=== PATIENT | female | born 1950 | race Caucasian/White ===

== ENCOUNTER 2019-11-22 22:33 | Inpatient (IN) | payer MEDICARE, OTHER, SELFPAY ==
[2019-11-22 22:34] VITALS: BP 131/108; PULSE 119; RESP 18; TEMP 36.6; O2SAT 97; BMI 26.4
--- NOTE | 2019-11-22 22:38 | ED.RN ---
CALLED FOR EKG PER RN REQUEST, PULLED OLD EKGS FOR
[2019-11-22 22:40] VITALS: PULSE 125; RESP 16; O2SAT 96
--- NOTE | 2019-11-22 22:47 | EKG12_ITS ---
Test Reason : DYSRHYTHMIA Blood Pressure : / mmHG Vent. Rate : 134 BPM Atrial Rate : 153 BPM P-R Int : 000 ms QRS Dur : 092 ms QT Int : 292 ms P-R-T Axes : 000 006 026 degrees QTc Int : 436 ms Atrial fibrillation with rapid ventricular response with premature ventricular or aberrantly conducte d complexes Nonspecific ST abnormality Abnormal ECG Confirmed by OMID LAM ([id number]), editor & co founder PHILIP MOURA ([id number]) on 11/24/2019 3:08:35 PM Referred By: RANJITH Confirmed By:OMID LAM
--- NOTE | 2019-11-22 22:48 | RAD_ITS ---
STUDY: X-RAY CHEST REASON FOR EXAM: Female, 68 years old. Palpitations TECHNIQUE: Portable chest. COMPARISON: 07/01/2015. FINDINGS: The lungs are clear and expanded. There is no demonstrated pleural abnormality. Normal size heart. Normal mediastinum and joann. Normal visualized pulmonary arteries. Normal visualized aortic arch and descending thoracic aorta. Mild thoracic spondylosis. Soft tissues are unremarkable. RAD/Chest 1 View (Portable) IMPRESSION: No acute findings. Electronically Signed: Julianne Monroe MD at 23:00 EST Tel , Service support ,
--- NOTE | 2019-11-22 22:48 | ED.DCSUM_ITS ---
History of Present Illness Chief Complaint: Palpitations Informant: Patient Onset: Today Narrative: Resents with palpitations for the last 8 hours. She felt fine prior to this. She feels her heart beating fast and erratically. No history of atrial fibrillation. History of premature atrial contractions but nothing sustained in the past. Does have a history of coronary artery disease status post 1 stent in the LAD remotely. She stated when it came on she had chest discomfort for 30 minutes substernal chest aching that went away after 1 nitroglycerin at that time. She has not had discomfort since then. She denies any other symptoms including shortness of breath nausea or diaphoresis. She came in because of the palpitations currently. Patient does take a daily aspirin. Current severity is moderate. Worsened by nothing. Relieved by nothing. It is been sustained. - Past Medical History (1) Chest pain at rest Status: Acute (2) Coronary artery disease Status: Acute (3) Heart palpitations Status: Acute (4) COPD (chronic obstructive pulmonary disease) Status: Chronic (5) Tobacco abuse Status: Chronic Past Medical History - Allergies and Home Meds Allergies/Adverse Reactions: Allergies No Known Allergies Allergy (Verified 11/22/19 22:38) Primary Care Physician: Khadijah Green MD [Primary Care Provider] - Prior records reviewed: Yes Past Medical History: - - See problem list Surgical History: - - Pilonidal cyst removal, ORIF of left elbow, cardiac stent Lives: With Family Smoking Status: Current every day smoker Alcohol: None Drugs: None - Family History Paternal Family History: Reports: No pertinent history Maternal Family History: Reports: No pertinent history Review of Systems General: Denies: Chills, Fever, Sweats Eyes: Denies: Visual changes - bilaterally, Diplopia ENT: Denies: Rhinorrhea, Sore throat Cardiovascular: Reports: Chest pain, Palpitations, Heart racing Respiratory: Denies: Dyspnea, Cough, Dyspnea on exertion Gastrointestinal: Denies: Abdominal pain, Nausea, Vomiting, Diarrhea, Melena, Hematochezia Genitourinary: Denies: Dysuria, Hematuria, Frequency Musculoskeletal: Denies: Back pain, Extremity Pain Skin: Denies: Rash, Wounds Neurological: Denies: Headache, Weakness, Numbness Physical Exam Vital Signs/Narrative: Vital Signs Temp Pulse Resp BP Pulse Ox 11/22/19 22:40 125 H 16 96 11/22/19 22:34 97.8 F 119 H 18 131/108 H 97 General: Well nourished, Well developed, No Acute Distress Head: Normocephalic, Atraumatic Eyes: Perrl, EOMI ENT: Moist mucous membranes, No rhinorrhea Neck: Supple, Nontender Cardiovascular: No murmurs, Irregular, Tachycardia. Negative for: Regular rate, Regular rhythm Respiratory: No distress, CTA bilaterally, Chest nontender Abdomen: Soft, Nontender, Nondistended, Normal bowel sounds Back: Nontender, Normal Inspection Extremities: Nontender, No edema Skin: Normal color, No rash Neurological: Alert, Oriented x3, Cranial nerves II-XII grossly intact, Normal Strength, Normal Sensation Psychological: Normal affect, Normal Mood Diagnostic/Tx/Re-eval - Medical Decision Making EKG obtained shows atrial fibrillation with rapid ventricular response at a rate of 134. No STEMI noted. Positive PVC x2. Patient given IV Cardizem to slow her rate. Lab work and chest x-ray obtained. Chest x-ray negative. Lab work shows normal CBC. Troponin negative. No acute electrolyte abnormalities. TSH normal. Patient felt better after treatment. Heart rate came down in the 60s to 80s. She remains in A. fib. Discussed with the hospitalist. She will be admitted for further evaluation and treatment - Critical Care Time Critical care time (excluding procedures): 30-74 minutes ED Disposition - Plan for ED Patient: Disposition: Acute Care Hospital [facility] Diagnosis: Atrial fibrillation with rapid ventricular response
[2019-11-22] MEDS: dilTIAZem 25 MG/5 ML Vial 20 MG IV BOLUS (22:57)
[2019-11-22 22:59] LABS: Absolute Lymphocyte Count 2.69 X10^3/uL (0.83-4.51); Absolute Neutrophil Count 4.3 X10^3/uL (2.0-7.7); Basophil# 0.03 X10^3/uL; Basophil% 0.4 % (0-1); Eosinophil# 0.06 X10^3/uL; Eosinophils% 0.8 % (0-5); Hematocrit 43.2 % (37-47); Hemoglobin 14.7 g/dL (12.0-15.0); Lymphocyte # 2.69 X10^3/ul (4.0); Lymphocyte % 35.5 % (19-41); Mean Corpuscular Hgb 35.5 pg (27.0-32.0); Mean Corpuscular Volume 104.3 fL (81-99); Mean Platelet Vol. 9.5 fl (6.2-12.0); Monocyte% 6.6 % (0-10); NRBC Flagged by Analyzer 0 % (0-5); Neutrophil # 4.28 X10^3/uL (2.7-7.7); Neutrophil % 56.4 % (47-70); Platelet Count 187 K/mm3 (150-450); RBC Distribution Width CV 12.8 % (11.6-14.6); RBC Distribution Width SD 48.7 fl (35.1-43.9); Red Blood Count 4.14 M/mm3 (4.2-5.4); White Blood Count 7.6 K/mm3 (4.4-11.0)
[2019-11-22 23:00] VITALS: BP 127/76; PULSE 91; RESP 16; O2SAT 94
[2019-11-22 23:04] LABS: Prothrombin Time (Protime)PT. 13.2 SECONDS (11.7-14.9)
[2019-11-22 23:05] LABS: Partial Thromboplast Time 28.7 Seconds (24.1-36.2)
[2019-11-22 23:23] LABS: Anion Gap 8 (5-15); BUN 16 mg/dL (7-18); BUN/Creat Ratio 17.1 RATIO (10-20); Calcium,Total 9.5 mg/dL (8.5-10.1); Chloride 103 mmol/L (98-107); Creatinine, Serum 0.93 mg/dL (0.55-1.02); EST Glomerular Filtration Rate 64 mL/min (>60); Est Glom Filt Rate - Afr Amer 77 mL/min (>60); Estimated Creatinine Clearance 60.03 ml/min; Glucose 162 mg/dL (74-106); Potassium 3.6 mmol/L (3.5-5.1); Sodium Level 140 mmol/L (136-145); Thyroid Stim Hormone (TSH) 2.18 uIU/mL (0.358-3.74)
[2019-11-22 23:41] VITALS: BP 95/63; PULSE 83; RESP 16; O2SAT 94
--- NOTE | 2019-11-22 23:42 | HP.PCM_ITS ---
Problem List (1) Atrial fibrillation with rapid ventricular response Status: Acute (2) Chest pain at rest Status: Acute (3) Hyperglycemia Status: Acute (4) HTN (hypertension) Status: Chronic Qualifiers: Hypertension type: essential hypertension Qualified Code(s): I10 - Essential (primary) hypertension (5) HLD (hyperlipidemia) Status: Chronic Qualifiers: Hyperlipidemia type: unspecified Qualified Code(s): E78.5 - Hyperlipidemia, unspecified (6) Coronary artery disease Status: Chronic Qualifiers: Coronary Disease-Associated Artery/Lesion type: unspecified vessel or lesion type [place] vs. transplanted heart: unspecified whether false pass or transplanted heart Associated angina: angina presence unspecified Qualified Code(s): I25.10 - Atherosclerotic heart disease of false pass coronary artery without angina pectoris (7) COPD (chronic obstructive pulmonary disease) Status: Chronic Qualifiers: COPD type: unspecified COPD Qualified Code(s): J44.9 - Chronic obstructive pulmonary disease, unspecified (8) Tobacco abuse Status: Chronic History of Present Illness Date of Admission: 11/22/19 Chief Complaint: Palpitations, chest pressure The patient is a 68 y/o F w/ PMHx: CAD s/p PCI LAD, HTN, HLD, Chronic COPD, Tobacco use who presents to the [facility] ED on 11/22/19 with history of onset at ~ 3 pm, ongoing racing heart sensation, palpitations with initial chest pressure, diffuse sensation with self administration NG with resolution completely following but ongoing sensation prompting ED presentation. Noted the chest pressure was midsternal with no specific radiation with dyspnea sensation with no nausea, emesis associated, rated 4-5 out of 10 in severity with onset and patient currently notes 0 out of 10 work-up in the ED included T 97.8, heart rate varying from 90-1 25, BP 131/108 initially with improvement to 127/76, respiratory rate 18, 97% on room air, CBC with WC 7.6, hemoglobin 14.7, platelet 187 without shift, unremarkable coags, unremarkable BMP aside glucose 162, troponin less than 0.015, TSH 2.18, EKG with atrial fibrillation with RVR. In the ED patient ministered Cardizem 20 mg IV bolus x1 with improvement of rate but ongoing atrial fibrillation. Past Medical History Past Medical History (Chronic Problems): Chronic Problems HTN (hypertension) (Chronic) HLD (hyperlipidemia) (Chronic) COPD (chronic obstructive pulmonary disease) (Chronic) Tobacco abuse (Chronic) Coronary artery disease (Chronic) Allergies No Known Allergies Allergy (Verified 11/22/19 22:38) Home Medications: Ambulatory Orders Medication Instructions Recorded Albuterol IH (ProAir) [Proair Hfa] 2 puff INHALATION Q4H PRN PRN 07/01/15 Aspirin E.C. [Ecotrin] 81 mg DAILY 07/01/15 Atorvastatin Calcium [Lipitor] 40 mg PO QHS 07/01/15 Guaifenesin/Codeine [Robitussin AC] 5 - 10 ml PO Q6H PRN PRN 07/01/15 Hydrocodone Bitart/Apap 5-325 1 - 2 tablet PO TID PRN PRN 07/01/15 [[place] 5/325] Nitroglycerin (INPATIENT USE) 0.4 mg SUBLINGUAL Q5M PRN 07/01/15 [Nitrostat] Metoprolol Tartrate [Lopressor 37.5 mg PO BID #45 tablet 07/02/15 (beta jasen)] Lisinopril [Zestril] 1 tab PO DAILY 11/22/19 Surgical History: - - Pilonidal cyst removal, ORIF of left elbow with hardware, PCI LAD x1, left ankle surgery with hardware. 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 Tobacco Use: Cigarettes Alcohol: None, Occasional Drugs: None - Previously listed as using marijuana, notes she has not been for several months. - *Family History Paternal History Items: Unknown - Patient states she does not know her paternal family history. Maternal History Items: - - Patient notes that her mother was relatively healthy and declined following falls with fractures but denies any heart disease, diabetes or cancer history. Review of Systems Constitutional: Reports: Malaise, Weakness, Fatigue. Denies: Chills, Fever, Weight Change HEENT: Denies: Head Aches, Sinus Congestion, Sinus Drainage Cardiovascular: Reports: Chest Pain, Chest Pressure, Palpitations. Denies: Light Headedness, Orthopnea, Paroxysmal Noc. Dyspnea, Syncope Respiratory: Reports: Shortness of Breath. Denies: Cough, Shortness of breath at rest, Shortness of breath upon exertion, Sputum production Gastrointestinal: Denies: Abdominal Pain, Nausea, Vomiting Genitourinary: Denies: Dysuria Musculoskeletal: Reports: Joint Pain. Denies: Joint Tenderness Skin: Denies: Rash, Wounds Neurological: Denies: Numbness, Tingling, Focal weakness Psychiatric: Denies: Anxiety, Depression, Homicidal Ideations, Suicidal Ideations Hematologic/ Lymphatic: Denies: Easy Bruising, Easy Bleeding VTE Information - Inpt Only VTE Present on Admission: No VTE Mechan Device Prophylaxis: SCD's VTE Pharm Prophylaxis ordered?: Yes Subjective: Seated upright in the ED bed, fatigued appearance, no acute distress, denies any current chest pressure. Objective: Physical Examination: General: awake, alert, oriented x 3 and cooperative, seated upright in the ED bed in no apparent distress, denies any current chest pressure. Skin: normal color, turgor, no icterus, cyanosis. HEENT: AT/NC, EOMI, PERRLA, MMM, no carotid bruits or JVD noted. Lungs: Diminished breath sounds, greater bilateral bases, moderate effort, no rales, ronchi or wheezing. Heart: Irregular irregular; no gallop, rub audible. Abdomen: soft, NTTP, ND, normal BS, no HSM. Extremities: no cyanosis, clubbing, or edema. Neurological: patient awake, alert, oriented x 3; cognitive function intact; pupils equally reactive to light and accomodation; cranial nerves II-XII grossly normal, moving all 4 extremities, no focal deficits, strength moderately global decrease secondary to acute presentation. Psychiatric: affect appears fatigued otherwise normal, no acute evidence of depressive or anxiety feelings. - Physical Exam Vitals/I&O's: Vital Signs Temp Pulse Resp BP Pulse Ox 97.8 F 83 16 95/63 94 11/22/19 22:34 11/22/19 23:41 11/22/19 23:41 11/22/19 23:41 11/22/19 23:41 Oxygen Delivery Method Room Air Weight: 173 lb 8.061 oz Body Mass Index (BMI) 26.4 Laboratory Results 11/22/19 22:42: WBC 7.6, RBC 4.14 L, Hgb 14.7, Hct 43.2, MCV 104.3 H, MCH 35.5 H , MCHC 34.0, RDW Std Deviation 48.7 H, RDW Coeff of Jose L 12.8, Plt Count 187, MPV 9.5, Immature Gran % (Auto) 0.300, Neut % (Auto) 56.4, Lymph % (Auto) 35.5, [place] % (Auto) 6.6, Eos % (Auto) 0.8, Baso % (Auto) 0.4, Absolute Neuts (auto) 4.3, Absolute Lymphs (auto) 2.69, Nucleated RBC % 0 11/22/19 22:42: PT 13.2, INR 1.0, APTT 28.7 11/22/19 22:42: Sodium 140, Potassium 3.6, Chloride 103, Carbon Dioxide 29.0, Anion Gap 8, BUN 16, Creatinine 0.93, Estim Creat Clear Calc 60.03, Est GFR (MDRD) Af Amer 77, Est GFR (MDRD) Non-Af 64, BUN/Creatinine Ratio 17.1, Glucose 162 H, Calcium 9.5, Troponin I < 0.015, TSH 2.18 Assessment/Plan All Active Problems Atrial fibrillation with rapid ventricular response (Acute) Hyperglycemia (Acute) Chest pain at rest (Acute) Heart palpitations (Acute) The patient is a 68 y/o F w/ PMHx: CAD s/p PCI LAD, HTN, HLD, Chronic COPD, Tobacco use who presents to the [facility] ED on 11/22/19 with history of onset at ~ 3 pm, ongoing racing heart sensation, palpitations with initial chest pressure, diffuse sensation with self administration NG with resolution completely following. 1. New onset, Paroxsymal atrial fibrillation with chest pressure: EKG in ED w/ atrial fibrillation w/ RVR. Patient administered Cardizem bolus 20 mg IV x1 in ED. Will admit to PCU, maintain on telemetry, obtain cardiac enzyme serial set, obtain magnesium level, obtain ECHO, ED already noted normal TSH level. CHADs scoring appropriate for anticoagulation start at this time w/ lovenox pending evaluation for oral options as well as cardiology evaluation. Will continue patient's home metoprolol regimen with dose now but if ongoing increased rate may need to consider transition to Cardizem drip. 2. Hyperglycemia, admission glucose 162, will obtain hemoglobin A1c with transition to ADA diet with Accu-Cheks with sliding scale with nutrition education if clinically appropriate. 3. CAD: s/p PCI LAD, continue home aspirin, statin, metoprolol with increase as noted, lisinopril regimen. 4. Hypertension: Continue home regimen including metoprolol however increased from home regimen, lisinopril, PRN hydralazine. 5. Hyperlipidemia: Continue home statin regimen. AM FLP. 6. Chronic COPD: Not on scheduled inhalers, given acute presentation as noted in #1 we will maintain on as needed albuterol only, encourage head of bed, I-S, tobacco cessation. 7. Tobacco Abuse: Encouraged cessation, inpatient consultation per RT, NR if desired. 8. DVT prophylaxis: SCDs, therapeutic Lovenox pending evaluation of oral regim ens for cost. Code Visit Inpatient E&M: [id number] Init Hosp L3
[2019-11-22 23:56] VITALS: BP 111/66; PULSE 75; RESP 18; O2SAT 94
[2019-11-23] VITALS (15 sets, daily range): BP systolic 120–139; BP diastolic 60–82; PULSE 72–96; RESP 16–26; TEMP 36.9–37.1; O2SAT 91–97; BMI 25.7
--- NOTE | 2019-11-23 00:15 | ECHOD_ITS ---
Reason For Study: NEW ONSET ATRIAL FIB-FLUTTER Procedure This was a 2D Doppler, Color Flow transthoracic echocardiogram. Exam performed portable in patient room. Left Ventricle Normal size and thickness. The estimated ejection fraction is 65 %. Stage 1 diastolic dysfunction. No regional wall motion abnormalities noted. Right Ventricle Normal size and thickness. Normal systolic function. Atria Normal left atrium. Normal right atrium. Normal atrial septum. Mitral Valve The mitral valve is structurally normal. No prolapse or stenosis seen. Tricuspid Valve Normal tricuspid valve. Unable to estimate RV systolic pressure due to insufficient tricuspid regurgitant envelope. Aortic Valve Normal aortic valve. Trisinus/trileaflet aortic valve. Pulmonic Valve Normal pulmonic valve. Trivial pulmonic valve insufficiency. Great Vessels Normal aortic root. Mild atherosclerosis of the aortic arch. Normal inferior vena cava. Inferior vena cava collapse with sniff. Pericardium/Pleural No pericardial effusion. MMode/2D Measurements & Calculations LVIDd: 4.6 cm IVSd: 0.82 cm Ao root diam: 3.1 cm LVIDs: 3.1 cm LVPWd: 0.95 cm RVDd: 2.9 cm FS: 31.8 % LAV(MOD-bp): 45.6 ml LVAd ap4: 28.0 cm2 SV(MOD-sp4): 58.7 ml LAV(MOD-bp) Indexed: 24.0 ml/m2 EDV(MOD-sp4): 89.7 ml LAV(MOD-sp2): 59.5 ml EDV(sp4-el): 93.6 ml LAV(MOD-sp4): 34.2 ml LVAs ap4: 14.7 cm2 ESV(MOD-sp4): 30.9 ml ESV(sp4-el): 31.3 ml EF(MOD-sp4): 65.5 % EF(sp4-el): 66.6 % SV(sp4-el): 62.3 ml LA A4 area: 14.1 cm2 LA dimension(2D): 3.5 cm RA A4 area: 13.9 cm2 Time Measurements MV dec time: 0.25 sec Doppler Measurements & Calculations MV E max len: 72.9 cm/sec Lat Peak E' Len: 9.1 cm/sec Med Peak E' Len: 8.2 cm/sec MV A max len: 92.3 cm/sec E/E' lat: 8.1 E/E' med: 8.9 MV E/A: 0.79 Ao V2 max: 124.3 cm/sec LV V1 max: 113.9 cm/sec PA V2 max: 92.2 cm/sec Ao max P.2 mmHg LV V1 max P.2 mmHg Interpretation Summary The estimated ejection fraction is 65 %. Stage 1 diastolic dysfunction. Unable to estimate RV systolic pressure due to insufficient tricuspid regurgitant envelope. Pt appears to be in NSR. Ordering Physician: Luzma Brothers Referring Physician: STEVIE DUMAS Performed By: Gail Garibay RDCS
[2019-11-23] MEDS: Enoxaparin 80 MG/0.8 ML Syringe SC ×2 (00:38→08:31)
[2019-11-23 00:43] LABS: Magnesium 1.4 mg/dL (1.6-2.6)
[2019-11-23 00:58] LABS: Hemoglobin A1c 5.5 % (4.2-6.3)
[2019-11-23 05:08] LABS: Absolute Lymphocyte Count 2.08 X10^3/uL (0.83-4.51); Absolute Neutrophil Count 2.6 X10^3/uL (2.0-7.7); Basophil# 0.02 X10^3/uL; Basophil% 0.4 % (0-1); Eosinophil# 0.09 X10^3/uL; Eosinophils% 1.7 % (0-5); Hematocrit 36.5 % (37-47); Hemoglobin 12.2 g/dL (12.0-15.0); Lymphocyte # 2.08 X10^3/ul (4.0); Lymphocyte % 39.3 % (19-41); Mean Corp Hgb Conc 33.4 g/dL (32-36); Mean Corpuscular Hgb 34.6 pg (27.0-32.0); Mean Corpuscular Volume 103.4 fL (81-99); Mean Platelet Vol. 9.4 fl (6.2-12.0); Monocyte# 0.51 X10^3/uL; Monocyte% 9.6 % (0-10); NRBC Flagged by Analyzer 0 % (0-5); Neutrophil # 2.59 X10^3/uL (2.7-7.7); Platelet Count 139 K/mm3 (150-450); RBC Distribution Width SD 49.3 fl (35.1-43.9); Red Blood Count 3.53 M/mm3 (4.2-5.4); White Blood Count 5.3 K/mm3 (4.4-11.0)
[2019-11-23 05:37] LABS: Anion Gap 6 (5-15); BUN 13 mg/dL (7-18); BUN/Creat Ratio 22.5 RATIO (10-20); Calcium,Total 8.7 mg/dL (8.5-10.1); Chloride 104 mmol/L (98-107); Cholesterol 153 mg/dL (200); Creatinine, Serum 0.58 mg/dL (0.55-1.02); EST Glomerular Filtration Rate 111 mL/min (>60); Est Glom Filt Rate - Afr Amer 134 mL/min (>60); Estimated Creatinine Clearance 55.82 ml/min; Glucose 100 mg/dL (74-106); High Density Lipoprotein 52 mg/dL; Potassium 3.2 mmol/L (3.5-5.1); Sodium Level 138 mmol/L (136-145); Triglycerides 226 mg/dL; Very Low Density Lipoprotein 45 mg/dL (5-40)
--- NOTE | 2019-11-23 05:55 | EKG12_ITS ---
Test Reason : AM Blood Pressure : / mmHG Vent. Rate : 079 BPM Atrial Rate : 079 BPM P-R Int : 160 ms QRS Dur : 090 ms QT Int : 410 ms P-R-T Axes : 020 -06 006 degrees QTc Int : 470 ms Normal sinus rhythm Normal ECG When compared with ECG of 02-JUL-2015 16:11, No significant change was found Confirmed by OMID LAM ([id number]), editor index EVANGELINA ENRIQUE ([id number]) on 11/25/2019 1:31:59 PM Referred By: SUNSHINE Confirmed By:OMID LAM
[2019-11-23] MEDS: Lisinopril 2.5 MG Tablet PO (08:30)
[2019-11-23] MEDS: Aspirin E.C. 81 MG Tablet PO (08:30)
[2019-11-23] MEDS: Famotidine 20 MG Tablet PO (08:30)
[2019-11-23] MEDS: Metoprolol Tartrate 100 MG Tablet PO (08:30)
[2019-11-23 10:34] LABS: Phosphorus 2.6 mg/dL (2.5-4.9)
--- NOTE | 2019-11-23 10:35 | CASEMGMT ---
RN ZANDRA ADVISOR TO COMMAND IN COMBAT CM to room to meet with patient for initial transition planning/care coordination assessment. JODI DE PAZ introduced self and role at [facility]. Pt voices understanding and consents to assessment at this time. Pt resting in bed in no distress at this time. Pt is A/O at this time and answers all questions appropriately. Care providers, pharmacy, and demographics verified/updated at this time. PCP: Dr Green Specialists: None Preferred Pharmacy: [facility] Insurance: MCR A & B, Other Commercial Prescription Benefit: [facility] has prescription benefit but changed it in 2020 and does not remember who she changed it to and has not received a new RX card yet Living Will/HPOA: [facility] does not have LW or HCPOA . Interested in more information but states does not want to talk with SW at this time to complete paperwork. Provided information on advanced directives and given Social Service rac card with number to call if chooses in the future to utilize [facility] social work for advanced directive completion. LNOK: , 4 adult children Living Arrangements: Lives with her . Independent Transportation: Pt states drives self and states no transportation concerns at this time. will take her home @ discharge DME: Denies using any DME and denies needs. HHC/SNF: No history of either Pt wishes to return home and states has no concerns with going home at time of discharge. CM to follow for any discharge planning/needs. Pt voices no further concerns/needs at this time. Advised pt to ask for CM if any further questions/concerns/needs arise. Voices understanding. PLAN: Home Javi GALO RN, CM
[2019-11-23] MEDS: Magnesium Sulfate 4gm/100mL 4 GM/100 ML IV.SOLN. IV (12:08)
--- NOTE | 2019-11-23 14:34 | DCINST_ITS ---
- Discharge Diagnoses Current Active Problems: Current Active and Chronic Problems Atrial fibrillation with rapid ventricular response (Acute) You will use the following diet at home:: Cardiac Your food should be the consistency of: Regular Your liquids should be the consistency of: Regular/Thin Discharge Activity: Return to Normal Activity Call your doctor if you observe: Fever of 101 or Higher, Shortness of breath, Dizziness, Fainting spells, Swelling in the ankles, Chest pain, Increased palpitations (irregular heartbeat) Allergies/Adverse Reactions: Allergies No Known Allergies Allergy (Verified 11/22/19 22:38) Medications to take at Discharge Albuterol IH (ProAir) [Proair Hfa] 2 puff INHALATION Q4H PRN PRN 07/01/15 Aspirin E.C. [Ecotrin] 81 mg DAILY 07/01/15 Atorvastatin Calcium [Lipitor] 40 mg PO QHS 07/01/15 Guaifenesin/Codeine [Robitussin AC] 5 - 10 ml PO Q6H PRN PRN 07/01/15 Hydrocodone Bitart/Apap 5-325 [[place] 5/325] 1 - 2 tablet PO TID PRN PRN 07/01/15 Nitroglycerin (INPATIENT USE) [Nitrostat] 0.4 mg SUBLINGUAL Q5M PRN 07/01/15 Metoprolol Tartrate [Lopressor (beta jasen)] 37.5 mg PO BID #45 tablet 07/02/15 Lisinopril [Zestril] 1 tab PO DAILY 11/22/19 Apixaban [Eliquis] 5 mg PO BID #60 tab 11/23/19 Metoprolol Tartrate [Lopressor (beta jasen)] 100 mg PO BID #60 tab 11/23/19 The following prescriptions were given: Apixaban [Eliquis] 5 mg PO BID #60 tab Transmission Status: Pending to [facility] Metoprolol Tartrate [Lopressor (beta jasen)] 100 mg PO BID #60 tab Transmission Status: Pending to [facility] Primary Care Physician: Khadijah Green MD [Primary Care Provider] - Please follow up with your Primary Care Physician in: 3-5 days Test Results: Test results from this visit will be discussed in further detail at your follow- up appointment, if applicable. Please Follow Up With: Vidal Montemayor MD When: 2-4 weeks
--- NOTE | 2019-11-23 14:35 | PCM.DC.SUM ---
Discharge Date and Diagnosis - Problem List Patient Problems: Active and Suspected Problems Atrial fibrillation with rapid ventricular response (Acute) Date of Admission: 11/22/19 Date of Discharge: 11/23/19 - Primary Discharge Diagnosis Active and Suspected Problems Atrial fibrillation with rapid ventricular response (Acute) - Secondary Discharge Diagnosis Chronic Problems HTN (hypertension) (Chronic) HLD (hyperlipidemia) (Chronic) COPD (chronic obstructive pulmonary disease) (Chronic) Tobacco abuse (Chronic) Coronary artery disease (Chronic) Hospital Course and Treatment Imaging Results: Echo: Interpretation Summary The estimated ejection fraction is 65 %. Stage 1 diastolic dysfunction. Unable to estimate RV systolic pressure due to insufficient tricuspid regurgitant envelope. Pt appears to be in NSR. CXR: IMPRESSION: No acute findings. Consults: None Operations: None Procedures: 2-D Echocardiogram Summary of Care Provided: Per HPI: The patient is a 68 y/o F w/ PMHx: CAD s/p PCI LAD, HTN, HLD, Chronic COPD, Tobacco use who presents to the [facility] ED on 11/22/19 with history of onset at ~ 3 pm, ongoing racing heart sensation, palpitations with initial chest pressure, diffuse sensation with self administration NG with resolution completely following but ongoing sensation prompting ED presentation. Noted the chest pressure was midsternal with no specific radiation with dyspnea sensation with no nausea, emesis associated, rated 4-5 out of 10 in severity with onset and patient currently notes 0 out of 10 work-up in the ED included T 97.8, heart rate varying from 90-1 25, BP 131/108 initially with improvement to 127/76, respiratory rate 18, 97% on room air, CBC with WC 7.6, hemoglobin 14.7, platelet 187 without shift, unremarkable coags, unremarkable BMP aside glucose 162, troponin less than 0.015, TSH 2.18, EKG with atrial fibrillation with RVR. In the ED patient ministered Cardizem 20 mg IV bolus x1 with improvement of rate but ongoing atrial fibrillation. Hospital Course: 1. New onset A. fib with RVR/CAD status post stent/HTN/[id number]fe-old female who presented to the hospital with initial chest pressure secondary to palpitations. She did have resolution of her chest pressure initially with nitroglycerin administration. She was given a dose of Cardizem in the ER and her metoprolol was increased from 75 twice daily to 100 twice daily. She did convert to normal normal sinus rhythm in the morning and had complete resolution of her symptoms and the sensation of her palpitations. Her EKG was borderline to my review, she does have a history of COPD, though she is not on any inhalers, and there is a possibility that this is multifocal atrial tachycardia. However given the risk with her age and gender and her history of hypertension, that she she has a chads score consistent with the need for anticoagulation. I will proceed with Eliquis 5 mg p.o. twice daily and have her follow-up with cardiology in 2 to 4 weeks. She did have a normal TSH and an echo which was unremarkable. Since she is also converted to normal sinus she is okay for discharge. I did discuss the plan for discharge with her and she expressed understanding of the risks and benefits of going home. She will continue with all of her home medications including her aspirin, will when she follows up with cardiology did have a discussion on whether or not she needs to discontinue the aspirin. 2. Other medical diagnoses were evaluated and her home medications were continued where appropriate Patient Problems: Active and Suspected Problems Atrial fibrillation with rapid ventricular response (Acute) - Physical Exam Vitals/I&O's: Vital Signs Temp Pulse Resp BP Pulse Ox 98.8 F 79 16 125/70 H 93 11/23/19 14:29 11/23/19 14:29 11/23/19 14:29 11/23/19 14:29 11/23/19 14:29 Oxygen Flow Rate (L/min) 2 Oxygen Delivery Method Room Air Weight: 169 lb 1.513 oz Body Mass Index (BMI) 25.7 Intake and Output for Last 24 Hours 11/21/19 11/22/19 11/23/19 23:59 23:59 23:59 Intake Total 510 / 510 Balance 510 / 510 General: Alert, Oriented x3, Cooperative, No apparent distress HEENT: Atraumatic, PERRLA, EOMI, Normocephalic Oral: Moist Mucosa Neck: Supple, No JVD Lungs: Clear to auscultation, Normal air movement, No rhonchi, No wheeze, No rales Cardiovascular: Regular rate, Regular Rhythm, Normal S1, Normal S2, No murmurs Abdomen: Soft, Non Tender, Non-Distended, No Hepato-splenomegaly Extremities: No edema, Capillary Refill Less than 3 Seconds Skin: No rashes, No breakdown Neurological: Neuro grossly intact, Sensory exam intact to light touch and pain Psych/Mental Status: Normal Affect, Appropriate Laboratory Results 11/22/19 22:42: WBC 7.6, RBC 4.14 L, Hgb 14.7, Hct 43.2, MCV 104.3 H, MCH 35.5 H, MCHC 34.0, RDW Std Deviation 48.7 H, RDW Coeff of Jos El 12.8, Plt Count 187, MPV 9.5, Immature Gran % (Auto) 0.300, Neut % (Auto) 56.4, Lymph % (Auto) 35.5, [place] % (Auto) 6.6, Eos % (Auto) 0.8, Baso % (Auto) 0.4, Absolute Neuts (auto) 4.3, Absolute Lymphs (auto) 2.69, Nucleated RBC % 0 11/22/19 22:42: PT 13.2, INR 1.0, APTT 28.7 11/22/19 22:42: Sodium 140, Potassium 3.6, Chloride 103, Carbon Dioxide 29.0, Anion Gap 8, BUN 16, Creatinine 0.93, Estim Creat Clear Calc 60.03, Est GFR (MDRD) Af Amer 77, Est GFR (MDRD) Non-Af 64, BUN/Creatinine Ratio 17.1, Glucose 162 H, Calcium 9.5, Troponin I < 0.015, TSH 2.18 11/22/19 23:02: Magnesium 1.4 L 11/22/19 23:02: Hemoglobin A1c 5.5 11/23/19 02:09: Troponin I < 0.015 11/23/19 05:00: WBC 5.3, RBC 3.53 L, Hgb 12.2, Hct 36.5 L, MCV 103.4 H, MCH 34.6 H, MCHC 33.4, RDW Std Deviation 49.3 H, RDW Coeff of Jose L 13.0, Plt Count 139 L, MPV 9.4, Immature Gran % (Auto) 0.000, Neut % (Auto) 49.0, Lymph % (Auto) 39.3, [place] % (Auto) 9.6, Eos % (Auto) 1.7, Baso % (Auto) 0.4, Absolute Neuts (auto) 2.6, Absolute Lymphs (auto) 2.08, Nucleated RBC % 0 11/23/19 05:00: Sodium 138, Potassium 3.2 L, Chloride 104, Carbon Dioxide 28.0, Anion Gap 6, BUN 13, Creatinine 0.58, Estim Creat Clear Calc 55.82, Est GFR (MDRD) Af Amer 134, Est GFR (MDRD) Non-Af 111, BUN/Creatinine Ratio 22.5 H, Glucose 100, Calcium 8.7, Troponin I < 0.015, Triglycerides 226 H, Cholesterol 153, LDL Cholesterol 56, VLDL Cholesterol 45 H, HDL Cholesterol 52 11/23/19 05:00: Phosphorus 2.6 Current Medications Acetaminophen (Tylenol) 650 mg PO Q6H PRN PRN PRN Reason: Pain Score 1-10/Temp > 100.7 F Al Hydroxide/Mg Hydroxide (Mylanta Ii) 30 ml PO Q6H PRN PRN PRN Reason: Gastric Burning Albuterol Sulfate (Ventolin Aerosols) 2.5 mg INHALATION Q2H PRN PRN PRN Reason: SOB/Wheezing Aspirin (Ecotrin) 81 mg PO DAILYCM [facility] Last Admin: 11/23/19 08:30 Dose: 81 mg Documented by: Atorvastatin Calcium (Lipitor) 40 mg PO QHS [facility] Enoxaparin Sodium (Lovenox) 80 mg SC Q12 [facility] Last Admin: 11/23/19 08:31 Dose: 80 mg Documented by: Famotidine (Pepcid) 20 mg PO BID [facility] Last Admin: 11/23/19 08:30 Dose: 20 mg Documented by: Glucagon () 1 mg IM .X1 PRN PRN Reason: Hypoglycemia Guaifenesin (Robitussin) 20 ml PO Q4H PRN PRN PRN Reason: COUGH Hydralazine HCl (Apresoline Iv) 10 mg IV Q4H PRN PRN PRN Reason: SBP > 160 Dextrose (Dextrose 10%-Water) 250 mls @ 999 mls/hr IV .Q16M PRN; Protocol PRN Reason: HYPOGLYCEMIA Magnesium Sulfate () 4 gm in 100 mls @ 25 mls/hr IV X1 ONE Stop: 11/23/19 15:00 Last Admin: 11/23/19 12:08 Dose: 25 mls/hr Documented by: Lisinopril (Zestril) 2.5 mg PO DAILY [facility] Last Admin: 11/23/19 08:30 Dose: 2.5 mg Documented by: Magnesium Hydroxide (Milk Of Magnesia) 30 ml PO DAILY PRN PRN PRN Reason: Constipation Melatonin (Melatonin) 3 mg PO QHS PRN PRN PRN Reason: INSOMNIA Metoprolol Tartrate (Lopressor (Beta Jono)) 100 mg PO BID [facility] Last Admin: 11/23/19 08:30 Dose: 100 mg Documented by: Morphine Sulfate () 2 mg IV Q3H PRN PRN PRN Reason: Pain Score 6-10/10 Nitroglycerin (Nitrostat) 0.4 mg SUBLINGUAL Q5M PRN PRN Reason: CARDIAC/CHEST PAIN Ondansetron HCl (Zofran) 4 mg IV Q8H PRN PRN PRN Reason: NAUSEA/VOMITING Oxycodone HCl (Oxyir) 5 mg PO Q4H PRN PRN PRN Reason: Pain Score 4-5/10 Prochlorperazine Edisylate (Compazine Iv) 5 mg IV Q4H PRN PRN PRN Reason: Breakthrough Nausea/Vomiting Psyllium Hydrophilic Mucilloid (Metamucil) 1 packet PO DAILY PRN PRN PRN Reason: Constipation Senna/Docusate Sodium (Senokot-S, [place]-Colace) 2 tablet PO BID PRN PRN PRN Reason: Constipation Sodium Chloride () 10 - 40 ml IV UD PRN PRN Reason: SALINE FLUSH Throat Lozenges (Cepacol Sore Throat Lozenge) 1 lozenge MUCOUS MEM Q2H PRN PRN PRN Reason: SORE THROAT Discharge Activity: Return to Normal Activity Call your doctor if you observe: Fever of 101 or Higher, Shortness of breath, Dizziness, Fainting spells, Swelling in the ankles, Chest pain, Increased palpitations (irregular heartbeat) Home Medications: Medications to take at Discharge Albuterol IH (ProAir) [Proair Hfa] 2 puff INHALATION Q4H PRN PRN 07/01/15 Aspirin E.C. [Ecotrin] 81 mg DAILY 07/01/15 Atorvastatin Calcium [Lipitor] 40 mg PO QHS 07/01/15 Guaifenesin/Codeine [Robitussin AC] 5 - 10 ml PO Q6H PRN PRN 07/01/15 Hydrocodone Bitart/Apap 5-325 [[place] 5/325] 1 - 2 tablet PO TID PRN PRN 07/01/15 Nitroglycerin (INPATIENT USE) [Nitrostat] 0.4 mg SUBLINGUAL Q5M PRN 07/01/15 Metoprolol Tartrate [Lopressor (beta jono)] 37.5 mg PO BID #45 tablet 07/02/15 Lisinopril [Zestril] 1 tab PO DAILY 11/22/19 Apixaban [Eliquis] 5 mg PO BID #60 tab 11/23/19 Metoprolol Tartrate [Lopressor (beta jono)] 100 mg PO BID #60 tab 11/23/19 Following Prescrptions Were Given to Patient: Apixaban [Eliquis] 5 mg PO BID #60 tab Transmission Status: Received by [facility] Metoprolol Tartrate [Lopressor (beta jono)] 100 mg PO BID #60 tab Transmission Status: Received by [facility] Primary Care Physician: Khadijah Green MD [Primary Care Provider] - Please follow up with your Primary Care Physician in: 3-5 days Please Follow Up With: Vidal Montemayor MD When: 2-4 weeks Disposition: Home Minutes spent on discharge:: 35 Patient Condition:: Stable Medical Necessity - Tobacco Use Smoking Status: Current every day smoker Tobacco Use: Cigarettes Meaningful Use Info Meaningful Use Diagnoses (Choose all that apply): None applicable Code Visit Inpatient E&M: 73503 Disch Hosp
--- NOTE | 2019-11-23 14:58 | CASEMGMT ---
Pt to be sent home on Eliquis and med was e-scribed to [facility] pharmacy previously. Per Josee in the pharmacy, pt's co-pay at this time is $460.28 at this time but Eliquis 30 day free trial card was applied already. Pt updated on all at this time. Pt states that [facility] is her preferred pharmacy but that she is fine with [facility] delivering meds to her prior to discharge. Pt advised to discuss cost of Eliquis with Dr. Montemayor at f/u appt, voices understanding. Pt voices no further questions/concerns/needs at this time. Wanda ZAPATA CM
--- NOTE | 2019-11-23 15:12 | PHA.DC.MC ---
Pharmacy Service has performed discharge medication reconciliation and counseling for this patient. 1. APIXABAN 5MG PO BID 2. METOPROLOL TARTRATE 100MG PO BID The patient's discharge medication list was reviewed for discrepancies and discrepancies were resolved. Home Medications Albuterol IH (ProAir) [Proair Hfa] 2 puff INHALATION Q4H PRN PRN 07/01/15 Aspirin E.C. [Ecotrin] 81 mg DAILY 07/01/15 Atorvastatin Calcium [Lipitor] 40 mg PO QHS 07/01/15 Guaifenesin/Codeine [Robitussin AC] 5 - 10 ml PO Q6H PRN PRN 07/01/15 Hydrocodone Bitart/Apap 5-325 [[place] 5/325] 1 - 2 tablet PO TID PRN PRN 07/01/15 Nitroglycerin (INPATIENT USE) [Nitrostat] 0.4 mg SUBLINGUAL Q5M PRN 07/01/15 Metoprolol Tartrate [Lopressor (beta jasen)] 37.5 mg PO BID #45 tablet 07/02/15 Lisinopril [Zestril] 1 tab PO DAILY 11/22/19 Apixaban [Eliquis] 5 mg PO BID #60 tab 11/23/19 Metoprolol Tartrate [Lopressor (beta jasen)] 100 mg PO BID #60 tab 11/23/19 The patient was counseled on the following discharge medications and changes in medications for homegoing were reviewed. The Reason for Use, instructions for use, and potential side effects were reviewed for all new medications. The patient's questions regarding all of their medications were answered. The patient was able to verbally demonstrate an understanding of their discharge medications.
== END 2019-11-23 16:13 | disposition home or self-care (01) | DRG 310 ==
LOC: ED 23:46 → PCU 11-23
PROVIDERS: Admitting Provider Family Medicine; Emergency Provider Emergency Medicine; PCP Internal Medicine; Visit Provider Family Medicine
DX: I48.0 Paroxysmal atrial fibrillation (principal); I25.10 Atherosclerotic heart disease of native coronary artery without angina pectoris; J44.9 Chronic obstructive pulmonary disease, unspecified; I10 Essential (primary) hypertension; E78.5 Hyperlipidemia, unspecified; R73.9 Hyperglycemia, unspecified; F17.210 Nicotine dependence, cigarettes, uncomplicated; Z79.01 Long term (current) use of anticoagulants; Z79.82 Long term (current) use of aspirin; Z79.899 Other long term (current) drug therapy; Z95.5 Presence of coronary angioplasty implant and graft
CPT/HCPCS: 36415; 71045; 80048; 80061; 83036; 83735; 84100; 84443; 84484; 85025; 85610; 85730; 93005; 93306; 99251; 99285; 99406; A4216; G0463

== ENCOUNTER → 2021-09-30 07:06 | Outpatient (CLI) | payer MEDICARE, OTHER, SELFPAY ==
--- NOTE | 2021-09-30 13:54 | STRESSREP ---
Stress Test Report Pharmacologic myocardial perfusion stress test. 70-year-old lady with a history of chest pain. Stress protocol: Resting EKG demonstrates normal sinus rhythm with a rate of 70 bpm normal intervals are noted resting blood pressure is 118/72 mmHg. 0.4 mg of regadenoson was infused per usual protocol followed by rapid intravenous saline flush injection continuous EKG monitoring was performed. The maximum heart rate attained was 101 bpm which was 66% of max impact at heart rate the maximum workload was 1 metabolic equivalent. At rest there were no ST or T wave changes noted to suggest abnormal flow reserve and at peak infusion nonspecific ST changes were noted with did not meet the criteria for abnormal flow reserve. The final blood pressure was 120/74 mmHg. Myocardial perfusion protocol. 12.0 mCi of technetium 99m sestamibi was injected stress. 0.4 mg of regadenoson was infused per usual protocol. At peak infusion 34.3 mCi of technetium 99m sestamibi was injected stress images were obtained stress and rest images were reconstructed and compared in the short axis vertical long and horizontal long axis. Perfusion SPECT analysis: Review of the stress images demonstrate normal uptake of tracer noted in all areas of the myocardium. The resting images similarly demonstrate normal uptake of tracer noted in all areas of the myocardium. No areas of reversibility are noted to suggest ischemia and no previous infarct is noted. Conclusion: Normal pharmacologic myocardial perfusion stress test.
== END ==
PROVIDERS: PCP Internal Medicine; Referring Provider Physician Assistant Medical; Visit Provider Physician Assistant Medical
DX: R07.9 Chest pain, unspecified (principal); I25.10 Atherosclerotic heart disease of native coronary artery without angina pectoris
CPT/HCPCS: 78452; 93017; A9500; A4216; J2785

== ENCOUNTER → 2022-08-26 | Outpatient (CLI) | payer MEDICARE, OTHER, SELFPAY ==
--- NOTE | 2022-08-26 12:32 | CT_ITS ---
STUDY: LOW DOSE CT LUNG CANCER SCREENING REASON FOR EXAM: Female, 71 years old. Lung cancer screening -- and gt; 20 pk yr hx; current smoker; asymptomatic RADIATION DOSAGE (If Supplied By Facility): CTDIvol = ( 2.01 ) mGy, DLP = ( 76.00 ) mGycm TECHNIQUE: No contrast was administered. Low dose technique was utilized (average mAS-38 and kVp 120). 1.25 mm axial source images with a slice interval of 1.25-mm were reconstructed in lung windows. 2.5 mm axial source images with a slice interval of 2.5-mm were reconstructed in lung windows. 5.0 mm axial source images with a slice interval of 5.0-mm were reconstructed in soft tissue windows. COMPARISON: Comparison is made with prior CT scan of the chest dated 07/01/2015. NODULES: No suspicious nodules are seen. Emphysema: Emphysematous changes slightly more prominent at the lung apices. Mild scarring along the posterior medial segment of the right lower lobe. Endobronchial lesion: None Aorta: Atherosclerotic plaque formation of the ascending and thoracic aorta. CORONARY ARTERIES: Coronary artery calcification Heart: Unremarkable Pulmonary artery: Unremarkable Mediastinal nodes: Small benign-appearing mediastinal lymph nodes. Other chest and abdominal findings: Degenerative changes of the dorsal spine. CT/Low Dose CT Lung Screening IMPRESSION: Lung-RADS category 2 - Continue annual screening with LDCT in 12 months. IMPORTANT NOTES FOR USE: ACR Lung-RADS Version 1.1 Assessment Categories Release Date: 2018 Category: Coded 0-4 bases on nodule(s) with highest degree of suspicion. Negative screen is defined as categories 1 and 2; a positive screen is defined as categories 3 and 4. Category 3 and 4A nodules that are unchanged on interval CT should be coded as category 2, and individuals returned to screening in 12 months. Category 4X: Category 3 or 4 nodules with additional imaging findings that increase the suspicion of lung cancer, such as spiculation, GGN that doubles in size in 1 year, enlarged lymph notes, etc. Category Modifiers: S (significant finding unrelated to lung cancer) Electronically Signed: Main López MD at 13:44 EST ,
== END | disposition home or self-care (01) ==
LOC: CT 12:21
PROVIDERS: PCP Internal Medicine; Referring Provider Nurse Practitioner Family; Visit Provider Nurse Practitioner Family
DX: Z12.2 Encounter for screening for malignant neoplasm of respiratory organs (principal); Z87.891 Personal history of nicotine dependence
CPT/HCPCS: 71271

== ENCOUNTER 2023-06-15 07:49 | Emergency (ER) | payer MEDICARE, OTHER, SELFPAY ==
[2023-06-15 07:50] VITALS: BP 159/105; PULSE 90; RESP 14; TEMP 36.2; O2SAT 99; BMI 23.5
--- NOTE | 2023-06-15 08:16 | ED.VIS.LOWEX ---
HPI History of Present Illness Chief Complaint: Lower Extremity Injury Detail of Chief Complaint: Redness, swelling pain left foot Informant: patient Occured/Mechanism Mechanism/Context: Yes blunt trauma Comment: Patient believes she had blunt trauma. She is on anticoagulant, Eliquis, for atrial fibrillation Onset/Context/Timing Onset: Days (7 to 10 days ago) Context: Sudden Onset Timing: Continuous Quality of Pain: Dull Location: Left foot Current Severity: Mild Maximum Severity: Moderate Worsened by: Attempting to wear shoe and weightbearing Relieved by: None thing Associated Symptoms Associated Symptoms: Negative for Parasthesia, Weakness or Loss of Funtion Narrative Narrative: Patient was seen by midlevel at [facility]. X-rays were obtained. Patient was informed x-rays were negative. Patient was placed on prednisone because of swelling. Patient showed picture of what her foot look like. It was predominantly ecchymotic with greenish discoloration and blackish purple discoloration. She denies fever, chills night sweats. She does not have history of diabetes. She is on no immunosuppressive meds. Prior similar symptoms: Yes Recent Illness/Hospitalization: Yes [facility] Medical History Anxiety and depression Atherosclerosis of coronary artery of [place] heart without angina pectoris Atrial fibrillation with rapid ventricular response (11/22/19) COPD (chronic obstructive pulmonary disease) Dysphagia Encounter for screening for malignant neoplasm of lung Essential hypertension HLD (hyperlipidemia) Hyperglycemia IBS (irritable bowel syndrome) PAF (paroxysmal atrial fibrillation) Tobacco abuse Home Medications aspirin 81 mg tablet,delayed release 81 mg DAILY heart health 07/01/15 [History Last Taken Unknown] atorvastatin 40 mg tablet 40 mg PO QHS cholesterol 07/01/15 [History Last Taken Unknown] nitroglycerin 0.4 mg sublingual tablet 0.4 mg sublingual Q5M PRN Chest Pain 07/01/15 [History Last Taken Unknown] apixaban 5 mg tablet 5 mg PO BID #60 tabs 12/16/19 [Rx Last Taken Unknown] metoprolol tartrate 100 mg tablet 100 mg PO BID #60 tabs 12/16/19 [Rx Last Taken Unknown] lisinopril 5 mg tablet 5 mg PO DAILY #30 tabs 06/06/20 [Rx Last Taken Unknown] hydrocodone-acetaminophen 5-325mg 5mg-325mg 1 - 2 tab PO .qid PRN Pain 09/24/21 [History Last Taken Unknown] cholecalciferol (vitamin D3) 25 mcg (1,000 unit) capsule 25 mcg PO DAILY 07/01/22 [History Last Taken Unknown] cyanocobalamin (vitamin B-12) 1,000 mcg capsule 1,000 mcg PO DAILY 07/01/22 [History Last Taken Unknown] doxycycline monohydrate 100 mg capsule 100 mg PO BID #14 CAPSULES 06/15/23 [Rx Last Taken Unknown] Allergy/AdvReac Type Severity Reaction Status Date / Time No Known Allergies Allergy Verified 06/15/23 07:52 Family History Mother CVA (cerebral vascular accident) Surgical History H/O elbow surgery History of ankle surgery History of coronary artery stent placement (11/17/14) History of left heart catheterization (07/02/15) History of open reduction and internal fixation (ORIF) procedure History of surgical removal of pilonidal cyst Social History Smoking Status: Current every day smoker tobacco type: cigarettes alcohol intake: current alcohol intake frequency: 0-2 drinks per day substance use type: does not use caffeine: Yes Type: coffee Number of servings: 2 ROS ROS ED Constitutional Constitutional ED: Denies chills, fever(s), subjective or sweats Musculoskeletal Musculoskeletal: Reports other Details: Left foot pain due to presumed blunt trauma ; Denies arthralgias or myalgias Integumentary Reports other Details: See HPI narrative ; Denies abscess, Abrasions or rash Neurologic Neurologic: Denies paresthesias or weakness Hematologic/Lymphatic Hematologic/Lymphatic: Reports easy bleeding and easy bruising EXAM Physical Exam Const Vital Signs: 06/15/23 07:50 Temperature 97.1 F L Temperature Source Temporal Pulse Rate 90 Respiratory Rate 14 Blood Pressure 159/105 H Blood Pressure Mean 123 Pulse Ox 99 Oxygen Delivery Method Room Air Positive well nourished and well developed General Appearance ED: well developed and NAD HEENT Reports moist mucous membranes normocephalic and atraumatic Eyes PERRL Eyes Narrative: Extract muscles intact. Sclera is anicteric. Neck full ROM Resp normal respiratory effort Cardio regular rate and regular rhythm Extremity Negative for normal to inspection Extremity Narrative: PT pulses palpable. DP pulses not due to swelling. The left foot is erythematous, warm and indurated on the dorsal surface. There is fluctuance there is discoloration of multiple toes. There is no lymphangitis. There is no popliteal lymphadenopathy. Neuro oriented x3, CN's II-XII intact bilaterally, moves all extremities and no sensory deficits noted Sensorium / Orientation: alert Motor Exam: strength 5/5 throughout Psych mental status grossly normal Skin Skin Narrative: Redness and warmth to dorsum left foot with fluctuance. There is also bruising as previously described MDM MDM MDM Narrative Medical decision making narrative: Presumed patient has a hematoma that is infected since she has evidence of cellulitis. Needle aspirate was undertaken. Minimal fluid was obtained. Fluid is dark brown-red in color. Fluid was sent for Gram stain culture. There was insufficient amount of fluid for cell count. Because patient is on prednisone which suppresses her immune system blood work was obtained and specifically CBC and BMP. If there is bacteria noted in the fluid will perform formal incision and drainage otherwise we will treat with antibiotics and have patient hold Eliquis for 48 to 72 hours. We will also have patient discontinue the prednisone. Lab Data Attestation: I reviewed the patient's lab results. Lab results narrative: CBC reveals elevated MCV otherwise unremarkable. Basic metabolic panel reveals slight elevation of glucose and normal CO2 anion gap. Since patient's white count is normal we will treat with doxycycline. Culture is pending. Labs: Laboratory Results - last 24 hr 06/15/23 08:29 WBC 7.0 RBC 3.72 L Hgb 13.5 Hct 39.5 MCV 106.2 H MCH 36.3 H MCHC 34.2 RDW Std Deviation 55.2 H RDW Coeff of Jose L 14.1 Plt Count 163 MPV 9.0 Immature Gran % (Auto) 0.400 Neut % (Auto) 61.1 Lymph % (Auto) 27.5 [place] % (Auto) 10.0 Eos % (Auto) 0.9 Baso % (Auto) 0.1 Absolute Neuts (auto) 4.3 Absolute Lymphs (auto) 1.92 Nucleated RBC % 0 Sodium 137 Potassium 4.0 Chloride 102 Carbon Dioxide 29.0 Anion Gap 6 BUN 16 Creatinine 0.83 Estim Creat Clear Calc 61.33 Est GFR (MDRD) Af Amer 88 Est GFR (MDRD) Non-Af 72 BUN/Creatinine Ratio 19.3 Glucose 109 H Calcium 9.3 Procedures Other Procedures Procedure(s): Needle aspirate. Fluid was sent for Gram stain and culture. Discharge Plan Triage Chief Complaint: Lower Extremity Injury ED Provider: Guillaume Alcantara Dx/Rx/DC Orders Clinical Impression: Cellulitis of foot, left, History of coronary artery stent placement, Essential hypertension, PAF (paroxysmal atrial fibrillation), Hematoma of left foot, Anticoagulant long-term use Instructions: ED Cellulitis Prescriptions: New doxycycline monohydrate 100 mg capsule 100 mg PO BID Qty: 14 0RF No Action lisinopril 5 mg tablet 5 mg PO DAILY Qty: 30 11RF cyanocobalamin (vitamin B-12) 1,000 mcg capsule 1,000 mcg PO DAILY cholecalciferol (vitamin D3) 25 mcg (1,000 unit) capsule 25 mcg PO DAILY aspirin 81 MG tablet 81 mg DAILY Patient Comments: blood thinner/heart health atorvastatin 40 MG tablet 40 mg PO QHS Patient Comments: Cholesterol nitroglycerin 0.4 MG tablet 0.4 mg sublingual Q5M PRN (Reason: Chest Pain) Patient Comments: Chest pain hydrocodone-acetaminophen 5-325 mg tablet 1 - 2 tab PO .qid PRN (Reason: Pain) Patient Comments: Pain apixaban 5 mg tablet 5 mg PO BID Qty: 60 11RF metoprolol tartrate 100 mg tablet 100 mg PO BID Qty: 60 11RF Primary Care Provider: Khadijah Green Referrals: Khadijah Green MD [Primary Care Provider] - Activity Restrictions/Additional Instructions: 1. Discontinue taking prednisone 2. Do not take your next 6 doses of Apixaban 3. Take antibiotics until gone 4. If you have a temperature greater than 100, red streak that is going up your leg return to the emergency department. Otherwise, follow-up with Dr. Green in 3 to 5 days if not better. Disposition Disposition: Home, Self Care
[2023-06-15] MEDS: Doxycycline 100 MG CAPSULE PO (08:19)
[2023-06-15 08:40] LABS: Absolute Lymphocyte Count 1.92 X10^3/uL (0.83-4.51); Absolute Neutrophil Count 4.3 X10^3/uL (2.0-7.7); Basophil# 0.01 X10^3/uL; Basophil% 0.1 % (0-1); Eosinophil# 0.06 X10^3/uL; Eosinophils% 0.9 % (0-5); Hematocrit 39.5 % (37-47); Hemoglobin 13.5 g/dL (12.0-15.0); Lymphocyte # 1.92 X10^3/ul (0.83-4.51); Lymphocyte % 27.5 % (19-41); Mean Corp Hgb Conc 34.2 g/dL (32-36); Mean Corpuscular Hgb 36.3 pg (27.0-32.0); Mean Corpuscular Volume 106.2 fL (81-99); NRBC Flagged by Analyzer 0 % (0-5); Neutrophil # 4.26 X10^3/uL (2.7-7.7); Neutrophil % 61.1 % (47-70); Platelet Count 163 K/mm3 (150-450); RBC Distribution Width CV 14.1 % (11.6-14.6); RBC Distribution Width SD 55.2 fl (35.1-43.9); Red Blood Count 3.72 M/mm3 (4.2-5.4)
[2023-06-15 08:51] LABS: Anion Gap 6 (5-15); BUN 16 mg/dL (7-18); BUN/Creat Ratio 19.3 RATIO (10-20); Calcium,Total 9.3 mg/dL (8.5-10.1); Chloride 102 mmol/L (98-107); Creatinine, Serum 0.83 mg/dL (0.55-1.02); EST Glomerular Filtration Rate 72 mL/min (>60); Est Glom Filt Rate - Afr Amer 88 mL/min (>60); Estimated Creatinine Clearance 61.33 ml/min; Glucose 109 mg/dL (74-106); Sodium Level 137 mmol/L (136-145)
== END 2023-06-15 10:07 | disposition home or self-care (01) ==
PROVIDERS: Emergency Provider Emergency Medicine; PCP Internal Medicine; Visit Provider Emergency Medicine
DX: L03.116 Cellulitis of left lower limb (principal); J44.9 Chronic obstructive pulmonary disease, unspecified; I48.91 Unspecified atrial fibrillation; F17.210 Nicotine dependence, cigarettes, uncomplicated; Z95.5 Presence of coronary angioplasty implant and graft; I25.10 Atherosclerotic heart disease of native coronary artery without angina pectoris; E78.5 Hyperlipidemia, unspecified; I10 Essential (primary) hypertension; Z79.01 Long term (current) use of anticoagulants; S90.32XA Contusion of left foot, initial encounter; X58.XXXA Exposure to other specified factors, initial encounter
CPT/HCPCS: 80048; 85025; 87070; 87075; 87205; 99282

== ENCOUNTER 2023-06-22 16:20 | Inpatient (IN) | payer MEDICARE, OTHER, SELFPAY ==
[2023-06-22 16:21] VITALS: BP 122/86; PULSE 105; RESP 15; TEMP 36.2; O2SAT 96; BMI 24.5
--- NOTE | 2023-06-22 18:40 | RAD_ITS ---
EXAM: XR LEFT FOOT COMPLETE, 3 OR MORE VIEWS CLINICAL INDICATION: infection TECHNIQUE: Frontal, lateral and oblique views of the left foot. COMPARISON: No relevant prior studies available. FINDINGS: BONES/JOINTS: There are degenerative changes with narrowing of the first metatarsophalangeal joint. There are orthopedic plates and screws across an old bimalleolar fracture. No sclerotic or destructive changes observed. SOFT TISSUES: Unremarkable. No soft tissue swelling or gas. No radiopaque foreign body. RAD/Foot min 3 Views IMPRESSION: Mild degenerative changes of the first metatarsophalangeal joint. There are no acute osseous abnormalities. Electronically Signed: Earnest Mckinnon MD at 19:04 EDT ,
[2023-06-22 18:42] LABS: Absolute Lymphocyte Count 1.86 X10^3/uL (0.83-4.51); Absolute Neutrophil Count 4.4 X10^3/uL (2.0-7.7); Basophil# 0.05 X10^3/uL; Basophil% 0.7 % (0-1); Eosinophils% 1.4 % (0-5); Hematocrit 41.5 % (37-47); Hemoglobin 13.7 g/dL (12.0-15.0); Lymphocyte # 1.86 X10^3/ul (0.83-4.51); Lymphocyte % 25.7 % (19-41); Mean Corpuscular Hgb 35.3 pg (27.0-32.0); Mean Platelet Vol. 9.6 fl (6.2-12.0); Monocyte# 0.77 X10^3/uL; Monocyte% 10.6 % (0-10); NRBC Flagged by Analyzer 0 % (0-5); Neutrophil # 4.43 X10^3/uL (2.7-7.7); Platelet Count 191 K/mm3 (150-450); RBC Distribution Width CV 13.5 % (11.6-14.6); RBC Distribution Width SD 53.5 fl (35.1-43.9); Red Blood Count 3.88 M/mm3 (4.2-5.4); White Blood Count 7.3 K/mm3 (4.4-11.0)
--- NOTE | 2023-06-22 18:42 | EX.ED.DYSGE1 ---
HPI History of Present Illness Chief Complaint: Lower Extremity Injury Informant: patient Onset/Context/Timing Onset: Weeks Narrative Narrative: Patient presents secondary to left foot cellulitis. She was seen here in the emergency room on June 15. She states she remembers walking across the grass to one of her grandchildren sporting events. About 15 minutes later she noted a raised white area on her foot in the area has been red since that time. She was seen by podiatry, Dr. Castillo today. He would like to take her for an I&D, but given her comorbidities and the fact that she is on a blood thinner did not want to do it in the office. He has the patient have blood work obtained and given IV doxycycline. He will plan to take her to the operating room tomorrow. He asked that medicine admit the patient. [facility] Medical History Anxiety and depression Atherosclerosis of coronary artery of [place] heart without angina pectoris Atrial fibrillation with rapid ventricular response (11/22/19) COPD (chronic obstructive pulmonary disease) Dysphagia Encounter for screening for malignant neoplasm of lung Essential hypertension HLD (hyperlipidemia) Hyperglycemia IBS (irritable bowel syndrome) PAF (paroxysmal atrial fibrillation) Tobacco abuse Home Medications aspirin 81 mg tablet,delayed release 81 mg PO DAILY heart health 07/01/15 [History Last Taken Unknown] atorvastatin 40 mg tablet 40 mg PO QHS cholesterol 07/01/15 [History Last Taken Unknown] nitroglycerin 0.4 mg sublingual tablet 0.4 mg sublingual Q5M PRN Chest Pain 07/01/15 [History Last Taken Unknown] apixaban 5 mg tablet 5 mg PO BID #60 tabs 12/16/19 [Rx Last Taken Unknown] metoprolol tartrate 100 mg tablet 100 mg PO BID #60 tabs 12/16/19 [Rx Last Taken Unknown] lisinopril 5 mg tablet 5 mg PO DAILY #30 tabs 06/06/20 [Rx Last Taken Unknown] hydrocodone-acetaminophen 5-325mg 5mg-325mg 1 - 2 tab PO .qid PRN Pain 09/24/21 [History Last Taken Unknown] cholecalciferol (vitamin D3) 25 mcg (1,000 unit) capsule 25 mcg PO DAILY 07/01/22 [History Last Taken Unknown] cyanocobalamin (vitamin B-12) 1,000 mcg capsule 1,000 mcg PO DAILY 07/01/22 [History Last Taken Unknown] doxycycline monohydrate 100 mg capsule 100 mg PO BID #14 CAPSULES 06/15/23 [Rx Last Taken Unknown] Allergy/AdvReac Type Severity Reaction Status Date / Time No Known Allergies Allergy Verified 06/22/23 16:23 Family History Mother CVA (cerebral vascular accident) Surgical History H/O elbow surgery History of ankle surgery History of coronary artery stent placement (11/17/14) History of left heart catheterization (07/02/15) History of open reduction and internal fixation (ORIF) procedure History of surgical removal of pilonidal cyst Social History Smoking Status: Current every day smoker tobacco type: cigarettes alcohol intake: current alcohol intake frequency: 0-2 drinks per day substance use type: does not use caffeine: Yes Type: coffee Number of servings: 2 ROS ROS ED Constitutional Constitutional ED: Denies chills or fever(s) Eyes Eyes: Denies change in vision or discharge from eye(s) ENT ENT ED: Denies discharge from eye(s), rhinorrhea or sore throat Cardiovascular Cardiovascular: Denies chest pain or palpitations Respiratory/Chest Respiratory/Chest: Denies cough or dyspnea Gastrointestinal Gastrointestinal: Denies abdominal pain, nausea or vomiting Genitourinary Genitourinary ED: Denies dysuria Musculoskeletal Musculoskeletal: Reports extremity pain; Denies back pain Integumentary Reports rash; Denies Abrasions Neurologic Neurologic: Denies headache(s) or weakness Allergic/Immunologic Allergic/Immunologic ED: Denies lip swelling or urticaria EXAM Physical Exam Const Vital Signs: 06/22/23 16:21 Temperature 97.2 F L Temperature Source Temporal Pulse Rate 105 H Respiratory Rate 15 Blood Pressure 122/86 H Blood Pressure Mean 98 Pulse Ox 96 Oxygen Delivery Method Room Air Positive well nourished and well developed General Appearance ED: well developed HEENT Reports moist mucous membranes Eyes EOMs intact bilaterally Chest Wall inspection of chest normal and palpation of chest normal Resp normal respiratory effort and clear to auscultation bilaterally Cardio regular rate and regular rhythm GI normal to inspection, nondistended, normoactive bowel sounds Extremity Extremity Narrative: Mild edema to the left foot. Erythema over the third, fourth, and fifth metatarsals. 4 scabbed lesions noted in this area. She also has significant ecchymosis on the medial side of her foot. No crepitus. Strong distal pulses. Neuro oriented x3 Psych mental status grossly normal MDM MDM MDM Narrative Medical decision making narrative: IV line established. Labwork obtained to evaluate for leukocytosis, anemia, and electrolyte derangement. X-ray of the left foot obtained to evaluate for any subcutaneous air. IV doxycycline ordered. History & Record Review Discussion w/independent historian: Patient and Other Additional record(s) reviewed:: Prior outpatient record and Prior ED visit Lab Data Attestation: I reviewed the patient's lab results. Labs: Laboratory Results - last 24 hr 06/22/23 18:30 WBC 7.3 RBC 3.88 L Hgb 13.7 Hct 41.5 MCV 107.0 H MCH 35.3 H MCHC 33.0 RDW Std Deviation 53.5 H RDW Coeff of Jose L 13.5 Plt Count 191 MPV 9.6 Immature Gran % (Auto) 0.600 Neut % (Auto) 61.0 Lymph % (Auto) 25.7 [place] % (Auto) 10.6 H Eos % (Auto) 1.4 Baso % (Auto) 0.7 Absolute Neuts (auto) 4.4 Absolute Lymphs (auto) 1.86 Nucleated RBC % 0 PT 14.1 INR 1.1 APTT 31.9 Sodium 135 L Potassium 4.3 Chloride 102 Carbon Dioxide 24.0 Anion Gap 9 BUN 24 H Creatinine 1.02 Estim Creat Clear Calc 49.91 Est GFR (MDRD) Af Amer 69 Est GFR (MDRD) Non-Af 57 L BUN/Creatinine Ratio 23.5 H Glucose 105 Calcium 10.7 H Radiography Diagnostic Testing: Clinical Impression(s) from Imaging Studies Foot X-Ray 06/22/23 18:40 IMPRESSION: Mild degenerative changes of the first metatarsophalangeal joint. There are no acute osseous abnormalities. Electronically Signed: Earnest Mckinnon MD at 19:04 EDT , Treatment and Re-Evaluation :: CBC was normal white count at 7.3 with normal differential. Hemoglobin is 13.7. Coags unremarkable. Chemistry studies reveal a sodium of 135. Glucose is 105. Left foot x-rays per my interpretation reveal no acute findings and no evidence of subcutaneous air. Radiology interpretation is reviewed. Patient has been given a dose of IV doxycycline per discussion with Dr. Spivey. I will speak with hospitalist regarding admission. Patient will be n.p.o. after midnight for anticipated surgery tomorrow. Discharge Plan Triage Chief Complaint: Lower Extremity Injury ED Provider: Marisa Draper Dx/Rx/DC Orders Clinical Impression: Hematoma of left foot, Cellulitis of left foot Prescriptions: No Action lisinopril 5 mg tablet 5 mg PO DAILY Qty: 30 11RF cyanocobalamin (vitamin B-12) 1,000 mcg capsule 1,000 mcg PO DAILY cholecalciferol (vitamin D3) 25 mcg (1,000 unit) capsule 25 mcg PO DAILY aspirin 81 MG tablet 81 mg PO DAILY Patient Comments: blood thinner/heart health atorvastatin 40 MG tablet 40 mg PO QHS Patient Comments: Cholesterol nitroglycerin 0.4 MG tablet 0.4 mg sublingual Q5M PRN (Reason: Chest Pain) Patient Comments: Chest pain hydrocodone-acetaminophen 5-325 mg tablet 1 - 2 tab PO .qid PRN (Reason: Pain) Patient Comments: Pain doxycycline monohydrate 100 mg capsule 100 mg PO BID Qty: 14 0RF apixaban 5 mg tablet 5 mg PO BID Qty: 60 11RF metoprolol tartrate 100 mg tablet 100 mg PO BID Qty: 60 11RF Primary Care Provider: Khadijah Green Referrals: Khadijah Green MD [Primary Care Provider] - Disposition Disposition: Acute Care Hospital [facility]
[2023-06-22 18:49] LABS: International Normalized Ratio 1.1; Prothrombin Time (Protime)PT. 14.1 SECONDS (11.7-14.9)
[2023-06-22 18:50] LABS: Partial Thromboplast Time 31.9 Seconds (24.1-36.2)
[2023-06-22 18:56] LABS: Anion Gap 9 (5-15); BUN 24 mg/dL (7-18); BUN/Creat Ratio 23.5 RATIO (10-20); Calcium,Total 10.7 mg/dL (8.5-10.1); Chloride 102 mmol/L (98-107); Creatinine, Serum 1.02 mg/dL (0.55-1.02); EST Glomerular Filtration Rate 57 mL/min (>60); Est Glom Filt Rate - Afr Amer 69 mL/min (>60); Estimated Creatinine Clearance 49.91 ml/min; Glucose 105 mg/dL (74-106); Potassium 4.3 mmol/L (3.5-5.1); Sodium Level 135 mmol/L (136-145)
[2023-06-22] MEDS: Doxycycline 100 MG in Dextrose 5%-Water (250mL Bag) 250 ML 250 MG IV (19:23)
[2023-06-22 19:44] VITALS: BP 119/73; PULSE 98; RESP 18; TEMP 36.3; O2SAT 99
--- NOTE | 2023-06-22 19:50 | PCM.HP.STD ---
HPI - General General Date of Admission: 06/22/23 Date of Service: 06/22/23 Chief Complaint: Right foot swelling HPI Narrative MIRIAM JIMÉNEZ, is a 72 F with a significant history of A-fib on Eliquis; and diabetes mellitus who presents to the emergency department with 18-day history of left foot swelling. Patient's symptom has been going on for 18-days. She went to her granddaughter's volleyball game. She entered the gymnasium for the game after walking a little bit. Upon the gymnasium she noticed pain and later what appeared to be swelling of the vein or nerve in her left foot. She reports that at baseline she had some neuropathic pain from her left foot but her current pain was and is above her baseline. Her symptoms progressed with erythema. Patient went to see orthopedic doctor. She was put on conservative therapy of ice and elevation as well as wrapping of her left foot. X-ray was unremarkable. On 2022 patient came to the emergency department. She was started on antibiotics. Orthopedic surgeon later referred patient to [facility]. The ankle and foot doctor, Dr. Spivey referred patient to emergency department for possible admission and draining of her left foot. Patient denies chills or fever [facility] Medical History Anxiety and depression Atherosclerosis of coronary artery of [place] heart without angina pectoris Atrial fibrillation with rapid ventricular response (11/22/19) COPD (chronic obstructive pulmonary disease) Dysphagia Encounter for screening for malignant neoplasm of lung Essential hypertension HLD (hyperlipidemia) Hyperglycemia IBS (irritable bowel syndrome) PAF (paroxysmal atrial fibrillation) Tobacco abuse Home Medications aspirin 81 mg tablet,delayed release 81 mg PO DAILY heart health 07/01/15 [History Last Taken 06/22/23 07:30 81 mg] atorvastatin 40 mg tablet 40 mg PO QHS cholesterol 07/01/15 [History Last Taken 06/21/23 19:30 40 mg] nitroglycerin 0.4 mg sublingual tablet 0.4 mg sublingual Q5M PRN Chest Pain 07/01/15 [History Last Taken Unknown] apixaban 5 mg tablet 5 mg PO BID #60 tabs 12/16/19 [Rx Last Taken 06/22/23 07:30 5 mg] metoprolol tartrate 100 mg tablet 100 mg PO BID #60 tabs 12/16/19 [Rx Last Taken 06/22/23 07:30 100 mg] lisinopril 5 mg tablet 5 mg PO DAILY #30 tabs 06/06/20 [Rx Last Taken 06/22/23 07:30] hydrocodone-acetaminophen 5-325mg 5mg-325mg 1 - 2 tab PO .qid PRN Pain 09/24/21 [History Last Taken 06/22/23 16:30 1 TAB] cholecalciferol (vitamin D3) 25 mcg (1,000 unit) capsule 25 mcg PO DAILY 07/01/22 [History Last Taken 06/21/23 19:30 25 mcg] cyanocobalamin (vitamin B-12) 1,000 mcg capsule 1,000 mcg PO DAILY 07/01/22 [History Last Taken 06/21/23 19:30 1,000 mcg] doxycycline monohydrate 100 mg capsule 100 mg PO BID #14 CAPSULES 06/15/23 [Rx Last Taken 06/22/23 07:30 100 mg] Allergy/AdvReac Type Severity Reaction Status Date / Time No Known Allergies Allergy Verified 06/22/23 16:23 Family History Mother CVA (cerebral vascular accident) Surgical History H/O elbow surgery History of ankle surgery History of coronary artery stent placement (11/17/14) History of left heart catheterization (07/02/15) History of open reduction and internal fixation (ORIF) procedure History of surgical removal of pilonidal cyst Social History Smoking Status: Current every day smoker tobacco type: cigarettes alcohol intake: current alcohol intake frequency: 0-2 drinks per day substance use type: does not use caffeine: Yes Type: coffee Number of servings: 2 ROS ROS Narrative Pertinent positives and pertinent negatives as noted in HPI. All other systems were reviewed and are negative Vital Signs Vital Signs Vital Signs: 06/22/23 16:21 06/22/23 19:44 Temperature 97.2 F L 97.4 F L Temperature Source Temporal Temporal Pulse Rate 105 H 98 Respiratory Rate 15 18 Blood Pressure 122/86 H 119/73 Blood Pressure Mean 98 88 Pulse Ox 96 99 Oxygen Delivery Method Room Air Weight Weight: 71 kg Body Mass Index (BMI) 24.5 Physical Exam Narrative Physical exam: General: Well-nourished, well-developed. Head: Normocephalic, atraumatic, no tenderness Eyes: Vision is grossly intact. EOMI ENT, no trauma, moist mucous membranes, no rhinorrhea Neck: Nontender, No thyromegaly. CVS: Regular rate and rhythm. S1-S2 present. No murmur, gallop or rub. Respiratory : clear to auscultation bilaterally, chest wall nontender Abdomen: Soft, nontender, nondistended, normal bowel sounds, no masses : Deferred Back: Nontender, no CVA tenderness. Extremities: Dorsum of left foot with erythema. Swelling of left foot. Tenderness of left foot. Right foot with no swelling, no erythema. Skin: Normal color, no trauma, abrasions Neuro: Alert, oriented, cranial nerves II through XII grossly intact. Psychiatry: Normal mood. Normal affect. Not depressed. Not anxious. Results Lab / Micro Data 06/22/23 18:30 06/22/23 18:30 Labs: Laboratory Results - last 24 hr 06/22/23 18:30: WBC 7.3, RBC 3.88 L, Hgb 13.7, Hct 41.5, MCV 107.0 H, MCH 35.3 H, MCHC 33.0, RDW Std Deviation 53.5 H, RDW Coeff of Jose L 13.5, Plt Count 191, MPV 9.6, Immature Gran % (Auto) 0.600, Neut % (Auto) 61.0, Lymph % (Auto) 25.7, [place] % (Auto) 10.6 H, Eos % (Auto) 1.4, Baso % (Auto) 0.7, Absolute Neuts (auto) 4.4, Absolute Lymphs (auto) 1.86, Nucleated RBC % 0, PT 14.1, INR 1.1, APTT 31.9, Sodium 135 L, Potassium 4.3, Chloride 102, Carbon Dioxide 24.0, Anion Gap 9, BUN 24 H, Creatinine 1.02, Estim Creat Clear Calc 49.91, Est GFR (MDRD) Af Amer 69, Est GFR (MDRD) Non-Af 57 L, BUN/Creatinine Ratio 23.5 H, Glucose 105, Calcium 10.7 H Radiology Impression Foot X-Ray 06/22/23 18:40 IMPRESSION: Mild degenerative changes of the first metatarsophalangeal joint. There are no acute osseous abnormalities. Electronically Signed: Earnest Mckinnon MD at 19:04 EDT , Assessment & Plan Assessment/Plan (1) Cellulitis of left foot: (2) Hematoma of left foot: (3) Infected hematoma: PLAN: Plan Infected hematoma of left foot/cellulitis of left foot CBC reviewed showed normal white counts. Trend. Impression of foot x-ray by radiology: Mild degenerative changes of the first metatarsophalangeal joint. There are no acute osseous abnormalities. Foot x-ray was independently interpreted and I agree with radiology interpretation. Per podiatry recommendation will continue on Doxycycline which patient was taking p.o. and received IV at the ED. Right second IV ordered. White counts is unremarkable. Trend CBC. We will keep n.p.o. for midnight. Hold home Eliquis and aspirin. History of proximal A-fib Stable Hold Eliquis. Metoprolol continued. History of hypertension Blood pressure is stable with metoprolol and lisinopril. Trend. Metoprolol lisinopril continued Time spent in the patient's overall evaluation,decision-making process, review of diagnostic data, adjustment of management, discussion with other providers, nursing nursing and ancillary staff involved in patient's care documentation, 65 minutes. Charges/Coding Visit Charges Inpatient E&M: 05470 Init Hosp L3
[2023-06-22 21:26] VITALS: BP 115/77; PULSE 90; RESP 18; TEMP 36.6; O2SAT 98
[2023-06-22 21:30] VITALS: BP 115/77; PULSE 90; RESP 16; TEMP 36.6; O2SAT 98
[2023-06-22 21:31] VITALS: BMI 24.3
[2023-06-22] MEDS: 0.9% Normal Saline (1000mL) 1,000 ML 75 ML IV (22:03)
[2023-06-22 22:27] VITALS: PULSE 90
[2023-06-22] MEDS: MELATONIN 3 MG TABLET PO (22:27)
[2023-06-22] MEDS: Metoprolol Tartrate 100 MG Tablet PO (22:27)
[2023-06-22] MEDS: Atorvastatin Calcium 40 MG Tablet PO (22:27)
[2023-06-23] VITALS (14 sets, daily range): BP systolic 92–141; BP diastolic 56–79; PULSE 66–79; RESP 14–18; TEMP 36.6–37.2; O2SAT 92–100; BMI 24.3
[2023-06-23 06:49] LABS: Absolute Neutrophil Count 2.6 X10^3/uL (2.0-7.7); Basophil# 0.04 X10^3/uL; Basophil% 0.9 % (0-1); Eosinophils% 2.3 % (0-5); Hematocrit 34.5 % (37-47); Hemoglobin 11.4 g/dL (12.0-15.0); Lymphocyte % 24.8 % (19-41); Mean Corpuscular Hgb 35.5 pg (27.0-32.0); Mean Corpuscular Volume 107.5 fL (81-99); Mean Platelet Vol. 9.2 fl (6.2-12.0); Monocyte# 0.59 X10^3/uL; Monocyte% 13.3 % (0-10); NRBC Flagged by Analyzer 0 % (0-5); Neutrophil % 58.5 % (47-70); Platelet Count 141 K/mm3 (150-450); RBC Distribution Width CV 13.4 % (11.6-14.6); RBC Distribution Width SD 53.5 fl (35.1-43.9); Red Blood Count 3.21 M/mm3 (4.2-5.4); White Blood Count 4.4 K/mm3 (4.4-11.0)
--- NOTE | 2023-06-23 07:02 | CON.PCM_ITS ---
Assessment & Plan Assessment/Plan (1) Abscess of left foot: PLAN: Patient was examined evaluated. All findings were discussed with the p atient. All questions were answered to the patient satisfaction. Initial consult today by Dr. Spivey. Plan to take the patient to the operating room for complex incision and drainage of the left foot. The wound will be left open and packed after surgery. Patient will be need taken back after surgery today for delayed primary closure either on or Thursday. Patient has been n.p.o. since midnight this morning 06/23/2023. We are still waiting on time from the operating room for when we can take the patient down for her case. All risk and benefits were discussed with the patient in great detail. Patient is understanding of why she will need surgery at this time and then also an addit ional surgery to close the wound. Patient stopped Eliquis last night. That would be fine for surgery today as the wound/incision will be left open and packed. Left foot radiographs: Show no evidence of soft tissue emphysema or soft tissue air. WBC: 7.3 -> 4.4 HbA1c: Pending Please reach out to Dr. Donaldo Spivey for any questions or concerns. Thank you for the consult! (2) Cellulitis of left foot: HPI Consult Data Date of Consult: 06/23/23 HPI Narrative Reason for Consultation: Cellulitis and abscess left foot HPI Narrative: MIRIAM JIMÉNEZ, is a 72 F who presented [facility] emergency department for admission secondary to worsening infection to left foot. Patient was seen in our office at the [facility] [place] where she showed evidence of progressing cellulitis at the left foot. Patient states that on June 15 she was seen at the emergency department at [place] with stable labs and vital signs stable was discharged on oral doxycycline. Patient's reason for coming to the emergency room on was walking in flip-flops and grass where she believes she was either bitten by an insect or scraped her foot, she is unsure, and then the redness began at that time. Patient denies any constitutional symptoms. She is unsure of any trauma. No other pedal complaints. [facility] Medical History Anxiety and depression Atherosclerosis of coronary artery of [place] heart without angina pectoris Atrial fibrillation with rapid ventricular response (11/22/19) COPD (chronic obstructive pulmonary disease) Dysphagia Encounter for screening for malignant neoplasm of lung Essential hypertension HLD (hyperlipidemia) Hyperglycemia IBS (irritable bowel syndrome) PAF (paroxysmal atrial fibrillation) Tobacco abuse Home Medications aspirin 81 mg tablet,delayed release 81 mg PO DAILY heart health 07/01/15 [History Last Taken 06/22/23 07:30 81 mg] atorvastatin 40 mg tablet 40 mg PO QHS cholesterol 07/01/15 [History Last Taken 06/21/23 19:30 40 mg] nitroglycerin 0.4 mg sublingual tablet 0.4 mg sublingual Q5M PRN Chest Pain 07/01/15 [History Last Taken Unknown] apixaban 5 mg tablet 5 mg PO BID #60 tabs 12/16/19 [Rx Last Taken 06/22/23 07:30 5 mg] metoprolol tartrate 100 mg tablet 100 mg PO BID #60 tabs 12/16/19 [Rx Last Taken 06/22/23 07:30 100 mg] lisinopril 5 mg tablet 5 mg PO DAILY #30 tabs 06/06/20 [Rx Last Taken 06/22/23 07:30] hydrocodone-acetaminophen 5-325mg 5mg-325mg 1 - 2 tab PO .qid PRN Pain 09/24/21 [History Last Taken 06/22/23 16:30 1 TAB] cholecalciferol (vitamin D3) 25 mcg (1,000 unit) capsule 25 mcg PO DAILY 07/01/22 [History Last Taken 06/21/23 19:30 25 mcg] cyanocobalamin (vitamin B-12) 1,000 mcg capsule 1,000 mcg PO DAILY 07/01/22 [History Last Taken 06/21/23 19:30 1,000 mcg] doxycycline monohydrate 100 mg capsule 100 mg PO BID #14 CAPSULES 06/15/23 [Rx Last Taken 06/22/23 07:30 100 mg] Allergy/AdvReac Type Severity Reaction Status Date / Time No Known Allergies Allergy Verified 06/22/23 16:23 Family History Mother CVA (cerebral vascular accident) Surgical History H/O elbow surgery History of ankle surgery History of coronary artery stent placement (11/17/14) History of left heart catheterization (07/02/15) History of open reduction and internal fixation (ORIF) procedure History of surgical removal of pilonidal cyst Social History Smoking Status: Current every day smoker tobacco type: cigarettes alcohol intake: current alcohol intake frequency: 0-2 drinks per day substance use type: does not use caffeine: Yes Type: coffee Number of servings: 2 Physical Exam Narrative Vascular: DP and PT pulses are palpable in the left lower extremity. CFT is brisk. Skin temperature gradient is warm to warm from proximal ankle to distal digit. Focal decrease noted to the dorsal aspect of the left foot. Nonpitting edema is appreciated. Neurological: Light touch and epicritic station is intact. Patient is not responding to painful stimuli. Dermatological: Multiple sanguinous crusts for attempts at I&D's in the past with evidence of blanchable bogginess and flocculence appreciated to the dorsum of the left foot. Nonblanchable erythema with proximal streaking to the left foot. No active drainage. Evidence of ecchymosis appreciated to the hallux, s econd and third digit left foot. Musculoskeletal: Muscle strength intact. Active and passive range of motion the digits is pain-free. No pain to palpation to the flocculent/bogginess area to the left foot. No pain throughout the left foot with palpation. No pain with calf pressure. Const alert, oriented x3 and no apparent distress Lab / Micro Data 06/23/23 06:35 06/22/23 18:30 Labs: Laboratory Results - last 24 hr 06/22/23 18:30: WBC 7.3, RBC 3.88 L, Hgb 13.7, Hct 41.5, MCV 107.0 H, MCH 35.3 H , MCHC 33.0, RDW Std Deviation 53.5 H, RDW Coeff of Jose L 13.5, Plt Count 191, MPV 9.6, Immature Gran % (Auto) 0.600, Neut % (Auto) 61.0, Lymph % (Auto) 25.7, [place] % (Auto) 10.6 H, Eos % (Auto) 1.4, Baso % (Auto) 0.7, Absolute Neuts (auto) 4.4, Absolute Lymphs (auto) 1.86, Nucleated RBC % 0, PT 14.1, INR 1.1, APTT 31.9, Sodium 135 L, Potassium 4.3, Chloride 102, Carbon Dioxide 24.0, Anion Gap 9, BUN 24 H, Creatinine 1.02, Estim Creat Clear Calc 49.91, Est GFR (MDRD) Af Amer 69, Est GFR (MDRD) Non-Af 57 L, BUN/Creatinine Ratio 23.5 H, Glucose 105, Calcium 10.7 H 06/23/23 06:35: WBC 4.4, RBC 3.21 L, Hgb 11.4 L, Hct 34.5 L, MCV 107.5 H, MCH 35.5 H, MCHC 33.0, RDW Std Deviation 53.5 H, RDW Coeff of Jose L 13.4, Plt Count 141 L, MPV 9.2, Immature Gran % (Auto) 0.200, Neut % (Auto) 58.5, Lymph % (Auto) 24.8, [place] % (Auto) 13.3 H, Eos % (Auto) 2.3, Baso % (Auto) 0.9, Absolute Neuts (auto) 2.6, Absolute Lymphs (auto) 1.10, Nucleated RBC % 0 Radiology Impression Foot X-Ray 06/22/23 18:40 IMPRESSION: Mild degenerative changes of the first metatarsophalangeal joint. There are no acute osseous abnormalities. Electronically Signed: Earnest Mckinnon MD at 19:04 EDT ,
[2023-06-23 07:22] LABS: Anion Gap 6 (5-15); BUN 18 mg/dL (7-18); BUN/Creat Ratio 24.3 RATIO (10-20); Chloride 107 mmol/L (98-107); Creatinine, Serum 0.74 mg/dL (0.55-1.02); EST Glomerular Filtration Rate 82 mL/min (>60); Est Glom Filt Rate - Afr Amer 100 mL/min (>60); Glucose 115 mg/dL (74-106); Potassium 3.9 mmol/L (3.5-5.1); Sodium Level 138 mmol/L (136-145)
--- NOTE | 2023-06-23 07:39 | PN.HOSP_ITS ---
Reason for Visit Reason for Visit: Diagnoses Cutaneous abscess of left foot (06/22/23) Cellulitis of left lower limb (06/22/23) Local infection of the skin and subcutaneous tissue, unspecified (06/22/23) Contusion of left foot, initial encounter (06/22/23) Other injury of unspecified body region, initial encounter (06/22/23) Subjective Subjective Feels well. Seen post-op. Objective Data Objective Data Vital Signs: Vital Signs Temp Pulse Resp BP Pulse Ox O2 Del Method 36.6 C 90 16 115/77 98 Room Air 06/22/23 21:30 06/22/23 22:27 06/22/23 21:30 06/22/23 21:30 06/22/23 21:30 06/22/23 21:30 Oxygen Delivery Method Room Air Weight: 70.3 kg Body Mass Index (BMI) 24.3 Intake & Output: Intake and Output for Last 24 Hours 06/21/23 06/22/23 06/23/23 23:59 23:59 23:59 Intake Total 260 / 260 Balance 260 / 260 Lab / Micro Data 06/23/23 06:35 06/23/23 06:35 Labs: Laboratory Results - last 24 hr 06/22/23 18:30: WBC 7.3, RBC 3.88 L, Hgb 13.7, Hct 41.5, MCV 107.0 H, MCH 35.3 H , MCHC 33.0, RDW Std Deviation 53.5 H, RDW Coeff of Jose L 13.5, Plt Count 191, MPV 9.6, Immature Gran % (Auto) 0.600, Neut % (Auto) 61.0, Lymph % (Auto) 25.7, [place] % (Auto) 10.6 H, Eos % (Auto) 1.4, Baso % (Auto) 0.7, Absolute Neuts (auto) 4.4, Absolute Lymphs (auto) 1.86, Nucleated RBC % 0, PT 14.1, INR 1.1, APTT 31.9, Sodium 135 L, Potassium 4.3, Chloride 102, Carbon Dioxide 24.0, Anion Gap 9, BUN 24 H, Creatinine 1.02, Estim Creat Clear Calc 49.91, Est GFR (MDRD) Af Amer 69, Est GFR (MDRD) Non-Af 57 L, BUN/Creatinine Ratio 23.5 H, Glucose 105, Calcium 10.7 H 06/23/23 06:35: WBC 4.4, RBC 3.21 L, Hgb 11.4 L, Hct 34.5 L, MCV 107.5 H, MCH 35.5 H, MCHC 33.0, RDW Std Deviation 53.5 H, RDW Coeff of Jose L 13.4, Plt Count 141 L, MPV 9.2, Immature Gran % (Auto) 0.200, Neut % (Auto) 58.5, Lymph % (Auto) 24.8, [place] % (Auto) 13.3 H, Eos % (Auto) 2.3, Baso % (Auto) 0.9, Absolute Neuts (auto) 2.6, Absolute Lymphs (auto) 1.10, Nucleated RBC % 0, Sodium 138, Potassium 3.9, Chloride 107, Carbon Dioxide 25.0, Anion Gap 6, BUN 18, Creatinine 0.74, Estim Creat Clear Calc 49.00, Est GFR (MDRD) Af Amer 100, Est GFR (MDRD) Non-Af 82, BUN/Creatinine Ratio 24.3 H, Glucose 115 H, Calcium 9.0 Radiography Diagnostic Testing: Radiology Impression Foot X-Ray 06/22/23 18:40 IMPRESSION: Mild degenerative changes of the first metatarsophalangeal joint. There are no acute osseous abnormalities. Electronically Signed: Earnest Mckinnon MD at 19:04 EDT , Physical Exam Const alert and no apparent distress HEENT head/scalp atraumatic and moist oral mucous membranes Resp normal respiratory effort, no retractions, no use of accessory muscles and clear to auscultation bilaterally Cardio regular rate, regular rhythm, S1 normal heart sound and S2 normal heart sound GI normal to inspection, nondistended, normoactive bowel sounds, soft to palpation, non-tender and non-distended Extremity normal to inspection Assessment & Plan Assessment/Plan (1) Cellulitis of left foot: PLAN: Seen by podiatry taken to OR for I+D, then potentially for delayed primary closure later in the week. On surgery, patient was noted to have hematoma without any evidence of an abscess. Cultures were sent. On IV doxycycline Check MRSA, if positive, then would dc doxycycline and start vancomycin Follow-up cultures PLAN: Plan Chronic conditions: * proximal A-fib: Stable. Hold apixaban for OR. Metoprolol continued. * hypertension: Blood pressure is stable with metoprolol and lisinopril. * HLD: continue statin VTE prophylaxis: SCDs Charges/Coding Visit Charges Inpatient E&M: 46171 Subs Hosp L2
[2023-06-23 08:23] LABS: CRP 2.98 mg/L (0.0-3.0)
[2023-06-23] MEDS: Metoprolol Tartrate 100 MG Tablet PO ×2 (08:29→20:43)
[2023-06-23] MEDS: Lisinopril 5 MG Tablet PO (08:30)
[2023-06-23 08:51] LABS: Erythrocyte Sedimentation Rate 14 mm/hr (0-30)
[2023-06-23] MEDS: Doxycycline 100 MG in Dextrose 5%-Water (250mL Bag) 250 ML 250 MG IV ×2 (09:51→22:11)
[2023-06-23] MEDS: Bupivacaine Mpf 0.5% 30 ML VIAL (12:42)
--- NOTE | 2023-06-23 12:55 | PCM.OPRPT ---
Problems Associated Problem List Diagnoses (1) Abscess of left foot: (2) Hematoma of left foot: (3) Cellulitis of left foot: Report of Operation Date of Procedure: 06/23/23 Pre-Operative Diagnosis: 1. Abscess, Left Foot 2. Cellulitis, Left Foot Post-Operative Diagnosis: 1. Hematoma, Left Foot 2. Cellulitis, Left Foot Surgery/Procedure Performed:: 1. Complex Incision and Drainage, Left Foot Description of Surgical Findings:: 1. Evacuation of 10-15 cc of hematoma 2. Deep fascia intact Surgeon: Donaldo Spivey employee benefits coordinator: None Type of Anesthesia: Block,Regional and General/Supplemental Anesthesiologist: Teddy Menjivar Special Medications: None Specimen's removed: Pre and post lavage cultures Drains: None Estimated Blood Loss (mL): 20 cc Fluids Replaced: per anesthesia Description of Procedure: Indications For Operation: This is a72 year-old female who was admitted to [facility] for worsening cellulitis and abscess to the left foot. Patient was seen int he ED at [facility] and few weeks prior to this admission, seen with a soft tissue injury, cellulitis and discharged on oral antibiotics. The patient states she had improvement on oral antibiotics however increased redness and swelling to her left foot continued. She was seen in the office of Dr. Spivey at [facility] where she was diagnosed with a abscess and ascending cellulitis and eventually told to go to the emergency department for admission for incision and drainage. Due to the nature of the patient's worsening condition, is deemed necessary at this time to take the patient to the operating room to perform complex incision and drainage to drain either an abscess and/or hematoma to the left foot. The nature of the problem, anticipated procedures, postop recovery/convalences and risk/complications include but not limited to infection, wound healing complications, hypertrophic scarring, numbness, tingling, chronic pain, CRPS, over and under correction, recurrence of deformity, DVT and or PE and the need for further surgery have been discussed in great detail with the patient. All questions have been answered to the patient's satisfaction. There are no guarantees given as to the outcome of the procedure. Description of Procedure: Under mild sedation, the patient was brought into the operating room and placed on the operating table in supine position. Once the patient was under general anesthesia with Laryngeal Mask Airway, the left lower extremity was blocked using approximately 20 mL 0.5% Marcaine plain. Next, a timeout was then undertaken verifying the correct patient, extremity, visibility of preoperative markings, availability of the equipment. No tourniquet was used. Next, attention was directed to the left dorsal foot. Using a sterile skin marker, the incision placement was marked out of the area of abscess. Using a #15 blade a 4 cm full-thickness incision down to subcutaneous tissue was performed. There was evidence of 10 - 15 mL of solid hematoma without purulent drainage after the incision. Continued blunt dissection was carried into the dorsal foot to the level of muscle and fascia using Metzenbaum scissors. Next, pre lavage culture was taken and passed to the back table to be sent off for microbiology culture and sensitivity. Next, 3000 mL of warm normal saline via pulse lavage were used to clean out the dorsal incision of the left foot to remove any remaining hematoma. Following the pulse lavage, post lavage cultures were taken and passed to the back table to be sent off for microbiology culture and sensitivity. The left foot was wiped clean and patted dry, the incision was packed with 0.25 inch iodoform packing, dry sterile dressing and 4 inch juan bandage for compression. The patient tolerated the procedure and anesthesia well in apparent satisfactory condition and was transported to the PACU for further monitoring prior to discharge back to the floor. Vital signs stable and vascular status intact to all digits bilateral. Post Operative Plan: Weightbearing: Nonweightbearing operative extremity Antibiotics: IV Antibiotics on the floor DVT Prophylaxis: per medicine Murray: None Dressing: Iodoform packing, dry sterile dressing, cast padding and swelling to Juan bandage Pain Medication: Percocet 5/325 mg PRN, Dilaudid4 mg IV Q4H PRN Follow-up: Plan for delayed primary closure either versus Thursday after cultures return. Grafts/Implants Used: None Complications none Admit VTE Documentation VTE Present on Admission: Yes VTE Mechan Device Prophylaxis: SCD's VTE Pharm Prophylaxis ordered?: Yes
[2023-06-23] MEDS: 0.9% Normal Saline (1000mL) 1,000 ML 75 ML IV (14:22)
--- NOTE | 2023-06-23 14:30 | CASEMGMT ---
RN ZANDRA Assessment: Face to Face with pt for initial transition planning/care coordination assessment. RN ZANDRA introduced self and role at [facility], pt voices understanding and consents to assessment. Pt is A/O x4 and answers all questions appropriately at this time. Pt sitting up in bed in no distress with her dtr Yocasta, who is DPOA, and grandchildren at bedside. Pt nurses in room as well. Care providers, pharmacy, and demographics verified/updated. Admitting Dx: infection of right foot hematoma and cellulitis PCP:Peter Specialists:mitchell Cervantes Preferred Pharmacy: [facility] Insurance: [employer], Comm other Prescription Benefit: yes LNOK: Yocasta Newton, dtr; Minda Morejon dtr Living Arrangements: Pt lives alone in a two story home with two steps to enter without rail. Pt reports she doesn't use the upstairs very often. Pt reports being I in ADL's and denies concerns at home. Transportation: Pt drives self and denies concerns with transportation. DME/HHC/SNF: Pt has a cane, 2 walkers, shower seat, w/c, toilet riser and grab bar at the tub. Pt currently is using cane. Pt denies hx of HHC or SNF stays. Pt states no concerns with going home at time of dc. She states she lost her 2 mos ago and is handling this grief well. She denies need to speak with SW. Pt aware that RN ZANDRA will check back in after surgeries for any homegoing needs. Pt states no further concerns/needs. CM to follow. Advised pt to ask CM if any further question/concerns/needs arise, voices understanding. Pt Goal: Home Plan: Home, follow for any wound care, SN needs at home post surgeries
[2023-06-23] MEDS: HYDROcodone Bitartrate/Apap 5/325 Tablet PO ×2 (16:35→22:36)
[2023-06-23] MEDS: Atorvastatin Calcium 40 MG Tablet PO (20:43)
[2023-06-23] MEDS: MELATONIN 3 MG TABLET PO (20:43)
[2023-06-23] MEDS: Morphine 2 MG/ML Syringe IV (20:43)
[2023-06-23] MEDS: 0.9% Saline Lock 10 ML Syringe IV (20:44)
[2023-06-24] VITALS (8 sets, daily range): BP systolic 106–135; BP diastolic 64–85; PULSE 70–87; RESP 16; TEMP 36.5–37; O2SAT 92–96
[2023-06-24] MEDS: 0.9% Normal Saline (1000mL) 1,000 ML 75 ML IV ×2 (02:21→16:00)
[2023-06-24] MEDS: 0.9% Saline Lock 10 ML Syringe IV ×4 (02:22→22:44)
[2023-06-24] MEDS: Morphine 2 MG/ML Syringe IV ×5 (02:22→22:41)
[2023-06-24] MEDS: HYDROcodone Bitartrate/Apap 5/325 Tablet PO ×3 (06:11→20:30)
--- NOTE | 2023-06-24 07:59 | PN.HOSP_ITS ---
Reason for Visit Reason for Visit: Diagnoses Cutaneous abscess of left foot (06/23/23) Cellulitis of left lower limb (06/23/23) Local infection of the skin and subcutaneous tissue, unspecified (06/23/23) Contusion of left foot, initial encounter (06/23/23) Other injury of unspecified body region, initial encounter (06/23/23) Subjective Subjective No new complaints. Objective Data Objective Data Vital Signs: Vital Signs Temp Pulse Resp BP Pulse Ox O2 Del Method 36.8 C 71 16 106/64 92 Room Air 06/24/23 05:39 06/24/23 05:39 06/24/23 05:39 06/24/23 05:39 06/24/23 05:39 06/24/23 05:39 Oxygen Delivery Method Room Air Weight: 70.3 kg Body Mass Index (BMI) 24.3 Intake & Output: Intake and Output for Last 24 Hours 06/22/23 06/23/23 06/24/23 23:59 23:59 23:59 Intake Total 260 / 260 2250.00 / 2250.00 633.75 / 633.75 Output Total 900 / 900 Balance 260 / 260 2250.00 / 1750.00 -266.25 / -266.25 Lab / Micro Data 06/23/23 06:35 06/23/23 06:35 Labs: Laboratory Results - last 24 hr 06/23/23 06:35: ESR 14, Hemoglobin A1c 5.0, C-React Prot Ext Range 2.98 Physical Exam Const alert and no apparent distress HEENT head/scalp atraumatic Resp normal respiratory effort, no retractions, no use of accessory muscles and clear to auscultation bilaterally Cardio regular rate, regular rhythm, S1 normal heart sound and S2 normal heart sound GI normal to inspection, nondistended, normoactive bowel sounds, soft to palpation, non-tender and non-distended Extremity normal to inspection Assessment & Plan Assessment/Plan (1) Cellulitis of left foot: PLAN: Seen by podiatry taken to OR for I+D, then potentially for delayed primary closure later in the week. On surgery, patient was noted to have hematoma without any evidence of an abscess. Cultures were sent. On IV doxycycline Check MRSA, if positive, then would dc doxycycline and start vancomycin Culture showing staph species. PLAN: Plan Chronic conditions: * proximal A-fib: Stable. Hold apixaban for OR. Metoprolol continued. * hypertension: Blood pressure is stable with metoprolol and lisinopril. * HLD: continue statin VTE prophylaxis: SCDs Charges/Coding Visit Charges Inpatient E&M: 54667 Subs Hosp L2
[2023-06-24] MEDS: Cyanocobalamin 500 MCG Tablet 1000 MCG PO (09:14)
[2023-06-24] MEDS: Lisinopril 5 MG Tablet PO (09:14)
[2023-06-24] MEDS: Doxycycline 100 MG in Dextrose 5%-Water (250mL Bag) 250 ML 250 MG IV ×2 (09:14→22:40)
[2023-06-24] MEDS: Cholecalciferol (VIT D3) 25 MCG TABLET (1,000 UNITS) PO (09:14)
[2023-06-24] MEDS: Metoprolol Tartrate 100 MG Tablet PO ×2 (09:14→22:39)
--- NOTE | 2023-06-24 10:25 | CASEMGMT ---
Social Work SW met with pt to discuss advance directives. Pt confirms she has completed a living will and health care POA naming her daughter Eli Newton. Pt notified that documents are not on file at [facility] and SW requested they be brought in for scanning into the EMR. SYLVIE Hooper
--- NOTE | 2023-06-24 11:49 | PCM.PN.SRG ---
Subjective Subjective Mrs. Nunez is a 72-year-old female seen at bedside today for dressing change of left lower extremity. Patient is status post incision and drainage with evacuation of hematoma to the left foot. Patient is met to some pain but is controlled with pain medication. There is plan to take the patient to the back to the operating room either or Thursday for delayed primary closure. After the procedure patient can discharge. Objective Data Objective Data Vital Signs: Vital Signs Temp Pulse Resp BP Pulse Ox O2 Del Method 98.6 F 74 16 109/69 94 Room Air 06/24/23 09:52 06/24/23 09:52 06/24/23 09:52 06/24/23 09:52 06/24/23 09:52 06/24/23 09:54 Oxygen Delivery Method Room Air Weight: 70.3 kg Body Mass Index (BMI) 24.3 Intake & Output: Intake and Output for Last 24 Hours 06/22/23 06/23/23 06/24/23 23:59 23:59 23:59 Intake Total 260 / 260 2250.00 / 2250.00 893.75 / 893.75 Output Total 900 / 900 Balance 260 / 260 2250.00 / 1750.00 -6.25 / -6.25 Lab / Micro Data Attestation: I reviewed the patient's lab results. 06/23/23 06:35 06/23/23 06:35 Micro: Microbiology 06/23/23 13:11 Tissue - Left Foot Gram Stain - Final 06/23/23 13:11 Tissue - Left Foot Gram Stain - Final Physical Exam Narrative Vascular: DP and PT pulses are palpable 2 out of 4 to the left lower extremity. CFT is brisk. Evidence of nonpitting edema appreciated to the left foot. Neurological: Light touch and epicritic station is intact. Patient response to painful stimuli. Dermatological: Full-thickness incision to the dorsal aspect of the left foot. Wound base is fibrogranular in nature. No sign of infection malodor or probe to bone. No evidence of remaining hematoma is appreciated. Muscle skeletal: Muscle strength deferred secondary to postop recovery. Moderate palpatory tenderness appreciated to the incision on the dorsal aspect of the left foot. No pain with calf pression. Const oriented x3 and no apparent distress Assessment & Plan Assessment/Plan (1) Hematoma of left foot: PLAN: Patient was examined evaluated. All findings were discussed with the patient. All questions were answered to the patient satisfaction. Left lower extremity dressing was changed today at bedside. Packing pulled and application of Steri-Strips to reeducate the skin lines were applied today. The left lower extremity was dressed with Betadine paint dry sterile dressing and 4 inch Juan wrap for compression. We will plan for delayed primary closure tomorrow, 06/25/23 at 12 PM. Patient to be n.p.o. at midnight tonight for scheduled case tomorrow. I will continue to follow while patient is in house. Please reach out to Dr. Donaldo Spivey, D.P.M. with any questions or concerns. Thank you for letting me be part of this patient's care. (2) Cellulitis of left foot: (3) Pain in left foot:
[2023-06-24] MEDS: Atorvastatin Calcium 40 MG Tablet PO (22:39)
[2023-06-25] VITALS (11 sets, daily range): BP systolic 119–138; BP diastolic 50–79; PULSE 61–83; RESP 16–18; TEMP 36.4–37.2; O2SAT 94–99; BMI 24.3
[2023-06-25] MEDS: 0.9% Normal Saline (1000mL) 1,000 ML 75 ML IV (06:07)
[2023-06-25 06:27] LABS: Absolute Lymphocyte Count 1.19 X10^3/uL (0.83-4.51); Absolute Neutrophil Count 2.5 X10^3/uL (2.0-7.7); Basophil# 0.03 X10^3/uL; Basophil% 0.7 % (0-1); Eosinophil# 0.11 X10^3/uL; Eosinophils% 2.5 % (0-5); Hematocrit 34.8 % (37-47); Hemoglobin 11.4 g/dL (12.0-15.0); Lymphocyte # 1.19 X10^3/ul (0.83-4.51); Lymphocyte % 26.9 % (19-41); Mean Corp Hgb Conc 32.8 g/dL (32-36); Mean Corpuscular Hgb 35.3 pg (27.0-32.0); Mean Corpuscular Volume 107.7 fL (81-99); Mean Platelet Vol. 9.6 fl (6.2-12.0); Monocyte# 0.63 X10^3/uL; Monocyte% 14.2 % (0-10); NRBC Flagged by Analyzer 0 % (0-5); Neutrophil # 2.45 X10^3/uL (2.7-7.7); Neutrophil % 55.2 % (47-70); Platelet Count 143 K/mm3 (150-450); RBC Distribution Width CV 13.3 % (11.6-14.6); RBC Distribution Width SD 53.7 fl (35.1-43.9); Red Blood Count 3.23 M/mm3 (4.2-5.4); White Blood Count 4.4 K/mm3 (4.4-11.0)
[2023-06-25 06:56] LABS: Anion Gap 6 (5-15); BUN 22 mg/dL (7-18); BUN/Creat Ratio 34.2 RATIO (10-20); Calcium,Total 9.1 mg/dL (8.5-10.1); Chloride 109 mmol/L (98-107); Creatinine, Serum 0.64 mg/dL (0.55-1.02); EST Glomerular Filtration Rate 97 mL/min (>60); Est Glom Filt Rate - Afr Amer 117 mL/min (>60); Estimated Creatinine Clearance 50.91 ml/min; Glucose 107 mg/dL (74-106); Potassium 3.7 mmol/L (3.5-5.1); Sodium Level 140 mmol/L (136-145)
--- NOTE | 2023-06-25 07:41 | PN.HOSP_ITS ---
Reason for Visit Reason for Visit: Diagnoses Cutaneous abscess of left foot (06/23/23) Cellulitis of left lower limb (06/23/23) Local infection of the skin and subcutaneous tissue, unspecified (06/23/23) Pain in left foot (06/23/23) Contusion of left foot, initial encounter (06/23/23) Other injury of unspecified body region, initial encounter (06/23/23) Subjective Subjective Some pain in left foot. Objective Data Objective Data Vital Signs: Vital Signs Temp Pulse Resp BP Pulse Ox O2 Del Method 36.4 C L 69 17 119/74 94 Room Air 06/25/23 03:00 06/25/23 03:00 06/25/23 03:00 06/25/23 03:00 06/25/23 03:00 06/25/23 06:00 Oxygen Delivery Method Room Air Weight: 70.3 kg Body Mass Index (BMI) 24.3 Intake & Output: Intake and Output for Last 24 Hours 06/23/23 06/24/23 06/25/23 23:59 23:59 23:59 Intake Total 2250.00 / 2250.00 3253.75 / 3553.75 780 / 780 Output Total 900 / 1600 950 / 950 Balance 2250.00 / 1750.00 2353.75 / 1953.75 -170 / -170 Lab / Micro Data 06/25/23 05:50 06/25/23 05:50 Labs: Laboratory Results - last 24 hr 06/25/23 05:50: WBC 4.4, RBC 3.23 L, Hgb 11.4 L, Hct 34.8 L, MCV 107.7 H, MCH 35.3 H, MCHC 32.8, RDW Std Deviation 53.7 H, RDW Coeff of Jose L 13.3, Plt Count 143 L, MPV 9.6, Immature Gran % (Auto) 0.500, Neut % (Auto) 55.2, Lymph % (Auto) 26.9, [place] % (Auto) 14.2 H, Eos % (Auto) 2.5, Baso % (Auto) 0.7, Absolute Neuts (auto) 2.5, Absolute Lymphs (auto) 1.19, Nucleated RBC % 0, Sodium 140, Potassium 3.7, Chloride 109 H, Carbon Dioxide 25.0, Anion Gap 6, BUN 22 H, Creatinine 0.64, Estim Creat Clear Calc 50.91, Est GFR (MDRD) Af Amer 117, Est GFR (MDRD) Non-Af 97, BUN/Creatinine Ratio 34.2 H, Glucose 107 H, Calcium 9.1 Micro: Microbiology 06/23/23 13:11 Tissue - Left Foot Gram Stain - Final 06/23/23 13:11 Tissue - Left Foot Wound Culture - Preliminary Staphylococcus species 06/23/23 13:11 Tissue - Left Foot Gram Stain - Final Physical Exam Const alert and no apparent distress HEENT head/scalp atraumatic Extremity Extremity Narrative: left foot wrapped. ecchymosis noted on toes. Neuro oriented x3 Assessment & Plan Assessment/Plan (1) Cellulitis of left foot: PLAN: Seen by podiatry taken to OR for I+D, and then potentially for delayed primary closure today.. On surgery, patient was noted to have hematoma without any evidence of an abscess. Cultures were sent. On IV doxycycline, will change to linezolid. Check MRSA, if positive, then would dc doxycycline and start vancomycin Culture showing staph epidermidis sensitive to cefoxitin, linezolid and vancomycin Podiatry recommending partial weight bearing LLE. Follow up with podiatry in 1 week. PLAN: Plan Chronic conditions: * proximal A-fib: Stable. Hold apixaban for OR. Metoprolol continued. * hypertension: Blood pressure is stable with metoprolol and lisinopril. * HLD: continue statin VTE prophylaxis: SCDs
[2023-06-25] MEDS: Morphine 2 MG/ML Syringe IV (09:08)
[2023-06-25] MEDS: 0.9% Saline Lock 10 ML Syringe IV (09:09)
[2023-06-25] MEDS: Doxycycline 100 MG in Dextrose 5%-Water (250mL Bag) 250 ML 250 MG IV (10:47)
[2023-06-25] MEDS: Metoprolol Tartrate 100 MG Tablet PO (10:47)
--- NOTE | 2023-06-25 11:25 | OP.PCM_ITS ---
Problems Associated Problem List Diagnoses (1) Hematoma of left foot: (2) Cellulitis of left foot: (3) Abscess of left foot: (4) Pain in left foot: Report of Operation Date of Procedure: 06/25/23 Pre-Operative Diagnosis: 1. Open surgical incision, left foot 2. Hematoma, left foot 3. Pain, left foot Post-Operative Diagnosis: 1. Open surgical incision, left foot 2. Hematoma, left foot 3. Pain, left foot Surgery/Procedure Performed:: 1. Delayed primary closure, left foot Description of Surgical Findings:: 1. No evidence of purulence or any sign of deep tissue infection. 2. Complete closure of previous incision through delayed primary closure 3. Evidence of deep tissue injury secondary to hematoma status post evacuation from previous surgery Surgeon: Donaldo Spivey spooling machine operator: None Type of Anesthesia: Block,Regional and General/Supplemental Anesthesiologist: Haider Cortes Special Medications: None Specimen's removed: None Drains: None Estimated Blood Loss (mL): 5 cc Fluids Replaced: Per anesthesia Description of Procedure: Indications For Operation: This is a 72-year-old female who was admitted to [facility] for cellulitis, abscess and hematoma to the left foot. Patient was taken back for incision and drainage due to worsening cellulitis that was streaking up the left foot. Pre and post lavage cultures were taken which have now grown Staph epidermidis. During the procedure the third showed no evidence of violation of the deep fascia of the dorsum foot, left foot. Due to the open incision from the previous surgery had the necessary at this time to take the patient to the operating room to close her incision via delayed primary closure. The nature of the problem, anticipated procedures, postop recovery/convalences and risk/complications include but not limited to infection, wound healing complications, hypertrophic scarring, numbness, tingling, chronic pain, CRPS, over and under correction, recurrence of deformity, DVT and or PE and the need for further surgery have been discussed in great detail with the patient. All questions have been answered to the patient's satisfaction. There are no guarantees given as to the outcome of the procedure. Description of Procedure: Under mild sedation, the patient was brought into the operating room and placed on the operating table in supine position. Once the patient was under general anesthesia endotracheal tube, the left lower extremity was blocked using approximately 10 cc 0.5% Marcaine plain. Next, a timeout was then undertaken verifying the correct patient, extremity, visibility of preoperative markings, availability of the equipment. No tourniquet was used.. Next, attention was directed to the full-thickness incision on the left lower extremity. The wound base was 100% granular nature with no evidence of remaining purulence, hematoma, fibrotic tissue, exposed bone or sign of infection. There is evidence of deep tissue injury secondary to progression of the hematoma that was previously evacuated. The deep layer was reapproximated using 4-0 Vicryl and buried suture technique. The skin was then reapproximated and closed using 3-0 nylon simple interrupted suture technique. No drain was placed. The left lower extremity was wiped clean and patted dry. The closed incision was covered with Betadine soaked Adaptic, 4 x 4's, Kerlix wrap, and a single layer Lockwood compression bandage was donned. The patient tolerated the procedure and anesthesia well in apparent satisfactory condition and was transported to the PACU for further monitoring prior to discharge back to the floor. Vital signs stable and vascular status intact to all digits bilateral. Post Operative Plan: Weightbearing: Partial weightbearing to left heel only. Antibiotics: Doxycycline IV antibiotics, scheduled on the floor DVT Prophylaxis: SCDs Murray: None Dressing: Betadine soaked Adaptic, 4 x 4's, Kerlix and a single layer Lockwood compression bandage Pain Medication: [place] 5/325 mg p.o. every 6 hours as needed, morphine sulfate 2 mg IV every 3 hours as needed Follow-up: Patient is cleared for discharge from a podiatry perspective and follow-up 1 week postdischarge in office. Recommend the patient to be discharged on p.o. antibiotics per culture and sensitivity. Grafts/Implants Used: None Complications None Admit VTE Documentation VTE Present on Admission: Yes VTE Mechan Device Prophylaxis: SCD's VTE Pharm Prophylaxis ordered?: Yes
[2023-06-25] MEDS: Bupivacaine Mpf 0.5% 30 ML VIAL (11:52)
--- NOTE | 2023-06-25 14:17 | DS.PCM_ITS ---
Providers Date of Admission: 06/23/23 Primary Care Physician: Dr. Khadijah Green MD Consultations 06/22/23 20:26 Consult: Podiatry Routine Consulting Provider: Donaldo Spivey Reason for Consult: Right foot infected hematoma; cellulitis EMERGENT Consult: No MD Notified: Yes Date Notified: 06/22/23 Time Notified: 19:49 Method of Notification: ED Physician Initiated Reason For Visit: INFECTION OF RIGHT FOOT HEMATOMA AND CELLULITIS Diagnosis Discharge Diagnosis (1) Cellulitis of left foot: Status: Acute Code(s): L03.116 - Cellulitis of left lower limb Plan: Seen by podiatry taken to OR for I+D, and then potentially for delayed primary closure today.. On surgery, patient was noted to have hematoma without any evidence of an abscess. Cultures were sent. On IV doxycycline, will change to linezolid. Check MRSA, if positive, then would dc doxycycline and start vancomycin Culture showing staph epidermidis sensitive to cefoxitin, linezolid and vancomycin Podiatry recommending partial weight bearing LLE. Follow up with podiatry in 1 week. Plan Chronic conditions: * proximal A-fib: Stable. Hold apixaban for OR. Metoprolol continued. * hypertension: Blood pressure is stable with metoprolol and lisinopril. * HLD: continue statin VTE prophylaxis: SCDs Medications at Discharge Home Medications aspirin 81 mg tablet,delayed release 81 mg PO DAILY heart health 07/01/15 atorvastatin 40 mg tablet 40 mg PO QHS cholesterol 07/01/15 nitroglycerin 0.4 mg sublingual tablet 0.4 mg sublingual Q5M PRN Chest Pain 07/01/15 apixaban 5 mg tablet 5 mg PO BID #60 tabs 12/16/19 metoprolol tartrate 100 mg tablet 100 mg PO BID #60 tabs 12/16/19 lisinopril 5 mg tablet 5 mg PO DAILY #30 tabs 06/06/20 hydrocodone-acetaminophen 5-325mg 5mg-325mg 1 - 2 tab PO .qid PRN Pain 09/24/21 cholecalciferol (vitamin D3) 25 mcg (1,000 unit) capsule 25 mcg PO DAILY 07/01/22 cyanocobalamin (vitamin B-12) 1,000 mcg capsule 1,000 mcg PO DAILY 07/01/22 linezolid 600 mg tablet 600 mg PO BID #14 tabs 06/25/23 Hospital Course Operations - (I+D left foot with delayed closure. ) Summary of Care Provided Minutes Spent on Discharge: 32 Weight / BMI Weight Weight: 70.3 kg Body Mass Index (BMI) 24.3 ABG / Lab / Microbiology Data 06/25/23 05:50 06/25/23 05:50 Laboratory: Laboratory Results - last 24 hr 06/25/23 05:50: WBC 4.4, RBC 3.23 L, Hgb 11.4 L, Hct 34.8 L, MCV 107.7 H, MCH 35.3 H, MCHC 32.8, RDW Std Deviation 53.7 H, RDW Coeff of Jose L 13.3, Plt Count 143 L, MPV 9.6, Immature Gran % (Auto) 0.500, Neut % (Auto) 55.2, Lymph % (Auto) 26.9, [place] % (Auto) 14.2 H, Eos % (Auto) 2.5, Baso % (Auto) 0.7, Absolute Neuts (auto) 2.5, Absolute Lymphs (auto) 1.19, Nucleated RBC % 0, Sodium 140, Potassium 3.7, Chloride 109 H, Carbon Dioxide 25.0, Anion Gap 6, BUN 22 H, Creatinine 0.64, Estim Creat Clear Calc 50.91, Est GFR (MDRD) Af Amer 117, Est GFR (MDRD) Non-Af 97, BUN/Creatinine Ratio 34.2 H, Glucose 107 H, Calcium 9.1 Microbiology: Microbiology 06/23/23 13:11 Tissue - Left Foot Gram Stain - Final 06/23/23 13:11 Tissue - Left Foot Wound Culture - Final Staphylococcus epidermidis 06/23/23 13:11 Tissue - Left Foot Anaerobic Culture - Preliminary 06/23/23 13:11 Tissue - Left Foot Gram Stain - Final 06/23/23 13:11 Tissue - Left Foot Wound Culture - Preliminary Coag Negative Staph 06/23/23 13:11 Tissue - Left Foot Anaerobic Culture - Preliminary D/C Instructions Discharge Diet: No restrictions Weight Bearing Status: Partial weight bearing (left foot. ) Call your doctor if your incision/area has: Continuous Slow Oozing, Sudden Increased Bleeding, Increased Pain/ Swelling, Increased Redness, Foul Smelling Discharge and Swelling at the incision site Meaningful Use Info Meaningful Use Diagnoses (Choose all that apply): None applicable Discharge Plan Admission Admit Date/Time: 06/23/23 12:35 Primary Reason for Your Visit: left foot infected hematoma. Attending Provider: Haider Amezcua Primary Care Provider: Khadijah Green Consulting Providers: Kit Oro; Donaldo Spivey Discharge Orders/Prescriptions Prescriptions: New linezolid 600 mg Tablet 600 mg PO BID Qty: 14 0RF Continued lisinopril 5 mg tablet 5 mg PO DAILY Qty: 30 11RF cyanocobalamin (vitamin B-12) 1,000 mcg capsule 1,000 mcg PO DAILY cholecalciferol (vitamin D3) 25 mcg (1,000 unit) capsule 25 mcg PO DAILY aspirin 81 MG tablet 81 mg PO DAILY Patient Comments: blood thinner/heart health atorvastatin 40 MG tablet 40 mg PO QHS Patient Comments: Cholesterol nitroglycerin 0.4 MG tablet 0.4 mg sublingual Q5M PRN (Reason: Chest Pain) Patient Comments: Chest pain hydrocodone-acetaminophen 5-325 mg tablet 1 - 2 tab PO .qid PRN (Reason: Pain) Patient Comments: Pain apixaban 5 mg tablet 5 mg PO BID Qty: 60 11RF metoprolol tartrate 100 mg tablet 100 mg PO BID Qty: 60 11RF Discontinued doxycycline monohydrate 100 mg capsule 100 mg PO BID Qty: 14 0RF Referrals / Follow Up: Donaldo Spivey DPM [Med Staff - Active Staff] - Within 1 Week Khadijah Green MD [Primary Care Provider] - Within 2 Weeks Disposition Disposition (needs filled in before D/C Order can be placed): Home, Self Care Charges/Coding Visit Charges Inpatient E&M: 15343 Disch Hosp >30min
--- NOTE | 2023-06-25 15:12 | CASEMGMT ---
Addendum entered by Alessio Rizo 06/26/23 11:30: Call received from Steffen @ [facility] stating further information is required before determination can be made. She states there is a questionnaire that needs completed and faxed to them. Questionnaire received, completed by this JODI DE PAZ and faxed back to [facility]. JODI DE PAZ then spoke w/Cris@ [facility] @ who states the determination for coverage will be faxed back to [facility] once decision has been made. Javi ZAPATA CM Addendum entered by Alessio Rizo 06/25/23 18:17: Linezolid has been e-scribed to [facility] and it requires prior auth. Dr Spivey made aware and states pt should be okay as long as pt gets it tomorrow. Call placed to [place] customer service for [employer] @ [phone] and initiated for prior auth. JODI DE PAZ informed it can take up to 72 hrs to obtain. JODI DE PAZ requested it to be expedited and was informed decision would be made w/in 24 hrs and there are no further options to have it done sooner. Dr Spivey made aware. Pt also made aware. Per YESENIA dep't there is no Req # and JODI DE PAZ to call back to [phone] re: decision. JODI DE PAZ to f/u on prior auth tomorrow. Addendum entered by Alessio Rizo 06/25/23 16:19: Per Dr Spivey, pt is to keep dressing on, don't get it wet, and don't change it until she sees him in his office. Pt made aware. Dr Spivey also states pt to be given walker, surgery shoe, and crutches and states he will give the patient a boot @ his appt. JODI DE PAZ to room. Pt states she already has 2 walkers at home and does not want crutches, stating she has used them in the past and has fallen twice with them. Suzie, weigh and charge worker, looked at the BREG shoe pt has in her room and states this looks like a surgery shoe. Pt made aware Dr Spivey states will give her a boot at the office appt. Addendum entered by Alessio Rizo 06/25/23 15:48: Dr Spivey states okay for pt to discharge home today from his perspective and pt to call his office tomorrow morning to schedule an appt either tomorrow or Thursday. Pt made aware. Pt states Dr Spivey told her to wear a boot. She states she has a ALEXIS shoe and inquiring if this is okay to wear or if she is to wear something different. JODI DE PAZ sent message to Dr Spivey for clarification on above and also on any wound care/dressing change instructions. Original Note: JODI DE PAZ NOTE: D/C order is in. RN CM to room and pt made aware. Pt states Dr Spivey told her he would be in to assess her wound tomorrow. JODI DE PAZ informed her Dr Spivey's PN today states she is discharged from podiatry's perspective and pt to f/u in his office in a week post-discharge. Pt adamant that Dr Spivey told her he would see her tomorrow and that she was not to be discharged until tomorrow. Message sent to Dr Spivey via backline to clarify. No response. Call placed to Dr Spivey's office. Message left for him to return call to this JODI DE PAZ. Javi GALO RN, CM
--- NOTE | 2023-06-26 12:27 | CASEMGMT ---
JODI DE PAZ NOTE: Fax received from [facility] and Prior Auth was received for Linezolid. JODI DE PAZ spoke w/Martin @ [facility] and he was made aware. He ran the medication again and it did go through. Pt's [id number] cost is $145. Call to pt and she was made aware. She states she can afford this and she will pick it up from the pharmacy today and start taking it today. She voices appreciation. Pt states she was in to see Dr Spivey this AM, he removed the dressing, re-dressed it, and provided a surgical boot to wear. She has another appt w/him in a week. She voices no other concerns or needs. Message sent to Dr Spivey via backline to inform him insurance approval received for the Linezolid. Javi GALO RN, CM
== END 2023-06-25 18:51 | disposition home or self-care (01) | DRG 580 ==
LOC: ED 19:35 → MS3 19:56
PROVIDERS: Anesthesiology; Podiatrist Foot & Ankle Surgery; Admitting Provider Hospitalist; Emergency Provider Emergency Medicine; PCP Internal Medicine
PROC: 0KDW0ZZ Extraction of Left Foot Muscle, Open Approach (ICD-10-PCS; principal; 2023-06-23 11:50)
PROC: 0HQNXZZ Repair Left Foot Skin, External Approach (ICD-10-PCS; principal; 2023-06-25 12:00)
DX: S90.32XA Contusion of left foot, initial encounter (principal); L03.116 Cellulitis of left lower limb; E11.9 Type 2 diabetes mellitus without complications; J44.9 Chronic obstructive pulmonary disease, unspecified; I48.0 Paroxysmal atrial fibrillation; I10 Essential (primary) hypertension; E78.5 Hyperlipidemia, unspecified; F17.210 Nicotine dependence, cigarettes, uncomplicated; I25.10 Atherosclerotic heart disease of native coronary artery without angina pectoris; Z79.01 Long term (current) use of anticoagulants; Z79.82 Long term (current) use of aspirin; Z79.899 Other long term (current) drug therapy; Z95.5 Presence of coronary angioplasty implant and graft
CPT/HCPCS: 36415; 73630; 80048; 83036; 85025; 85610; 85652; 85730; 86140; 87070; 87075; 87077; 87102; 87186; 87205; 87206; 97162; 97530; 99284; 99406; J7030; J7050; A4216; J2405

== ENCOUNTER → 2023-11-03 | Outpatient (CLI) | payer MEDICARE, OTHER, SELFPAY ==
--- NOTE | 2023-11-03 14:23 | CT_ITS ---
STUDY: LOW DOSE CT LUNG CANCER SCREENING REASON FOR EXAM: Female, 72 years old. Lung cancer screening -- and gt; 20 pk yr hx;current smoker;asymptomatic RADIATION DOSAGE (If Supplied By Facility): CTDIvol = ( 2.39 ) mGy, DLP = ( 81.31 ) mGycm TECHNIQUE: No contrast was administered. Low dose technique was utilized (average mAS-38 and kVp 120). 1.25 mm axial source images with a slice interval of 1.25-mm were reconstructed in lung windows. 2.5 mm axial source images with a slice interval of 2.5-mm were reconstructed in lung windows. 5.0 mm axial source images with a slice interval of 5.0-mm were reconstructed in soft tissue windows. COMPARISON: Comparison is made with prior study dated August 26, 2022. NODULES: No suspicious nodules are seen in the lungs. Emphysema: Hyperinflation. Emphysematous changes more prominent in the upper lobes. Stable minimal linear scarring in the posterior medial segment of the right lower lateral. Endobronchial lesion: None Aorta: Endovascular stent is seen in the descending thoracic aorta. CORONARY ARTERIES: Coronary artery calcification is seen. Heart: Unremarkable Pulmonary artery: Unremarkable Mediastinal nodes: Small benign-appearing mediastinal lymph nodes. Other chest and abdominal findings: CT/Low Dose CT Lung Screening IMPRESSION: Lung-RADS category 2 - Continue annual screening with LDCT in 12 months. IMPORTANT NOTES FOR USE: ACR Lung-RADS Version 1.1 Assessment Categories Release Date: 2018 Category: Coded 0-4 bases on nodule(s) with highest degree of suspicion. Negative screen is defined as categories 1 and 2; a positive screen is defined as categories 3 and 4. Category 3 and 4A nodules that are unchanged on interval CT should be coded as category 2, and individuals returned to screening in 12 months. Category 4X: Category 3 or 4 nodules with additional imaging findings that increase the suspicion of lung cancer, such as spiculation, GGN that doubles in size in 1 year, enlarged lymph notes, etc. Category Modifiers: S (significant finding unrelated to lung cancer) Electronically Signed: Main López MD at 14:53 EST ,
== END | disposition home or self-care (01) ==
LOC: CT 14:22
PROVIDERS: PCP Internal Medicine; Referring Provider Nurse Practitioner Family; Visit Provider Nurse Practitioner Family
DX: Z87.891 Personal history of nicotine dependence (principal)
CPT/HCPCS: 71271

== ENCOUNTER → 2024-02-01 | Outpatient (CLI) | payer MEDICARE, OTHER, SELFPAY ==
--- NOTE | 2024-02-01 08:59 | VDLE_ITS ---
Reason For Study: BLE Pain RIGHT LEFT CFV is compressible, spontaneous, phasic, CFV is compressible, spontaneous, phasic, competent and demonstrates normal competent, and demonstrates normal augmentation. augmentation. FV is compressible, spontaneous, phasic, FV is compressible, spontaneous, phasic, competent and demonstrates normal competent and demonstrates normal augmentation. augmentation. POP V is compressible, spontaneous, phasic, POP V is compressible, spontaneous, phasic, competent and demonstrates normal competent and demonstrates normal augmentation. augmentation. T/P Trunk is compressible. T/P Trunk is compressible. PTV is compressible. PTV is compressible. RT PerV is compressible. LT PerV is compressible. SFJ is INCOMPETENT and measures 0.52 cm. SFJ is INCOMPETENT and measures 0.73 cm. GSV proximal thigh measures 0.37 x 0.35 cm. GSV proximal thigh measures 0.52 x 0.57 cm. GSV at knee measures 0.35 x 0.33 cm. GSV at knee measures 0.48 x 0.49 cm. GSV INCOMPETENT throughout for greater than GSV INCOMPETENT throughout for greater than 0.5 seconds. 0.5 seconds. ASV proximal calf is INCOMPETENT for greater Perforating Vein distal calf approximately than 0.5 seconds and measures 0.37 x 0.43 cm. 5cm above MM is INCOMPETENT for greater than SSV proximal calf is competent and measures 0.5 seconds and measures 0.30 cm. 0.19 x 0.18 cm. Lt SSV not visualized. Procedure Exam performed in department. This is a venous duplex using B-mode, color flow and spectral Doppler. The exam was diagnostic. VL/Venous Duplex US - Manjeet Extrem Interpretation Summary Deep veins of the bilateral lower extremities are patent and compressible segme ntally. There is no evidence of bilateral lower extremity deep vein thrombosis. The bilateral great saphenous veins appear patent and compressible segmentally. Positive for reflux in the right saphenofemoral junction, great saphenous vein throughout, accessory saphenous vein in calf. Positive for reflux in left saphenofemoral junction, great saphenous vein throu ghout, medial calf bag bleacher. Ordering Physician: Donaldo Spivey Referring Physician: Khadijah Green Performed By: Greg Watts RVT
--- NOTE | 2024-02-01 09:00 | ART_ITS ---
Reason For Study: PVD Procedure A bilateral lower extremity continuous wave Doppler with analog waveform analysis,segmental pressures,and ankle brachial indexes without exercise. Left Segmental Pressures Left brachial= 149mmHg. Left posterior tibial artery = 165mmHg. Left dorsalis pedis artery = 162mmHg. Left digit = 125 mmHg. The left posterior tibial artery waveforms are triphasic. The left dorsalis pedis waveforms are triphasic. Right Segmental Pressures Right brachial= 148mmHg. Right posterior tibial artery = 162mmHg. Right dorsalis pedis artery = 160mmHg. Right digit = 127 mmHg. The right posterior tibial artery waveforms are triphasic. The right dorsalis pedis waveforms are triphasic. Indices The right ankle brachial index by the posterior tibial artery is 1.09. The right ankle brachial index by the dorsalis pedis is 1.07. The right digital-brachial index is 0.85. The left ankle brachial index by the posterior tibial artery is 1.11. The left ankle brachial index by the dorsalis pedis is 1.09. The left digital-brachial index is 0.84. VL/Lower Ext Art Exam w/o Exercis Interpretation Summary Right ALEXUS 1.09, normal. TBI and Doppler/PVR waveforms of the right leg normal a t rest. Left ALEXUS 1.11, normal. TBI and Doppler/PVR waveforms of the left leg normal at rest. Ordering Physician: Donaldo Spivey Referring Physician: Khadijah Green Performed By: Greg Watts RVT
== END | disposition home or self-care (01) ==
LOC: CVS 08:56
PROVIDERS: PCP Internal Medicine; Referring Provider Podiatrist Foot & Ankle Surgery; Visit Provider Podiatrist Foot & Ankle Surgery
DX: I73.89 Other specified peripheral vascular diseases (principal); M79.661 Pain in right lower leg; M79.662 Pain in left lower leg
CPT/HCPCS: 93923; 93970

== ENCOUNTER → 2024-09-19 | Outpatient (CLI) | payer MEDICARE, OTHER, SELFPAY | END | disposition home or self-care (01) | PROVIDERS: PCP Internal Medicine; Referring Provider Podiatrist Foot & Ankle Surgery; Visit Provider Podiatrist Foot & Ankle Surgery | DX: S99.912A Unspecified injury of left ankle, initial encounter (principal); X58.XXXA Exposure to other specified factors, initial encounter | CPT/HCPCS: 87070; 87075; 87077; 87101; 87186; 87205 ==

== ENCOUNTER → 2024-11-15 | Outpatient (CLI) | payer MEDICARE, OTHER, SELFPAY ==
--- NOTE | 2024-11-15 13:36 | CT_ITS ---
PROCEDURE: LOW DOSE CT LUNG SCREENING REASON FOR EXAM: Former smoker. Patient has smoked 1 pack per day for 20 years. TECHNIQUE: Low Dose CT Lung Screening without contrast COMPARISON: None. FINDINGS: PULMONARY NODULES: (Only nodules >6mm are reported) Nodules described below are on series unless otherwise specified. Pulmonary Nodules: No concerning pulmonary nodules. Hardware:None Lymph Nodes:No mediastinal hilar or axillary lymphadenopathy. Heart and Vasculature:Normal heart size. No pericardial effusion.Thoracic aorta and pulmonary arteries have normal contours; noncontrast technique limits evaluation. Atherosclerotic plaque formation of the aortic arch and descending thoracic aorta. Coronary Artery Calcifications: Present Lungs and Airways: Hyperinflation. Mild emphysematous changes. Linear scarring in the posterior medial segment of the right lower lobe. Pleura:No pleural effusion. No pneumothorax. Upper Abdomen:Small hiatal hernia. Bones:Degenerative changes of the thoracic spine. Increased kyphosis. CT/Low Dose CT Lung Screening IMPRESSION: 1. BASED ON THE ACR LUNG RADS FOR THE MOST SUSPICIOUS NODULE (IF ANY) DESCRIBE D IN THIS REPORT, THE OVERALL LUNG RADS SCORE IS 1. 1 - NEGATIVE. RECOMMEND 12-MONTH SCREENING LDCT.. 2. SMOKING CESSATION COUNSELING IS RECOMMENDED IF THE PATIENT IS STILL SMOKING . 3. OTHER SIGNIFICANT FINDINGSNone. One or more dose reduction techniques were used (e.g., Automated exposure contr ol, adjustment of the mA and/or kV according to patient size, use of iterative reconstruction technique). The following information is provided for reference:Lung-RADS 2021 Assessment C ategories. Additional information involving Lung-RADS is available at www.acr.org. 0-INCOMPLETE 1-NEGATIVE:No nodules or definitely benign nodules. Complete, central, popcorn , or centric ring calcifications OR fat containing 2-BENIGN APPEARANCE (based on imaging features or indolent behavior). Juxtaple ural nodule: < 10mm AND solid; smooth margins; oval, entiform, or triangular shape Solid nodule: <6mm at baseline or new< 4mm Part solid Nodule: < 6mm total mean diameter at baseline Nonsolid nodule:(GGN) < 30mm OR >=30mm stable or slowly growing Airway nodule, subsegmental at baseline, new, or stable Category 3 nodule stabl e or decreased in size at 6-month follow-up CT or Category 3 or 4A nodules that resolve on follow-up OR category 4B findings prov en to be benign following diagnotic work up. 3 - Probably Benign (Based on imaging features or behavior) Solid Nodule: >= 6 to <8mm at baseline OR new 4 to <6mm Part-solid nodule: >= 6mm toal mean diam. with solid component <6mm at baseline OR new < 6mm total mean diam. Non-solid nodule: GGN >= 30mm at baseline or new Atypical pulmonary cyst: Growing cystic component (mean diam.) of thick-walled cyst Category 4A nodule stable or decreased in size at 3-month follow-up CT (excl.ai rway). 4A - Suspicious Solid nodule: >=8 to < 15mm at baseline OR growing < 8mm OR new 6 to < 8mm Part solid nodule: >= 6mm total mean diam. w/ solid component >=6mm to < 8mm at baseline OR new or growing < 4mm solid component Airway nodule, segmental or more proximal at baseline or new Atypical pulmonary cyst: Thick-walled OR multilocular at baseline OR becomes mu ltilocular 4B - Very Suspicious Airway nodule, segmental or more proximal, and stable or growing Solid nodule: >= 15mm at baseline OR new or growing >= 8mm Part solid nodule: Solid component >= 8mm OR new or growing >= 4mm solid compon ent Atypical pulmonary cyst: Thick-walled with growing wall thickness/nodularity OR Growing multilocular (mean diam.) OR Multilocular with increased loculation or new/increased opacity Slow-growing solid or part solid nodule w/ growth over multiple screening exams 4X - Very Suspicious Category 3 or 4 nodules with additional features that increase the suspicion fo r lung cancer. S - Clinically Significant or potentially significant findings (non-lung cancer ) Reading Location: [place] [id number]
== END | disposition home or self-care (01) ==
PROVIDERS: PCP Internal Medicine; Referring Provider Nurse Practitioner Family; Visit Provider Nurse Practitioner Family
DX: Z12.2 Encounter for screening for malignant neoplasm of respiratory organs (principal); Z87.891 Personal history of nicotine dependence
CPT/HCPCS: 71271

== ENCOUNTER → 2024-12-28 | Outpatient (CLI) | payer MEDICARE, OTHER, SELFPAY ==
--- NOTE | 2024-12-28 12:44 | ART_ITS ---
Reason For Study Reason For Study: PVD Procedure A bilateral lower extremity continuous wave Doppler with analog waveform analysis,segmental pressures,and ankle brachial indexes without exercise. Left Segmental Pressures Left brachial= 149mmHg. Left posterior tibial artery = 162mmHg. Left dorsalis pedis artery = 163mmHg. Left digit = 112 mmHg. The left dorsalis pedis waveforms are triphasic. The left posterior tibial artery waveforms are triphasic. Right Segmental Pressures Right brachial= 141mmHg. Right posterior tibial artery = 149mmHg. Right dorsalis pedis artery = 155mmHg. Right digit = 123 mmHg. The right dorsalis pedis waveforms are triphasic. The right posterior tibial artery waveforms are triphasic. Indices The right ankle brachial index by the dorsalis pedis is 1.04. The right ankle brachial index by the posterior tibial artery is 1.00. The right digital-brachial index is 0.83. The left ankle brachial index by the dorsalis pedis is 1.09. The left ankle brachial index by the posterior tibial artery is 1.09. The left digital-brachial index is 0.75. VL/Lower Ext Art Exam w/o Exercis Interpretation Summary Triphasic Doppler waveforms are noted at ankle level bilaterally. Pulse-volume recordings appear satisfactory at all levels bilaterally. Resting ankle-brachial indices are normal bilaterally. Digi wiliam-brachial indices are normal bilaterally. There is no evidence of significant arterial occlusive disease in the lower ext remities bilaterally. Ordering Physician: Donaldo Spivey Referring Physician: Khadijah Green M.D. Performed By: ALEXANDER ELIAS [facility]
--- NOTE | 2024-12-28 12:44 | VDLE_ITS ---
Reason For Study Reason For Study: PVD RIGHT LEFT GSV is normal. GSV is normal. CFV is compressible, spontaneous, phasic, competent CFV is compressible, spontaneous, phasic, competent, and demonstrates normal augmentation. and demonstrates normal augmentation. FV is compressible, spontaneous, phasic, competent FV is compressible, spontaneous, phasic, competent and and demonstrates normal augmentation. demonstrates normal augmentation. POP V is compressible, spontaneous, phasic, competent POP V is compressible, spontaneous, phasic, competent and demonstrates normal augmentation. and demonstrates normal augmentation. T/P Trunk is compressible. T/P Trunk is compressible. PTV is compressible. PTV is compressible. RT PerV is compressible. LT PerV is compressible. Procedure Nonvascularized structure noted in the popliteal fossa This is a venous duplex using B-mode, color flow and measuring 2.86x3.19x4.51cm. spectral Doppler. Exam performed in department. VL/Venous Duplex US - Manejet Extrem Interpretation Summary Deep veins of the lower extremities are bilaterally patent and compressible seg mentally. There is no evidence of deep vein thrombosis on either side. Valvular competence appears intact within the p roximal deep venous systems bilaterally. The great saphenous veins appear bilaterally patent and compressible segmentall y. A non-vascular, hypoechoic structure is noted in the left popliteal space, measuring 2.86 cm x 3.19 cm x 4.51 cm. Th is probably represents a popliteal cyst. Clinical correlation is advised. Ordering Physician: Donaldo Spivey Referring Physician: Khadijah Green M.D. Performed By: [facility]
== END | disposition home or self-care (01) ==
LOC: CVS 12:43
PROVIDERS: PCP Internal Medicine; Referring Provider Podiatrist Foot & Ankle Surgery; Visit Provider Podiatrist Foot & Ankle Surgery
DX: I73.9 Peripheral vascular disease, unspecified (principal); M79.604 Pain in right leg; M79.605 Pain in left leg
CPT/HCPCS: 93923; 93970

== ENCOUNTER → 2025-08-30 | Outpatient (CLI) | payer MEDICARE, OTHER, SELFPAY ==
--- OUTSIDE RECORDS SUMMARY | 2025-08-30 06:59 | XMS RPT_ITS | CCD ---
Author Organization [facility] [place] [facility] Team Providers Care Ticket Manager Name Role Phone Stevie Dumas MD Primary Care Provider Dr. Stevie Dumas Primary Care Provider 1([facility] )[phone] Dr. Stevie Dumas Referring Provider 1([facility])[phone] Dr. Quan Cervantes Attending Provider 1([facility])[phone] Pamela ETHNOGRAPHIC MATERIALS CONSERVATOR, ETHNOGRAPHIC MATERIALS CONSERVATOR-Marilin Hartman Attending Provider 1([facility] )[phone] Pamela ETHNOGRAPHIC MATERIALS CONSERVATOR, ETHNOGRAPHIC MATERIALS CONSERVATOR-C Minnie Referring Provider 1([facility] )[phone] Stevie Dumas MD Primary Care Provider Dr. Stevie Dumas Primary Care Provider 1([facility] )[phone] Dr. Stevie Dumas Referring Provider 1([facility])[phone] New WOOD, ETHNOGRAPHIC MATERIALS CONSERVATOR-C Lilian Attending Provider Dr. Marisa Draper Emergency Provider 1([facility])[phone] Dr. Kit Oro Admit Provider 1([facility])[phone] Kit Oro Attending Provider 1([facility])[phone] Dr. Kit Oro Other Provider 1([facility])[phone] Nathan Spivey Other Provider 1([facility])[phone] Haider Amezcua Attending Provider 1([facility])[phone] Haider Amezcua Other Provider Dr. Stevie Dumas Primary Care Provider 1([facility] )[phone] Dr. Stevie Dumas Referring Provider 1([facility])[phone] Pamela WOOD, NINA-C Minnie Attending Provider 1([facility] )[phone] Dr. Stevie Dumas Primary Care Provider Pamela ETHNOGRAPHIC MATERIALS CONSERVATOR, ETHNOGRAPHIC MATERIALS CONSERVATOR-C Minnie Attending Provider Pamela ETHNOGRAPHIC MATERIALS CONSERVATOR, ETHNOGRAPHIC MATERIALS CONSERVATOR-C Minnie Referring Provider Dr. Haider Kimble Attending Provider Stevie Dumas MD Primary Care Provider Rios ELECTRONIC GLUER.ANODIZER, Meryl Unavailable Moises ELECTRONIC GLUER.OWNER ORAL SURGEON, Graham Unavailable Peter PALENCIA, Dr. Stevie Richard Primary Care Provider Patric DPM, Dr. Fulton Attending Provider Patric DPM, Dr. Fulton Referring Provider Peter PALENCIA, Dr. Stevie Richard Referring Provider Mayra Riggs Attending Provider Pamela ETHNOGRAPHIC MATERIALS CONSERVATOR-C, Minnie Attending Provider Pamela ETHNOGRAPHIC MATERIALS CONSERVATOR-C, Minnie Referring Provider Moises ELECTRONIC GLUER.OWNER ORAL SURGEON, Graham Unavailable Moises ELECTRONIC GLUER.OWNER ORAL SURGEON, Graham Unavailable Rios ELECTRONIC GLUER.ANODIZER, Meryl Unavailable Nathan Spivey Attending Unavailable Patric Nathan Referring Unavailable Talampas, Stevie D Primary Care Unavailable Pamela ETHNOGRAPHIC MATERIALS CONSERVATOR, Minnie Referring Unavailable Talampas, Stevie D Primary Care Unavailable Pamela ETHNOGRAPHIC MATERIALS CONSERVATOR, Minnie Attending Unavailable Nathan Spivey Attending Unavailable Patric Nathan Referring Unavailable Talampas, Stevie D Primary Care Unavailable Mayra Riggs Attending Unavail able Mayra Riggs Referring Unavail able Talampas, Stevie D Primary Care Unavailable Mayra Riggs Attending Unavail able Talampas, Stevie D Primary Care Unavailable Talampas, Stevie D Referring Unavailable Mayra Riggs Attending Unavail able Talampas, Stevie D Referring Unavailable Talampas, Stevie D Primary Care Unavailable Pamela ETHNOGRAPHIC MATERIALS CONSERVATOR, Minnie Referring Unavailable Talampas, Stevie D Primary Care Unavailable Minnie Banegas NP Attending Unavailable TALAMPAS, STEVIE D Attending Unavailable TALAMPAS, STEVIE D Primary Care Unavailable RIOS, MERYL Referring Unavailable TALAMPAS, STEVIE D Primary Care Unavailable TALAMPAS, STEVIE D Attending Unavailable TALAMPAS, STEVIE D Primary Care Unavailable TALAMPAS, STEVIE D Attending Unavailable SELF Referring Unavailable TALAMPAS, STEVIE D Primary Care Unavailable RIOS, MERYL Referring Unavailable TALAMPAS, STEVIE D Primary Care Unavailable MOISES, GRAHAM Attending Unavailable TALAMPAS, STEVIE D Primary Care Unavailable MOISES, GRAHAM Referring Unavailable TALAMPAS, STEVIE D Primary Care Unavailable TALAMPAS, STEVIE D Attending Unavailable TALAMPAS, STEVIE D Primary Care Unavailable TALAMPAS, STEVIE D Attending Unavailable TALAMPAS, STEVIE D Primary Care Unavailable RIOS, MERYL Attending Unavailable TALAMPAS, STEVIE D Primary Care Unavailable RIOS, MERYL Referring Unavailable TALAMPAS, STEVIE D Primary Care Unavailable RIOS, MERYL Attending Unavailable TALAMPAS, STEVIE D Primary Care Unavailable RIOS, MERYL Referring Unavailable TALAMPAS, STEVIE D Primary Care Unavailable TALAMPAS, STEVIE D Attending Unavailable TALAMPAS, STEVIE D Primary Care Unavailable Medications Current Medications Medication Drug Class(es) Dates Sig (Normalized) Sig (Original) acetaminophen 325 mg / HYDROcodone bitartrate 10 mg oral tablet (20 sources) Opioid Agonist Start: 10-14-2023 End: 09-05-2025 take 1 tablet by mouth four times daily as needed HYDROcodone-Acetami nophen (NORCO) 10-325 mg per tablet Indications: Left arm pain , Medial epicondylitis of right elbow Take 1 tablet by mouth four times a day as needed for up to 30 days. Patient should start on August 06, 2025. 120 tablet 08/06/2025 09/05/2025 Active Start: 09-24-2021 End: 05-06-2024 take 2 tablets by mouth four times daily as needed HYDROcodone-acetaminophen (NORCO) 5-325 mg per tablet Indications: Medial epicondylitis of right elbow , Left arm pain , Arthralgia of lower leg, unspecified laterality Take 2 tablets by mouth four times daily as needed. 110 tablet 0 11/17/2023 01/13/2024 Discontinued Start: 09-24-2021 take 1 tablet by tarik th four times daily Hydrocodone-Acetaminophen Active 1 - 2 TABLET PO .qid September 24, 2021 11:59am Start: 09-16-2021 End: 06-16-2023 HYDROcodone-Acetaminophen (N ORCO) 10-325 mg per tablet Indications: Left arm pain , Medial epicondylitis of right elbow Take 1 tablet by mouth four times daily as needed for up to 30 days. Do not start before February 16, 2023. 120 tablet 0 02/16/2023 Active Start: 07-01-2015 End: 09-24-2021 Hydrocodone-Acetaminophen 1 TABLET tablet Discontinued 1 - 2 {tbl} PO 3 TIMES DAILY NEEDED as needed for Pain July 01, 2015 12:00am September 24, 2021 12:00pm Start: 07-01-2015 End: 09-24-2021 take 1 tablet by mouth three times daily as needed Hydrocodone-Acetaminophen Discontinued 1 - 2 TABLET PO 3 TIMES DAILY NEEDED July 01, 2015 12:00am September 24, 2021 12:00pm Comment on above: Take 1 tablet by tarik th four times daily as needed for up to 30 days. Do not start before December 20, 2021. Take 1 tablet by tarik th four times daily as needed for up to 30 days. Do not start before February 18, 2022. Take 1 tablet by tarik th four times daily as needed for up to 30 days. Do not start before January 19, 2022. Take 1 tablet by tarik th four times daily as needed for up to 30 days. Do not start before September 16, 2021. Take 1 tablet by tarik th four times daily as needed for up to 30 days. Do not start before November 20, 2021. Take 1 tablet by tarik th four times daily as needed for up to 30 days. Do not start before March 21, 2022. Take 1 tablet by tarik th four times daily as needed for up to 30 days. Do not start before April 20, 2022. Take 1 tablet by tarik th four times daily as needed for up to 30 days. Do not start before June 19, 2022. Take 1 tablet by tarik th four times daily as needed for up to 30 days. Do not start before May 20, 2022. Take 1 tablet by tarik th four times daily as needed for up to 30 days. Do not start before July 19, 2022. Take 1 tablet by tarik th four times daily as needed for up to 30 days. Do not start before September 17, 2022. Take 1 tablet by tarik th four times daily as needed for up to 30 days. Do not start before August 18, 2022. Take 1 tablet by tarik th four times daily as needed for up to 30 days. Take 1 tablet by tarik th four times daily as needed for up to 30 days. Do not start before October 17, 2022. Take 1 tablet by tarik th four times daily as needed for up to 30 days. Do not start before November 16, 2022. Take 1 tablet by tarik th four times daily as needed for up to 30 days. Do not start before December 18, 2022. Take 1 tablet by tarik th four times daily as needed for up to 30 days. Do not start before January 17, 2023. Take 1 tablet by tarik th four times daily as needed for up to 30 days. Do not start before February 16, 2023. Take 1 tablet by tarik th four times daily as needed for up to 30 days. Do not start before March 18, 2023. Take 1 tablet by tarik th four times daily as needed for up to 30 days. Do not start before April 17, 2023. Take 1 tablet by tarik th four times daily as needed for up to 30 days. Do not start before May 17, 2023. Take 1 tablet by tarik th four times a day as needed for up to 30 days. Do not start before November 13, 2023. Take 1 tablet by tarik th four times a day as needed for up to 30 days. Do not start before December 13, 2023. Take 1 tablet by tarik th four times a day as needed for up to 30 days. Do not start before January 12, 2024. Take 1 tablet by tarik th four times a day as needed for up to 30 days. Do not start before October 14, 2023. Take 2 tablets by mo uth four times daily as needed. Take 1 tablet by tarik th four times a day as needed for up to 30 days. Do not start before February 12, 2024. Take 1 tablet by tarik th four times a day as needed for up to 30 days. Do not start before March 13, 2024. apixaban 5 mg oral tablet (20 sources) Factor Xa Inhibitor Start: 2019 End: 2024 take 1 tablet by mouth twice daily apixaban (ELIQUIS) 5 mg tab(s) Indications: Atrial fibrillation, transient (HCC) Take 1 tablet by mouth two times a day. 180 tablet 3 10/19/2024 Active Comment on above: Take 1 tablet by tarik th twice daily. Take 1 tablet by tarik th two times a day. aspirin 81 mg delayed release oral tablet (20 sources) Platelet Aggregation Inhibitor, Nonsteroidal Anti-inflammatory Drug Start: 2014 End: 2022 take 1 tablet by mouth once daily aspirin, enteric coated (ASPIRIN, ENTERIC COATED) 81 mg EC tablet Take 1 tablet by mouth once daily. 11/18/2022 Active Comment on above: Take 1 tablet by tarik th once daily. atorvastatin 40 mg oral tablet (20 sources) HMG-CoA Reductase Inhibitor Start: 2014 End: 2024 take 1 tablet by mouth once daily atorvastatin (LIPITOR) 40 mg tablet Indications: Hypercholesterolemia , Coronary artery disease involving [place] coronary artery 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 Take 1 tablet by mouth once daily. 90 tablet 3 10/19/2024 Active Comment on above: Take 1 tablet by tarik th once daily. cholecalciferol 0.025 mg oral capsule (20 sources) Vitamin D Start: 2021 take 1 capsule by mouth once daily Cholecalciferol (Vitamin D3) 25 mcg (1,000 unit) capsule Active 25 ug PO DAILY July 01, 2022 12:00am take 1 capsule by mouth once [place] Cholecalciferol, Vitamin D3, 25 mcg (1,000 unit) cap Take 1,000 Units by mouth once daily. Active Cholecalciferol, Vitamin D3, (VITAMIN D) 25 mcg (1,000 unit) cap Take 1,000 Units by mouth once daily. 0 Active Comment on above: Take 1,000 Units by mouth once daily. lisinopril 5 mg oral tablet (20 sources) Angiotensin Converting Enzyme Inhibitor Start: 0 End: take 1 tablet by mouth once daily lisinopril (ZESTRIL) 5 mg tablet Indications: Coronary artery disease involving [place] coronary artery 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 , Hypertension, unspecified type Take 1 tablet by mouth once daily. 90 tablet 3 10/19/2024 Active Start: 11-22-2019 End: 06-06-2020 Lisinopril 2.5 MG tablet Dis continued 1 {tbl} PO DAILY November 22, 2019 1:00am June 06, 2020 11:22am Comment on above: Take 1 tablet by tarik th once daily. Magnesium (20 sources) Start: 11-03-2023 take 1 tablet by mouth every other day Magnesium 250 mg tablet Active 250 mg PO .QOD November 03, 2023 1:00am Start: 11-03-2023 take 250 mg by mouth every other day Magnesium Active 250 MG PO .QOD November 03, 2023 1:00am Start: 11-03-2023 take 250 mg by mouth every other day Magnesium Active 250 MG PO .QOD November 03, 2023 12:00am take 1 tablet by tarik th every other day Magnesium 250 mg tab Indications: Hypomagnesemia Take 250 mg by mouth every other day. Active take 1 tablet by tarik th every other day Magnesium 250 mg tab Indications: Hypomagnesemia Take 250 mg by mouth every other day. 0 Active Comment on above: Take 250 mg by mouth every other day. metoprolol tartrate 100 mg oral tablet (20 sources) beta-Adrenergic Jono Start: 11-23-2019 End: 10-19-2024 take 1 tablet by mouth twice daily metoprolol tartrate, short acting, (LOPRESSOR) 100 mg tablet Indications: Coronary artery disease involving [place] coronary artery 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 Take 1 tablet by mouth two times a day. 180 tablet 3 10/19/2024 Active Start: 07-02-2015 End: 2019 Metoprolol Tartrate 25 MG ta blet Discontinued 37.5 mg PO TWICE A DAY July 02, 2015 6:47pm 2019 11:56am Start: 07-02-2015 End: 2019 take 37.5 mg by mouth twice daily Metoprolol Tartrate Discontinued 37.5 MG PO TWICE A DAY July 02, 2015 6:47pm 2019 11:56am Start: 07-01-2015 End: 07-02-2015 take 1 tablet by mouth twice daily Metoprolol Tartrate 25 MG tablet Discontinued 25 mg PO TWICE A DAY July 01, 2015 12:00am July 02, 2015 6:48pm Comment on above: Take 1 tablet by tarik th twice daily. Take 1 tablet by tarik th two times a day. nitroglycerin 0.4 mg sublingual tablet (20 sources) Nitrate Vasodilator Start: 07-01-2015 End: 11-07-2024 nitroglycerin sublingual (NITROQUICK) 0.4 mg SL tablet Indications: Coronary artery disease involving [place] coronary artery 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 Dissolve 1 tablet under the tongue every 5 minutes as needed for chest pain. Up to 3 times as needed as directed 1 tablet 1 11/07/2024 Active Comment on above: Dissolve 1 tablet un alexander the tongue every 5 minutes as needed for Chest Pain. Up to 3 times as needed as directed Dissolve 1 tablet un alexander the tongue every 5 minutes as needed for chest pain. Up to 3 times as needed as directed Patient should start on December 13, 2023. triamcinolone acetonide 1 mg/ml topical cream (20 sources) Corticosteroid Start: 06-07-2025 triamcinolone acetonide (KENALOG) 0.1 % cream Indications: Dermatitis of external ear , Hand dermatitis Apply 1 application to affected area two times a day. Apply sparingly to area for rash/itching. Use for up to 2 weeks 30 g 06/07/2025 Active Start: 11-08-2024 Triamcinolone Acetonide 0.1 % cream Active 1 NMA TOPICAL daily November 08, 2024 1:00am Start: 07-13-2024 End: 09-05-2024 triamcinolone acetonide (LILY ALOG) 0.1 % cream Indications: Dermatitis of external ear , Hand dermatitis Apply 1 application to affected area two times a day. Apply sparingly to area for rash/itching. Use for up to 2 weeks 30 g 09/05/2024 Active vitamin b12 1 mg oral tablet (20 sources) Vitamin B12 Start: 07-01-2022 take 1 capsule by mouth once daily Cyanocobalamin (Vitamin B-12) 1,000 mcg capsule Active 1000 ug PO DAILY July 01, 2022 12:00am Start: 05-17-2021 End: 11-18-2022 take 1 tablet by mouth once daily cyanocobalamin (VITAMIN B-12) 1,000 mcg tab Indications: B12 deficiency Take 1 tablet by mouth once daily. 11/18/2022 Active Comment on above: Take 1 tablet by [facility] once daily. Completed/Discontinued Medications Medication Drug Class(es) Dates Sig (Normalized) Sig (Original) [id number] 200 actuat albuterol 0.09 mg/actuat metered dose inhaler (7 sources) beta2-Adrenergic Agonist Start: 07-01-2015 End: 12-07-2019 Albuterol Sulfate 1 PUFF inhaler Discontinued 2 NMA INHALATION EVERY 4 HOURS NEEDED as needed for Cough/Congestion July 01, 2015 12:00am December 07, 2019 3:53pm Start: 07-01-2015 End: 12-07-2019 take 1 puff(s) by inhalation every four hours as needed Albuterol Sulfate Discontinued 2 PUFF INHALATION EVERY 4 HOURS NEEDED July 01, 2015 12:00am December 07, 2019 3:53pm codeine phosphate 2 mg/ml / guaiFENesin 20 mg/ml oral solution (7 sources) Opioid Agonist Start: 07-01-2015 End: 12-07-2019 take 1 mL by mouth every six hours as needed for cough Codeine-Guaifenesin 5 ML liquid Discontinued 5 - 10 mL PO EVERY 6 HOURS NEEDED as needed for Cough July 01, 2015 12:00am December 07, 2019 3:53pm Start: 07-01-2015 End: 12-07-2019 take 1 mL by mouth every six hours as needed Codeine-Guaifenesin Discontinued 5 - 10 ML PO EVERY 6 HOURS NEEDED July 01, 2015 12:00am December 07, 2019 3:53pm doxycycline monohydrate 100 mg oral capsule (6 sources) Tetracycline-class Drug Start: 06-15-2023 End: 06-25-2023 take 1 capsule by mouth twice daily Doxycycline Monohydrate 100 mg capsule Discontinued 100 mg PO TWICE A DAY June 15, 2023 12:00am June 25, 2023 2:19pm 3 ml sodium hyaluronate 20 mg/ml prefilled syringe (4 sources) Start: 07-25-2024 End: 07-25-2024 hyaluronate sodium, stabilized syrg 3 mL (DUROLANE) Start: 07-25-2024 End: 07-25-2024 3 mL, Injection - FOR ORTHO USE ONLY, ONCE, 1 dose, Starting on Thu07/25/24 at 1516, Until 07/25/24 at 1516 ibuprofen 600 mg oral tablet (7 sources) Nonsteroidal Anti-inflammatory Drug Start: 12-07-2019 End: 06-06-2020 take 1 tablet by mouth every six hours as needed Ibuprofen 600 mg tablet Discontinued 600 mg PO EVERY 6 HOURS as needed December 07, 2019 1:00am June 06, 2020 10:59am linezolid 600 mg oral tablet (4 sources) Oxazolidinone Antibacterial Start: 06-25-2023 End: 11-03-2023 take 1 tablet by mouth twice daily Linezolid 600 mg Tablet Discontinued 600 mg PO TWICE A DAY June 25, 2023 12:00am November 03, 2023 2:32pm loratadine 10 mg oral tablet (7 sources) Start: 2019 End: 06-06-2020 take 1 tablet by mouth once daily as needed Loratadine 10 mg tablet Discontinued 10 mg PO DAILY as needed 2019 1:00am June 06, 2020 11:00am tiZANidine 4 mg oral tablet (1 source) Central alpha-2 Adrenergic Agonist Start: 10-13-2023 End: 11-13-2023 take 1 tablet by mouth every eight hours as needed for muscle spasms tiZANidine (ZANAFLEX) 4 mg tablet Indications: Tenderness of sacroiliac joint , Low back strain, sequela Take 1 tablet by mouth every 8 hours as needed (muscle spasms). 30 tablet 0 10/13/2023 11/13/2023 Discontinued Comment on above: Take 1 tablet by mouth every 8 hours as needed (muscle spasms). Vitamin B Complex (B Complex-Vitamin B12) tablet (7 sources) Start: 09-24-2021 End: 07-01-2022 Vitamin B Complex (B Complex-Vitamin B12) tablet Discontinued 1 {tbl} PO DAILY September 24, 2021 1:00am July 01, 2022 2:32pm Start: 09-24-2021 End: 07-01-2022 take 1 tablet by mouth once daily Vitamin B Complex (B Complex-Vitamin B12) tablet Discontinued 1 TABLET PO DAILY September 24, 2021 1:00am July 01, 2022 2:32pm Start: 09-24-2021 End: 07-01-2022 take 1 tablet by mouth once daily Vitamin B Complex (B Complex-Vitamin B12) tablet Discontinued 1 TABLET PO DAILY September 24, 2021 12:00am July 01, 2022 1:32pm Problems Active Problems Problem Classification Problem Date Documented Da te Episodic/Chronic Allergic reactions (5 sources) Dermatitis of external ear; Translations: [Dermatitis, unspecified] Onset: 06-07-2025 08-22-2024 Episodic Anxiety disorders (20 sources) Mixed anxiety and depressive disorder; Translations: [Anxiety disorder, unspecified] Onset: 10-27-2005 Resolved: 05-18-2020 02-03-2016 Chronic Cardiac dysrhythmias (20 sources) Atrial fibrillation with rapid ventricular response; Translations: [Unspecified atrial fibrillation] Onset: 11-22-2019 Chronic Comment on above: RVR 11/22/2019 Cardiac dysrhythmias (7 sources) Palpitations; Translations: [Palpitations] 06-30-2022 Episodic Chronic obstructive pulmonary disease and bronchiectasis (20 sources) Chronic obstructive lung disease; Translations: [Chronic obstructive pulmonary disease, unspecified] Onset: 04-14-2023 04-14-2023 Chronic Coagulation and hemorrhagic disorders (20 sources) Platelet count below reference range; Translations: [Thrombocytopenia, unspecified] Onset: 08-13-2023 08-13-2023 Chronic Coronary atherosclerosis and other heart disease (20 sources) Coronary arteriosclerosis; Translations: [Atherosclerotic heart disease of [place] coronary artery without angina pectoris] Onset: 11-20-2014 11-20-2014 Chronic Coronary atherosclerosis and other heart disease (20 sources) Presence of coronary angioplasty implant and graft; Translations: [Percutaneous transluminal coronary angioplasty status] Onset: 11-17-2014 Episodic Deficiency and other anemia (2 sources) Anemia; Translations: [Anemia, unspecified] Episodic Diabetes mellitus without complication (6 sources) Hyperglycemia; Translations: [Impaired fasting glucose] Onset: 02-08-2025 04-12-2024 Episodic Disorders of lipid metabolism (20 sources) Hypercholesterolemia ; Translations: [Pure hypercholesterolemia , unspecified] Onset: 07-16-2015 07-16-2015 Chronic Essential hypertension (16 sources) Essential hypertension; Translations: [Essential (primary) hypertension] Chronic Immunizations and screening for infectious disease (6 sources) Needs influenza immunization; Translations: [Encounter for immunization] Onset: 04-03-2025 Episodic Nonspecific chest pain (9 sources) Chest pain at rest; Translations: [Chest pain, unspecified] Onset: 08-08-2025 06-30-2022 Episodic Nutritional deficiencies (6 sources) Vitamin D deficiency; Translations: [Vitamin D deficiency, unspecified] Onset: 02-08-2025 Chronic Nutritional deficiencies (8 sources) Cobalamin deficiency; Translations: [Deficiency of other specified B group vitamins] Onset: 02-08-2025 Episodic Osteoarthritis (1 source) Primary gonarthrosis, bilateral; Translations: [Bilateral primary osteoarthritis of knee] 07-25-2024 Chronic Other aftercare (20 sources) Patient encounter status; Translations: [Other [place] [facility] (current[facility] drug therapy] Episodic Other aftercare (7 sources) Long-term current use of anticoagulant; Translations: [rn long term care (current) use of anticoagulants] 06-15-2023 Episodic Other aftercare (1 source) 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; Translations: [Encounter for long-term current use of medication] Onset: 08-07-2025 Episodic Other connective tissue disease (4 sources) Foot pain; Translations: [Pain in left foot] 06-24-2023 Episodic Other connective tissue disease (1 source) Pain in left foot; Translations: [Pain in limb] 06-25-2023 Episodic Other gastrointestinal disorders (20 sources) Irritable bowel syndrome; Translations: [Irritable bowel syndrome without diarrhea] Onset: 09-25-2005 09-25-2005 Chronic Other gastrointestinal disorders (7 sources) Dysphagia; Translations: [Dysphagia, unspecified] 08-26-2022 Episodic Other gastrointestinal disorders (1 source) Dysphagia, unspecified; Translations: [Dysphagia, unspecified] Episodic Other hematologic conditions (1 source) Macrocytosis; Translations: [Other specified diseases of blood and blood-forming organs] 07-13-2024 Chronic Other injuries and conditions due to external causes (5 sources) Infected hematoma; Translations: [Other injury of unspecified body region, initial encounter] 06-15-2023 Episodic Other injuries and conditions due to external causes (1 source) Other injury of unspecified body region, initial encounter; Translations: [Contusion of unspecified site] 06-22-2023 Episodic Other lower respiratory disease (1 source) Respiratory disorder, unspecified; Translations: [Disorder of airway] Onset: 07-24-2025 Episodic Other nervous system disorders (1 source) Bilateral carpal tunnel syndrome; Translations: [Carpal tunnel syndrome, bilateral upper limbs] Chronic Other nervous system disorders (1 source) Polyneuropathy; Translations: [Polyneuropathy, unspecified] 04-23-2025 Chronic Other nervous system disorders (1 source) Numbness of toe; Translations: [Anesthesia of skin] Episodic Other non-traumatic joint disorders (3 sources) Pain in right knee; Translations: [Pain in joint, lower leg] 07-20-2024 Episodic Other nutritional; endocrine; and metabolic disorders (3 sources) Hypomagnesemia; Translations: [Hypomagnesemia] 04-12-2024 Chronic Other nutritional; endocrine; and metabolic disorders (1 source) Hypomagnesemia; Translations: [Hypomagnesemia] Onset: 08-07-2025 Chronic Other screening for suspected conditions (not mental disorders or infectious disease) (1 source) Abnormal findings on diagnostic imaging of other specified body structures; Translations: [Abnormal thyroid ultrasound] Onset: 07-24-2025 Chronic Other screening for suspected conditions (not mental disorders or infectious disease) (12 sources) Encounter for screening for malignant neoplasm of respiratory organs; Translations: [Special screening for malignant neoplasms of respiratory organs] Onset: 09-07-2024 Episodic Other skin disorders (1 source) Xeroderma; Translations: [Xerosis cutis] 09-05-2024 Episodic Other skin disorders (1 source) Localized swelling, mass and lump, neck; Translations: [Swollen throat] Onset: 07-17-2025 Episodic Peripheral and visceral atherosclerosis (1 source) Peripheral vascular disease, unspecified; Translations: [Peripheral vascular disease, unspecified] Onset: 01-05-2025 Chronic Residual codes; unclassified (1 source) Menopause present; Translations: [Asymptomatic menopausal state] Episodic Residual codes; unclassified (7 sources) Tobacco user; Translations: [Tobacco use] 06-30-2022 Episodic Residual codes; unclassified (3 sources) Tobacco use; Translations: [Tobacco use disorder] Episodic Residual codes; unclassified (3 sources) Bilateral lower limb edema; Translations: [Localized edema] Episodic Residual codes; unclassified (2 sources) Postmenopausal state; Translations: [Asymptomatic menopausal state] 01-22-2024 Episodic Residual codes; unclassified (1 source) Localized edema; Translations: [Bilateral lower extremity edema] Onset: 08-07-2025 Episodic Skin and subcutaneous tissue infections (15 sources) Cellulitis of foot; Translations: [Cellulitis of left lower limb] 06-15-2023 Episodic Spondylosis; intervertebral disc disorders; other back problems (1 source) Other cervical disc degeneration, unspecified cervical region; Translations: [DDD (degenerative disc disease), cervical] Onset: 08-07-2025 Chronic Spondylosis; intervertebral disc disorders; other back problems (2 sources) Spinal stenosis, cervical region; Translations: [Cervicalgia] Onset: 07-24-2025 Episodic Substance-related disorders (20 sources) Tobacco user; Translations: [Nicotine dependence, unspecified, uncomplicated] Onset: 05-19-2006 05-19-2006 Chronic Superficial injury; contusion (13 sources) Hematoma of left foot; Translations: [Contusion of left foot, initial encounter] 06-15-2023 Episodic Thyroid disorders (3 sources) Thyroid nodule; Translations: [Nontoxic single thyroid nodule] Onset: 07-17-2025 Chronic Past or Other Problems Problem Classification Problem Date Documented Date Episodic/Chronic Disorders of teeth and jaw (20 sources) Temporomandibular joint crepitus; Translations: [Other specified disorders of temporomandibular joint] Onset: 5 09-25-2005 Episodic Other aftercare (1 source) Encounter for therapeutic drug level monitoring; Translations: [Encounter for therapeutic drug monitoring] Onset: Episodic Other bone disease and musculoskeletal deformities (20 sources) Disorder of skeletal system; Translations: [Disorder of bone, unspecified] Onset: 6 10-27-2005 Episodic Other connective tissue disease (20 sources) Pain in left arm; Translations: [Pain in left arm] Onset: 4 Episodic Other connective tissue disease (20 sources) Medial epicondylitis of right humerus; Translations: [Medial epicondylitis, right elbow] Onset: 4 Episodic Other connective tissue disease (1 source) Pain in left arm; Translations: [Left arm pain] Onset: 4 Episodic Other connective tissue disease (1 source) Medial epicondylitis, right elbow; Translations: [Medial epicondylitis of right elbow] Onset: 4 Episodic Other injuries and conditions due to external causes (1 source) Unspecified injury of left ankle, initial encounter; Translations: [Unspecified injury of left ankle, initial encounter] Onset: 5 Episodic Other non-traumatic joint disorders (20 sources) Pain in lower limb; Translations: [Pain in unspecified knee] Onset: 4 10-07-2021 Episodic Screening and history of mental health and substance abuse codes (5 sources) Tobacco use and exposure - finding; Translations: [Personal history of nicotine dependence] Onset: 5 11-15-2024 Episodic Results Test Name Value Interpretation Reference Range Facility LG SCREENING W TOMOon 08-09 LG SCREENING W R[facility] * * *Final Report* * * DATE OF EXAM: Aug 09 2025 11:38AM [id number] - LG SCREENING W RICH / PROCEDURE REASON: Encounter for screening mammogram for breast cancer * * * * Physician Interpretation * * * * RESULT: [place] [address] #[id number] - LG SCREENING W RICH HISTORY: 74 year-old patient presents for screening. Patient is asymptomatic in both breasts. Patient states no personal history of breast cancer. COMPARISON STUDIES: The present examination has been compared to prior imaging studies dated 04/07/2017 (mammogram), 10/14/2018 (mammogram), 07/26/2020 (mammogram), 05/17/2024 (mammogram) and 09/07/2024 (mammogram). MAMMOGRAM TECHNIQUE: The study was acquired using full field digital technology and interpreted from soft copy. Digital Breast Tomosynthesis (DBT) images were obtained and used to assist in the interpretation of this examination. MAMMOGRAM FINDINGS: There are scattered areas of fibroglandular density. No suspicious masses, calcifications or other abnormalities are seen in either breast. There are no significant interval changes. IMPRESSION: There is no mammographic evidence of malignancy in either breast. Routine screening mammogram is recommended. Annual mammogram will be due in 1 year. BI-RADS Category 1: Negative RISK: Based on the Tyrer-Cuzick (TC) risk assessment model, this patient has a 3.9% lifetime risk of developing breast cancer, meaning they are at average risk for developing breast cancer. However, this is only an estimate based on available history provided on the patient's questionnaire. We encourage all patients to talk with their providers about these results, further recommendations for managing breast health, and appropriate supplemental screening options if the patient has dense breast tissue. Interpreting Radiologist: Magy Nichole M.D. Electronically signed on: 08/10/2025 Granite Worker: BERNA Transcribe Date/Time: Aug 09 2025 11:22A Dictated by: MAGY NICHOLE MD This examination was interpreted and the report reviewed and electronically signed by: MAGY NICHOLE MD on Aug 10 2025 10:28AM EST [id number] N Normal [facility] Cardiology Visit Reporton Cardiology Visit Report [facility] Heart [facility] [address] [place] [address] OFFICE VISIT Date of Service: 08/08/25 MR#: [id number] Acct: [id number] Name: NANCY JIMÉNEZ Rep #: [id number] : 1950 Provider: YESENIA Ferreira Age/Sex: 74/F Location: [facility] Status: Signed HPI HPI History of Present Illness Details: The patient is a 74-year-old female with CAD s/p LAD stenting in 2014, HTN, HLD, and paroxysmal atrial fibrillation, presenting with intermittent neck swelling. She reports a sensation of neck swelling that occurs daily, lasting from 1 to 15 minutes per episode, without a specific trigger or time of day. She denies pain with swallowing, palpitations, or tachycardia during these episodes. She was recently evaluated by Dr. Dumas, who identified a thyroid nodule on ultrasound and CT. She is scheduled to see a wellness consultant in September. She was also found to have a low magnesium level and has since increased her magnesium intake. She denies chest pain, heaviness, tightness, worsening dyspnea, irregular heartbeats, bleeding issues, lightheadedness, or dizziness. She recalls that prior to her LAD stenting in 2014, she experienced heartburn and arm pain for about a month, which resolved with standing. She quit smoking on 2 of this year and reports improved taste and financial savings. She is currently in the control arm of the REACT-AFib trial. Current medications include Eliquis, aspirin, atorvastatin, lisinopril, and metoprolol. Intake Vital Signs 11/08/24 13:20 02 13:05 08/08/25 08:15 Height 5 ft 4 in 5 ft 4 in 5 ft 4 in Weight: 160 lb 164 lb BMI 27.4 28.1 BP 122/78 H 117/73 Blood Pressure Location Lt brachial Lt brachial Position Sitting Sitting Respiration 18 16 Pulse 69 85 Pulse Source Monitor Monitor Temp 97.3 F L Pulse Oximetry (%) 94 Oxygen Delivery Method room air Intake Visit Reasons: 9 M Professor Sculpture Required: No Accompanied by: Self Is patient in pain?: No Allergies No Known Allergies Allergy (Verified 08/08/25 13:22) Medications ???Medication ???Instructions ???Recorded ???Confirmed ???Type aspirin 81 mg tablet,delayed 81 mg PO DAILY heart health 08/08/25 History release atorvastatin 40 mg tablet 40 mg PO QHS cholesterol 07/01/15 08/08/25 History nitroglycerin 0.4 mg sublingual 0.4 mg sublingual Q5M PRN Chest 08/08/25 History tablet Pain metoprolol tartrate 100 mg tablet 100 mg PO BID #60 tabs 12/16/19 1 Rx lisinopril 5 mg tablet 5 mg PO DAILY #30 tabs 06/06/20 Rx cholecalciferol (vitamin D3) 25 25 mcg PO DAILY 07/01/22 08/08/25 History mcg (1,000 unit) capsule cyanocobalamin (vitamin B-12) 1,000 mcg PO DAILY 07/01/22 History 1,000 mcg capsule magnesium 250 mg tablet 250 mg PO .QOD 11/03/23 08/08/25 H istory hydrocodone 10 mg-acetaminophen 1 tab PO 4X/DAY PRN 05/06/2408/08 History 325 mg tablet apixaban 5 mg tablet 5 mg PO BID #180 tabs 11/08/24 Rx triamcinolone acetonide 0.1 % 1 applic topical QDAY PRN 08/08/25 08/08/25 History topical cream Ejection fraction %: 65 Have you fallen in the past year?: No PFSH Medical History History of tobacco abuse Dysphagia Encounter for screening for malignant neoplasm of lung PAF (paroxysmal atrial fibrillation) Essential hypertension IBS (irritable bowel syndrome) Anxiety and depression Atherosclerosis of coronary artery 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 Hyperglycemia HLD (hyperlipidemia) Atrial fibrillation with rapid ventricular response (11/22/19) COPD (chronic obstructive pulmonary disease) Tobacco abuse Surgical History History of foot surgery History of ankle surgery H/O elbow surgery History of surgical removal of pilonidal cyst History of open reduction and internal fixation (ORIF) procedure History of left heart catheterization (07/02/15) History of coronary artery stent placement (11/17/14) Family History Mother CVA (cerebral vascular accident) Social History Smoking Status: Former smoker (quit 10/13/24) quit date: 10/13/24 alcohol intake: current alcohol intake frequency: 0-2 drinks per day substance use type: does not use caffeine: Yes Type: coffee Number of servings: 2 ROS Const Const: Negative for fatigue, weakness or headache(s) Eyes Eyes: Negative for change in vision ENT ENT: Negative for headache(s), dizziness, Nosebleed/epistaxis or balance problems Cardio Chest Pain: No Palpitations: No Edema: Bilateral R (more content not included)... Normal [facility] CT NECK SOFT TISSUE WO IVCON on 07-25-2025 CT NECK SOFT TISSUE WO IVCON * * *Final Report* * * DATE OF EXAM: Jul 25 2025 3:51PM [facility] 0509 - CT NECK SOFT TISSUE WO IVCON / PROCEDURE REASON: Disorder of airway * * * * Physician Interpretation * * * * CT NECK SOFT TISSUE WO IVCON CLINICAL HISTORY: sensation of airway swelling, internal neck pain TECHNIQUE: A series of contiguous helical scans were performed from the skull base to the aortic arch without intravenous contrast. CT Radiation dose: Integrated Dose-length product (DLP) for this visit = 548 mGy*cm. CT Dose Reduction Employed: Automated exposure control(AEC) and iterative recon COMPARISON: None RESULT: Localizer images: No additional findings. Postoperative/Treatme nt Change: None apparent. Aerodigestive tract: Normal. Major salivary glands: Normal. Thyroid gland: Normal. Lymph Nodes: No cervical lymphadenopathy by size criteria. Carotid/Parapharyngea l/Retropharyngeal Spaces: Vascular patency is not assessed on this non-contrast exam. Mild calcific atherosclerotic plaque at the carotid bifurcations. Orbits, Face and Skull Base: Paranasal sinuses, mastoid air cells, and middle ear cavities are clear. Bilateral pseudophakia. Imaged intracranial contents: No intracranial mass effect or hydrocephalus. Cervical spine and remaining osseous structures: No osteolytic or osteoblastic process. Advanced cervical spondylosis. Moderate to severe canal stenosis at C4-C5, C5-C6 and C6-C7 secondary disc osteophyte complexes. At these levels there is also severe bilateral foraminal stenosis secondary to facet and uncovertebral joint degenerative hypertrophic changes. Lung apices: No consolidation or mass. Other: Not applicable. IMPRESSION: No acute findings in the neck on this unenhanced examination. No structural compromise of the aerodigestive tract. Granite Worker: PSCB Transcribe Date/Time: Jul 25 2025 4:07P Dictated by : QUINN CARRILLO DO This examination was interpreted and the report reviewed and electronically signed by: QUINN CARRILLO DO on Jul 25 2025 4:25PM EST [id number] N Normal [facility] CNOVon 07-24-2025 CNOV Office Visit (INTMWS ) NANCY JIMÉNEZ ([id number]) 1950 F Date Time Provider Department 07/24/25 9:40 AM MERYL RIOS INTMWS During your visit today, we recorded the following information about you: Pulse Respiration Blood pressure Weight 74/minute 16/minute 115/74 73.5 kg Meryl Rios APRN.MARQUEZ 07/24/2025 10:00 AM Signed SUBJECTIVE: Medicare Annual Wellness Visit Never done Colorectal Cancer Screening due on 06/15/2019 Covid-19 Vaccine( season) due on 06/12/2025 Mammogram Screening due on 09/07/2025 HPI Nancy Jiménez is a 74 year old female. PMH significant for ACTIVE PROBLEM LIST Irritable Bowel Syndrome Temporomandibular Joint Sounds On Opening and/Or Closing The Jaw Anxiety and Depression Disorder of Bone and Cartilage, Unspecified Tobacco Use Disorder Medial Epicondylitis of Right Elbow Pain in Joint, Lower Leg Left Arm Pain Cad (Coronary Artery Disease) Hypercholesterolemia Presence of Drug Coated Stent in Lad Coronary Artery Atrial Fibrillation With Rvr (Hcc) Chronic Obstructive Pulmonary Disease, Unspecified Copd Type (Hcc) Platelets Decreased Nancy is a 74-year-old female presenting for follow-up on a thyroid ultrasound and evaluation of neck discomfort. Thyroid Calcification: - Recent thyroid ultrasound revealed a calcification. - No biopsy recommended at this time due to small size. Neck Swelling/ Neck Discomfort: - Persistent neck discomfort greater than 1 week, described as a swollen and uncomfortable feeling. - Sensation localized to the inside of the neck. - Denies dysphagia or choking, dyspnea, recent illness - Sensation of internal swelling and pain in the neck. - No external lumps or bumps noted. - No known trauma or injury. Chronic Cough: - Daily cough. - Denies reflux or heartburn. - Former smoker, quit in October; began smoking at age 20 with multiple cessation attempts. ROS Neck: (+) neck swelling, (+) neck discomfort Respiratory: (+) cough Gastrointestinal: (-) heartburn, (-) dysphagia Objective BP 115/74 Pulse 74 Resp 16 Wt 73.5 kg (162 lb 0.6 oz) SpO2 99% BMI 25.38 kg/m? Physical Exam Vitals and nursing note reviewed. Constitutional: Appearance: Normal appearance. HENT: Head: Normocephalic and atraumatic. Mouth/Throat: Lips: Casey. Mouth: Mucous membranes are moist. Pharynx: Oropharynx is clear. Tonsils: No tonsillar exudate. Eyes: Conjunctiva/sclera: Conjunctivae normal. Neck: Thyroid: No thyroid mass or thyromegaly. Vascular: Normal carotid pulses. No carotid bruit or JVD. Cardiovascular: Rate and Rhythm: Normal rate. Rhythm irregular. Pulmonary: Effort: Pulmonary effort is normal. Breath sounds: Normal breath sounds. Abdominal: General: Bowel sounds are normal. Palpations: Abdomen is soft. Skin: General: Skin is warm and dry. Neurological: Mental Status: She is alert and oriented to person, place, and time. Mental status is at baseline. ALLERGIES No Known Allergies MEDICATIONS omeprazole (PRILOSEC) 20 mg capsule Take 1 capsule by mouth daily before breakfast. HYDROcodone-Acetamino phen (NORCO) 10-325 mg per tablet Take 1 tablet by mouth four times a day as needed for up to 30 days. HYDROcodone-Acetamino phen (NORCO) 10-325 mg per tablet Take 1 tablet by mouth four times a day as needed for up to 30 days. Patient should start on July 07, 2025. [START ON 08/06/2025] HYDROcodone-Acetamino phen (NORCO) 10-325 mg per tablet Take 1 tablet by mouth four times a day as needed for up to 30 days. Patient should start on August 06, 2025. triamcinolone acetonide (KENALOG) 0.1 % cream Apply 1 application to affected area two times a day. Apply sparingly to area for rash/itching. Use for up to 2 weeks nitroglycerin sublingual (NITROQUICK) 0.4 mg SL tablet Dissolve 1 tablet under the tongue every 5 minutes as needed for chest pain. Up to 3 times as needed as directed apixaban (ELIQUIS) 5 mg tab(s) Take 1 tablet by mouth two times a day. atorvastatin (LIPITOR) 40 mg tablet Take 1 tablet by mouth once daily. lisinopril (ZESTRIL) 5 mg tablet Take 1 tablet by mouth once daily. metoprolol tartrate, short acting, (LOPRESSOR) 100 mg tablet Take 1 tablet by mouth two times a day. Magnesium 250 mg tab Take 250 mg by mouth every other day. aspirin, enteric coated (ASPIRIN, ENTERIC COATED) 81 mg EC tablet Take 1 tablet by mouth once daily. cyanocobalamin (VITAMIN B-12) 1,000 mcg tab Take 1 tablet by mouth once daily. Cholecalciferol, Vitamin D3, 25 mcg (1,000 unit) cap Take 1,000 Units by mouth once daily. PAST MEDICAL HISTORY Diagnosis Date ANXIETY STATE NOS 10/27/2005 BONE AND CARTILAGE DIS NOS 10/27/2005 osteopenia CAD (coronary artery disease) 11/17/14 s/p PCI to the proximal LAD with a 3.0/18 mm Resolute Integrity DONALDO DEPRESSIVE DISORDER NEC 10/27/2005 Left (more content not included)... [facility] (COUMWS) NANCY JIMÉNEZ ([id number]) 1950 F Date Time Provider Department 07/21/25 [facility] During your visit today, we recorded the following information about you: Mayra Rojas, JODI 07/21/2025 12:19 PM Signed patient is calling in requesting the results from her thyroid us that was completed on Thursday. Please review and advise Patient needs called with information. Meryl Rios APRN.ANODIZER 07/21/2025 4:01 PM Signed Please let her know to review concerning findings on her thyroid. She is requesting a call RESULT: Right Lobe: 4.1 cm x 1.3 cm x 1.5 cm; heterogeneous echogenicity, expected vascular flow. Left Lobe: 4.1 cm x 1.2 cm x 1.7 cm; heterogeneous echogenicity, expected vascular flow. Isthmus: 0.3 cm 0.4 cm coarse calcification in the mid left thyroid lobe. The most suspicious thyroid nodule(s) (up to four) as below: Nodules: None Kristine Perez MA 07/24/2025 9:02 AM Signed Patient was notified and will be in today to discuss further since she does have pain still Kristine Perez MA Allergies As of Date: 07/21/2025 (No Known Allergies) Date Reviewed: 07/17/2025 Reviewed by: Eli Mao MA - Fully Assessed Reason for Visit: Results [95] Cmt: thyroid us Prescriptions as of 07/24/2025 - HYDROcodone-Acetamino phen (NORCO) 10-325 mg per tablet Take 1 tablet by mouth four times a day as needed for up to 30 days. - HYDROcodone-Acetamino phen (NORCO) 10-325 mg per tablet Take 1 tablet by mouth four times a day as needed for up to 30 days. Patient should start on July 07, 2025. - HYDROcodone-Acetamino phen (NORCO) 10-325 mg per tablet Take 1 tablet by mouth four times a day as needed for up to 30 days. Patient should start on August 06, 2025. - triamcinolone acetonide (KENALOG) 0.1 % cream Apply 1 application to affected area two times a day. Apply sparingly to area for rash/itching. Use for up to 2 weeks - nitroglycerin sublingual (NITROQUICK) 0.4 mg SL tablet Dissolve 1 tablet under the tongue every 5 minutes as needed for chest pain. Up to 3 times as needed as directed - apixaban (ELIQUIS) 5 mg tab(s) Take 1 tablet by mouth two times a day. - atorvastatin (LIPITOR) 40 mg tablet Take 1 tablet by mouth once daily. - lisinopril (ZESTRIL) 5 mg tablet Take 1 tablet by mouth once daily. - metoprolol tartrate, short acting, (LOPRESSOR) 100 mg tablet Take 1 tablet by mouth two times a day. - Magnesium 250 mg tab Take 250 mg by mouth every other day. - aspirin, enteric coated (ASPIRIN, ENTERIC COATED) 81 mg EC tablet Take 1 tablet by mouth once daily. - cyanocobalamin (VITAMIN B-12) 1,000 mcg tab Take 1 tablet by mouth once daily. - Cholecalciferol, Vitamin D3, 25 mcg (1,000 unit) cap Take 1,000 Units by mouth once daily. Problem List As Of Date 07/21/2025 Noted Resolved IRRITABLE COLON [K58.9] 09/25/2005 TMJ SOUNDS ON OPEN/ CLOSE JAW [M26.69] 09/25/2005 Anxiety and depression [F41.9, F32.A] 10/27/2005 Anxiety state, unspecified [F41.1] 10/27/2005 05/18/2020 BONE AND CARTILAGE DIS NOS [M89.9, M94.9] 10/27/2005 TOBACCO USE DISORDER [F17.200] 05/19/2006 Medial epicondylitis of right elbow [M77.01] 03/15/2014 Pain in joint, lower leg [M25.569] 03/15/2014 Left arm pain [M79.602] 03/15/2014 CAD (coronary artery disease) [I25.10] 11/20/2014 Hypercholesterolemia [E78.00] 07/16/2015 Presence of drug coated stent in LAD coronary a*07/16/2015 Atrial fibrillation with RVR (HCC) [I48.91] 11/28/2019 Chronic obstructive pulmonary disease, unspecif*04/14/2023 Platelets decreased ([facility]) [D69.6] 08/13/2023 Encounter Status:Closed by KRISTINE PEREZ on 07/24/25 Normal [facility] US THYROID/PARATHYROIDon US THYROID/PARATHYROID * * *Final Report * * * DATE OF EXAM: Jul 18 2025 1:19PM [facility] 1048 - US THYROID/PARATHYROID / PROCEDURE REASON: multiple diagnoses * * * * Physician Interpretation * * * * EXAMINATION: THYROID ULTRASOUND CLINICAL HISTORY: Thyroid nodule Swollen throat TECHNIQUE: Sonography and Doppler imaging of the thyroid was performed. Images were obtained and stored in a permanent archive. MQ: UST_1 COMPARISON: None. RESULT: Right Lobe: 4.1 cm x 1.3 cm x 1.5 cm; heterogeneous echogenicity, expected vascular flow. Left Lobe: 4.1 cm x 1.2 cm x 1.7 cm; heterogeneous echogenicity, expected vascular flow. Isthmus: 0.3 cm 0.4 cm coarse calcification in the mid left thyroid lobe. The most suspicious thyroid nodule(s) (up to four) as below: Nodules: None IMPRESSION: No nodules requiring follow-up or biopsy by TI-RADS criteria. ACR recommendations are strictly based on the size and imaging appearance at the time of the exam and do not consider stability or previous biopsy results. Granite Worker: DENISE Transcribe Date/Time: Jul 20 2025 8:16P Dictated by : JOSÉ MIGUEL REECE MD This examination was interpreted and the report reviewed and electronically signed by: JOSÉ MIGUEL REECE MD on Jul 20 2025 8:18PM EST [id number] N Normal [facility] CNOVon 07-17-2025 CNOV Office Visit (INTMWS ) NANCY JIMÉNEZ ([id number]) 1950 F Date Time Provider Department 07/17/25 10:20 AM MERYL RIOS INTMWS During your visit today, we recorded the following information about you: Temperature Pulse Blood pressure Weight 98.6 degrees 79/minute 103/69 73.8 kg Height 1.702 m Meryl Rios APRN.ANODIZER 07/17/2025 11:19 AM Signed SUBJECTIVE: Medicare Annual Wellness Visit Never done Colorectal Cancer Screening due on 06/15/2019 Influenza Vaccine(1) due on 06/12/2025 Covid-19 Vaccine( season) due on 06/12/2025 Mammogram Screening due on 09/07/2025 JONELLE Jiménez is a 74 year old female. PMH significant for ACTIVE PROBLEM LIST Irritable Bowel Syndrome Temporomandibular Joint Sounds On Opening and/Or Closing The Jaw Anxiety and Depression Disorder of Bone and Cartilage, Unspecified Tobacco Use Disorder Medial Epicondylitis of Right Elbow Pain in Joint, Lower Leg Left Arm Pain Cad (Coronary Artery Disease) Hypercholesterolemia Presence of Drug Coated Stent in Lad Coronary Artery Atrial Fibrillation With Rvr (Hcc) Chronic Obstructive Pulmonary Disease, Unspecified Copd Type (Hcc) Platelets Decreased Nancy Jiménez is a 74-year-old female with a known thyroid nodule, presenting for evaluation of perceived internal neck swelling. Neck Swelling: - Sensation of internal swelling in the neck. - No external lumps or bumps noted. - Denies pain, dysphagia, dyspnea, or recent illness. - No known trauma or injury. - No current allergy symptoms. - Similar episode a few years ago; previous neck ultrasound reportedly showed a small thyroid nodule; last discussed during a previous visit with a recommendation for follow-up ultrasound. ROS Constitutional: (-) malaise Neck: (+) neck swelling, (-) neck pain, (-) neck mass Respiratory: (-) dyspnea Gastrointestinal: (-) dysphagia Objective BP 103/69 Pulse 79 Temp 37 ?C (98.6 ?F) Ht 170.2 cm (5' 7) Wt 73.8 kg (162 lb 11.2 oz) BMI 25.48 kg/m? Physical Exam Vitals and nursing note reviewed. Constitutional: Appearance: Normal appearance. HENT: Head: Normocephalic and atraumatic. Eyes: Conjunctiva/sclera: Conjunctivae normal. Neck: Thyroid: No thyroid mass or thyromegaly. Vascular: Normal carotid pulses. No carotid bruit or JVD. Cardiovascular: Rate and Rhythm: Normal rate. Rhythm irregular. Pulmonary: Effort: Pulmonary effort is normal. Breath sounds: Normal breath sounds. Abdominal: General: Bowel sounds are normal. Palpations: Abdomen is soft. Skin: General: Skin is warm and dry. Neurological: Mental Status: She is alert and oriented to person, place, and time. Mental status is at baseline. ALLERGIES No Known Allergies MEDICATIONS HYDROcodone-Acetamino phen (NORCO) 10-325 mg per tablet Take 1 tablet by mouth four times a day as needed for up to 30 days. HYDROcodone-Acetamino phen (NORCO) 10-325 mg per tablet Take 1 tablet by mouth four times a day as needed for up to 30 days. Patient should start on July 07, 2025. [START ON 08/06/2025] HYDROcodone-Acetamino phen (NORCO) 10-325 mg per tablet Take 1 tablet by mouth four times a day as needed for up to 30 days. Patient should start on August 06, 2025. triamcinolone acetonide (KENALOG) 0.1 % cream Apply 1 application to affected area two times a day. Apply sparingly to area for rash/itching. Use for up to 2 weeks nitroglycerin sublingual (NITROQUICK) 0.4 mg SL tablet Dissolve 1 tablet under the tongue every 5 minutes as needed for chest pain. Up to 3 times as needed as directed apixaban (ELIQUIS) 5 mg tab(s) Take 1 tablet by mouth two times a day. atorvastatin (LIPITOR) 40 mg tablet Take 1 tablet by mouth once daily. lisinopril (ZESTRIL) 5 mg tablet Take 1 tablet by mouth once daily. metoprolol tartrate, short acting, (LOPRESSOR) 100 mg tablet Take 1 tablet by mouth two times a day. Magnesium 250 mg tab Take 250 mg by mouth every other day. aspirin, enteric coated (ASPIRIN, ENTERIC COATED) 81 mg EC tablet Take 1 tablet by mouth once daily. cyanocobalamin (VITAMIN B-12) 1,000 mcg tab Take 1 tablet by mouth once daily. Cholecalciferol, Vitamin D3, 25 mcg (1,000 unit) cap Take 1,000 Units by mouth once daily. 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 Normal [facility] CNOVon 06-07-2025 CNOV Office Visit (INTMWS ) NANCY JIMÉNEZ ([id number]) 1950 F Date Time Provider Department 06/07/25 11:00 AM STEVIE DUMAS INTMWS During your visit today, we recorded the following information about you: Pulse Respiration Blood pressure Weight 84/minute 16/minute 120/77 75.1 kg Stevie Dumas MD 07/13/2025 11:48 PM Signed Subjective Nancy Jiménez is a 74 year old female. HPI SUBJECTIVE: Nancy Jiménez is a 74-year-old female presenting for a 2-month follow-up visit. Nancy reports stability in her condition, with no issues or side effects from her current medications. She mentions a recent prescription for hydrocodone was filled today at [facility], and she confirms that the pharmacy is reliable in providing her medications on time. She also reports a dermatitis issue on her foot, for which she has been using triamcinolone 0.1% cream. She notes that she has about a third of the tube left and requests a refill. The dermatitis started as a small patch and expanded to cover the entire side of her leg. She mentions a previous hematoma on the top of her left foot, which developed into an ulcer requiring surgery by Dr. Spivey [facility]. Nancy recalls the hematoma was initially dismissed by three different doctors before Dr. Spivey decided to perform surgery. She describes the hematoma as a lump that appeared after she hit her foot on the bottom of her car door while wearing sandals. Nancy was hospitalized for three days post-surgery and is currently using Shilpa on the wound, which is almost healed. She denies needing another Band-Aid and plans to apply medicine when she gets home. PAST MEDICAL HISTORY Diagnosis Date ANXIETY STATE NOS 10/27/2005 BONE AND CARTILAGE DIS NOS 10/27/2005 osteopenia CAD (coronary artery disease) 11/17/14 s/p PCI to the proximal LAD with a 3.0/18 mm Resolute Integrity DONALDO DEPRESSIVE DISORDER NEC 10/27/2005 Left arm pain 03/15/2014 Medial epicondylitis of right elbow 03/15/2014 Pain in joint, lower leg 03/15/2014 patellofemoral syndrome; also history of ankle fracture /sp surgical repair Tobacco use disorder 05/19/2006 Current Outpatient Medications Medication Sig nitroglycerin sublingual (NITROQUICK) 0.4 mg SL tablet Dissolve 1 tablet under the tongue every 5 minutes as needed for chest pain. Up to 3 times as needed as directed apixaban (ELIQUIS) 5 mg tab(s) Take 1 tablet by mouth two times a day. atorvastatin (LIPITOR) 40 mg tablet Take 1 tablet by mouth once daily. lisinopril (ZESTRIL) 5 mg tablet Take 1 tablet by mouth once daily. metoprolol tartrate, short acting, (LOPRESSOR) 100 mg tablet Take 1 tablet by mouth two times a day. Magnesium 250 mg tab Take 250 mg by mouth every other day. aspirin, enteric coated (ASPIRIN, ENTERIC COATED) 81 mg EC tablet Take 1 tablet by mouth once daily. cyanocobalamin (VITAMIN B-12) 1,000 mcg tab Take 1 tablet by mouth once daily. Cholecalciferol, Vitamin D3, 25 mcg (1,000 unit) cap Take 1,000 Units by mouth once daily. HYDROcodone-Acetamino phen (NORCO) 10-325 mg per tablet Take 1 tablet by mouth four times a day as needed for up to 30 days. HYDROcodone-Acetamino phen (NORCO) 10-325 mg per tablet Take 1 tablet by mouth four times a day as needed for up to 30 days. Patient should start on July 07, 2025. [START ON 08/06/2025] HYDROcodone-Acetamino phen (NORCO) 10-325 mg per tablet Take 1 tablet by mouth four times a day as needed for up to 30 days. Patient should start on August 06, 2025. triamcinolone acetonide (KENALOG) 0.1 % cream Apply 1 application to affected area two times a day. Apply sparingly to area for rash/itching. Use for up to 2 weeks No current facility-administered medications for this visit. Review of Systems Objective BP 120/77 Pulse 84 Resp 16 Wt 75.1 kg (165 lb 9.1 oz) SpO2 96% BMI 25.93 kg/m? Physical Exam Constitutional: Appearance: Normal appearance. HENT: Head: Normocephalic. Eyes: Conjunctiva/sclera: Conjunctivae normal. Cardiovascular: Rate and Rhythm: Normal rate and regular rhythm. Heart sounds: Normal heart sounds. Pulmonary: Effort: Pulmonary effort is normal. Breath sounds: Normal breath sounds. Feet: Comments: Healing ulcer on the left foot with a small divot and a layer of skin present. Eczema patch on the guthrie, healing. Skin: General: Skin is warm and dry. Neurological: General: No focal deficit present. Mental Status: She is alert and oriented to person, place, and time. Psychiatric: Mood and Affect: Mood normal. Behavior: Behavior normal. Thought Content: Thought content normal. Judgment: Judgment normal. # Left arm pain (M79.602) # Medial epicondylitis of right elbow (M77.01) Continues present management with refill of hydrocodone prescription given today # Dermatitis of external ear (L30.9) # (more content not included)... Normal [facility] CNOVon 04-03-2025 CNOV Office Visit (INTMWS ) NANCY JIMÉNEZ ([id number]) 1950 F Date Time Provider Department 04/03/25 9:20 AM STEVIE DUMAS INTMWS During your visit today, we recorded the following information about you: Pulse Respiration Blood pressure Weight 66/minute 16/minute 110/70 73.9 kg Stevie Dumas MD 04/23/2025 10:21 PM Signed This note was created using [employer]. Subjective Nancy Jiménez is a 74-year-old female with a history of pre-diabetes, presenting for a 2-month follow-up visit. Nancy is currently taking B12 1,000 mcg and magnesium every other day. She reports potential loose stools with daily magnesium intake. She denies taking folic acid. She is also on Lipitor and hydrocodone, with the last refill on April 08. She reports mild lower extremity edema and neuropathy. She is not currently wearing compression stockings due to the heat, despite her spanish instructor's recommendation. Recent lab results from March show stable WBC and RBC counts, with hemoglobin and hematocrit within normal ranges. Blood glucose was 120 mg/dL, and A1c was 5.2%. Kidney function was normal, with one liver enzyme slightly elevated. Electrolytes were normal, triglycerides improved to 203 mg/dL, HDL increased to 68 mg/dL, and LDL was 83 mg/dL. Vitamin B12 levels were adequate, but magnesium levels decreased to 1.7 mg/dL. PAST MEDICAL HISTORY Diagnosis Date ANXIETY STATE NOS 10/27/2005 BONE AND CARTILAGE DIS NOS 10/27/2005 osteopenia CAD (coronary artery disease) 11/17/14 s/p PCI to the proximal LAD with a 3.0/18 mm Resolute Integrity DONALDO DEPRESSIVE DISORDER NEC 10/27/2005 Left arm pain 03/15/2014 Medial epicondylitis of right elbow 03/15/2014 Pain in joint, lower leg 03/15/2014 patellofemoral syndrome; also history of ankle fracture /sp surgical repair Tobacco use disorder 05/19/2006 Current Outpatient Medications Medication Sig nitroglycerin sublingual (NITROQUICK) 0.4 mg SL tablet Dissolve 1 tablet under the tongue every 5 minutes as needed for chest pain. Up to 3 times as needed as directed apixaban (ELIQUIS) 5 mg tab(s) Take 1 tablet by mouth two times a day. atorvastatin (LIPITOR) 40 mg tablet Take 1 tablet by mouth once daily. lisinopril (ZESTRIL) 5 mg tablet Take 1 tablet by mouth once daily. metoprolol tartrate, short acting, (LOPRESSOR) 100 mg tablet Take 1 tablet by mouth two times a day. triamcinolone acetonide (KENALOG) 0.1 % cream Apply 1 application to affected area two times a day. Apply sparingly to area for rash/itching. Use for up to 2 weeks Magnesium 250 mg tab Take 250 mg by mouth every other day. aspirin, enteric coated (ASPIRIN, ENTERIC COATED) 81 mg EC tablet Take 1 tablet by mouth once daily. cyanocobalamin (VITAMIN B-12) 1,000 mcg tab Take 1 tablet by mouth once daily. Cholecalciferol, Vitamin D3, 25 mcg (1,000 unit) cap Take 1,000 Units by mouth once daily. [START ON 05/08/2025] HYDROcodone-Acetamino phen (NORCO) 10-325 mg per tablet Take 1 tablet by mouth four times a day as needed for up to 30 days. Patient should start on May 08, 2025. [START ON 06/07/2025] HYDROcodone-Acetamino phen (NORCO) 10-325 mg per tablet Take 1 tablet by mouth four times a day as needed for up to 30 days. Patient should start on June 07, 2025. HYDROcodone-Acetamino phen (NORCO) 10-325 mg per tablet Take 1 tablet by mouth four times a day as needed for up to 30 days. Patient should start on April 08, 2025. No current facility-administered medications for this visit. Review of Systems Objective BP 110/70 Pulse 66 Resp 16 Wt 73.9 kg (162 lb 14.7 oz) SpO2 99% BMI 25.52 kg/m? Physical Exam Constitutional: Appearance: Normal appearance. HENT: Head: Normocephalic. Eyes: Conjunctiva/sclera: Conjunctivae normal. Cardiovascular: Rate and Rhythm: Normal rate and regular rhythm. Heart sounds: Normal heart sounds. Pulmonary: Effort: Pulmonary effort is normal. Breath sounds: Normal breath sounds. Musculoskeletal: Right lower le+ Pitting Edema present. Left lower le+ Pitting Edema present. Skin: General: Skin is warm and dry. Neurological: General: No focal deficit present. Mental Status: She is alert and oriented to person, place, and time. Psychiatric: Mood and Affect: Mood normal. Behavior: Behavior normal. Thought Content: Thought content normal. Judgment: Judgment normal. Latest Ref Rn 07/13/2023 05/17/2024 03/24/2025 WBC 3.70 - 11.00 k/uL 5.56 3.65 (L) 3.29 (L) RBC 3.90 - 5.20 m/uL 3.37 (L) 3.66 (L) 3.42 (L) Hemoglobin 11.5 - 15.5 g/dL 12.0 13.0 12.2 Hematocrit 36.0 - 46.0 % 35.6 (L) 38.3 36.4 MCV 80.0 - 100.0 fL 105.6 (H) 104.6 (H) 106.4 (H) MCH 26.0 - 34.0 pg 35.6 (H) 35.5 (H) 35.7 (H) MCHC 30.5 - 36.0 g/dL 33.7 33.9 33.5 RDW-CV 11.5 - 15.0 % 12.4 12.6 12.7 Platelet Count 150 - 400 k/uL 83 (L) 131 (L) 146 (L) MPV 9.0 - 12.7 fL 10.7 9.3 10.5 Neut% % (more content not included)... Normal [facility] 25(OH)D3 [facility] 2024 25-hydroxyvitamin D3 [Mass/Vol] 33.8 ng/mL Normal 31.0-80.0 [facility] Comment on above: Order Comment: Speci men Type: BLOOD SPECIMENOrdering Facility: [facility] Address: [address] [place] [address] Result Comment: Clas sification of 25 OH Vitamin D status: Deficiency/Insufficiency: < or = 30 ng/ml. Sufficiency/Optimal Levels: 31-80 ng/mL Toxicity: > 100 ng/mL. Test performed by chemiluminescent immunoassay. Performed By: #### 1 989-3 ####[facility] LABIA [id number] [place] [address] [place] CBC W Auto Differential pane l (Bld)on 03-24-2025 Basophils (Bld) [#/Vol] 0.04 10*3/uL Normal <0.11 [facility] Comment on above: Order Comment: Speci men Type: BLOOD SPECIMENOrdering Facility: [facility] Address: [address] [place] [address] Performed By: #### 5 7021-8 ####[facility] LABIA [id number] [place] [address] [place] Basophils/100 WBC (Bld) 1.2 % Normal [facility] Comment on above: Order Comment: Speci men Type: BLOOD SPECIMENOrdering Facility: [facility] Address: [address] [place] [address] Performed By: #### 5 7021-8 ####[facility] LABIA [id number] [place] [address] [place] Differential cell count method Nom (Bld) Auto Normal [facility] Comment on above: Order Comment: Speci men Type: BLOOD SPECIMENOrdering Facility: [facility] Address: [address] [place] [address] Performed By: #### 5 7021-8 ####[facility] LABIA [id number] [place] [address] [place] Eosinophils (Bld) [#/Vol] 0.08 10*3/uL Normal <0.46 [facility] Comment on above: Order Comment: Speci men Type: BLOOD SPECIMENOrdering Facility: [facility] Address: [address] [place] [address] Performed By: #### 5 7021-8 ####[facility] LABCLIA [id number] [facility] [address], [place] [address] [place] Eosinophils/100 WBC (Bld) 2.4 % Normal [facility] Comment on above: Order Comment: Speci men Type: BLOOD SPECIMENOrdering Facility: [facility] Address: [address] [place] [address] Performed By: #### 5 7021-8 ####[facility] LABCLIA [id number] [facility] [address], [place] [address] [place] Erythrocyte distribution width (RBC) [Ratio] 12.7 % Normal 11.5-15.0 [facility] Comment on above: Order Comment: Speci men Type: BLOOD SPECIMENOrdering Facility: [facility] Address: [address] [place] [address] Performed By: #### 5 7021-8 ####[facility] LABCLIA [id number] [address] [place] Hematocrit (Bld) [Volume fraction] 36.4 % Normal 36.0-46.0 [facility] Comment on above: Order Comment: Speci men Type: BLOOD SPECIMENOrdering Facility: [facility] Address: [address] [place] [address] Performed By: #### 5 7021-8 ####[facility] LABCLIA [id number] [facility] [place] [id number] [place] Hemoglobin (Bld) [Mass/Vol] 12.2 g/dL Normal 11.5-15.5 [facility] Comment on above: Order Comment: Speci men Type: BLOOD SPECIMENOrdering Facility: [facility] Address: [address] [place] [address] Performed By: #### 5 7021-8 ####[facility] LABCLIA [id number] [address], [place] [address] [place] Immature granulocytes (Bld) [#/Vol] 10*3/uL Normal <0.10 [facility] Comment on above: Order Comment: Speci men Type: BLOOD SPECIMENOrdering Facility: [facility] Address: [address] [place] [address] Performed By: #### 5 7021-8 ####[facility] LABCLIA [id number] [address], [place] [address] [place] Immature granulocytes/100 WBC (Bld) 0.3 % Normal [facility] Comment on above: Order Comment: Speci men Type: BLOOD SPECIMENOrdering Facility: [facility] Address: [address] [place] [address] Performed By: #### 5 7021-8 ####[facility] LABCLIA [id number] [address], [place] [address] [place] Lymphocytes (Bld) [#/Vol] 1.08 10*3/uL Normal 1.00-4.00 [facility] Comment on above: Order Comment: Speci men Type: BLOOD SPECIMENOrdering Facility: [facility] Address: [address] [place] [address] Performed By: #### 5 7021-8 ####[facility] LABCLIA [id number] [address], [facility] [place] Lymphocytes/100 WBC (Bld) 32.8 % Normal [facility] Comment on above: Order Comment: Speci men Type: BLOOD SPECIMENOrdering Facility: [facility] Address: [address] [place] [address] Performed By: #### 5 7021-8 ####[facility] LABCLIA [id number] [address], [facility]95 [place] MCH (RBC) [Entitic mass] 35.7 pg High 26.0-34.0 [facility] Comment on above: Order Comment: Speci men Type: BLOOD SPECIMENOrdering Facility: [facility] Address: [address] [place] [address] Performed By: #### 5 7021-8 ####[facility] LABCLIA [id number] [place] [address] [place] MCHC (RBC) [Mass/Vol] 33.5 g/dL Normal 30.5-36.0 [facility] Comment on above: Order Comment: Speci men Type: BLOOD SPECIMENOrdering Facility: [facility] Address: [address] [place] [address] Performed By: #### 5 7021-8 ####[facility] LABCLIA [id number] [place] [address] [place] MCV (RBC) [Entitic vol] 106.4 fL High 80.0-100.0 [facility] Comment on above: Order Comment: Speci men Type: BLOOD SPECIMENOrdering Facility: [facility] Address: [address] [place] [address] Performed By: #### 5 7021-8 ####[facility] LABIA [id number] [place] [address] [place] Monocytes (Bld) [#/Vol] 0.41 10*3/uL Normal <0.87 [facility] Comment on above: Order Comment: Speci men Type: BLOOD SPECIMENOrdering Facility: [facility] Address: [address] [place] [address] Performed By: #### 5 7021-8 ####[facility] LABCLIA [id number] [address] [place] Monocytes/100 WBC (Bld) 12.5 % Normal [facility] Comment on above: Order Comment: Speci men Type: BLOOD SPECIMENOrdering Facility: [facility] Address: [address] [place] [address] Performed By: #### 5 7021-8 ####[facility] LABCLIA [id number] [place] [address] [place] Neutrophils (Bld) [#/Vol] 1.67 10*3/uL Normal 1.45-7.50 [facility] Comment on above: Order Comment: Speci men Type: BLOOD SPECIMENOrdering Facility: [facility] Address: [address] [place] [address] Performed By: #### 5 7021-8 ####[facility] LABCLIA [id number] [place] [address] [place] Neutrophils/100 WBC (Bld) 50.8 % Normal [facility] Comment on above: Order Comment: Speci men Type: BLOOD SPECIMENOrdering Facility: [facility] Address: [address] [place] [address] Performed By: #### 5 7021-8 ####[facility] LABCLIA [id number] [place] [address] [place] Nucleated RBC (Bld) [#/Vol] 10*3/uL Normal <0.01 [facility] Comment on above: Order Comment: Speci men Type: BLOOD SPECIMENOrdering Facility: [facility] Address: [address] [place] [address] Performed By: #### 5 7021-8 ####[facility] LABCLIA [id number] [place] [address] [place] Nucleated RBC/100 WBC (Bld) [Ratio] 0.0 /100 WBC Normal [facility] Comment on above: Order Comment: Speci men Type: BLOOD SPECIMENOrdering Facility: [facility] Address: [address] [place] [address] Performed By: #### 5 7021-8 ####[facility] LABCLIA [id number] [address] [place] [address] [place] Platelet mean volume (Bld) [Entitic vol] 10.5 fL Normal 9.0-12.7 [facility] Comment on above: Order Comment: Speci men Type: BLOOD SPECIMENOrdering Facility: [facility] Address: [address] [place] [address] Performed By: #### 5 7021-8 ####[facility] LABCLIA [id number] [address], [facility] [place] Platelets (Bld) [#/Vol] 146 10*3/uL Low 150-400 [facility] Comment on above: Order Comment: Speci men Type: BLOOD SPECIMENOrdering Facility: [facility] Address: [address] [place] [address] Performed By: #### 5 7021-8 ####[facility] LABCLIA [id number] [place] [address] [place] RBC (Bld) [#/Vol] 3.42 10*6/uL Low 3.90-5.20 [facility] Comment on above: Order Comment: Speci men Type: BLOOD SPECIMENOrdering Facility: [facility] Address: [address] [place] [address] Performed By: #### 5 7021-8 ####[facility] LABCLIA [id number] [place] [id number] [place] WBC (Bld) [#/Vol] 3.29 10*3/uL Low 3.70-11.00 [facility] Comment on above: Order Comment: Speci men Type: BLOOD SPECIMENOrdering Facility: [facility] Address: [address] [place] [address] Performed By: #### 5 7021-8 ####[facility] LABCLIA [id number] [address] [place] [address] [place] Comprehensive metabolic 2000 panelon 03-24-2025 Albumin [Mass/Vol] 4.4 g/dL Normal 3.9-4.9 [facility] Comment on above: Order Comment: Speci men Type: BLOOD SPECIMENOrdering Facility: [facility] Address: [address] [place] [address] Performed By: #### 2 4323-8, 47660-1, , 2132-06 ####[facility] LABCLIA [id number] [place] [address] [place] ALP [Catalytic activity/Vol] 93 U/L Normal 34-123 [facility] Comment on above: Order Comment: Speci men Type: BLOOD SPECIMENOrdering Facility: [facility] Address: [address] [place] [address] Performed By: #### 2 4323-8, 08718-9, , 2132-06 ####[facility] LABIA [id number] [place] [address] [place] ALT [Catalytic activity/Vol] 45 U/L High 7-38 [facility] Comment on above: Order Comment: Speci men Type: BLOOD SPECIMENOrdering Facility: [facility] Address: [address] [place] [address] Performed By: #### 2 4323-8, 37205-1, , 2132-06 ####[facility] LABIA [id number] [place] [address] [place] Anion gap [Moles/Vol] 15 mmol/L Normal 8-15 [facility] Comment on above: Order Comment: Speci men Type: BLOOD SPECIMENOrdering Facility: [facility] Address: [address] [place] [address] Performed By: #### 2 4323-8, 80211-1, , 2132-06 ####[facility] LABCLIA [id number] [place] [id number] [place] AST [Catalytic activity/Vol] 85 U/L High 13-35 [facility] Comment on above: Order Comment: Speci men Type: BLOOD SPECIMENOrdering Facility: [facility] Address: [address] [place] [address] Performed By: #### 2 4323-8, 37289-2, , 2132-06 ####[facility] LABCLIA [id number] [place] [id number] [place] Bilirubin [Mass/Vol] 0.5 mg/dL Normal 0.2-1.3 [facility] Comment on above: Order Comment: Speci men Type: BLOOD SPECIMENOrdering Facility: [facility] Address: [address] [place] [address] Performed By: #### 2 4323-8, 61101-4, , 2132-06 ####[facility] LABCLIA [id number] [place] [address] [place] Calcium [Mass/Vol] 9.6 mg/dL Normal 8.5-10.2 [facility] Comment on above: Order Comment: Speci men Type: BLOOD SPECIMENOrdering Facility: [facility] Address: [address] [place] [address] Performed By: #### 2 4323-8, 09744-5, , 2132-06 ####[facility] LABCLIA [id number] [place] [id number] [place] Chloride [Moles/Vol] 99 mmol/L Normal 98-107 [facility] Comment on above: Order Comment: Speci men Type: BLOOD SPECIMENOrdering Facility: [facility] Address: [address] [place] [address] Performed By: #### 2 4323-8, 28892-1, , 2132-06 ####[facility] LABCLIA [id number] [place] [id number] [place] CO2 [Moles/Vol] 23 mmol/L Normal 22-30 [facility] Comment on above: Order Comment: Speci men Type: BLOOD SPECIMENOrdering Facility: [facility] Address: [address] [place] [address] Performed By: #### 2 4323-8, 13205-9, , 2132-06 ####[facility] LABCLIA [id number] [place] [id number] [place] Creatinine [Mass/Vol] 0.93 mg/dL Normal 0.58-0.96 [facility] Comment on above: Order Comment: Speci men Type: BLOOD SPECIMENOrdering Facility: [facility] Address: [address] [place] [address] Performed By: #### 2 4323-8, 59116-1, , 2132-06 ####[facility] LABIA [id number] [place] [address] [place] Creatinine and Glomerular filtration rate.predicted panel (S/P/Bld) 65 mL/min/1.73m??? Normal >=60 [facility] Comment on above: Order Comment: Speci men Type: BLOOD SPECIMENOrdering Facility: [facility] Address: [address] [place] [address] Result Comment: Yasmeen mated Glomerular Filtration Rate (eGFR) is calculated using the 2020 CKD-EPI creatinine equation. This equation utilizes serum creatinine, sex, and age as parameters. The creatinine assay has traceable calibration to isotope dilution-mass spectrometry. Refer to KDIGO guidelines for clinical interpretation. In patients with unstable renal function, e.g. those with acute kidney injury, the eGFR may not accurately reflect actual GFR. Performed By: #### 2 4323-8, 02859-7, , 2132-06 ####[facility] LABCLIA [id number] [facility] [address] [address] [place] Glucose [Mass/Vol] 120 mg/dL High 74-99 [facility] Comment on above: Order Comment: Speci men Type: BLOOD SPECIMENOrdering Facility: [facility] Address: [address] [place] [address] Result Comment: The [place] Diabetes Association (ADA) provides guidance for cutoff values for fasting glucose and random glucose. The ADA defines fasting as no caloric intake for at least 8 hours. Fasting plasma glucose results between 100 to 125 mg/dL indicate increased risk for diabetes (prediabetes). Fasting plasma glucose results greater than or equal to 126 mg/dL meet the criteria for diagnosis of diabetes. In the absence of unequivocal hyperglycemia, results should be confirmed by repeat testing. In a patient with classic symptoms of hyperglycemia or hyperglycemic crisis, random plasma glucose results greater than or equal to 200 mg/dL meet the criteria for diagnosis of diabetes. Reference: Standards of Medical Care in Diabetes 2016, [place] Diabetes Association. Diabetes Care. 2016.39(Suppl 1). Performed By: #### 2 4323-8, 53314-2, , 2132-06 ####[facility] LABIA [id number] [place] [address] [place] Potassium [Moles/Vol] 4.7 mmol/L Normal 3.7-5.1 [facility] Comment on above: Order Comment: Valentina patton Type: BLOOD SPECIMENOrdering Facility: [facility] Address: [address] [place] [address] Performed By: #### 2 4323-8, 78587-9, , 2132-06 ####[facility] LABIA [id number] [place] [id number] [place] Protein [Mass/Vol] 7.3 g/dL Normal 6.3-8.0 [facility] Comment on above: Order Comment: Valentina patton Type: BLOOD SPECIMENOrdering Facility: [facility] Address: [address] [place], [place] [address] Performed By: #### 2 4323-8, 94787-7, , 2132-06 ####[facility] LABCLIA [id number] [place] [id number] [place] Sodium [Moles/Vol] 137 mmol/L Normal 136-144 [facility] Comment on above: Order Comment: Speci men Type: BLOOD SPECIMENOrdering Facility: [facility] Address: [address] [place] [address] Performed By: #### 2 4323-8, 01176-0, , 2132-06 ####[facility] LABCLIA [id number] [place] [address] [place] Urea nitrogen [Mass/Vol] 14 mg/dL Normal 7-21 [facility] Comment on above: Order Comment: Speci men Type: BLOOD SPECIMENOrdering Facility: [facility] Address: [address] [place] [address] Performed By: #### 2 4323-8, 80120-4, , 2132-06 ####[facility] LABIA [id number] [place] [address] [place] HbA1c (Bld)on 03-24-2025 Average glucose Estimated from glycated hemoglobin (Bld) [Mass/Vol] 103 mg/dL Normal [facility] Comment on above: Order Comment: Neali men Type: BLOOD SPECIMENOrdering Facility: [facility] Address: [address] [place] [address] Result Comment: eAG: (Estimated average glucose) is a calculated value from HgbA1c and is construction representative of the average blood glucose level in the last 2-3 month period. Performed By: #### 5 5454-3 ####[facility] LABCLIA [id number] [place] [id number] [place] HbA1c (Bld) [Mass fraction] 5.2 % Normal 4.3-5.6 [facility] Comment on above: Order Comment: Speci men Type: BLOOD SPECIMENOrdering Facility: [facility] Address: [address] [place] [address] Result Comment: [place] Diabetes Association guidelines indicate that patients with HgbA1c in the range 5.7-6.4% are at increased risk for development of diabetes, and intervention by lifestyle modification may be beneficial. HgbA1c greater or equal to 6.5% is considered diagnostic of diabetes. Performed By: #### 5 5454-3 ####[facility] LABCLIA [id number] [address] [address] [place] Lipid 1996 panelon 5 Cholesterol [Mass/Vol] 185 mg/dL Normal <200 [facility] Comment on above: Order Comment: Speci men Type: BLOOD SPECIMENOrdering Facility: [facility] Address: [address] [place] [address] Result Comment: <200 mg/dL, Desirable 200-239 mg/dL, Borderline high >239 mg/dL, High Performed By: #### 2 4323-8, 92793-4, , 2132-06 ####[facility] LABCLIA [id number] [address] [address] [place] Cholesterol in HDL [Mass/Vol] 68 mg/dL Normal >39 [facility] Comment on above: Order Comment: Speci men Type: BLOOD SPECIMENOrdering Facility: [facility] Address: [address] [place] [address] Result Comment: 40-5 9 mg/dL, Acceptable >59 mg/dL, High: Negative risk factor for coronary heart disease <40 mg/dL, Low: Positive risk factor for coronary heart disease Performed By: #### 2 4323-8, 07534-7, , 2132-06 ####[facility] LABCLIA [id number] [address] [place] [address] [facility] [place] Cholesterol in LDL [Mass/Vol] 83 mg/dL Normal <100 [facility] Comment on above: Order Comment: Speci men Type: BLOOD SPECIMENOrdering Facility: [facility] Address: [address] [place] [address] Result Comment: <100 mg/dL, Optimal 100-129 mg/dL, Near optimal/above optimal 130-159 mg/dL, Borderline high 160-189 mg/dL, High >189 mg/dL, Very high Secondary prevention optimal LDL Cholesterol levels are recommended to be <70 mg/dL LDL cholesterol is calculated using the Norton-NIH equation. Performed By: #### 2 4323-8, 22932-0, , 2132-06 ####[facility] LABCLIA [id number] [address] [place] [address] [place] Cholesterol in LDL/Cholesterol in HDL [Mass ratio] 1.22 {ratio} Normal <2.54 [facility] Comment on above: Order Comment: Speci men Type: BLOOD SPECIMENOrdering Facility: [facility] Address: [address] [place] [address] Result Comment: Kaden garcia: 1. National Cholesterol Education Program ATP III Guideline At-A-Glance Quick Desk Reference: National Heart, Lung, and Blood [place]. National Institutes of Health. 2001: NIH Publication No. 01-3305. 2. An International Atherosclerosis Society position paper: global recommendations for the management of dyslipidemia: executive summary, Atherosclerosis. 2014: 232(2):410-413. Performed By: #### 2 4323-8, 15684-0, , 2132-06 ####[facility] LABIA [id number] [address] [place] [address] [place] Cholesterol in VLDL [Mass/Vol] 32 mg/dL High <30 [facility] Comment on above: Order Comment: Speci men Type: BLOOD SPECIMENOrdering Facility: [facility] Address: [address] [place] [address] Performed By: #### 2 4323-8, 53292-5, , 2132-06 ####[facility] LABIA [id number] [facility] [place] [id number] [address] [place] Cholesterol non HDL [Mass/Vol] 117 mg/dL Normal <130 [facility] Comment on above: Order Comment: Speci men Type: BLOOD SPECIMENOrdering Facility: [facility] Address: [address] [place] [address] Result Comment: <130 mg/dL, Optimal 130-159 mg/dL, Near optimal/above optimal 160-189 mg/dL, Borderline high 190-219 mg/dL, High >219 mg/dL, Very high Secondary prevention optimal non HDL Cholesterol levels are recommended to be <100 mg/dL Performed By: #### 2 4323-8, 09587-1, , 2132-06 ####[facility] LABCLIA [id number] [address] [address] [place] Cholesterol.total/Ayde sterol in HDL [Mass ratio] 2.72 {ratio} Normal <5.10 [facility] Comment on above: Order Comment: Speci men Type: BLOOD SPECIMENOrdering Facility: [facility] Address: [address] [place] [address] Performed By: #### 2 4323-8, 85665-5, , 2132-06 ####[facility] LABCLIA [id number] [address], [address] [place] FASTING TIME 12 hrs Normal [facility] Comment on above: Order Comment: Speci men Type: BLOOD SPECIMENOrdering Facility: [facility] Address: [address] [place] [address] Performed By: #### 2 4323-8, 81570-3, , 2132-06 ####[facility] LABCLIA [id number] [address] [place] Triglyceride [Mass/Vol] 203 mg/dL High <150 [facility] Comment on above: Order Comment: Speci men Type: BLOOD SPECIMENOrdering Facility: [facility] Address: [address] [place] [address] Result Comment: <150 mg/dL, Normal 150-199 mg/dL, Borderline high 200-499 mg/dL, High >499 mg/dL, Very high Performed By: #### 2 4323-8, 51782-5, , 2132-06 ####[facility] LABCLIA [id number] [place] [address] [place] Magnesium SerPl-mCncon 03-24 Magnesium [Mass/Vol] 1.4 mg/dL Low 1.7-2.3 [facility] Comment on above: Order Comment: Speci men Type: BLOOD SPECIMENOrdering Facility: [facility] Address: [address] [place] [address] Performed By: #### 2 4323-8, 61119-4, 57506-9, 2132-9 ####[facility] LABCLIA [id number] [place] [address] [place] TOXICOLOGY SCREEN, ROUTINE U RINEon 03-24-2025 Amphetamines Confirm (U) [Mass/Vol] Negative Normal Negative [facility] Comment on above: Order Comment: Speci men Type: URINE SPECIMENOrdering Facility: [facility] Address: [address] [place] [address] Result Comment: Cuto ff threshold at 1000 ng/mL. Performed By: #### U TOX2 ####[facility] LABIA [id number] [place] [address] [place] BARBITURATES, URINE Negative Normal Negative [facility] Comment on above: Order Comment: Speci men Type: URINE SPECIMENOrdering Facility: [facility] Address: [address] [place] [address] Result Comment: Cuto ff threshold at 200 ng/mL. Performed By: #### U TOX2 ####[facility] LABCLIA [id number] [place] [address] [place] BENZODIAZEPINES, UR Negative Normal Negative [facility] Comment on above: Order Comment: Speci men Type: URINE SPECIMENOrdering Facility: [facility] Address: [address] [place] [address] Result Comment: Cuto ff threshold at 200 ng/mL. Performed By: #### U TOX2 ####[facility] LABCLIA [id number] [place] [address] [place] Cannabinoids Screen Ql (U) Negative Normal Negative [facility] Comment on above: Order Comment: Speci men Type: URINE SPECIMENOrdering Facility: [facility] Address: [address] [place] [address] Result Comment: Cuto ff threshold at 50 ng/mL. Performed By: #### U TOX2 ####[facility] LABCLIA [id number] [place] [address] [place] Cocaine Ql (U) Negative Normal Negative [facility] Comment on above: Order Comment: Speci men Type: URINE SPECIMENOrdering Facility: [facility] Address: [address] [place] [address] Result Comment: Cuto ff threshold at 300 ng/mL. Performed By: #### U TOX2 ####[facility] LABCLIA [id number] [place] [address] [place] Ethanol (U) [Mass/Vol] <11 Normal <11 Cl [facility] Comment on above: Order Comment: Speci men Type: URINE SPECIMENOrdering Facility: [facility] Address: [address] [place] [address] Performed By: #### U TOX2 ####[facility] LABCLIA [id number] [place] [address] [place] Opiates Screen Ql (U) Positive Abnormal Negative [facility] Comment on above: Order Comment: Speci men Type: URINE SPECIMENOrdering Facility: [facility] Address: [address] [place] [address] Result Comment: Cuto ff threshold at 300 ng/mL. Performed By: #### U TOX2 ####[facility] LABCLIA [id number] [place] [address] [place] oxyCODONE cutoff Screen (U) [Mass/Vol] Negative Normal Negative [facility] Comment on above: Order Comment: Speci men Type: URINE SPECIMENOrdering Facility: [facility] Address: [address] [place] [address] Result Comment: Cuto ff threshold at 100 ng/mL. Performed By: #### U TOX2 ####[facility] [id number] [place] [address] [place] Phencyclidine Ql (U) Negative Normal Negative [facility] Comment on above: Order Comment: Speci men Type: URINE SPECIMENOrdering Facility: [facility] Address: [address] [place] [address] Result Comment: Cuto ff threshold at 25 ng/mL. Performed By: #### U TOX2 ####[facility] LABIA [id number] [place] [address] [place] Vit B12 [facility] 06-13-2 025 Cobalamin (Vitamin B12) [Mass/Vol] 1832 pg/mL High 232-1245 [facility] Comment on above: Order Comment: Speci men Type: BLOOD SPECIMENOrdering Facility: [facility] Address: [address] [place] [address] Performed By: #### 2 4323-8, 06283-5, 96611-8, 2132-9 ####[facility] LABIA [id number] [address] [place] CNOVon 02-08-2025 CNOV Office Visit (INTMWS ) NANCY JIMÉNEZ ([id number]) 1950 F Date Time Provider Department 02/08/25 9:00 AM [facility] DE LEON INTMWS During your visit today, we recorded the following information about you: Pulse Blood pressure Weight 77/minute 104/70 74.1 kg Graham De Leon APRN.OWNER [employer]AL SURGEON 02/08/2025 9:41 AM Signed SUBJECTIVE Nancy Jiménez is a 74 year old female here today for a check up on her medical problems. Chief Complaint Patient presents with: Recheck HPI Nancy Jiménez is a 74 year old female. She is an established patient of Stevie Dumas MD. Here today for a routine 2 month follow up. She did quit smoking in October. Overall doing okay, no issues with chest pain, chest tightness or shortness of breath. Breathing doing okay. In regards to medications currently taken for pain management, the patient is tolerating these medications well. No reported side effects. She reports that the medications improve her quality of life and ability to function. She denies misuse, abuse or diversion of medications. Overall her pain is unchanged than the last visit. Her medications were reviewed today and her list is now up to date. Medications Current Outpatient Medications Medication Sig [START ON 03/08/2025] HYDROcodone-Acetamino phen (NORCO) 10-325 mg per tablet Take 1 tablet by mouth four times a day as needed for up to 30 days. Patient should start on March 08, 2025. nitroglycerin sublingual (NITROQUICK) 0.4 mg SL tablet Dissolve 1 tablet under the tongue every 5 minutes as needed for chest pain. Up to 3 times as needed as directed apixaban (ELIQUIS) 5 mg tab(s) Take 1 tablet by mouth two times a day. atorvastatin (LIPITOR) 40 mg tablet Take 1 tablet by mouth once daily. lisinopril (ZESTRIL) 5 mg tablet Take 1 tablet by mouth once daily. metoprolol tartrate, short acting, (LOPRESSOR) 100 mg tablet Take 1 tablet by mouth two times a day. triamcinolone acetonide (KENALOG) 0.1 % cream Apply 1 application to affected area two times a day. Apply sparingly to area for rash/itching. Use for up to 2 weeks Magnesium 250 mg tab Take 250 mg by mouth every other day. aspirin, enteric coated (ASPIRIN, ENTERIC COATED) 81 mg EC tablet Take 1 tablet by mouth once daily. cyanocobalamin (VITAMIN B-12) 1,000 mcg tab Take 1 tablet by mouth once daily. Cholecalciferol, Vitamin D3, 25 mcg (1,000 unit) cap Take 1,000 Units by mouth once daily. [START ON 04/08/2025] HYDROcodone-Acetamino phen (NORCO) 10-325 mg per tablet Take 1 tablet by mouth four times a day as needed for up to 30 days. Patient should start on April 08, 2025. [START ON 03/08/2025] HYDROcodone-Acetamino phen (NORCO) 10-325 mg per tablet Take 1 tablet by mouth four times a day as needed for up to 30 days. Patient should start on March 08, 2025. No current facility-administered medications for this visit. 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 Social History Tobacco Use Smoking status: Former Average packs/day: 0.5 packs/day for 31.6 years (16.2 ttl pk-yrs) Types: Cigarettes Start date: 10/04/1992 Quit date: 10/04/2022 Years since quittin.3 Smokeless tobacco: Never Tobacco comments: Patient mourning loss of . Will discuss at next appointment Vaping Use Vaping status: Never Used Substance Use Topics Alcohol use: Yes Alcohol/week: 14.0 standard drinks of alcohol Types: 14 Shots of liquor per week Drug use: No Review of Systems Constitutional: Negative. Respiratory: Negative. Cardiovascular: Negative. OBJECTIVE BP 104/70 Pulse 77 Wt 163 lb 5.8 oz (74.1kg) SpO2 96% Physical Exam Vitals and nursing note reviewed. Constitutional: General: She is awake. She is not in acute distress. Appearance: Normal appearance. She is well-developed and well-groomed. She is not ill-appearing, toxic-appearing or diaphoretic. HENT: Head: Normocephalic. Right Ear: External ear normal. Left Ear: External ear normal. Nose: Nose normal. Eyes: General: Vision grossly intact. Con (more content not included)... [facility] Arterial study reportOrdered By: Shiv Frazier on 12-28-2024 Noninvasive arteriosclerosis study report [facility] [address] [place] [address] Lower Ext Art Exam w/o Exercis 12/28/24 1304 MR#: [id number] Acct: [id number] Name: NANCY JIMÉNEZ Rep #:[id number] : 1950 74 From: Shiv Frazier MD Attending Dr: Dr. Nathan Spivey, IMELDA Status: REG CLI Ordering Dr: Nathan Spivey DPM Date: 12/28/24 Location: [facility] Sex: F C Admitted: Reason For Study Reason For Study: PVD Procedure A bilateral lower extremity continuous wave Doppler with analog waveform analysis,segmental pressures,and ankle brachial indexes without exercise. Left Segmental Pressures Left brachial= 149mmHg. Left posterior tibial artery = 162mmHg. Left dorsalis pedis artery = 163mmHg. Left digit = 112 mmHg. The left dorsalis pedis waveforms are triphasic. The left posterior tibialartery waveforms are triphasic. Right Segmental Pressures Right brachial= 141mmHg. Right posterior tibial artery = 149mmHg. Right dorsalispedis artery = 155mmHg. Right digit = 123 mmHg. The right dorsalis pedis waveforms are triphasic. The right posterior tibial artery waveforms are triphasic. Indices The right ankle brachial index by the dorsalis pedis is 1.04. The right ankle brachial index by the posterior tibial artery is 1.00. The right digital-brachial index is 0.83. The left ankle brachial index by the dorsalis pedis is 1.09. The left ankle brachial index by the posterior tibial artery is 1.09. The left digital-brachial index is 0.75. VL/Lower Ext Art Exam w/o Exercis Interpretation Summary Triphasic Doppler waveforms are noted at ankle level bilaterally. Pulse-volume recordings appear satisfactory at all levels bilaterally. Resting ankle-brachial indices are normal bilaterally. Digital-brachial indices are normal bilaterally. There is no evidence of significant arterial occlusive disease in the lower extremities bilaterally. Ordering Physician: Nathan Spivey Referring Physician: Stevie Dumas M.D. Performed By: ALEXANDER ELIAS T 12/28/24 1532 Date _ Shiv Frazier MD CC: DPM Dr. Nathan Spivey; Dr. Stevie Dumas MD ~ Date Dictated: 12/28/24 1304 Date Transcribed: 12/28/24 153 Granite Worker: Signed [facility] Other Lower Ext Art Exam w/o Exerc trey 12-28-2024 Lower Ext Art Exam w/o Exercis [facility] [address] [place] [address] Lower Ext Art Exam w/o Exercis 12/28/24 1304 MR#: [id number] Acct: [id number] Name: NANCY JIMÉNEZ Rep #: [id number] : 1950 74 From: Shiv Frazier MD Attending Dr: Dr. Nathan Spivey DPM Status: RE G CLI Ordering Dr: Nathan Spivey DPM Date: 12/28/24 Location: [facility] Sex: F C Admitted: Reason For Study Reason For Study: PVD Procedure A bilateral lower extremity continuous wave Doppler with analog waveform analysis,segmental pressures,and ankle brachial indexes without exercise. Left Segmental Pressures Left brachial= 149mmHg. Left posterior tibial artery = 162mmHg. Left dorsalis pedis artery = 163mmHg. Left digit = 112 mmHg. The left dorsalis pedis waveforms are triphasic. The left posterior tibial artery waveforms are triphasic. Right Segmental Pressures Right brachial= 141mmHg. Right posterior tibial artery = 149mmHg. Right dorsalis pedis artery = 155mmHg. Right digit = 123 mmHg. The right dorsalis pedis waveforms are triphasic. The right posterior tibial artery waveforms are triphasic. Indices The right ankle brachial index by the dorsalis pedis is 1.04. The right ankle brachial index by the posterior tibial artery is 1.00. The right digital-brachial index is 0.83. The left ankle brachial index by the dorsalis pedis is 1.09. The left ankle brachial index by the posterior tibial artery is 1.09. The left digital-brachial index is 0.75. VL/Lower Ext Art Exam w/o Exercis Interpretation Summary Triphasic Doppler waveforms are noted at ankle level bilaterally. Pulse-volume recordings appear satisfactory at all levels bilaterally. Resting ankle-brachial indices are normal bilaterally. Digital-brachial indices are normal bilaterally. There is no evidence of significant arterial occlusive disease in the lower extremities bilaterally. Ordering Physician: Nathan Spivey Referring Physician: Stevie Dumas M.D. Performed By: ALEXANDER ELIAS [facility] 12/28/24 1532 Date Shiv Frazier MD CC: DPSander Spivey; Dr. Stevie Dumas MD Date Dictated: 12/28/24 1304 Date Transcribed: 12/28/24 1532 Granite Worker: Signed Normal [facility] Venous Duplex US - Manjeet Extre [facility] 12-28-2024 Venous Duplex US - Manjeet Extrem [facility] Cardiovascular Services [address] [place] [address] Venous Duplex US - Manjeet Extrem 12/28/24 1302 MR#: [id number] Acct: [id number] Name: NANCY JIMÉNEZ Rep #: [id number] : 1950 74 From: Shiv Frazier MD Attending Dr: Dr. Nathan Spivey, DPM Status: RE G CLI Ordering Dr: Nathan Spivey DPM Date: 12/28/24 Location: [facility] Sex: F C Admitted: Reason For Study Reason For Study: PVD RIGHT LEFT GSV is normal. GSV is normal. CFV is compressible, spontaneous, phasic, competent CFV is compressible, spontaneous, phasic, competent, and demonstrates normal augmentation. and demonstrates normal augmentation. FV is compressible, spontaneous, phasic, competent FV is compressible, spontaneous, phasic, competent and and demonstrates normal augmentation. demonstrates normal augmentation. POP V is compressible, spontaneous, phasic, competent POP V is compressible, spontaneous, phasic, competent and demonstrates normal augmentation. and demonstrates normal augmentation. T/P Trunk is compressible. T/P Trunk is compressible. PTV is compressible. PTV is compressible. RT PerV is compressible. LT PerV is compressible. Procedure Nonvascularized structure noted in the popliteal fossa This is a venous duplex using B-mode, color flow and measuring 2.86x3.19x4.51cm. spectral Doppler. Exam performed in department. VL/Venous Duplex US - Manjeet Extrem Interpretation Summary Deep veins of the lower extremities are bilaterally patent and compressible segmentally. There is no evidence of deep vein thrombosis on either side. Valvular competence appears intact within the proximal deep venous systems bilaterally. The great saphenous veins appear bilaterally patent and compressible segmentally. A non-vascular, hypoechoic structure is noted in the left popliteal space, measuring 2.86 cm x 3.19 cm x 4.51 cm. This probably represents a popliteal cyst. Clinical correlation is advised. Ordering Physician: Nathan Spivey Referring Physician: Stevie Dumas M.D. Performed By: FW 12/28/24 1453 Date Shiv Frazier MD CC: DPM Dr. Nathan Spivey; Dr. Stevie Dumas MD Date Dictated: 12/28/24 1302 Date Transcribed: 12/28/24 1453 Granite Worker: Signed Normal [facility] Venous duplex ultrasound rep ortOrdered By: Shiv Frazier on 12-28-2024 US Vein [facility] Cardi[facility] Services [address] [place] [address] Venous Duplex US - Manjeet Extrem 12/28/24 1302 MR#: [id number] Acct: [id number] Name: NANCY JIMÉNEZ Rep #:[id number] : 1950 74 From: Shiv Frazier MD Attending Dr: Dr. Nathan Spivey DPM Status: REG CLI Ordering Dr: Nathan Spivey DPSander Date: 12/28/24 Location: [facility] Sex: F C Admitted: Reason For Study Reason For Study: PVD RIGHT LEFT GSV is normal. GSV is normal. CFV is compressible, spontaneous, phasic, competent CFV is compressible, spontaneous, phasic, competent, and demonstrates normal augmentation. and demonstrates normal augmentation. FV is compressible, spontaneous, phasic, competent FV is compressible, spontaneous, phasic, competent and and demonstrates normal augmentation. demonstrates normal augmentation. POP V is compressible, spontaneous, phasic, competent POP V is compressible, spontaneous, phasic, competent and demonstrates normal augmentation. and demonstrates normal augmentation. T/P Trunk is compressible. T/P Trunk is compressible. PTV is compressible. PTV is compressible. RT PerV is compressible. LT PerV is compressible. Procedure Nonvascularized structure noted in the popliteal fossa This is a venous duplex using B-mode, color flow and measuring 2.86x3.19x4.51cm. spectral Doppler. Exam performed in department. VL/Venous Duplex US - Manjeet Extrem Interpretation Summary Deep veins of the lower extremities are bilaterally patent and compressible segmentally. There is no evidence of deep vein thrombosis on either side. Valvular competence appears intact within the proximal deep venous systems bilaterally. The great saphenous veins appear bilaterally patent and compressible segmentally. A non-vascular, hypoechoic structure is noted in the left popliteal space, measuring 2.86 cm x 3.19 cm x 4.51 cm. This probably represents a popliteal cyst. Clinical correlation is advised. Ordering Physician: Nathan Spivey Referring Physician: Stevie Dumas M.D. Performed By: FW 12/28/24 1453 Date _ Shiv Frazier MD CC: DPSander Spivey; Dr. 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 Subjective Nancy Jiménez is a 74 year old female. Patient presents with: Recheck: 2 month follow up Nancy Jiménez is a 74-year-old female with a history of HTN, chronic pain, and A-fib, presenting for medication refills. Nancy requests refills for her medications, including [place] and Eliquis. She has been stable on her current medication regimen for an extended period and inquires about the possibility of extending her follow-up appointments from every 2 months to every 3 months. She reports her blood pressure is well-controlled and denies any significant issues. She experiences occasional lower extremity edema, which she manages by wearing compression stockings. She prefers Tubigrip stockings over nylon ones, as the latter tend to slip in her shoes. She denies any significant increase in swelling or discomfort. Nancy is currently participating in a clinical study to evaluate the feasibility of discontinuing Eliquis. She was randomized to continue taking Eliquis and does not need to see her manager radio for another 2 years, with a follow-up appointment with the nurse practitioner scheduled in 9 months. She recently quit smoking on October 13 and reports that she found it relatively easy to quit by simply deciding to do so. PAST MEDICAL HISTORY Diagnosis Date ANXIETY STATE NOS 10/27/2005 BONE AND CARTILAGE DIS NOS 10/27/2005 osteopenia CAD (coronary artery disease) 11/17/14 s/p PCI to the proximal LAD with a 3.0/18 mm Resolute Integrity DONALDO DEPRESSIVE DISORDER NEC 10/27/2005 Left arm pain 03/15/2014 Medial epicondylitis of right elbow 03/15/2014 Pain in joint, lower leg 03/15/2014 patellofemoral syndrome; also history of ankle fracture /sp surgical repair Tobacco use disorder 05/19/2006 Current Outpatient Medications Medication Sig nitroglycerin sublingual (NITROQUICK) 0.4 mg SL tablet Dissolve 1 tablet under the tongue every 5 minutes as needed for chest pain. Up to 3 times as needed as directed apixaban (ELIQUIS) 5 mg tab(s) Take 1 tablet by mouth two times a day. atorvastatin (LIPITOR) 40 mg tablet Take 1 tablet by mouth once daily. lisinopril (ZESTRIL) 5 mg tablet Take 1 tablet by mouth once daily. metoprolol tartrate, short acting, (LOPRESSOR) 100 mg tablet Take 1 tablet by mouth two times a day. triamcinolone acetonide (KENALOG) 0.1 % cream Apply 1 application to affected area two times a day. Apply sparingly to area for rash/itching. Use for up to 2 weeks Magnesium 250 mg tab Take 250 mg by mouth every other day. aspirin, enteric coated (ASPIRIN, ENTERIC COATED) 81 mg EC tablet Take 1 tablet by mouth once daily. cyanocobalamin (VITAMIN B-12) 1,000 mcg tab Take 1 tablet by mouth once daily. Cholecalciferol, Vitamin D3, 25 mcg (1,000 unit) cap Take 1,000 Units by mouth once daily. [START ON 03/08/2025] HYDROcodone-Acetamino phen (NORCO) 10-325 mg per tablet Take 1 tablet by mouth four times a day as needed for up to 30 days. Patient should start on March 08, 2025. [START ON 02/06/2025] HYDROcodone-Acetamino phen (NORCO) 10-325 mg per tablet Take 1 tablet by mouth four times a day as needed for up to 30 days. Patient should start on February 06, 2025. [START ON 01/07/2025] HYDROcodone-Acetamino phen (NORCO) 10-325 mg per tablet Take 1 tablet by mouth four times a day as needed for up to 30 days. Patient should start on January 07, 2025. No current facility-administered medications for this visit. Review of Systems Objective BP 120/80 Pulse 84 Wt 73 kg (160 lb 15 oz) SpO2 95% BMI 25.21 kg/m? Physical Exam Constitutional: Appearance: Normal appearance. HENT: Head: Normocephalic. Eyes: Conjunctiva/sclera: Conjunctivae normal. Cardiovascular: Rate and Rhythm: Normal rate and regular rhythm. Heart sounds: Normal heart sounds. Pulmonary: Effort: Pulmonary effort is normal. Breath sounds: Normal breath sounds. Musculoskeletal: Right lower leg: Edema present. Left lower leg: Edema present. Skin: General: Skin is warm and dry. Neurological: General: No focal deficit present. Mental Status: She is alert and oriented to person, place, and time. Psychiatric: Mood and Affect: Mood normal. Behavior: Behavior normal. Thought Content: Thought content normal. Judgment: Judgment normal. Assessment and Plan # Left arm pain (M79.602) # Medial epicondylitis of right elbow (M77.01) Stable pain control with current medication management # Bilateral lower extremity edema (R60.0) - Mild edema, no significant discomfort reported (more content not included)... Normal [facility] Low Dose CT Lung Screeningon 11-15-[address] Lung Screening [facility] Imaging Services [address] [place] [id number] Lung Screening MR#: [id number] Acct: [id number] Name: NANCY JIMÉNEZ Rep #: [id number] : 1950 F 73 From: Main robert MD PCP: Dr. Stevie Dumas MD Status: [facility] Study: Low Dose CT Lung Screening Date of Exam: 11/15 Exam# [id number] Ordering Dr: Minnie Banegas NP ETHNOGRAPHIC MATERIALS CONSERVATOR -C PROCEDURE: LOW DOSE CT LUNG SCREENING REASON FOR EXAM: Former smoker. Patient has smoked 1 pack per day for 20 years. TECHNIQUE: Low Dose CT Lung Screening without contrast COMPARISON: None. FINDINGS: PULMONARY NODULES: (Only nodules >6mm are reported) Nodules described below are on series unless otherwise specified. Pulmonary Nodules: No concerning pulmonary nodules. Hardware:None Lymph Nodes:No mediastinal hilar or axillary lymphadenopathy. Heart and Vasculature:Normal heart size. No pericardial effusion.Thoracic aorta and pulmonary arteries have normal contours; noncontrast technique limits evaluation. Atherosclerotic plaque formation of the aortic arch and descending thoracic aorta. Coronary Artery Calcifications: Present Lungs and Airways: Hyperinflation. Mild emphysematous changes. Linear scarring in the posterior medial segment of the right lower lobe. Pleura:No pleural effusion. No pneumothorax. Upper Abdomen:Small hiatal hernia. Bones:Degenerative changes of the thoracic spine. Increased kyphosis. CT/Low Dose CT Lung Screening IMPRESSION: 1. BASED ON THE ACR LUNG RADS FOR THE MOST SUSPICIOUS NODULE (IF ANY) DESCRIBED IN THIS REPORT, THE OVERALL LUNG RADS SCORE IS 1. 1 - NEGATIVE. RECOMMEND 12-MONTH SCREENING LDCT.. 2. SMOKING CESSATION COUNSELING IS RECOMMENDED IF THE PATIENT IS STILL SMOKING. 3. OTHER SIGNIFICANT FINDINGSNone. One or more dose reduction techniques were used (e.g., Automated exposure control, adjustment of the mA and/or kV according to patient size, use of iterative reconstruction technique). The following information is provided for reference:Lung-RADS 2022 Assessment Categories. Additional information involving Lung-RADS is available at www.acr.org. 0-INCOMPLETE 1-NEGATIVE:No nodules or definitely benign nodules. Complete, central, popcorn, or centric ring calcifications OR fat containing 2-BENIGN APPEARANCE (based on imaging features or indolent behavior). Juxtapleural nodule: < 10mm AND solid; smooth margins; oval, entiform, or triangular shape Solid nodule: <6mm at baseline or new< 4mm Part solid Nodule: < 6mm total mean diameter at baseline Nonsolid nodule:(GGN) < 30mm OR >=30mm stable or slowly growing Airway nodule, subsegmental at baseline, new, or stable Category 3 nodule stable or decreased in size at 6-month follow-up CT or Category 3 or 4A nodules that resolve on follow-up OR category 4B findings proven to be benign following diagnotic work up. 3 - Probably Benign (Based on imaging features or behavior) Solid Nodule: >= 6 to <8mm at baseline OR new 4 to <6mm Part-solid nodule: >= 6mm toal mean diam. with solid component <6mm at baseline OR new < 6mm total mean diam. Non-solid nodule: GGN >= 30mm at baseline or new Atypical pulmonary cyst: Growing cystic component (mean diam.) of thick-walled cyst Category 4A nodule stable or decreased in size at 3-month follow-up CT (excl.airway). 4A - Suspicious Solid nodule: >=8 to < 15mm at baseline OR growing < 8mm OR new 6 to < 8mm Part solid nodule: >= 6mm total mean diam. w/ solid component >=6mm to < 8mm at baseline OR new or growing < 4mm solid component Airway nodule, segmental or more proximal at baseline or new Atypical pulmonary cyst: Thick-walled OR multilocular at baseline OR becomes multilocular 4B - Very Suspicious Airway nodule, segmental or more proximal, and stable or growing Solid nodule: >= 15mm at baseline OR new or growing >= 8mm Part solid nodule: Solid component >= 8mm OR new or growing >= 4mm solid component Atypical pulmonary cyst: Thick-walled with growing wall thickness/nodularity OR Growing multilocular (mean diam.) OR Multilocular with increased loculation or new/increased opacity Slow-growing solid or part solid nodule w/ growth over multiple screening exams 4X - Very Suspicious Category 3 or 4 nodules with additional features that increase the suspicion for lung cancer. S - Clinically Significant or potentially significant findings (non-lung cancer) Reading Location: [place] [address] CC: NEGRITO Banegas; Dr. Stevie Dumas MD Granite Worker: Signed Normal [facility] Oncology Visit Reporton Oncology Visit Report [facility] [address] [place] [address] OFFICE VISIT Date of Service: 11/15/24 1301 MR#: [id number] Acct: [id number] Name: NANCY JIMÉNEZ Rep #: [id number] : 1950 From: Minnie Torres Age/Sex: 73/F Location: [facility] Status: Signed HPI HPI Reviewed eligibility criteria: 73 year old F with a >20 pack year smoking history (1.25 ppd x 50 years, 0.5 ppd x 2 years).??? Smoking Status: Former smoker (quit 10/13/24) Decision Making Engaged in shared decision making visit utilizing a visual aid. Discussed the risks and benefits of lung cancer screening including the total radiation exposure, false positive rate, over diagnosis and potential need for follow-up diagnostic testing all associated with low-dose chest CT. Comorbidities Afib, HTN, hyperlipidemia, CAD ROS Const Denies fatigue, Denies headache(s), Denies poor appetite and Denies weight loss ENT Reports dysphagia (New within the last 6 months has never undergone EGD or colonoscopy); Denies headache(s) Card Denies chest pain, Reports dyspnea on exertion (Exacerbated when climbing stairs) and Denies palpitations Resp Reports cough (Occasional, nonproductive), Reports dyspnea on exertion (Exacerbated when climbing stairs), Denies hemoptysis and Denies wheezing GI Reports system reviewed and no additional complaints, except as documented, Denies abdominal pain, Denies change in bowel habits, Reports dysphagia (New within the last 6 months has never undergone EGD or colonoscopy) and Denies heartburn Neuro Yes system reviewed and no additional complaints, except as documented and No headache(s) Endo Denies fatigue and Denies palpitations Aller/Immun Denies wheezing Exam Const General: not in acute distress Orientation: oriented x3 HENMT Head: normocephalic and atraumatic Neck Neck: trachea midline, supple and no lymphadenopathy noted Resp Effort Inspection: normal respiratory effort and symmetric chest movement Auscultation: Bilateral: Clear to Auscultation Cardio Rate: regular rate Rhythm: regular rhythm Heart Sounds: S1 normal and S2 normal Psych Affect: normal affect Attitude: cooperative Results Results November 15, [address] Lung Screening without contrast COMPARISON: None. FINDINGS: PULMONARY NODULES: (Only nodules >6mm are reported) Nodules described below are on series unless otherwise specified. Pulmonary Nodules: No concerning pulmonary nodules. Hardware:None Lymph Nodes:No mediastinal hilar or axillary lymphadenopathy. Heart and Vasculature:Normal heart size. No pericardial effusion.Thoracic aorta and pulmonary arteries have normal contours; noncontrast technique limits evaluation. Atherosclerotic plaque formation of the aortic arch and descending thoracic aorta. Coronary Artery Calcifications: Present Lungs and Airways: Hyperinflation. Mild emphysematous changes. Linear scarring in the posterior medial segment of the right lower lobe. Pleura:No pleural effusion. No pneumothorax. Upper Abdomen:Small hiatal hernia. Bones:Degenerative changes of the thoracic spine. Increased kyphosis. IMPRESSION: 1. BASED ON THE ACR LUNG RADS FOR THE MOST SUSPICIOUS NODULE (IF ANY) DESCRIBED IN THIS REPORT, THE OVERALL LUNG RADS SCORE IS 1. 1 - NEGATIVE. RECOMMEND 12-MONTH SCREENING LDCT.. 2. SMOKING CESSATION COUNSELING IS RECOMMENDED IF THE PATIENT IS STILL SMOKING. 3. OTHER SIGNIFICANT FINDINGSNone. Intake Vital Signs 05/06/24 13:38 11/08/24 13:20 11/15/24 13:05 Height 5 ft 4 in 5 ft 4 in 5 ft 4 in Weight: 159 lb 160 lb BMI 27.3 27.4 BP 120/79 122/78 H Blood Pressure Location Lt brachial Lt brachial Position Sitting Sitting Respiration 18 18 Pulse 81 69 Pulse Source Monitor Monitor Temp 97.3 F L Temp Source Temporal Pulse Oximetry (%) 95 94 Oxygen Delivery Method room air Intake Visit Reasons: Lung Cancer Screening Chief Complaint: LDCT Lung Screening Consult Is patient in pain?: No Allergies No Known Allergies Allergy (Verified 11/15/24 13:07) Medications ???Medication ???Instructions ???Recorded ???Confirmed ???Type aspirin 81 mg tablet,delayed 81 mg PO DAILY heart health 11/15/24 History release atorvastatin 40 mg tablet 40 mg PO QHS cholesterol 07/01/15 11/15/24 History nitroglycerin 0.4 mg sublingual 0.4 mg sublingual Q5M PRN Chest 11/15/24 History tablet Pain metoprolol tartrate 100 mg tablet 100 mg PO BID #60 tabs 12/16/19 0 11/15/24 Rx lisinopril 5 mg tablet 5 mg PO DAILY #30 tabs 06/06/20 Rx cholecalciferol (vitamin D3) 25 25 mcg PO DAILY 07/01/22 11/15/24 History mcg (1,000 unit) capsule cyanocobalamin (vitamin B-12) 1,000 mcg PO DAILY 07/01/22 H (more content not included)... Normal [facility] Cardiology Visit Reporton Cardiology Visit Report [facility] [address] [place], [place] [address] OFFICE VISIT Date of Service: 11/08/24 MR#: [id number] Acct: [id number] Name: NANCY JIMÉNEZ Rep #: [id number] : 1950 Provider: YESENIA Ferreira Age/Sex: 73/F Location: [facility] Status: Signed HPI HPI History of Present Illness Details: This is a 73 year-old female who presents here today for a cardiovascular follow-up. She has a history of coronary artery disease with stenting of the left anterior descending artery with a drug- eluting stent in 2014. She also has a history of hypertension, hyperlipidemia and paroxysmal atrial fibrillation. She is on the control arm of the ReACT AFib trial. From a cardiac standpoint, the patient is doing well. She denies any palpitations, chest pain, pressure or heaviness. She denies SOB, Orthopnea, and PND. She does not have bleeding issues; no blood in urine, stool or nosebleeds. She denies any decrease in energy level, myalgias, or claudication. She does not have edema, or sudden weight gain. She denies dizziness, lightheadedness, syncopal or near syncopal episodes, and headaches. She does have a wound on her left leg. She is following with her foot doctor. Intake Vital Signs 05/06/24 13:38 11/08/24 13:20 Height 5 ft 4 in 5 ft 4 in Weight: 159 lb BMI 27.3 BP 120/79 Blood Pressure Location Lt brachial Position Sitting Respiration 18 Pulse 81 Pulse Source Monitor Pulse Oximetry (%) 95 Intake Visit Reasons: 6 M FU Professor Sculpture Required: No Is patient in pain?: No Allergies No Known Allergies Allergy (Verified 11/15/24 13:07) Medications ???Medication ???Instructions ???Recorded ???Confirmed ???Type aspirin 81 mg tablet,delayed 81 mg PO DAILY heart health 11/15/24 History release atorvastatin 40 mg tablet 40 mg PO QHS cholesterol 07/01/15 11/15/24 History nitroglycerin 0.4 mg sublingual 0.4 mg sublingual Q5M PRN Chest 11/15/24 History tablet Pain metoprolol tartrate 100 mg tablet 100 mg PO BID #60 tabs 12/16/19 0 11/15/24 Rx lisinopril 5 mg tablet 5 mg PO DAILY #30 tabs 06/06/20 Rx cholecalciferol (vitamin D3) 25 25 mcg PO DAILY 07/01/22 11/15/24 History mcg (1,000 unit) capsule cyanocobalamin (vitamin B-12) 1,000 mcg PO DAILY 07/01/22 History 1,000 mcg capsule magnesium 250 mg tablet 250 mg PO .QOD 11/03/23 11/15/24 H istory hydrocodone 10 mg-acetaminophen 1 tab PO 4X/DAY PRN 05/06/2411/15 History 325 mg tablet apixaban 5 mg tablet 5 mg PO BID #180 tabs 11/08/2402/03 Rx triamcinolone acetonide 0.1 % 1 applic topical QDAY 11/08/2402/03 History topical cream Have you fallen in the past year?: No PFSH Medical History (Updated 11/15/24 @ 17:36 by Minnie Banegas ETHNOGRAPHIC MATERIALS CONSERVATOR, ETHNOGRAPHIC MATERIALS CONSERVATOR-C) History of tobacco abuse Dysphagia Encounter for screening for malignant neoplasm of lung PAF (paroxysmal atrial fibrillation) Essential hypertension IBS (irritable bowel syndrome) Anxiety and depression Atherosclerosis of coronary artery 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 Hyperglycemia HLD (hyperlipidemia) Atrial fibrillation with rapid ventricular response (11/22/19) COPD (chronic obstructive pulmonary disease) Tobacco abuse Surgical History History of foot surgery History of ankle surgery H/O elbow surgery History of surgical removal of pilonidal cyst History of open reduction and internal fixation (ORIF) procedure History of left heart catheterization (07/02/15) History of coronary artery stent placement (11/17/14) Family History Mother CVA (cerebral vascular accident) Social History Smoking Status: Former smoker (quit 10/13/24) quit date: 10/13/24 alcohol intake: current alcohol intake frequency: 0-2 drinks per day substance use type: does not use caffeine: Yes Type: coffee Number of servings: 2 ROS Const Const: Negative for fatigue, weakness, headache(s), daytime sleepiness or difficulty sleeping ENT ENT: Negative for headache(s), dizziness or Nosebleed/epistaxis Cardio Chest Pain: No Palpitations: No Edema: Bilateral (BLE - wears compression socks at times.) Resp Respiratory: Negative for SOB with activity, SOB at rest, SOB orthopnea SOB lying down or Cough GI GI: Negative nausea, vomiting or heartburn Neuro Neuro: Negative for dizziness, lightheadedness, near syncope, headache(s) or weakness Endo Endo: Negative for fatigue Cardiology Exam Const Appearance: cooperative, healthy appearing, comfortable, no acute distress and well developed Orientation: alert, awake and oriented x3 H (more content not included)... Normal [facility] CNOVon 11-07-2024 CNOV Office Visit (INTMWS ) NANCY JIMÉNEZ ([id number]) 1950 F Date Time Provider Department 11/07/24 9:20 AM STEVIE DUMAS INTMWS During your visit today, we recorded the following information about you: Temperature Pulse Respiration Blood pressure 96.4 degrees 65/minute 16/minute 118/70 Weight 72.2 kg Stevie Dumas MD 11/07/2024 9:53 AM Signed This note was created using Infogramriter. Subjective Nancy Jiménez is a 73 year old female. Patient presents with: F/U 2 month SUBJECTIVE: Nancy Jiménez is a 73 year old year old lady here today for 6 month follow up appointment for review of medical conditions.Nancy Jiménez is a 73-year-old female with a history of HTN, hypercholesterolemia, and chronic pain, presenting for follow-up. Nancy reports stable health status and does not have any new concerns. She is currently taking metoprolol, lisinopril, atorvastatin, and apixaban, which were refilled on the . She also uses Kenalog cream intermittently for pruritic rashes, with the last refill in August. She has a prescription for nitroglycerin, last filled in February of last year, but has not used it for years. She requests a refill to have on hand. Nancy is also taking hydrocodone for chronic pain, which is effective in managing her pain and allowing her to stay active. She denies any issues with constipation related to the medication. She recently quit smoking this month, stating that she simply decided she was done and has not smoked since finishing her last pack. PAST MEDICAL HISTORY Diagnosis Date ANXIETY STATE NOS 10/27/2005 BONE AND CARTILAGE DIS NOS 10/27/2005 osteopenia CAD (coronary artery disease) 11/17/14 s/p PCI to the proximal LAD with a 3.0/18 mm Resolute Integrity DONALDO DEPRESSIVE DISORDER NEC 10/27/2005 Left arm pain 03/15/2014 Medial epicondylitis of right elbow 03/15/2014 Pain in joint, lower leg 03/15/2014 patellofemoral syndrome; also history of ankle fracture /sp surgical repair Tobacco use disorder 05/19/2006 Current Outpatient Medications Medication Sig apixaban (ELIQUIS) 5 mg tab(s) Take 1 tablet by mouth two times a day. atorvastatin (LIPITOR) 40 mg tablet Take 1 tablet by mouth once daily. lisinopril (ZESTRIL) 5 mg tablet Take 1 tablet by mouth once daily. metoprolol tartrate, short acting, (LOPRESSOR) 100 mg tablet Take 1 tablet by mouth two times a day. HYDROcodone-Acetamino phen (NORCO) 10-325 mg per tablet Take 1 tablet by mouth four times a day as needed for up to 30 days. triamcinolone acetonide (KENALOG) 0.1 % cream Apply 1 application to affected area two times a day. Apply sparingly to area for rash/itching. Use for up to 2 weeks HYDROcodone-Acetamino phen (NORCO) 10-325 mg per tablet Take 1 tablet by mouth four times a day as needed for up to 30 days. Patient should start on October 09, 2024. [START ON 11/08/2024] HYDROcodone-Acetamino phen (NORCO) 10-325 mg per tablet Take 1 tablet by mouth four times a day as needed for up to 30 days. Patient should start on November 08, 2024. nitroglycerin sublingual (NITROQUICK) 0.4 mg SL tablet Dissolve 1 tablet under the tongue every 5 minutes as needed for chest pain. Up to 3 times as needed as directed Magnesium 250 mg tab Take 250 mg by mouth every other day. aspirin, enteric coated (ASPIRIN, ENTERIC COATED) 81 mg EC tablet Take 1 tablet by mouth once daily. cyanocobalamin (VITAMIN B-12) 1,000 mcg tab Take 1 tablet by mouth once daily. Cholecalciferol, Vitamin D3, 25 mcg (1,000 unit) cap Take 1,000 Units by mouth once daily. No current facility-administered medications for this visit. Review of Systems Objective BP 132/86 Pulse 65 Temp (!) 35.8 ?C (96.4 ?F) Resp 16 Wt 72.2 kg (159 lb 2.8 oz) SpO2 97% BMI 24.93 kg/m? Last 5 Encounter Wt Readings: Date: Wt: 11/07/2024 72.2 kg (159 lb 2.8 oz) 09/05/2024 72.8 kg (160 lb 7.9 oz) 07/13/2024 70.7 kg (155 lb 13.8 oz) 05/13/2024 72.2 kg (159 lb 2.8 oz) 03/08/2024 73 kg (161 lb) No waist measurement recorded Estimated body mass index is 24.93 kg/m? as calculated from the following: Height as of 05/13/24: 170.2 cm (5' 7). Weight as of this encounter: 72.2 kg (159 lb 2.8 oz). Last 5 Encounter BP Readings: Date: BP: 11/07/2024 132/86 09/05/2024 126/74 07/13/2024 122/76 05/13/2024 110/62 03/08/2024 128/78 Physical Exam Constitutional: Appearance: Normal appearance. HENT: Head: Normocephalic. Eyes: Conjunctiva/sclera: Conjunctivae normal. Cardiovascular: Rate and Rhythm: Normal rate and regular rhythm. Heart sounds: Normal heart sounds. Pulmonary: Effort: Pulmonary effort is normal. Breath sounds: Normal breath sounds. Musculoskeletal: Right lower leg: No edema. Left lower leg: No edema. Skin: General: Skin is warm and dry. Neurological: General: No focal deficit present. Mental Status: She is alert and oriente (more content not included)... Normal [facility] Culture, Fungus 8482on 10-25 CUF _ TESTING PERFORMED AT [facility]. ORIGINAL REPORT ON FILE IN LAB CONTAINS ADDITIONAL TEST SITE INFORMATION. CUF No yeast or mold isolated after 4 weeks. [facility] Comment on above: Performed By: #### M 100.4001, M100.2999, , #### [facility] [address] [place], [place], [address] Culture, Anaerobic Any Sourc jay 09-26-2024 CUAN LEFT ANKLE No anaerobic bacteria isolated. [facility] Comment on above: Performed By: #### M 100.4001, M100.2999, , #### [facility] [address] 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: REACTION Cefepime Islt MESFIN <=0.12 S Ciprofloxacin Islt MESFIN <=0.06 Gentamicin Islt MESFIN <=1 S levoFLOXacin Islt MESFIN <=0.12 S Meropenem Islt MESFIN <=0.25 S Pip+Tazo Islt MESFIN <=4 S TMP SMX Islt MESFIN <=20 S Staphylococcus xylosus: REACTION cefOXitin Susc Islt NEG Doxycycline Islt MESFIN <=0.5 Clindamycin Islt MESFIN 0.5 S Clindamycin.induced Susc Islt NEG Erythromycin Islt MESFIN >=8 R Gentamicin Islt MESFIN <=0.5 S Linezolid Islt MESFIN 4 S Oxacillin Susc Islt S Tetracycline Islt MESFIN <=1 S TMP SMX Islt MESFIN <=10 S Vancomycin Islt MESFIN 1 S [facility] Comment on above: Performed By: #### M 100.4001, M100.3000, , #### [facility] [address] [place], [address] Gram Stainon 09-20-2024 GS LEFT ANKLE Gram Stain 4+ Red Blood Cells 1+ Gram positive cocci No Epithelial cells Normal [facility] Comment on above: Performed By: #### M 100.4001, M100.3000, M100.2000, M600.2000 #### [facility] [address] [place], [address] Bacteria identified Anaer cx Nom (Unsp spec)Ordered By: Nathan Spivey on 09-19-2024 Anaerobic Culture No anaerobic bacteri a isolated. [facility] Fungus identified Cx Nom (Un sp spec)Ordered By: Nathan Spivey on 09-19-2024 Fungal Culture [facility] Gram stainOrdered By: Ehsan Spivey on 09-19-2024 Microscopic observation Gram stain Nom (Unsp spec) [facility] Routine wound cultureOrdered By: Nathan Spivey on 09-19-2024 Wound Culture Enterobacter cloacae complex Abnormal [facility] Wound Culture Staphylococcus xylosus Abnormal [facility] CNPNon 09-09-2024 CNPN Telephone (INTMWS) NANCY JIMÉNEZ ([id number]) 1950 F Date Time Provider Department 09/09/24 STEVIE DUMAS INTMWS During your visit today, we recorded the following information about you: Laurel Leach RN 09/09/2024 9:36 AM Signed Patient calling and states 3 prescriptions (Aug, Sep, Oct) were to be sent to [facility] pharmacy for her [place]. Reports [facility] did not receive her August script, but did receive Sep and Oct. This nurse confirmed this with [facility] pharmacist. Patient asking if Dr. Dumas would resend her August [place] script so she can pick it up today. No call back needed to patient if PCP able to complete this request. Thank you. Stevie Dumas MD 09/09/2024 10:00 AM Signed RX for 09/09 on her medlist. Sent again The following approved medication requests have been transmitted electronically. Requested Prescriptions Signed Prescriptions Disp Refills HYDROcodone-Acetamino phen (NORCO) 10-325 mg per tablet 120 tablet 0 Sig: Take 1 tablet by mouth four times a day as needed for up to 30 days. Authorizing Provider: STEVIE DUMAS MD Allergies As of Date: 09/09/2024 (No Known Allergies) Date Reviewed: 09/05/2024 Reviewed by: Suze Parks MA - Fully Assessed Reason for Visit: Medication Request [138] Visit Diagnoses:Left arm pain, chronic [M79.602] Comment:Chronic pain controlled well with current management with hydrocodone.No adverse effects. No changes Medial epicondylitis of right elbow [M77.01] Comment:Chronic pain controlled well with current management with hydrocodone.No adverse effects. No changes Order(s):HYDROcodone- Acetaminophen (NORCO) 10-325 mg per tabletTake 1 tablet by mouth four times a day as needed for up to 30 days.Disp: 120 tabletRfl: 0 Prescriptions as of 09/09/2024 - HYDROcodone-Acetamino phen (NORCO) 10-325 mg per tablet Take 1 tablet by mouth four times a day as needed for up to 30 days. - triamcinolone acetonide (KENALOG) 0.1 % cream Apply 1 application to affected area two times a day. Apply sparingly to area for rash/itching. Use for up to 2 weeks - HYDROcodone-Acetamino phen (NORCO) 10-325 mg per tablet Take 1 tablet by mouth four times a day as needed for up to 30 days. Patient should start on October 09, 2024. - HYDROcodone-Acetamino phen (NORCO) 10-325 mg per tablet Take 1 tablet by mouth four times a day as needed for up to 30 days. Patient should start on November 08, 2024. - atorvastatin (LIPITOR) 40 mg tablet Take 1 tablet by mouth once daily. - lisinopril (ZESTRIL) 5 mg tablet Take 1 tablet by mouth once daily. - metoprolol tartrate, short acting, (LOPRESSOR) 100 mg tablet Take 1 tablet by mouth two times a day. - apixaban (ELIQUIS) 5 mg tab(s) Take 1 tablet by mouth two times a day. - nitroglycerin sublingual (NITROQUICK) 0.4 mg SL tablet Dissolve 1 tablet under the tongue every 5 minutes as needed for chest pain. Up to 3 times as needed as directed - Magnesium 250 mg tab Take 250 mg by mouth every other day. - aspirin, enteric coated (ASPIRIN, ENTERIC COATED) 81 mg EC tablet Take 1 tablet by mouth once daily. - cyanocobalamin (VITAMIN B-12) 1,000 mcg tab Take 1 tablet by mouth once daily. - Cholecalciferol, Vitamin D3, 25 mcg (1,000 unit) cap Take 1,000 Units by mouth once daily. Problem List As Of Date 09/09/2024 Noted Resolved IRRITABLE COLON [K58.9] 09/25/2005 TMJ SOUNDS ON OPEN/ CLOSE JAW [M26.69] 09/25/2005 Anxiety and depression [F41.9, F32.A] 10/27/2005 Anxiety state, unspecified [F41.1] 10/27/2005 05/18/2020 BONE AND CARTILAGE DIS NOS [M89.9, M94.9] 10/27/2005 TOBACCO USE DISORDER [F17.200] 05/19/2006 Medial epicondylitis of right elbow [M77.01] 03/15/2014 Pain in joint, lower leg [M25.569] 03/15/2014 Left arm pain [M79.602] 03/15/2014 CAD (coronary artery disease) [I25.10] 11/20/2014 Hypercholesterolemia [E78.00] 07/16/2015 Presence of drug coated stent in LAD coronary a*07/16/2015 Atrial fibrillation with RVR (HCC) [I48.91] 11/28/2019 Chronic obstructive pulmonary disease, unspecif*04/14/2023 Platelets decreased ([facility]) [D69.6] 08/13/2023 Prescriptions ordered this encounter Disp Refills Start End HYDROCODONE 10 MG-ACETAMINOPHEN 325 * 120 * 0 09/09/2024 10/09/2024 Route: ORAL Sig: Take 1 tablet by mouth four times a day as needed for up to 30 days. Medications Discontinued During This Encounter Prescriptions - HYDROcodone-Acetamino phen (NORCO) 10-325 mg per tablet (Discontinued) Take 1 tablet by mouth four times a day as needed for up to 30 days. Patient should start on September 09, 2024. Encounter Status:Closed by CAYETANOLAUREL on 09/09/24 Normal [facility] DBT Breast - bilateral diagn ostic for implanton 09-07-2024 IMPRESSION: There is no mammographic evidence of malignancy. Return to annual screening mammogram is recommended. Annual mammogram will be due in 9 months. BI-RADS Category 2: Benign RISK: Based on the Tyrer-Cuzick (TC) risk assessment model, this patient has a 4.1% lifetime risk of developing breast cancer, meaning they are at average risk for developing breast cancer. However, this is only an estimate based on available history provided on the patient's questionnaire. We encourage all patients to talk with their providers about these results, further recommendations for managing breast health, and appropriate supplemental screening options if the patient has dense breast tissue. Interpreting Radiologist: Naveed Hall M.D. Electronically signed on: 09/07/2024 Granite Worker: BERNA Transcribe Date/Time: Sep 07 2024 1:47P Dictated by : NAVEED HALL MD This examination was interpreted and the report reviewed and electronically signed by: NAVEED HALL MD on Sep 07 2024 2:34PM [facility] DIVISION OF RADIOLOGY * * *Final Report* * * DATE OF EXAM: Sep 07 2024 2:04PM [facility] 0627 - LG JULISA TITUS / PROCEDURE REASON: Abnormal mammogram * * * * Physician Interpretation * * * * [place] [address] #[id number] - LG TTIUS HISTORY: Patient is 73 years old and is seen for diagnostic evaluation of is asymptomatic in both breasts. Patient states no personal history of breast cancer. Patient states no personal history of other cancers. COMPARISON STUDIES: The present examination has been compared to prior imaging studies dated 11/29/2013 (mammogram), 04/07/2017 (mammogram), 10/14/2018 (mammogram), 07/26/2020 (mammogram), 05/17/2024 (mammogram) and 09/07/2024 (ultrasound). MAMMOGRAM TECHNIQUE: The study was acquired using full field digital technology and interpreted from soft copy. Digital Breast Tomosynthesis (DBT) images were obtained and used to assist in the interpretation of this examination. Computer-aided detection was utilized by the radiologist in the interpretation of this examination. MAMMOGRAM FINDINGS: There are scattered areas of fibroglandular density. Bilateral asymmetries change configuration with additional imaging. There is 2D stability back to 11/2013. Findings are consistent with fibroglandular tissue. No suspicious masses, calcifications or other abnormalities are seen in either breast. DIVISION OF RADIOLOGY Provider, [facility] - 09/07/2024 * * *Final Report* * * DATE OF EXAM: Sep 07 2024 2:04PM [facility] 0627 - LG ANDREAG W RICH MANJEET / PROCEDURE REASON: Abnormal mammogram * * * * Physician Interpretation * * * * [place] [address] #[id number] - LG DIAG W RICH MANJEET HISTORY: Patient is 73 years old and is seen for diagnostic evaluation of is asymptomatic in both breasts. Patient states no personal history of breast cancer. Patient states no personal history of other cancers. COMPARISON STUDIES: The present examination has been compared to prior imaging studies dated 11/29/2013 (mammogram), 04/07/2017 (mammogram), 10/14/2018 (mammogram), 07/26/2020 (mammogram), 05/17/2024 (mammogram) and 09/07/2024 (ultrasound). MAMMOGRAM TECHNIQUE: The study was acquired using full field digital technology and interpreted from soft copy. Digital Breast Tomosynthesis (DBT) images were obtained and used to assist in the interpretation of this examination. Computer-aided detection was utilized by the radiologist in the interpretation of this examination. MAMMOGRAM FINDINGS: There are scattered areas of fibroglandular density. Bilateral asymmetries change configuration with additional imaging. There is 2D stability back to 11/2013. Findings are consistent with fibroglandular tissue. No suspicious masses, calcifications or other abnormalities are seen in either breast. IMPRESSION IMPRESSION: There is no mammographic evidence of malignancy. Return to annual screening mammogram is recommended. Annual mammogram will be due in 9 months. BI-RADS Category 2: Benign RISK: Based on the Tyrer-Cuzick (TC) risk assessment model, this patient has a 4.1% lifetime risk of developing breast cancer, meaning they are at average risk for developing breast cancer. However, this is only an estimate based on available history provided on the patient's questionnaire. We encourage all patients to talk with their providers about these results, further recommendations for managing breast health, and appropriate supplemental screening options if the patient has dense breast tissue. Interpreting Radiologist: Naveed Hall M.D. Electronically signed on: 09/07/2024 Granite Worker: BERNA Transcribe Date/Time: Sep 07 2024 1:47P Dictated by : NAVEED HALL MD This examination was interpreted and the report reviewed and electronically signed by: NAVEED HALL MD on Sep 07 2024 2:34PM EST [facility] Radiology Study observation (narrative) [facility] DBT Breast - bilateral diagn ostic for implantOrdered By: [facility] Provider on 09-07-2024 [facility] LG DIAG W RICH BILon 2023 LG DIAG W IRCH MANJEET * * *Final Report* * * DATE OF EXAM: Sep 07 2024 2:04PM [facility] 0627 - LG DIAG W RICH MANJEET / PROCEDURE REASON: Abnormal mammogram * * * * Physician Interpretation * * * * [place] [address] #[id number] - LG DIAG W RICH MANJEET HISTORY: Patient is 73 years old and is seen for diagnostic evaluation of is asymptomatic in both breasts. Patient states no personal history of breast cancer. Patient states no personal history of other cancers. COMPARISON STUDIES: The present examination has been compared to prior imaging studies dated 11/29/2013 (mammogram), 04/07/2017 (mammogram), 10/14/2018 (mammogram), 07/26/2020 (mammogram), 05/17/2024 (mammogram) and 09/07/2024 (ultrasound). MAMMOGRAM TECHNIQUE: The study was acquired using full field digital technology and interpreted from soft copy. Digital Breast Tomosynthesis (DBT) images were obtained and used to assist in the interpretation of this examination. Computer-aided detection was utilized by the radiologist in the interpretation of this examination. MAMMOGRAM FINDINGS: There are scattered areas of fibroglandular density. Bilateral asymmetries change configuration with additional imaging. There is 2D stability back to 11/2013. Findings are consistent with fibroglandular tissue. No suspicious masses, calcifications or other abnormalities are seen in either breast. IMPRESSION: There is no mammographic evidence of malignancy. Return to annual screening mammogram is recommended. Annual mammogram will be due in 9 months. BI-RADS Category 2: Benign RISK: Based on the Tyrer-Cuzick (TC) risk assessment model, this patient has a 4.1% lifetime risk of developing breast cancer, meaning they are at average risk for developing breast cancer. However, this is only an estimate based on available history provided on the patient's questionnaire. We encourage all patients to talk with their providers about these results, further recommendations for managing breast health, and appropriate supplemental screening options if the patient has dense breast tissue. Interpreting Radiologist: Naveed Hall M.D. Electronically signed on: 09/07/2024 Granite Worker: BERNA Transcribe Date/Time: Sep 07 2024 1:47P Dictated by : NAVEED HALL MD This examination was interpreted and the report reviewed and electronically signed by: NAVEED HALL MD on Sep 07 2024 2:34PM EST [id number] N Normal [facility] CNOVon 09-05-2024 CNOV Office Visit (INTMWS ) NANCY JIMÉNEZ ([id number]) 1950 F Date Time Provider Department 09/05/24 1:40 PM STEVIE DUMAS INTMWS During your visit today, we recorded the following information about you: Pulse Respiration Blood pressure Weight 67/minute 16/minute 126/74 72.8 kg Stevie Dumas MD 09/05/2024 3:30 PM Signed This note was created using Infogramriter. Subjective Nancy Jiménez is a 73 year old female. No chief complaint on file. SUBJECTIVE: Nancy Jiménez is a 73 year old year old lady here today for 2 month follow up appointment for review of medical conditions. Nancy Jiménez is a 73-year-old female with a history of HTN, HLD, and atrial fibrillation, presenting for a 2-month follow-up and evaluation of a rash on her hands and ankles. Nancy reports a 1-2 week history of a non-pruritic, erythematous rash on both hands, worse on the right, and on her ankles. The rash is not painful but is associated with dryness. She has been using various lotions, including Aquaphor, Aveeno, and an old cocoa butter lotion, to manage the dryness. She denies any new soaps or lotions that could have triggered the rash. She occasionally washes dishes with Edwige dish soap. She also reports swelling in her ankles, making it difficult to bend her toes. She has been advised to wear compression socks by her spanish instructor, who also recommended using Prism felt to fill in a small hole on her left ankle. She was previously using hydrocortisone for 2 weeks but has since switched to Aquaphor as per her spanish instructor's advice. She admits to picking at the skin on her left ankle, which she knows she should avoid. Additionally, she has a history of an irritated ear for which she was prescribed triamcinolone. She notes that the ear irritation has improved a touch but is not completely resolved. She has a follow-up mammogram scheduled at [place] on Thursday due to an abnormal finding in her May mammogram. She has experienced multiple cancellations and rescheduling of her mammogram appointments due to various issues, including computer problems. She is also switching insurance companies in October, which will require her to use a mail-order pharmacy for her medications, including metoprolol, lisinopril, Eliquis, and Lipitor. She is currently paying $131 a month for Eliquis and expects to pay $86 a month for the new prescription plan, with a 3-month supply of Eliquis costing $126. She anticipates that her hydrocodone will be more expensive under the new plan. PAST MEDICAL HISTORY Diagnosis Date ANXIETY STATE NOS 10/27/2005 BONE AND CARTILAGE DIS NOS 10/27/2005 osteopenia CAD (coronary artery disease) 11/17/14 s/p PCI to the proximal LAD with a 3.0/18 mm Resolute Integrity DONALDO DEPRESSIVE DISORDER NEC 10/27/2005 Left arm pain 03/15/2014 Medial epicondylitis of right elbow 03/15/2014 Pain in joint, lower leg 03/15/2014 patellofemoral syndrome; also history of ankle fracture /sp surgical repair Tobacco use disorder 05/19/2006 Current Outpatient Medications Medication Sig atorvastatin (LIPITOR) 40 mg tablet Take 1 tablet by mouth once daily. lisinopril (ZESTRIL) 5 mg tablet Take 1 tablet by mouth once daily. metoprolol tartrate, short acting, (LOPRESSOR) 100 mg tablet Take 1 tablet by mouth two times a day. [START ON 09/09/2024] HYDROcodone-Acetamino phen (NORCO) 10-325 mg per tablet Take 1 tablet by mouth four times a day as needed for up to 30 days. Patient should start on September 09, 2024. triamcinolone acetonide (KENALOG) 0.1 % cream Apply 1 application to affected area two times a day. Apply sparingly to area for rash/itching. Use for up to 2 weeks apixaban (ELIQUIS) 5 mg tab(s) Take 1 tablet by mouth two times a day. HYDROcodone-Acetamino phen (NORCO) 10-325 mg per tablet Take 1 tablet by mouth four times a day as needed for up to 30 days. Patient should start on August 10, 2024. HYDROcodone-Acetamino phen (NORCO) 10-325 mg per tablet Take 1 tablet by mouth four times a day as needed for up to 30 days. Patient should start on July 11, 2024. nitroglycerin sublingual (NITROQUICK) 0.4 mg SL tablet Dissolve 1 tablet under the tongue every 5 minutes as needed for chest pain. Up to 3 times as needed as directed Magnesium 250 mg tab Take 250 mg by mouth every other day. aspirin, enteric coated (ASPIRIN, ENTERIC COATED) 81 mg EC tablet Take 1 tablet by mouth once daily. cyanocobalamin (VITAMIN B-12) 1,000 mcg tab Take 1 tablet by mouth once daily. Cholecalciferol, Vitamin D3, 25 mcg (1,000 unit) cap Take 1,000 Units by mouth once daily. No current facility-administered medications for this visit. Review of Systems Objective BP 126/74 Pulse 67 Resp 16 Wt 72.8 kg (160 lb 7.9 oz) SpO2 98% BMI 25.14 kg/m? Physical Exam Constitutional: Appearance: Normal appearance. HENT: Head: Normoce (more content not included)... Normal [facility] Large Joint Arthro/Inj: bila teral knee jointson 07-25-2024 Sesar Wong MD 08/15/2024 8:05 AM Large Joint Arthro/Inj: bilateral knee joints Informed Consent Consent Obtained: Verbal [place] Protocol A moment to CARE was completed. SIGN IN Personnel directly involved with the procedure wore the appropriate PPE. Special Equipment: N/A Patient/Surrogate Stated/Verified: Patient name, Date of , Relevant allergies and Intended procedure TIME OUT Intended patient and procedure match the source document(s). Consent documented and matches the intended procedure. Relevant labs, photos, and/or imaging studies have been reviewed. Correct side/site marked and visible. Medications required for procedure verified. No fire risk assessment and interventions applicable. No implant(s) inserted. 07/25/2024 3:16 PM The procedure site was prepped in the usual sterile fashion. Site: bilateral knee joints Medications (Right): 3 mL hyaluronate sodium, stabilized 60 mg/3 mL Medications (Left): 3 mL hyaluronate sodium, stabilized 60 mg/3 mL Outcome: Tolerated well, no immediate complications Post-injection instructions were reviewed with the patient and the patient voiced understanding of these instructions. SIGN OUT No specimen collected. No instruments, equipment or retained foreign bodies applicable. Post-procedure follow-up management communicated and Plan of Care Visit completed when applicable [facility] DXA Femur [T-score] Bone cherie nguyen 01-25-2024 * * *Final Report* * * DATE OF EXAM: Jan 22 2024 10:39AM WRB 0801 - BD DXA TRABECLR BONE SCORE (TBS) / PROCEDURE REASON: Asymptomatic postmenopausal status * * * * Physician Interpretation * * * * EXAMINATION: DXA BONE DENSITOMETRY BD DXA - AXIAL SKELETON, BD DXA TRABECLR BONE SCORE (TBS) PATIENT DEMOGRAPHICS: Age: 73 years, Gender: Female SCANNER INFORMATION: DXA Model: Date Scanned: 01/22/2024 10:39 AM CLINICAL HISTORY: DIAGNOSTIC Asymptomatic postmenopausal status . RISK FACTORS FOR OSTEOPOROSIS AND ASSOCIATED FRACTURES REPORTED BY THIS PATIENT: Please refer to Bone Health Questionnaire in the EMR CURRENT THERAPY: Please refer to Bone Health Questionnaire in the EMR TECHNICAL LIMITATIONS: Degenerative disease of the spine RESULTS: Lumbar spine (L1, L2, L3, L4): 1.075 g/cm2, T-score 0.3, Z-score 2.5 Right Femoral Neck: 0.515 g/cm2, T-score -3.0, Z-score -1.2 Right Total Hip: 0.704 g/cm2, T-score -2.0, Z-score -0.4 Left Femoral Neck: 0.534 g/cm2, T-score -2.8, Z-score -1.0 Left Total Hip: 0.755 g/cm2, T-score -1.5, Z-score 0.0 No comparison data - the patient has not had a previous bone density in the [facility] or the previous bone density was performed on a different DXA machine (new, updated model or different location) within the [facility]. VERTEBRAL FRACTURE ASSESSMENT Not performed. TRABECULAR BONE ASSESSMENT TBS score: 1.272 Bone micro-architecture: Partially degraded (1.231 - 1.310) DIVISION OF RADIOLOGY Provider, [facility] - 01/25/2024 * * *Final Report* * * DATE OF EXAM: Jan 22 2024 10:39AM [facility] 0801 - BD DXA TRABECLR BONE SCORE (TBS) / PROCEDURE REASON: Asymptomatic postmenopausal status * * * * Physician Interpretation * * * * EXAMINATION: DXA BONE DENSITOMETRY BD DXA - AXIAL SKELETON, BD DXA TRABECLR BONE SCORE (TBS) PATIENT DEMOGRAPHICS: Age: 73 years, Gender: Female SCANNER INFORMATION: DXA Model: Date Scanned: 01/22/2024 10:39 AM CLINICAL HISTORY: DIAGNOSTIC Asymptomatic postmenopausal status . RISK FACTORS FOR OSTEOPOROSIS AND ASSOCIATED FRACTURES REPORTED BY THIS PATIENT: Please refer to Bone Health Questionnaire in the EMR CURRENT THERAPY: Please refer to Bone Health Questionnaire in the EMR TECHNICAL LIMITATIONS: Degenerative disease of the spine RESULTS: Lumbar spine (L1, L2, L3, L4): 1.075 g/cm2, T-score 0.3, Z-score 2.5 Right Femoral Neck: 0.515 g/cm2, T-score -3.0, Z-score -1.2 Right Total Hip: 0.704 g/cm2, T-score -2.0, Z-score -0.4 Left Femoral Neck: 0.534 g/cm2, T-score -2.8, Z-score -1.0 Left Total Hip: 0.755 g/cm2, T-score -1.5, Z-score 0.0 No comparison data - the patient has not had a previous bone density in the [facility] or the previous bone density was performed on a different DXA machine (new, updated model or different location) within the [facility]. VERTEBRAL FRACTURE ASSESSMENT Not performed. TRABECULAR BONE ASSESSMENT TBS score: 1.272 Bone micro-architecture: Partially degraded (1.231 - 1.310) IMPRESSION IMPRESSION: THE LOWEST T-SCORE IS -3.0 IN THE RIGHT HIP 1) DIAGNOSIS (based on BMD alone): OSTEOPOROSIS Caution: Medical conditions other than osteoporosis may cause low bone density, such as osteomalacia or renal osteodystrophy. Clinical correlation is necessary. 2) FRACTURE RISK (Based on TBS adjusted FRAX): 10-year absolute fracture risk: - major osteoporotic fracture = 33 % - hip fracture = 20 % - A diagnosis of Osteoporosis, a 10 year probability of hip fracture greater than or equal to 3% or a 10 year probability of any major osteoporosis-related fracture greater than or equal to 20% should be considered for treatment. - DXA scanner generated FRAX calculations may slightly differ from online FRAX calculations due to differences in software versions. - All recommendations and calculations are to be considered as guidelines and should not replace sound clinical judgement - Caution: Fracture risk may be increased independent of BMD in patients with corticosteroid use, age greater than 65 years, or a history of prior fragility fracture. RECOMMENDATIONS: Follow-up in 2 years or as clinically indicated. Patients that are taking corticosteroids, are transplant recipients or have hyperparathyroidism should have annual follow-up. Follow-up scans should always be done on the same machine for accurate comparison. FOR MORE INFORMATION ABOUT DIAGNOSIS AND TREATMENT: [facility] for Osteoporosis and Metabolic Bone Disease:? [email or web address].org/arthritis /osteo National Osteoporosis Foundation:? www.nof.org International Society of Clinical Densitometry www.iscd.org Granite Worker: DENISE Transcribe Date/Time: Jan 25 2024 1:11P Dictated by : SARY DAVIDSON MD This examination was interpreted and the report reviewed and electronically signed by: SARY DAVIDSON MD on Jan 25 2024 1:12PM EST [facility] DXA Skeletal system.axial Vi ews for bone densityon 01-25-2024 * * *Final Report* * * DATE OF EXAM: Jan 22 2024 10:39AM WRB 0804 - BD DXA - AXIAL SKELETON / PROCEDURE REASON: Asymptomatic postmenopausal status * * * * Physician Interpretation * * * * EXAMINATION: DXA BONE DENSITOMETRY BD DXA - AXIAL SKELETON, BD DXA TRABECLR BONE SCORE (TBS) PATIENT DEMOGRAPHICS: Age: 73 years, Gender: Female SCANNER INFORMATION: DXA Model: Date Scanned: 01/22/2024 10:39 AM CLINICAL HISTORY: DIAGNOSTIC Asymptomatic postmenopausal status . RISK FACTORS FOR OSTEOPOROSIS AND ASSOCIATED FRACTURES REPORTED BY THIS PATIENT: Please refer to Bone Health Questionnaire in the EMR CURRENT THERAPY: Please refer to Bone Health Questionnaire in the EMR TECHNICAL LIMITATIONS: Degenerative disease of the spine RESULTS: Lumbar spine (L1, L2, L3, L4): 1.075 g/cm2, T-score 0.3, Z-score 2.5 Right Femoral Neck: 0.515 g/cm2, T-score -3.0, Z-score -1.2 Right Total Hip: 0.704 g/cm2, T-score -2.0, Z-score -0.4 Left Femoral Neck: 0.534 g/cm2, T-score -2.8, Z-score -1.0 Left Total Hip: 0.755 g/cm2, T-score -1.5, Z-score 0.0 No comparison data - the patient has not had a previous bone density in the [facility] or the previous bone density was performed on a different DXA machine (new, updated model or different location) within the [facility]. VERTEBRAL FRACTURE ASSESSMENT Not performed. TRABECULAR BONE ASSESSMENT TBS score: 1.272 Bone micro-architecture: Partially degraded (1.231 - 1.310) DIVISION OF RADIOLOGY Provider, [facility] - 01/25/2024 * * *Final Report* * * DATE OF EXAM: Jan 22 2024 10:39AM WRB 0804 - BD DXA - AXIAL SKELETON / PROCEDURE REASON: Asymptomatic postmenopausal status * * * * Physician Interpretation * * * * EXAMINATION: DXA BONE DENSITOMETRY BD DXA - AXIAL SKELETON, BD DXA TRABECLR BONE SCORE (TBS) PATIENT DEMOGRAPHICS: Age: 73 years, Gender: Female SCANNER INFORMATION: DXA Model: Date Scanned: 01/22/2024 10:39 AM CLINICAL HISTORY: DIAGNOSTIC Asymptomatic postmenopausal status . RISK FACTORS FOR OSTEOPOROSIS AND ASSOCIATED FRACTURES REPORTED BY THIS PATIENT: Please refer to Bone Health Questionnaire in the EMR CURRENT THERAPY: Please refer to Bone Health Questionnaire in the EMR TECHNICAL LIMITATIONS: Degenerative disease of the spine RESULTS: Lumbar spine (L1, L2, L3, L4): 1.075 g/cm2, T-score 0.3, Z-score 2.5 Right Femoral Neck: 0.515 g/cm2, T-score -3.0, Z-score -1.2 Right Total Hip: 0.704 g/cm2, T-score -2.0, Z-score -0.4 Left Femoral Neck: 0.534 g/cm2, T-score -2.8, Z-score -1.0 Left Total Hip: 0.755 g/cm2, T-score -1.5, Z-score 0.0 No comparison data - the patient has not had a previous bone density in the [facility] or the previous bone density was performed on a different DXA machine (new, updated model or different location) within the [facility]. VERTEBRAL FRACTURE ASSESSMENT Not performed. TRABECULAR BONE ASSESSMENT TBS score: 1.272 Bone micro-architecture: Partially degraded (1.231 - 1.310) IMPRESSION IMPRESSION: THE LOWEST T-SCORE IS -3.0 IN THE RIGHT HIP 1) DIAGNOSIS (based on BMD alone): OSTEOPOROSIS Caution: Medical conditions other than osteoporosis may cause low bone density, such as osteomalacia or renal osteodystrophy. Clinical correlation is necessary. 2) FRACTURE RISK (Based on TBS adjusted FRAX): 10-year absolute fracture risk: - major osteoporotic fracture = 33 % - hip fracture = 20 % - A diagnosis of Osteoporosis, a 10 year probability of hip fracture greater than or equal to 3% or a 10 year probability of any major osteoporosis-related fracture greater than or equal to 20% should be considered for treatment. - DXA scanner generated FRAX calculations may slightly differ from online FRAX calculations due to differences in software versions. - All recommendations and calculations are to be considered as guidelines and should not replace sound clinical judgement - Caution: Fracture risk may be increased independent of BMD in patients with corticosteroid use, age greater than 65 years, or a history of prior fragility fracture. RECOMMENDATIONS: Follow-up in 2 years or as clinically indicated. Patients that are taking corticosteroids, are transplant recipients or have hyperparathyroidism should have annual follow-up. Follow-up scans should always be done on the same machine for accurate comparison. FOR MORE INFORMATION ABOUT DIAGNOSIS AND TREATMENT: [facility] Osteoporosis and Metabolic Bone Disease:? www.f.org/arthritis /osteo National Osteoporosis Foundation:? www.nof.org International Society of Clinical Densitometry www.iscd.org Granite Worker: DENISE Transcribe Date/Time: Jan 25 2024 1:11P Dictated by : SARY DAVIDSON MD This examination was interpreted and the report reviewed and electronically signed by: SARY DAVIDSON MD on Jan 25 2024 1:12PM EST [facility] No Panel InformationOrdered By: [facility] Provider on 01-25-2024 LOWEST T-SCORE -3.0 [facility] No Panel Informationon 01-24 IMPRESSION: THE LOWEST T-SCORE IS -3.0 IN THE RIGHT HIP 1) DIAGNOSIS (based on BMD alone): OSTEOPOROSIS Caution: Medical conditions other than osteoporosis may cause low bone density, such as osteomalacia or renal osteodystrophy. Clinical correlation is necessary. 2) FRACTURE RISK (Based on TBS adjusted FRAX): 10-year absolute fracture risk: - major osteoporotic fracture = 33 % - hip fracture = 20 % - A diagnosis of Osteoporosis, a 10 year probability of hip fracture greater than or equal to 3% or a 10 year probability of any major osteoporosis-related fracture greater than or equal to 20% should be considered for treatment. - DXA scanner generated FRAX calculations may slightly differ from online FRAX calculations due to differences in software versions. - All recommendations and calculations are to be considered as guidelines and should not replace sound clinical judgement - Caution: Fracture risk may be increased independent of BMD in patients with corticosteroid use, age greater than 65 years, or a history of prior fragility fracture. RECOMMENDATIONS: Follow-up in 2 years or as clinically indicated. Patients that are taking corticosteroids, are transplant recipients or have hyperparathyroidism should have annual follow-up. Follow-up scans should always be done on the same machine for accurate comparison. FOR MORE INFORMATION ABOUT DIAGNOSIS AND TREATMENT: [facility] Osteoporosis and Metabolic Bone Disease:? www.ccf.org/arthritis /osteo National Osteoporosis Foundation:? www.nof.org International Society of Clinical Densitometry www.iscd.org Granite Worker: DENISE Transcribe Date/Time: Jan 25 2024 1:11P Dictated by : SARY DAVIDSON MD This examination was interpreted and the report reviewed and electronically signed by: SARY DAVIDSON MD on Jan 25 2024 1:12PM [facility] DIVISION OF RADIOLOGY No Panel Informationon 01-21 Radiology Study observation (narrative) [facility] Absolute lymphocyte countOrd ered By: Haider Cortes on 06-25-2023 Lymphocytes Auto (Unsp spec) [#/Vol] 1.19 10*3/uL 0.83-4.51 [facility] Basophil percentageOrdered B y: Haider Cortes on 06-25-2023 Basophils/100 WBC (Bld) 0.7 % 0-[address] [facility] Eosinophils/100 WBC (Bld) 2.5 % 0-5 [facility] Neutrophils (Bld) [#/Vol] 2.5 10*3/uL 2.0-7.7 [facility] Neutrophils/100 WBC (Bld) 55.2 % 47-70 [facility] WBC (Bld) [#/Vol] 4.4 10*3/uL 4.4-11.0 [facility] Basophil percentageOrdered B y: Haider Amezcua on 06-25-2023 Chloride [Moles/Vol] 109 mmol/L 98-107 [facility] Glucose [Mass/Vol] 107 mg/dL 74-106 [facility] Comment on above: Fasting Glucose resu lt from 100 to 125 mg/dL suggests IMPAIRED HOMEOSTASIS per A.D.A. criteria. Potassium [Moles/Vol] 3.7 mmol/L 3.5-5.1 [facility] Sodium [Moles/Vol] 140 mmol/L 136-[facility] Blood erythrocytes count (nu mber/volume)Ordered By: Haider Cortes on 06-25-2023 RBC (Bld) [#/Vol] 3.23 10*6/uL 4.2-5.4 [facility] Blood hemoglobin measurement (mass/volume)Ordered By: Haider Cortes on 06-25-2023 Hemoglobin (Bld) [Mass/Vol] 11.4 g/dL 12.0-15.0 [facility] Blood lymphocytes/100 leukoc ytesOrdered By: Haider Cortes on 06-25-2023 Lymphocytes/100 WBC (Bld) 26.9 % 19-41 [facility] Blood monocytes/100 leukocyt esOrdered By: Haider Cortes on 06-25-2023 Monocytes/100 WBC (Bld) 14.2 % 0-[address] [facility] Blood platelet mean volumeOr dered By: Haider Cortes on 06-25-2023 Platelet mean volume (Bld) [Entitic vol] 9.6 fL 6.2-12.0 [facility] Determination of erythrocyte mean corpuscular volume (MCV)Ordered By: Haider Cortes on 06-25-2023 MCV (RBC) [Entitic vol] 107.7 fL 81-[address] [facility] Hematocrit Auto (Bld) [Volum e fraction]Ordered By: Haider Cortes on 06-25-2023 Hematocrit (Bld) [Volume fraction] 34.8 % 37-47 [facility] - Chemistry and C hemistry - challengeOrdered By: Haider Amezcua on 06-25-2023 CO2 [Moles/Vol] 25.0 mmol/L 21.0-32.0 [facility] Urea nitrogen/Creatinine [Mass ratio] 34.2 mg/mg 10-20 [facility] - Hematology and Cell countsOrdered By: Haider Cortes on 06-25-2023 Erythrocyte distribution width (RBC) [Entitic vol] 53.7 fL 35.1-43.9 [facility] Erythrocyte distribution width (RBC) [Ratio] 13.3 % 11.6-14.6 [facility] Immature granulocytes/100 WBC (Bld) 0.500 % 0.0-0.9 [facility] Comment on above: IG% - Immature Granu locytes (promyelocytes, myelocytes and metamyelocytes) > 1% indicates that a LEFT SHIFT is Present. MCH (RBC) [Entitic mass] 35.3 pg 27.0-32.0 [facility] Nucleated RBC/100 WBC (Bld) [Ratio] 0 % 0-5 [facility] MCHC Auto (RBC) [Mass/Vol]Or dered By: Haider Cortes on 06-25-2023 MCHC (RBC) [Mass/Vol] 32.8 g/dL 32-36 [facility] No Panel InformationOrdered By: Haider Amezcua on 06-25-2023 Estimated Creatinine Clearance Calc 50.91 ml/min [facility] Estimated GFR (MDRD) Amer 117 mL/min >60 [facility] Comment on above: GFR Calc Estimated GFR (MDRD) Non-Af Amer 97 mL/min >60 [facility] Comment on above: Non- GFR Calc Platelets bldOrdered By: Lenka Cortes on 06-25-2023 Platelets (Bld) [#/Vol] 143 10*3/uL 150-450 [facility] Serum or plasma calcium luis urement (mass/volume)Ordered By: Haider Amezcua on 06-25-2023 Calcium [Mass/Vol] 9.1 mg/dL 8.5-10.1 [facility] Serum or plasma creatinine m easurement (mass/volume)Ordered By: Haider Amezcua on 06-25-2023 Creatinine [Mass/Vol] 0.64 mg/dL 0.55-1.02 [facility] Comment on above: The validity of the calculated GFR & GFRAA in patients over 70 years has not been determined. Clinical correlation is essential. Serum or plasma urea nitroge n measurement (mass/volume)Ordered By: Haider Amezcua on 06-25-2023 Urea nitrogen [Mass/Vol] 22 mg/dL 7-18 [facility] Thin prep Papanicolaou smear with manual screeningOrdered By: Haider Amezcua on 06-25-2023 Thin prep Papanicolaou smear with manual screening 6 5-15 [facility] Bacteria identified Cx Nom ( Wound)Ordered By: Nathan Spivey on 06-23-2023 Wound Culture Staphylococcus epidermidis [facility] Erythrocyte sedimentation ra teOrdered By: Ntahan Spivey on 06-23-2023 ESR (Bld) [Velocity] 14 mm/h 0-30 [facility] Gram stain for investigation of transfusion reactionOrdered By: Nathan Spivey on 06-23-2023 Microscopic observation Gram stain Nom (Unsp spec) [facility] Serum or plasma C reactive p rotein measurement (mass/volume)Ordered By: Nathan Spivey on 06-23-2023 CRP [Mass/Vol] 2.98 mg/L 0.0-3.0 [facility] Comment on above: C-Reactive Protein ( CRP) provides useful information for thediagnosis, therapy and monitoring of inflammatory processesand associated diseases. For the evaluation of Relative Riskfor Cardiovascular Disease, a High Sensitivity CRP (HSCRP)should be ordered. Whole blood hemoglobin A1c/t otal hemoglobin ratio (mass fraction)Ordered By: Nathan Spivey on 06-23-2023 HbA1c (Bld) [Mass fraction] 5.0 % 3.8-5.6 [facility] Comment on above: Normal < 5.7 % Predi abetic 5.7 - 6.4 % Diabetic >or= 6.5 % Please note range changes. Absolute lymphocyte countOrd ered By: Marisa Draper on 06-22-2023 Lymphocytes Auto (Unsp spec) [#/Vol] 1.86 10*3/uL 0.83-4.51 [facility] Basophil percentageOrdered B y: Marisa Draper on 06-22-2023 Basophils/100 WBC (Bld) 0.7 % 0-[address] [facility] Chloride [Moles/Vol] 102 mmol/L 98-107 [facility] Eosinophils/100 WBC (Bld) 1.4 % 0-5 [facility] Glucose [Mass/Vol] 105 mg/dL 74-106 [facility] Comment on above: Fasting Glucose resu lt from 100 to 125 mg/dL suggests IMPAIRED HOMEOSTASIS per A.D.A. criteria. Neutrophils (Bld) [#/Vol] 4.4 10*3/uL 2.0-7.7 [facility] Neutrophils/100 WBC (Bld) 61.0 % 47-70 [facility] Potassium [Moles/Vol] 4.3 mmol/L 3.5-5.1 [facility] Sodium [Moles/Vol] 135 mmol/L 136-145 [facility] WBC (Bld) [#/Vol] 7.3 10*3/uL 4.4-11.0 [facility] Blood erythrocytes count (nu mber/volume)Ordered By: Marisa Draper on 06-22-2023 RBC (Bld) [#/Vol] 3.88 10*6/uL 4.2-5.4 [facility] Blood hemoglobin measurement (mass/volume)Ordered By: Marisa Draper on 06-22-2023 Hemoglobin (Bld) [Mass/Vol] 13.7 g/dL 12.0-15.0 [facility] Blood lymphocytes/100 leukoc ytesOrdered By: Marisa Draper on 06-22-2023 Lymphocytes/100 WBC (Bld) 25.7 % 19-41 [facility] Blood monocytes/100 leukocyt esOrdered By: Marisa Draper on 06-22-2023 Monocytes/100 WBC (Bld) 10.6 % 0-[address] [facility] Blood platelet mean volumeOr dered By: Marisa Draper on 06-22-2023 Platelet mean volume (Bld) [Entitic vol] 9.6 fL 6.2-12.0 [facility] Determination of erythrocyte mean corpuscular volume (MCV)Ordered By: Marisa Draper on 06-22-2023 MCV (RBC) [Entitic vol] 107.0 fL 81-[address] [facility] Hematocrit Auto (Bld) [Volum e fraction]Ordered By: Marisa Draper on 06-22-2023 Hematocrit (Bld) [Volume fraction] 41.5 % 37-47 [facility] INR in Blood by Coagulation assayOrdered By: Marisa Draper on 06-22-2023 INR Coag (Bld) [Relative time] 1.1 {INR} [facility] - Chemistry and C hemistry - challengeOrdered By: Marisa Draper on 06-22-2023 CO2 [Moles/Vol] 24.0 mmol/L 21.0-32.0 [facility] Urea nitrogen/Creatinine [Mass ratio] 23.5 mg/mg 10-20 [facility] - CoagulationOrde red By: Marisa Draper on 06-22-2023 aPTT Coag (Bld) [Time] 31.9 s 24.1-36.2 [facility] PT Coag (PPP) [Time] 14.1 s 11.7-14.9 [facility] - Hematology and Cell countsOrdered By: Marisa Draper on 06-22-2023 Erythrocyte distribution width (RBC) [Entitic vol] 53.5 fL 35.1-43.9 [facility] Erythrocyte distribution width (RBC) [Ratio] 13.5 % 11.6-14.6 [facility] Immature granulocytes/100 WBC (Bld) 0.600 % 0.0-0.9 [facility] Comment on above: IG% - Immature Granu locytes (promyelocytes, myelocytes and metamyelocytes) > 1% indicates that a LEFT SHIFT is Present. MCH (RBC) [Entitic mass] 35.3 pg 27.0-32.0 [facility] Nucleated RBC/100 WBC (Bld) [Ratio] 0 % 0-5 [facility] MCHC Auto (RBC) [Mass/Vol]Or dered By: Marisa Draper on 06-22-2023 MCHC (RBC) [Mass/Vol] 33.0 g/dL 32-36 [facility] No Panel InformationOrdered By: Marisa Draper on 06-22-2023 Estimated Creatinine Clearance Calc 49.91 ml/min [facility] Estimated GFR (MDRD) Amer 69 mL/min >60 [facility] Comment on above: GFR Calc Estimated GFR (MDRD) Non-Af Amer 57 mL/min >60 [facility] Comment on above: Non- GFR Calc Platelets bldOrdered By: Isabella Draper on 06-22-2023 Platelets (Bld) [#/Vol] 191 10*3/uL 150-450 [facility] Serum or plasma calcium luis urement (mass/volume)Ordered By: Marisa Draper on 06-22-2023 Calcium [Mass/Vol] 10.7 mg/dL 8.5-10.1 [facility] Serum or plasma creatinine m easurement (mass/volume)Ordered By: Marisa Draper on 06-22-2023 Creatinine [Mass/Vol] 1.02 mg/dL 0.55-1.02 [facility] Comment on above: The validity of the calculated GFR & GFRAA in patients over 70 years has not been determined. Clinical correlation is essential. Serum or plasma urea nitroge n measurement (mass/volume)Ordered By: Marisa Draper on 06-22-2023 Urea nitrogen [Mass/Vol] 24 mg/dL 7-18 [facility] Thin prep Papanicolaou smear with manual screeningOrdered By: Marisa Draper on 06-22-2023 Thin prep Papanicolaou smear with manual screening 9 5-15 [facility] Absolute lymphocyte countOrd ered By: Guillaume Alcantara on 06-15-2023 Lymphocytes Auto (Unsp spec) [#/Vol] 1.92 10*3/uL 0.83-4.51 [facility] Anaerobic cultureOrdered By: Guillaumedavid Alcantara on 06-15-2023 Bacteria identified Anaer cx Nom (Unsp spec) No growth in 5 days. [facility] Bacterial body fluid culture Ordered By: Guillaumedavid Alcantara on 06-15-2023 Bacteria identified Cx Nom (Body fld) [facility] Basophil percentageOrdered B y: Guillaume Alcantara on 06-15-2023 Basophils/100 WBC (Bld) 0.1 % 0-[address] [facility] Chloride [Moles/Vol] 102 mmol/L 98-107 [facility] Eosinophils/100 WBC (Bld) 0.9 % 0-5 [facility] Glucose [Mass/Vol] 109 mg/dL 74-106 [facility] Comment on above: Fasting Glucose resu lt from 100 to 125 mg/dL suggests IMPAIRED HOMEOSTASIS per A.D.A. criteria. Neutrophils (Bld) [#/Vol] 4.3 10*3/uL 2.0-7.7 [facility] Neutrophils/100 WBC (Bld) 61.1 % 47-70 [facility] Potassium [Moles/Vol] 4.0 mmol/L 3.5-5.1 [facility] Sodium [Moles/Vol] 137 mmol/L 136-145 [facility] WBC (Bld) [#/Vol] 7.0 10*3/uL 4.4-11.0 [facility] Blood erythrocytes count (nu mber/volume)Ordered By: Guillaume Alcantara on 06-15-2023 RBC (Bld) [#/Vol] 3.72 10*6/uL 4.2-5.4 [facility] Blood hemoglobin measurement (mass/volume)Ordered By: Guillaumedavid Alcantara on 06-15-2023 Hemoglobin (Bld) [Mass/Vol] 13.5 g/dL 12.0-15.0 [facility] Blood lymphocytes/100 leukoc ytesOrdered By: Guillaume Alcantara on 06-15-2023 Lymphocytes/100 WBC (Bld) 27.5 % 19-41 [facility] Blood monocytes/100 leukocyt esOrdered By: Guillaume Alcantara on 06-15-2023 Monocytes/100 WBC (Bld) 10.0 % 0-[address] [facility] Blood platelet mean volumeOr dered By: Guillaume Alcantara on 06-15-2023 Platelet mean volume (Bld) [Entitic vol] 9.0 fL 6.2-12.0 [facility] Determination of erythrocyte mean corpuscular volume (MCV)Ordered By: Guillaume Alcantara on 06-15-2023 MCV (RBC) [Entitic vol] 106.2 fL 81-[address] [facility] Gram stain for investigation of transfusion reactionOrdered By: Guillaume Alcantara on 06-15-2023 Microscopic observation Gram stain Nom (Unsp spec) [facility] Hematocrit Auto (Bld) [Volum e fraction]Ordered By: Guillaume Alcantara on 06-15-2023 Hematocrit (Bld) [Volume fraction] 39.5 % 37-47 [facility] - Chemistry and C hemistry - challengeOrdered By: Guillaume Alcantara on 06-15-2023 CO2 [Moles/Vol] 29.0 mmol/L 21.0-32.0 [facility] Urea nitrogen/Creatinine [Mass ratio] 19.3 mg/mg 10-20 [facility] - Hematology and Cell countsOrdered By: Guillaume Alcantara on 06-15-2023 Erythrocyte distribution width (RBC) [Entitic vol] 55.2 fL 35.1-43.9 [facility] Erythrocyte distribution width (RBC) [Ratio] 14.1 % 11.6-14.6 [facility] Immature granulocytes/100 WBC (Bld) 0.400 % 0.0-0.9 [facility] Comment on above: IG% - Immature Granu locytes (promyelocytes, myelocytes and metamyelocytes) > 1% indicates that a LEFT SHIFT is Present. MCH (RBC) [Entitic mass] 36.3 pg 27.0-32.0 [facility] Nucleated RBC/100 WBC (Bld) [Ratio] 0 % 0-5 [facility] MCHC Auto (RBC) [Mass/Vol]Or dered By: Guillaume Alcantara on 06-15-2023 MCHC (RBC) [Mass/Vol] 34.2 g/dL 32-36 [facility] No Panel InformationOrdered By: Guillaume Alcantara on 06-15-2023 Estimated Creatinine Clearance Calc 61.33 ml/min [facility] Estimated GFR (MDRD) Amer 88 mL/min >60 [facility] Comment on above: GFR Calc Estimated GFR (MDRD) Non-Af Amer 72 mL/min >60 [facility] Comment on above: Non- GFR Calc Platelets bldOrdered By: Guillaume Alcantara on 06-15-2023 Platelets (Bld) [#/Vol] 163 10*3/uL 150-450 [facility] Serum or plasma calcium luis urement (mass/volume)Ordered By: Guillaume Alcantara on 06-15-2023 Calcium [Mass/Vol] 9.3 mg/dL 8.5-10.1 [facility] Serum or plasma creatinine m easurement (mass/volume)Ordered By: Guillaumedavid Alcantara on 06-15-2023 Creatinine [Mass/Vol] 0.83 mg/dL 0.55-1.02 [facility] Comment on above: The validity of the calculated GFR & GFRAA in patients over 70 years has not been determined. Clinical correlation is essential. Serum or plasma urea nitroge n measurement (mass/volume)Ordered By: Guillaume Alcantara on 06-15-2023 Urea nitrogen [Mass/Vol] 16 mg/dL 7-18 [facility] Thin prep Papanicolaou smear with manual screeningOrdered By: Guillaume Alcantara on 06-15-2023 Thin prep Papanicolaou smear with manual screening 6 5-15 [facility] CBC panel Auto (Bld)on 03-17 Erythrocyte distribution width (RBC) [Ratio] 12.5 % 11.5 - 15.0 % [facility] Hematocrit (Bld) [Volume fraction] 38.4 % 36.0 - 46.0 % [facility] Hemoglobin (Bld) [Mass/Vol] 12.4 g/dL 11.5 - 15.5 g/dL [facility] MCH (RBC) [Entitic mass] 34.0 pg 26.0 - 34.0 pg [facility] MCHC (RBC) [Mass/Vol] 32.3 g/dL 30.5 - 36.0 g/dL [facility] MCV (RBC) [Entitic vol] 105.2 fL High 80.0 - 100.0 fL [facility] Nucleated RBC (Bld) [#/Vol] 10*3/uL <0.01 k/uL [facility] Platelet mean volume (Bld) [Entitic vol] 9.9 fL 9.0 - 12.7 fL [facility] Platelets (Bld) [#/Vol] 151 10*3/uL 150 - 400 k/uL [facility] RBC (Bld) [#/Vol] 3.65 10*6/uL Low 3.90 - 5.2 0 m/uL [facility] WBC (Bld) [#/Vol] 5.08 10*3/uL 3.70 - 11. 00 k/uL [facility] Comprehensive metabolic 2000 panelon 03-17-2022 Albumin [Mass/Vol] 4.5 g/dL 3.9 - 4.9 g/dL [facility] ALP [Catalytic activity/Vol] 84 U/L 34 - 123 U/L [facility] ALT [Catalytic activity/Vol] 19 U/L 7 - 38 U/L [facility] Anion gap [Moles/Vol] 10 mmol/L 9 - 18 mmol/L [facility] AST [Catalytic activity/Vol] 27 U/L 13 - 35 U/L [facility] Bilirubin [Mass/Vol] 0.6 mg/dL 0.2 - 1 .3 mg/dL [facility] Calcium [Mass/Vol] 9.5 mg/dL 8.5 - 10. 2 mg/dL [facility] Chloride [Moles/Vol] 101 mmol/L 97 - 10 5 mmol/L [facility] CO2 [Moles/Vol] 27 mmol/L 22 - 30 mmol/L [facility] Creatinine [Mass/Vol] 0.71 mg/dL 0.58 - 0.96 mg/dL [facility] Estimated Glomerular Filtration Rate 92 mL/min/1.73m >=60 mL/min/1.73m [facility] Glucose [Mass/Vol] 118 mg/dL High 74 - 99 mg/dL [facility] Potassium [Moles/Vol] 4.7 mmol/L 3.7 - 5.1 mmol/L [facility] Protein [Mass/Vol] 7.2 g/dL 6.3 - 8.0 g/dL [facility] Sodium [Moles/Vol] 138 mmol/L 136 - 144 mmol/L [facility] Urea nitrogen [Mass/Vol] 15 mg/dL 7 - 21 mg/dL [facility] FOLATE SERUMon 03-17-2022 Folate [Mass/Vol] 15.2 ng/mL >4.7 ng/mL [facility] Iron and Iron binding capaci ty panelon 03-17-2022 Iron [Mass/Vol] 109 ug/dL 41 - 186 ug/dL [facility] Iron binding capacity [Mass/Vol] 355 ug/dL 232 - 386 ug/dL [facility] Iron/TIBC [Molar ratio] 31 % 15 - 57 % C [facility] Lipid 1996 panelon 2 Cholesterol [Mass/Vol] 172 mg/dL <200 mg/dL [facility] Cholesterol in HDL [Mass/Vol] 55 mg/dL >39 mg/dL [facility] Cholesterol in LDL [Mass/Vol] 91 mg/dL <100 mg/dL [facility] Cholesterol in LDL/Cholesterol in HDL [Mass ratio] 1.65 {ratio} <2.54 [facility] Cholesterol in VLDL [Mass/Vol] 26 mg/dL <30 mg/dL [facility] Cholesterol non HDL [Mass/Vol] 117 mg/dL <130 mg/dL [facility] Cholesterol.total/Ayde sterol in HDL [Mass ratio] 3.13 {ratio} <5.10 [facility] Fasting Time 11 hrs [facility] Triglyceride [Mass/Vol] 128 mg/dL <150 mg/dL [facility] VITAMIN B12 BLOODon 03-17-20 Cobalamin (Vitamin B12) [Mass/Vol] 1653 pg/mL High 232-1,245 pg/mL [facility] Vital Signs Date Time Vital Sign Value Performing Clinician Facility 04-03-2025 09:44-0400 Body mass index (BMI) [Ratio] 25.52 kg/m2 Stevie Dumas MD Work Phone: [facility] 04-03-2025 09:44-0400 Body weight 73.9 kg Stevie Dumas MD Work Phone: [facility] 04-03-2025 09:44-0400 Diastolic blood pressure 70 mm[Hg] Stevie Dumas MD Work Phone: [facility] 04-03-2025 09:44-0400 Heart rate 66 /min Stevie Dumas MD Work Phone: [facility] 04-03-2025 09:44-0400 Respiratory rate 16 /min Stevie Dumas MD Work Phone: [facility] 04-03-2025 09:44-0400 SaO2% (BldA) [Mass fraction] 99 % Stevie Dumas MD Work Phone: [facility] 04-03-2025 09:44-0400 Systolic blood pressure 110 mm[Hg] Stevie Dumas MD Work Phone: [facility] 02-08-2025 09:03-0400 Body mass index (BMI) [Ratio] 25.59 kg/m2 Graham De Leon [employer]LECTRONIC [employer]ER.[employer]ON Work Phone: [facility] 02-08-2025 09:03-0400 Body weight 74.1 kg Graham De Leon [employer]LECTRONIC [employer]ER.[employer]ER [employer] SURGEON Work Phone: [facility] 02-08-2025 09:03-0400 Diastolic blood pressure 70 mm[Hg] Graham De Leon ELECTRONIC [employer]ER.[employer]ER [employer] SURGEON Work Phone: [facility] 02-08-2025 09:03-0400 Heart rate 77 /min Graham De Leon [employer]LECTRONIC [employer]ER.[employer]ER [employer]AL SURGEON Work Phone: [facility] 02-08-2025 09:03-0400 SaO2% (BldA) [Mass fraction] 96 % Graham Moises [employer]LECTRONIC [employer]ER.OWNER [employer]AL SURGEON Work Phone: [facility] 02-08-2025 09:03-0400 Systolic blood pressure 104 mm[Hg] Graham De Leon ELECTRONIC [employer]UER.OWNER [employer] SURGEON Work Phone: [facility] 12-09-2024 17:25-0500 Body mass index (BMI) [Ratio] 25.21 kg/m2 Stevie Dumas MD Work Phone: [facility] 12-09-2024 17:25-0500 Body weight 73 kg Stevie Dumas MD Work Phone: [facility] 12-09-2024 17:25-0500 Diastolic blood pressure 80 mm[Hg] Stevie Dumas MD Work Phone: [facility] 12-09-2024 17:25-0500 Heart rate 84 /min Stevie Dumas MD Work Phone: [facility] 12-09-2024 17:25-0500 SaO2% (BldA) [Mass fraction] 95 % Stevie Dumas MD Work Phone: [facility] 12-09-2024 17:25-0500 Systolic blood pressure 120 mm[Hg] Stevie Dumas MD Work Phone: [facility] 11-15-2024 13:05-0500 Body height 162.[address] Stevie Dumas MD Work Phone: [facility] 11-15-2024 13:05-0500 Body mass index (BMI) [Ratio] 27.4 kg/m2 Dr. Stevie Dumas MD Work Phone: [facility] 11-15-2024 13:05-0500 Body temperature 97.3 [degF] Dr. Stevie Dumas MD Work Phone: 3(313)594-661731 [place] [address] 11-15-2024 13:05-0500 Body weight 72.[address] Stevie Dumas MD Work Phone: 1(896)246-015431 [place] [address] 11-15-2024 13:05-0500 Diastolic blood pressure 78 mm[Hg] Dr. Stevie Dumas MD Work Phone: 1(332)485-928131 [place] [address] 11-15-2024 13:05-0500 Heart rate 69 /min Dr. Stevie Dumas MD Work Phone: 5(901)534-693831 [place] [address] 11-15-2024 13:05-0500 Respiratory rate 18 /min Dr. Stevie Dumas MD Work Phone: 2(620)614-826931 [place] [address] 11-15-2024 13:05-0500 SaO2% (BldA) [Mass fraction] 94 % Dr. Stevie Dumas MD Work Phone: 2(100)022-506031 [place] [address] 11-15-2024 13:05-0500 Systolic blood pressure 122 mm[Hg] Dr. Stevie Dumas MD Work Phone: 4(172)681-890931 [place] [address] 11-08-2024 13:20-0500 Body mass index (BMI) [Ratio] 27.3 kg/m2 Dr. Stevie Dumas MD Work Phone: 5(613)090-687731 [place] [address] 11-08-2024 13:20-0500 Body weight 72.[address] Stevie Dumas MD Work Phone: 6(022)130-233531 [place] [address] 11-08-2024 13:20-0500 Diastolic blood pressure 79 mm[Hg] Dr. Stevie Dumas MD Work Phone: 1(269)465-934431 [place] [address] 11-08-2024 13:20-0500 Heart rate 81 /min Dr. Stevie Dumas MD Work Phone: 3(289)021-547231 [place] [address] 11-08-2024 13:20-0500 Respiratory rate 18 /min Dr. Stevie Dumas MD Work Phone: 0(670)097-076631 [place] [address] 11-08-2024 13:20-0500 SaO2% (BldA) [Mass fraction] 95 % Dr. Stevie Dumas MD Work Phone: [facility] 11-08-2024 13:20-0500 Systolic blood pressure 120 mm[Hg] Dr. Stevie Dumas MD Work Phone: [facility] 11-07-2024 09:49-0500 Diastolic blood pressure 70 mm[Hg] Stevie Dumas MD Work Phone: [facility] 11-07-2024 09:49-0500 Systolic blood pressure 118 mm[Hg] Stevie Dumas MD Work Phone: [facility] 11-07-2024 09:26-0500 Body mass index (BMI) [Ratio] 24.93 kg/m2 Stevie Dumas MD Work Phone: [facility] 11-07-2024 09:26-0500 Body temperature 96.4 [degF] Stevie Dumas MD Work Phone: [facility] 11-07-2024 09:26-0500 Body weight 72.2 kg Stevie Dumas MD Work Phone: [facility] 11-07-2024 09:26-0500 Heart rate 65 /min Stevie Dumas MD Work Phone: [facility] 11-07-2024 09:26-0500 Respiratory rate 16 /min Stevie Dumas MD Work Phone: [facility] 11-07-2024 09:26-0500 SaO2% (BldA) [Mass fraction] 97 % Stevie Dumas MD Work Phone: [facility] 09-05-2024 13:41-0500 Body mass index (BMI) [Ratio] 25.14 kg/m2 Stevie Dumas MD Work Phone: [facility] 09-05-2024 13:41-0500 Body weight 72.8 kg Stevie Dumas MD Work Phone: [facility] 09-05-2024 13:41-0500 Diastolic blood pressure 74 mm[Hg] Stevie Dumas MD Work Phone: [facility] 09-05-2024 13:41-0500 Heart rate 67 /min Stevie Dumas MD Work Phone: [facility] 09-05-2024 13:41-0500 Respiratory rate 16 /min Stevie Dumas MD Work Phone: [facility] 09-05-2024 13:41-0500 SaO2% (BldA) [Mass fraction] 98 % Stevie Dumas MD Work Phone: [facility] 09-05-2024 13:41-0500 Systolic blood pressure 126 mm[Hg] Stevie Dumas MD Work Phone: [facility] 07-13-2024 09:39-0400 Body mass index (BMI) [Ratio] 24.41 kg/m2 Stevie Dumas MD Work Phone: [facility] 07-13-2024 09:39-0400 Body temperature 97.2 [degF] Stevie Dumas MD Work Phone: [facility] 07-13-2024 09:39-0400 Body weight 70.7 kg Stevie Dumas MD Work Phone: [facility] 07-13-2024 09:39-0400 Diastolic blood pressure 76 mm[Hg] Stevie Dumas MD Work Phone: [facility] 07-13-2024 09:39-0400 Heart rate 71 /min Stevie Dumas MD Work Phone: [facility] 07-13-2024 09:39-0400 Respiratory rate 16 /min Stevie Dumas MD Work Phone: [facility] 07-13-2024 09:39-0400 SaO2% (BldA) [Mass fraction] 95 % Stevie Dumas MD Work Phone: [facility] 07-13-2024 09:39-0400 Systolic blood pressure 122 mm[Hg] Stevie Dumas MD Work Phone: [facility] 03-08-2024 17:27-0400 Body mass index (BMI) [Ratio] 25.22 kg/m2 Stevie Dumas MD Work Phone: [facility] 03-08-2024 17:27-0400 Body temperature 97.39 [degF] Stevie Dumas MD Work Phone: [facility] 03-08-2024 17:27-0400 Body weight 73.03 kg Stevie Dumas MD Work Phone: [facility] 03-08-2024 17:27-0400 Diastolic blood pressure 78 mm[Hg] Stevie Dumas MD Work Phone: [facility] 03-08-2024 17:27-0400 Heart rate 76 /min Stevie Dumas MD Work Phone: [facility] 03-08-2024 17:27-0400 Respiratory rate 18 /min Stevie Dumas MD Work Phone: [facility] 03-08-2024 17:27-0400 SaO2% (BldA) [Mass fraction] 97 % Stevie Dumas MD Work Phone: [facility] 03-08-2024 17:27-0400 Systolic blood pressure 128 mm[Hg] Stevie Dumas MD Work Phone: [facility] 11-13-2023 12:46-0500 Body weight 72.58 kg Meryl Riso ELECTRONIC GLUER.ANODIZER Work Phone: [facility] 11-13-2023 12:46-0500 Diastolic blood pressure 68 mm[Hg] Meryl Rios ELECTRONIC GLUER.ANODIZER Work Phone: [facility] 11-13-2023 12:46-0500 Heart rate 81 /min Meryl Rios ELECTRONIC GLUER.ANODIZER Work Phone: [facility] 11-13-2023 12:46-0500 Respiratory rate 16 /min Meryl Rios ELECTRONIC GLUER.ANODIZER Work Phone: [facility] 11-13-2023 12:46-0500 SaO2% (BldA) [Mass fraction] 98 % Meryl Rios ANODIZER Work Phone: [facility] 11-13-2023 12:46-0500 Systolic blood pressure 106 mm[Hg] Meryl Gabriel CORTEZANODIZER Work Phone: [facility] 11-03-2023 13:36-0500 Body height 162.[address] Stevie Dumas Work Phone: 6(793)338-727812 [place] [address] 11-03-2023 13:36-0500 Body mass index (BMI) [Ratio] 27.4 kg/m2 Dr. Stevie Dumas Work Phone: 8(157)713-024312 [place] [address] 11-03-2023 13:36-0500 Body temperature 96.6 [degF] Dr. Stevie Dumas Work Phone: 9(492)265-093531 [place] [address] 11-03-2023 13:36-0500 Body weight 72.[address] Stevie Dumas Work Phone: 6(138)275-382212 [place] [address] 11-03-2023 13:36-0500 Diastolic blood pressure 77 mm[Hg] Dr. Stevie Duams Work Phone: 0(330)280-316331 [place] [address] 11-03-2023 13:36-0500 Heart rate 77 /min Dr. Stevie Dumas Work Phone: 2(621)871-703212 [place] [address] 11-03-2023 13:36-0500 Respiratory rate 14 /min Dr. Stevie Dumas Work Phone: 5(642)817-787712 [place] [address] 11-03-2023 13:36-0500 SaO2% (BldA) [Mass fraction] 96 % Dr. Stevie Dumas Work Phone: 2(798)385-243412 [place] [address] 11-03-2023 13:36-0500 Systolic blood pressure 122 mm[Hg] Dr. Stevie Dumas Work Phone: 4(806)377-158312 [place] [address] 06-25-2023 18:28-0400 Body temperature 98.3 [degF] Dr. Stevie Dumas Work Phone: 5(360)527-176131 [place] [address] 06-25-2023 18:28-0400 Diastolic blood pressure 79 mm[Hg] Dr. Stevie Dumas Work Phone: 6(929)383-446331 [place] [address] 06-25-2023 18:28-0400 Heart rate 83 /min Dr. Stevie Dumas Work Phone: 0(045)923-135331 [place] [address] 06-25-2023 18:28-0400 Respiratory rate 18 /min Dr. Stevie Dumas Work Phone: 0(002)317-295231 [place] [address] 06-25-2023 18:28-0400 SaO2% (BldA) [Mass fraction] 98 % Dr. Stevie Dumas Work Phone: 2(104)831-660431 [place] [address] 06-25-2023 18:28-0400 Systolic blood pressure 131 mm[Hg] Dr. Stevie Dumas Work Phone: 5(330)162-588531 [place] [address] 06-25-2023 11:16-0400 Body height 170.[address] Stevie Dumas Work Phone: 0(432)545-656831 [place] [address] 06-25-2023 11:16-0400 Body mass index (BMI) [Ratio] 24.3 kg/m2 Dr. Stevie Dumas Work Phone: 5(560)724-831031 [place] [address] 06-25-2023 11:16-0400 Body weight 70.[address] Stevie Dumas Work Phone: 9(760)844-781331 [place] [address] 06-22-2023 19:44-0400 Body temperature 97.4 [degF] Dr. Stevie Dumas Work Phone: 9(294)018-098831 [place] [address] 06-22-2023 19:44-0400 Diastolic blood pressure 73 mm[Hg] Dr. Stevie Dumas Work Phone: 3(088)469-577431 [place] [address] 06-22-2023 19:44-0400 Heart rate 98 /min Dr. Stevie Dumas Work Phone: 7(298)376-391531 [place] [address] 06-22-2023 19:44-0400 Respiratory rate 18 /min Dr. Stevie Dumas Work Phone: 4(290)344-928912 [place] [address] 06-22-2023 19:44-0400 SaO2% (BldA) [Mass fraction] 99 % Dr. Stevie Dumas Work Phone: 7(471)749-070831 [place] [address] 06-22-2023 19:44-0400 Systolic blood pressure 119 mm[Hg] Dr. Stevie Dumas Work Phone: 6(393)588-011131 [place] [address] 06-22-2023 16:21-0400 Body height 170.[address] Stevie Dumas Work Phone: 1(177)820-256231 [place] [address] 06-22-2023 16:21-0400 Body mass index (BMI) [Ratio] 24.5 kg/m2 Dr. Stevie Dumas Work Phone: 5(239)886-848531 [place] [address] 06-22-2023 16:21-0400 Body weight [address] Stevie Dumas Work Phone: 2(074)213-968031 [place] [address] 06-15-2023 07:50-0400 Body height 170.[address] Stevie Dumas Work Phone: 4(277)392-314731 [place] [address] 06-15-2023 07:50-0400 Body mass index (BMI) [Ratio] 23.5 kg/m2 Dr. Stevie Dumas Work Phone: 2(909)003-116931 [place] [address] 06-15-2023 07:50-0400 Body temperature 97.1 [degF] Dr. Stevie Dumas Work Phone: 6(337)242-058031 [place] [address] 06-15-2023 07:50-0400 Body weight 68.[address] Stevie Dumas Work Phone: 9(013)936-282631 [place] [address] 06-15-2023 07:50-0400 Diastolic blood pressure 105 mm[Hg] Dr. Stevie Dumas Work Phone: 0(768)402-643231 [place] [address] 06-15-2023 07:50-0400 Heart rate 90 /min Dr. Stevie Dumas Work Phone: 0(030)043-698931 [place] [address] 06-15-2023 07:50-0400 Respiratory rate 14 /min Dr. Stevie Dumas Work Phone: [facility] 06-15-2023 07:50-0400 SaO2% (BldA) [Mass fraction] 99 % Dr. Stevie Dumas Work Phone: [facility] 06-15-2023 07:50-0400 Systolic blood pressure 159 mm[Hg] Dr. Stevie Dumas Work Phone: [facility] 03-30-2023 15:28-0400 Body mass index (BMI) [Ratio] 24.1 kg/m2 Dr. Stevie Dumas Work Phone: 9(954)916-711264 [address] 03-30-2023 15:28-0400 Body weight 72.[address] Stevie Dumas Work Phone: 7(827)993-686931 [place] [address] 03-30-2023 15:28-0400 Diastolic blood pressure 75 mm[Hg] Dr. Stevie Dumas Work Phone: [facility] 03-30-2023 15:28-0400 Heart rate 72 /min Dr. Stevie Dumas Work Phone: 9(673)109-322012 [place] [address] 03-30-2023 15:28-0400 Respiratory rate 18 /min Dr. Stevie Dumas Work Phone: [facility] 03-30-2023 15:28-0400 SaO2% (BldA) [Mass fraction] 92 % Dr. Stevie Dumas Work Phone: [facility] 03-30-2023 15:28-0400 Systolic blood pressure 129 mm[Hg] Dr. Stevie Dumas Work Phone: [facility] 03-16-2023 09:47-0400 Body temperature 97.7 [degF] Stevie Dumas MD Work Phone: [facility] 03-16-2023 09:47-0400 Body weight 72.58 kg Stevie Dumas MD Work Phone: [facility] 03-16-2023 09:47-0400 Diastolic blood pressure 72 mm[Hg] Stevie Dumas MD Work Phone: [facility] 03-16-2023 09:47-0400 Heart rate 63 /min Stevie Dumas MD Work Phone: [facility] 03-16-2023 09:47-0400 Respiratory rate 18 /min Stevie Dumas MD Work Phone: [facility] 03-16-2023 09:47-0400 SaO2% (BldA) [Mass fraction] 98 % Stevie Dumas MD Work Phone: [facility] 03-16-2023 09:47-0400 Systolic blood pressure 110 mm[Hg] Stevie Dumas MD Work Phone: [facility] 01-16-2023 09:51-0400 Body temperature 97.39 [degF] Stevie Dumas MD Work Phone: [facility] 01-16-2023 09:51-0400 Body weight 72.58 kg Stevie Dumas MD Work Phone: [facility] 01-16-2023 09:51-0400 Diastolic blood pressure 82 mm[Hg] Stevie Dumas MD Work Phone: [facility] 01-16-2023 09:51-0400 Heart rate 69 /min Stevie Dumas MD Work Phone: [facility] 01-16-2023 09:51-0400 Respiratory rate 18 /min Stevie Dumas MD Work Phone: [facility] 01-16-2023 09:51-0400 SaO2% (BldA) [Mass fraction] 96 % Stevie Dumas MD Work Phone: [facility] 01-16-2023 09:51-0400 Systolic blood pressure 120 mm[Hg] Stevie Dumas MD Work Phone: [facility] 11-18-2022 10:12-0500 Body temperature 96.8 [degF] Stevie Dumas MD Work Phone: [facility] 11-18-2022 10:12-0500 Body weight 67.86 kg Stevie Dumas MD Work Phone: [facility] 11-18-2022 10:12-0500 Diastolic blood pressure 68 mm[Hg] Stevie Dumas MD Work Phone: [facility] 11-18-2022 10:12-0500 Heart rate 72 /min Stevie Dumas MD Work Phone: [facility] 11-18-2022 10:12-0500 Respiratory rate 18 /min Stevie Dumas MD Work Phone: [facility] 11-18-2022 10:12-0500 SaO2% (BldA) [Mass fraction] 96 % Stevie Dumas MD Work Phone: [facility] 11-18-2022 10:12-0500 Systolic blood pressure 118 mm[Hg] Stevie Dumas MD Work Phone: [facility] 09-15-2022 16:07-0500 Body weight 66.22 kg Stevie Dumas MD Work Phone: [facility] 09-15-2022 16:07-0500 Diastolic blood pressure 72 mm[Hg] Stevie Dumas MD Work Phone: [facility] 09-15-2022 16:07-0500 Heart rate 67 /min Stevie Dumas MD Work Phone: [facility] 09-15-2022 16:07-0500 SaO2% (BldA) [Mass fraction] 98 % Stevie Dumas MD Work Phone: [facility] 09-15-2022 16:07-0500 Systolic blood pressure 116 mm[Hg] Stevie Dumas MD Work Phone: [facility] 08-26-2022 11:52-0500 Body height 172.[address] Stevie Dumas Work Phone: [facility] Work Phone: 08-26-2022 11:52-0500 Body mass index (BMI) [Ratio] 22.1 kg/m2 Dr. Stevie Dumas Work Phone: [facility] Work Phone: 08-26-2022 11:52-0500 Body temperature 97.9 [degF] Dr. Stevie Dumas Work Phone: [facility] Work Phone: 08-26-2022 11:52-0500 Body weight 66.[address] Stevie Dumas Work Phone: [facility] Work Phone: 08-26-2022 11:52-0500 Diastolic blood pressure 76 mm[Hg] Dr. Stevie Dumas Work Phone: [facility] Work Phone: 08-26-2022 11:52-0500 Heart rate 77 /min Dr. Stevie Dumas Work Phone: [facility] Work Phone: 08-26-2022 11:52-0500 Respiratory rate 16 /min Dr. Stevie Dumas Work Phone: [facility] Work Phone: 08-26-2022 11:52-0500 SaO2% (BldA) [Mass fraction] 97 % Dr. Stevie Dumas Work Phone: [facility] Work Phone: 08-26-2022 11:52-0500 Systolic blood pressure 129 mm[Hg] Dr. Stevie Dumas Work Phone: [facility] Work Phone: 07-17-2022 10:48-0400 Body weight 69.4 kg Meryl Rios APRN.ANODIZER Work Phone: [facility] 07-17-2022 10:48-0400 Diastolic blood pressure 78 mm[Hg] Meryl Rios APRN.ANODIZER Work Phone: [facility] 07-17-2022 10:48-0400 Heart rate 66 /min Meryl Rios ELECTRONIC GLUER.ANODIZER Work Phone: [facility] 07-17-2022 10:48-0400 Respiratory rate 20 /min Meryl Rios ELECTRONIC GLUER.ANODIZER Work Phone: [facility] 07-17-2022 10:48-0400 SaO2% (BldA) [Mass fraction] 98 % Merylmanolo Rios ELECTRONIC GLUER.ANODIZER Work Phone: [facility] 07-17-2022 10:48-0400 Systolic blood pressure 138 mm[Hg] Merylmanolo Rios ELECTRONIC GLUER.ANODIZER Work Phone: [facility] 07-01-2022 12:36-0400 Body mass index (BMI) [Ratio] 23.2 kg/m2 Dr. Stevie Dumas Work Phone: [facility] Work Phone: 07-01-2022 12:36-0400 Body weight 69.[address] Stevie Dumas Work Phone: [facility] Work Phone: 07-01-2022 12:36-0400 Diastolic blood pressure 81 mm[Hg] Dr. Stevie Dumas Work Phone: [facility] Work Phone: 07-01-2022 12:36-0400 Heart rate 68 /min Dr. Stevie Dumas Work Phone: [facility] Work Phone: 07-01-2022 12:36-0400 Respiratory rate 16 /min Dr. Stevie Dumas Work Phone: [facility] Work Phone: 07-01-2022 12:36-0400 SaO2% (BldA) [Mass fraction] 96 % Dr. Stevie Dumas Work Phone: [facility] Work Phone: 07-01-2022 12:36-0400 Systolic blood pressure 141 mm[Hg] Dr. Stevie Dumas Work Phone: [facility] Work Phone: 05-15-2022 09:44-0400 Body weight 68.49 kg Meryl Rios ELECTRONIC GLUER.ANODIZER Work Phone: [facility] 05-15-2022 09:44-0400 Diastolic blood pressure 78 mm[Hg] Meryl Rios ELECTRONIC GLUER.ANODIZER Work Phone: [facility] 05-15-2022 09:44-0400 Heart rate 65 /min Meryl Rios ELECTRONIC GLUER.ANODIZER Work Phone: [facility] 05-15-2022 09:44-0400 Respiratory rate 16 /min Meryl Rios ELECTRONIC GLUER.ANODIZER Work Phone: [facility] 05-15-2022 09:44-0400 SaO2% (BldA) [Mass fraction] 96 % Meryl Rios ELECTRONIC GLUER.ANODIZER Work Phone: [facility] 05-15-2022 09:44-0400 Systolic blood pressure 116 mm[Hg] Meryl Rios ELECTRONIC GLUER.ANODIZER Work Phone: [facility] 03-17-2022 09:53-0400 Body weight 69.85 kg Stevie Dumas MD Work Phone: [facility] 03-17-2022 09:53-0400 Diastolic blood pressure 82 mm[Hg] Stevie Dumas MD Work Phone: [facility] 03-17-2022 09:53-0400 Heart rate 69 /min Stevie Dumas MD Work Phone: [facility] 03-17-2022 09:53-0400 SaO2% (BldA) [Mass fraction] 94 % Stevie Dumas MD Work Phone: [facility] 03-17-2022 09:53-0400 Systolic blood pressure 130 mm[Hg] Stevie Dumas MD Work Phone: [facility] 01-13-2022 09:40-0400 Body weight 68.04 kg Meryl Benjamins ELECTRONIC GLUER.ANODIZER Work Phone: [facility] 01-13-2022 09:40-0400 Diastolic blood pressure 80 mm[Hg] Meryl Rios ELECTRONIC GLUER.ANODIZER Work Phone: [facility] 01-13-2022 09:40-0400 Heart rate 76 /min Meryl Rios ELECTRONIC GLUER.ANODIZER Work Phone: [facility] 01-13-2022 09:40-0400 Respiratory rate 16 /min Meryl Rios ELECTRONIC GLUER.ANODIZER Work Phone: [facility] 01-13-2022 09:40-0400 Systolic blood pressure 126 mm[Hg] Meryl Rios ELECTRONIC GLUER.ANODIZER Work Phone: [facility] Encounters Encounter Date Encounter Type Care Provider Facility Start: 08-30-2025 ambulatory Mayra PATTERSON Facility:[facility] Start: 08-09-2025 End: 08-09-2025 ambulatory [facility] Facility:[facility] Start: 08-08-2025 End: 08-08-2025 ambulatory Mayra PATTERSON Facility:[facility] Start: 08-07-2025 End: 08-07-2025 ambulatory STEVIE DUMAS Facility:[facility] Start: 07-25-2025 ambulatory [facility] Facility:[facility] Start: 07-24-2025 End: 07-24-2025 ambulatory [facility] Facility:[facility] Start: 07-18-2025 [facility] Facility:[facility] Start: 07-17-2025 End: 07-17-2025 ambulatory [facility] Facility:[facility] Start: 06-21-2025 End: 06-21-2025 ambulatory [facility] Start: 06-21-2025 End: 06-21-2025 Patient encounter procedure [facility] Comment on above: Population Health Na vigation Outreach [facility] Start: 06-09-2025 End: 06-09-2025 ambulatory Jeannie Ho RN Work Phone: [employer] Start: 06-09-2025 End: 06-09-2025 Coordination of care plan Jeannie Ho RN Work Phone: [employer] Comment on above: Care Coordination (Marilin scott review) Start: 06-07-2025 End: 06-07-2025 ambulatory STEVIE DUMAS Facility:[facility] Start: 04-03-2025 End: 04-03-2025 Office outpatient visit 25 minutes Stevie Dumas MD Work Phone: [facility] [place] Comment on above: Left arm pain, chron ic (Primary Dx); Medial epicondylitis of right elbow; IFG (impaired fasting glucose); Mixed hyperlipidemia; Bilateral lower extremity edema; Vitamin D deficiency; Hypomagnesemia; Need for vaccination; Peripheral polyneuropathy; Vitamin B12 deficiency Start: 04-03-2025 End: 04-03-2025 ambulatory STEVIE Hilary DUMAS Facility:[facility] Start: 03-27-2025 End: 05-27-2025 Follow-up encounter Graham De Leon APRN.CNP Work Phone: [facility] [place] Start: 03-24-2025 End: 03-24-2025 ambulatory GRAHAM DE LEON Facility:[facility] Start: 02-08-2025 End: 02-08-2025 Patient encounter procedure Graham De Leon APRN.CNP Work Phone: [facility] [place] Comment on above: Left arm pain, chron ic (Primary Dx); Medial epicondylitis of right elbow; Chronic obstructive pulmonary disease, unspecified COPD type (HCC); Screening for colon cancer; Quit smoking within past year; Encounter for therapeutic drug monitoring; Hypercholesterolemia; B12 deficiency; Vitamin D deficiency; Elevated fasting glucose Start: 02-08-2025 End: 02-08-2025 ambulatory GRAHAM DE LEON Facility:[facility] Start: 12-28-2024 End: 12-28-[address] Stevie Dumas MD Work Phone: [facility] Work Phone: Start: 12-28-2024 End: 12-28-[address] Nathan Spivey DPM -Cardiovascular Services Work Phone: Start: 12-28-2024 End: 12-28-2024 ambulatory Nathan Spivey Facility:[facility] Start: 12-09-2024 End: 12-10-2024 ambulatory STEVIE DUMAS Facility:[facility] Start: 12-09-2024 End: 12-10-2024 Office outpatient visit 25 minutes Stevie Dumas MD Work Phone: [facility] [place] Comment on above: Bilateral lower extr emity edema (Primary Dx); Left arm pain, chronic; Medial epicondylitis of right elbow; Nicotine dependence, cigarettes, in remission; retirement (current) use of anticoagulants; Atrial fibrillation, unspecified type (HCC) Start: 11-15-2024 End: 11-15-2024 Patient encounter procedure Minnie Banegas NP- -[facility] Work Phone: Start: 11-15-2024 End: 11-15-2024 ambulatory Minnie Banegas NP Facility:[facility] Start: 11-15-2024 End: 11-15-2024 ambulatory Minnie Banegas NP Facility:[facility] Start: 11-08-2024 End: 11-08-2024 Patient encounter procedure Mayra PATTERSON -[facility] Work Phone: Start: 11-08-2024 End: 11-08-2024 ambulatory Mayra PATTERSON Facility:[facility] Start: 11-07-2024 End: 11-07-2024 ambulatory STEVIE DUMAS Facility:[facility] Start: 11-07-2024 End: 11-07-2024 Office outpatient visit 15 minutes Stevie Dumas MD Work Phone: [facility] [place] Comment on above: Medial epicondylitis of right elbow; Left arm pain, chronic; 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 Nathan Spivey DPM -Laboratory, Specimen Work Phone: Start: 09-19-2024 End: 09-19-2024 ambulatory Nathan Spivey Facility:[facility] Start: 09-09-2024 End: 09-09-2024 Telephone encounter Stevie Dumas MD Work Phone: [facility] [place] Comment on above: Medication Request Start: 09-07-2024 End: 09-07-2024 ambulatory [facility] Facility:[facility] Start: 09-07-2024 End: 09-07-2024 Subsequent hospital visit by physician [facility] Comment on above: Abnormal mammogram [ R92.8] Start: 09-05-2024 End: 09-05-2024 ambulatory STEVIE DUMAS Facility:[facility] Start: 09-05-2024 End: 09-05-2024 Office outpatient visit 15 minutes Stevie Dumas MD Work Phone: [facility] [place] Comment on above: Hand dermatitis (Ania Dx); Left arm pain, chronic; Dry skin; Medial epicondylitis of right elbow; Dermatitis of external ear; Need for vaccination Start: 08-24-2024 End: 08-24-2024 Telephone encounter Meryl Rios APRN.CNS Work Phone: Mammogram Comment on above: Orders Start: 08-23-2024 End: 08-23-2024 Subsequent hospital visit by physician [facility] Work Phone: Radiology Start: 07-25-2024 End: 07-25-2024 Patient encounter procedure Sesar Wong MD Work Phone: Orthopaedics Comment on above: Chronic pain of both knees (Primary Dx); Primary osteoarthritis of both knees Start: 07-25-2024 End: 07-25-2024 Subsequent hospital visit by physician [facility] Work Phone: Radiology Comment on above: Pain in both knees, unspecified chronicity [M25.561, M25.562] Start: 07-20-2024 End: 07-20-2024 Orders Only Sesar Wong MD Work Phone: Orthopaedics Comment on above: Pain in both knees, unspecified chronicity (Primary Dx) Start: 07-13-2024 End: 07-13-2024 Office outpatient visit 25 minutes Stevie Dumas MD Work Phone: [facility] [place] Comment on above: Primary hypertension (Primary Dx); B12 deficiency; Hypomagnesemia; Vitamin D deficiency; Hypercholesterolemia; Elevated fasting glucose; Coronary artery disease involving shinnecock coronary artery 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; Hypertension, unspecified type; Left arm pain, chronic; Medial epicondylitis of right elbow; Dermatitis of external ear; Macrocytosis Start: 05-27-2024 Telephone encounter Britta Gonzáles MD Work Phone: Mammography Comment on above: Mammogram Result Yuriy l Back (bilateral diag mamm and us cb per ci and pratibha) Start: 05-26-2024 Telephone encounter Stevie hubbard MD Work Phone: [facility] [place] Comment on above: results/further test ing mammogram Start: 05-18-2024 Documentation procedure Mammog [place] Coordinator [facility] Department Start: 05-18-2024 Letter encounter Mammography Coordinator [facility] Department Start: 05-17-2024 End: 05-17-2024 Subsequent hospital visit by physician [facility] Comment on above: Encounter for screen ing mammogram for breast cancer [Z12.31] Start: 03-08-2024 End: 03-08-2024 Office outpatient visit 25 minutes Stevie Dumas MD Work Phone: [facility] [place] Comment on above: Left arm pain, chron ic (Primary Dx); B12 deficiency; Vitamin D deficiency; Medial epicondylitis of right elbow; Elevated fasting glucose; Hypomagnesemia; Hypercholesterolemia; Coronary artery disease involving shinnecock coronary artery 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 Rachael Dumas Work Phone: [facility] Start: 02-01-2024 End: 02-01-[address] Stevie Dumas Work Phone: [facility] Work Phone: Start: 02-01-2024 End: 02-01-[address] Stevie Dumas Work Phone: [facility]-Cardiovascula r Services Work Phone: Start: 01-22-2024 End: 01-22-2024 Subsequent hospital visit by physician [facility] Work Phone: Radiology Comment on above: Asymptomatic postmen opausal status [Z78.0] Start: 01-13-2024 End: 01-13-2024 Office outpatient visit 15 minutes Stevie Dumas MD Work Phone: [facility] [place] Comment on above: Left arm pain, chron ic (Primary Dx); Medial epicondylitis of right elbow; Asymptomatic postmenopausal status; Screening for colon cancer; Encounter for immunization Start: 11-18-2023 Telephone encounter Stevie hubbard MD Work Phone: [facility] [place] Comment on above: bristol jose daniel squibb pt assistance response Start: 11-13-2023 End: 11-13-2023 Office outpatient visit 25 minutes Meryl Rios APRN.CNS Work Phone: [facility] [place] Comment on above: Left arm pain, chron ic (Primary Dx); Encounter for immunization; Medial epicondylitis of right elbow; Coronary artery disease involving shinnecock coronary artery 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 Stevie Dumas Work Phone: [facility] Work Phone: Start: 11-03-2023 End: 11-03-[address] Stevie Dumas Work Phone: [facility] Work Phone: Start: 06-25-2023 Non-patient / Non-visit Dr. Rachael Dumas Work Phone: [facility] Work Phone: Start: 06-24-2023 Non-patient / Non-visit Dr. Rachael Dumas Work Phone: [facility] Work Phone: Start: 06-23-2023 Non-patient / Non-visit Dr. Rachael Dumas Work Phone: [facility] Work Phone: Start: 06-23-2023 End: 06-25-2023 Evaluation and management of inpatient Dr. Stevie Dumas Work Phone: [facility] Work Phone: Start: 06-22-2023 Non-patient / Non-visit Dr. Rachael Dumas Work Phone: [facility] Work Phone: Start: 06-22-2023 Evaluation and management of inpatient [facility] Ste[facility] Dum[facility] Work Phone: Start: 06-22-[address] Stevie Dumas Work Phone: [facility] Work Phone: Start: 06-15-2023 End: 06-15-2023 Emergency department patient visit Dr. Stevie Dumas Work Phone: [facility]-Emergency Department Work Phone: Start: 03-30-2023 End: 03-30-[address] Stevie Dumas Work Phone: [facility] Work Phone: Start: 03-16-2023 End: 03-16-2023 Office outpatient visit 25 minutes Stevie Dumas MD Work Phone: [facility] [place] Comment on above: Left arm pain, chron ic (Primary Dx); Bilateral leg edema; Numbness of toes; Medial epicondylitis of right elbow; Atrial fibrillation, transient (HCC) Start: 01-16-2023 End: 01-16-2023 Office outpatient visit 15 minutes Stevie Dumas MD Work Phone: [facility] [place] Comment on above: Left arm pain, chron ic; Medial epicondylitis of right elbow Start: 11-18-2022 End: 11-18-2022 Office outpatient visit 25 minutes Stevie Dumas MD Work Phone: [facility] [place] Comment on above: Left arm pain, chron ic (Primary Dx); Hypercholesterolemia; B12 deficiency; Coronary artery disease involving shinnecock coronary artery 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; Thyroid nodule; Medial epicondylitis of right elbow; Colon cancer screening; Need for vaccination Start: 09-26-2022 Telephone encounter Stevie hubbard MD Work Phone: [facility] [place] Comment on above: Prescription Transfe r Request Start: 09-16-2022 Telephone encounter Stevie hubbard MD Work Phone: [facility] [place] Comment on above: wrist splint Start: 09-15-2022 End: 09-15-2022 Office outpatient visit 25 minutes Stevie Dumas MD Work Phone: [facility] [place] Comment on above: Left arm pain, chron ic (Primary Dx); Medial epicondylitis of right elbow; Bilateral carpal tunnel syndrome; Hypertension, unspecified type; Coronary artery disease involving shinnecock coronary artery 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 Stevie Dumas Work Phone: [facility] Work Phone: Start: 08-26-2022 End: 08-26-[address] Stevie Dumas Work Phone: [facility] Start: 08-20-2022 Telephone encounter Stevie hubbard MD Work Phone: [facility] [place] Comment on above: Medication Problem Start: 07-18-2022 Telephone encounter Stevie hubbard MD Work Phone: Internal [facility] Comment on above: Lung CA Screen Start: 07-17-2022 End: 07-17-2022 Patient encounter procedure Meryl Rios APRN.ANODIZER Work Phone: Internal [facility] Comment on above: Left arm pain, chron ic (Primary Dx); Need for influenza vaccination; Encounter for screening for lung cancer; Screening for osteoporosis; Asymptomatic menopause; Encounter for immunization; Medial epicondylitis of right elbow; Tobacco use disorder; Hypercholesterolemia; Anemia, unspecified type; Medication management Start: 07-01-2022 End: 07-01-[address] Stevie Dumas Work Phone: [facility] Start: 05-15-2022 End: 05-15-2022 Patient encounter procedure Meryl Rios APRN.ANODIZER Work Phone: Internal [facility] Comment on above: Left arm pain, chron ic; Medial epicondylitis of right elbow Start: 04-21-2022 Refill Stevie bailey MD Work Phone: [facility] Comment on above: Refill Request Start: 03-17-2022 Telephone encounter Stevie hubbard MD Work Phone: [facility] Comment on above: Forms Start: 03-17-2022 End: 03-17-2022 Office outpatient visit 25 minutes Stevie Dumas MD Work Phone: Internal [facility] Comment on above: Left arm pain, chron ic (Primary Dx); Hypercholesterolemia; Coronary artery disease involving shinnecock coronary artery 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; Medial epicondylitis of right elbow; B12 deficiency; Vitamin D deficiency; Anemia, unspecified type; Encounter for long-term current use of medication Start: 01-13-2022 End: 01-13-2022 Patient encounter procedure Meryl Rios APRN.ANODIZER Work Phone: Internal [facility] Comment on above: Atrial fibrillation with RVR (HCC) (Primary Dx); Left arm pain, chronic; Medial epicondylitis of right elbow Procedures Date Procedure Procedure Detail Performing Clinician Start: 04-03-2025 PFIZER-BIONTECH COVI D-19 VACCINE AGE 12+ YR ([facility]) Stevie Dumas MD Work Phone: Start: 03-24-2025 Lipid 1996 panel - S tianna or Plasma Stevie Dumas MD Work Phone: Start: 11-15-[address] Stevie arthur MD Work Phone: Start: 09-19-[address] Stevie Dumas MD Work Phone: Start: 09-19-2024 Gram stain microscopy D april Dumas MD Work Phone: Start: 09-19-2024 Microbial culture, routine Dr. Stevie Dumas MD Work Phone: Start: 09-19-[address] Rachael Dumas MD Work Phone: Start: 09-07-2024 Digital breast tomosynthesis bilateral Graham Moises ELECTRONIC GLUER.OWNER ORAL SURGEON Work Phone: Start: 09-05-2024 PFIZER-BIONTECH COVI D-19 VACCINE AGE 12+ YR ([facility]) Stevie Dumas MD Work Phone: Start: 07-25-2024 Arthrocentesis aspir &/inj major jt/bursa w/o Sesar Wong MD Work Phone: Start: 05-17-2024 Lipid 1996 panel - S tianna or Plasma Screen Wstr Start: 11-03-[address] Stevie arthur Work Phone: Start: 06-25-2023 Incision and drainag e of abscess Dr. Stevie Dumas Work Phone: Start: 06-23-2023 Investigation of transfusion reaction Dr. Stevie Dumas Work Phone: Start: 06-23-2023 Microbial culture, routine Dr. Stevie Dumas Work Phone: Start: 06-23-2023 Incision and drainag e of abscess Dr. Stevie Dumas Work Phone: Start: 06-22-2023 X-ray of both feet Dr. Stevie Dumas Work Phone: Start: 06-15-[address] Stevie Dumas Work Phone: Start: 06-15-[address] Rafa Dumas Work Phone: Start: 06-15-2023 Investigation of transfusion reaction Dr. Stevie Dumas Work Phone: Start: 01-16-2023 Lipid 1996 panel - S tianna or Plasma Meryl Rios ELECTRONIC GLUER.ANODIZER Work Phone: Start: 08-26-[address] Stevie arthur Work Phone: Start: 07-17-2022 INFLUENZA SEASONAL QUADRIVALENT HIGH DOSE AGE 65+ Meryl Rios ELECTRONIC GLUER.ANODIZER Work Phone: Start: 07-26-2020 Mammography Meryl Vickersdavid [place] ELECTRONIC GLUER.ANODIZER Work Phone: Start: 10-28-2017 Colonoscopy Meryl Catarino fl ELECTRONIC GLUER.ANODIZER Work Phone: Start: 07-16-2015 History of placement of stent in anterior descending branch of left coronary artery Presence of drug coated stent in LAD coronary artery Meryl Rios ELECTRONIC GLUER.ANODIZER Work Phone: Start: 11-17-2014 History of placement of stent for coronary artery disease History of coronary artery stent placement Mayar PATTERSON Comment on above: [id number] LAD w/ 3.0 x 18 mm Resolute Integrity 11/17/14 Plan of Treatment Date Care Activity Detail Author Start: 12-31-2033 Urine microalbumin profile DTaP,Tdap,Td Vaccine (3 - Td or Tdap) [facility] Start: 03-24-2030 Lipid panel Lipid Screening [facility] Start: 05-17-2029 Lipid panel Lipid Screening [facility] Start: 03-24-2028 Diabetes Screening Diabetes Screening [facility] Start: 01-17-2028 Lipid panel Lipid Screening [facility] Start: 01-17-2028 LIPID SCREEN LIPID SCREEN [facility] Start: 05-17-2027 Diabetes Screening Diabetes Screening [facility] Start: 03-17-2027 LIPID SCREEN LIPID SCREEN [facility] Start: 07-13-2026 Diabetes Screening Diabetes Screening [facility] Start: 06-07-2026 Annual PCP Team Chronic Disease Visit Annual PCP Team Chronic Disease Visit [facility] Start: 04-03-2026 Annual PCP Team Chronic Disease Visit Annual PCP Team Chronic Disease Visit [facility] Start: 03-24-2026 Hepatitis B surface antibody level LDL Cholesterol [facility] Start: 02-08-2026 Annual PCP Team Chronic Disease Visit Annual PCP Team Chronic Disease Visit [facility] Start: 02-08-2026 BP Controlled (<130/80) BP Controlled (<130/80) [facility] Start: 01-31-2026 End: 01-31-2026 Patient encounter procedure 01/31/2026 9:20 AM EDT Office Visit [facility] [address] [place] [address] Stevie Dumsa MD [address] [place] [address] 2 month follow up [facility] Comment on above: 2 month follow up Start: 01-16-2026 DIABETES SCREEN DIABETES SCREEN [facility] Start: 01-11-2026 LIPID SCREEN LIPID SCREEN [facility] Start: 12-09-2025 Annual PCP Team Chronic Disease Visit Annual PCP Team Chronic Disease Visit [facility] Start: 12-04-2025 End: 12-04-2025 Patient encounter procedure 12/04/2025 10:40 AM EST Office Visit [facility] [address] [place] [address] Stevie Dumas MD [address] [place] [address] 2 month follow up [facility] [place] Comment on above: 2 month follow up Start: 11-07-2025 Annual PCP Team Chronic Disease Visit Annual PCP Team Chronic Disease Visit [facility] Start: 11-07-2025 BP Controlled (<130/80) BP Controlled (<130/80) [facility] Start: 10-02-2025 End: 10-02-2025 Patient encounter procedure [facility] [place] Comment on above: 2 month follow up [employer] Start: 09-07-2025 Screening for malignant neoplasm of breast Mammogram Screening [facility] Start: 09-05-2025 Annual PCP Team Chronic Disease Visit Annual PCP Team Chronic Disease Visit [facility] Start: 09-05-2025 BP Controlled (<130/80) BP Controlled (<130/80) [facility] Start: 08-07-2025 End: 08-07-2025 Patient encounter procedure 08/07/2025 9:20 AM EDT Office Visit [facility] [address] [place] [id number] Stevie Dumas MD [address] [place] [place] [id number] 2 month follow up [facility] [place] Comment on above: 2 month follow up Start: 07-13-2025 Annual PCP Team Chronic Disease Visit Annual PCP Team Chronic Disease Visit [facility] Start: 07-13-2025 BP Controlled (<130/80) BP Controlled (<130/80) [facility] Start: 06-12-2025 Influenza vaccination Influenza Vaccine (#1) [facility] Start: 06-07-2025 End: 06-07-2025 Patient encounter procedure 06/07/2025 11:00 AM EDT Office Visit [facility] [address] [place] [address] Stevie Dumas MD [address] [address] 2 month follow up [facility] [place] Comment on above: 2 month follow up Start: 05-17-2025 Hepatitis B surface antibody level LDL Cholesterol [facility] Start: 05-17-2025 Screening for malignant neoplasm of breast Mammogram Screening [facility] Start: 05-13-2025 BP Controlled (<130/80) BP Controlled (<130/80) [facility] Start: 04-03-2025 End: 04-03-2025 Patient encounter procedure 04/03/2025 9:20 AM EDT Office Visit [facility] [address] [place] [address] Stevie Dumas MD [address] [place] [address] 2 month follow up [facility] [place] Comment on above: 2 month follow up Start: 03-17-2025 DIABETES SCREEN DIABETES SCREEN [facility] Start: 03-13-2025 End: 06-12-2025 25-hydroxyvitamin D3 [Mass/volume] in Serum or Plasma VITAMIN D 25 HYDROXY Lab Routine Vitamin D deficiency Expected: 03/13/2025, Expires: 06/12/2025 [facility] Comment on above: Expected: 03/13/2025, Expires: Start: 03-13-2025 End: 06-12-2025 CBC W Auto Differential panel - Blood COMPLETE BLOOD COUNT AND DIFFERENTIAL Lab Routine Encounter for therapeutic drug monitoring Expected: 03/13/2025, Expires: 06/12/2025 [facility] Comment on above: Expected: 03/13/2025, Expires: Start: 03-13-2025 End: 06-12-2025 Cobalamin (Vitamin B12) [Mass/volume] in Serum or Plasma VITAMIN B12 Lab Routine B12 deficiency Expected: 03/13/2025, Expires: 06/12/2025 [facility] Comment on above: Expected: 03/13/2025, Expires: Start: 03-13-2025 End: 06-12-2025 Comprehensive metabolic 2000 panel - Serum or Plasma COMPREHENSIVE METABOLIC PANEL Lab Routine Encounter for therapeutic drug monitoring Expected: 03/13/2025, Expires: 06/12/2025 [facility] Comment on above: Expected: 03/13/2025, Expires: Start: 03-13-2025 End: 06-12-2025 Hemoglobin A1c in Blood HEMOGLOBIN A1C Lab Routine Elevated fasting glucose Expected: 03/13/2025, Expires: 06/12/2025 [facility] Comment on above: Expected: 03/13/2025, Expires: Start: 03-13-2025 End: 06-12-2025 Lipid 1996 panel - Serum or Plasma LIPID PANEL, FASTING Lab Routine Hypercholesterolemia Expected: 03/13/2025, Expires: 06/12/2025 [facility] Comment on above: Expected: 03/13/2025, Expires: Start: 03-13-2025 End: 06-12-2025 Magnesium [Mass/volume] in Serum or Plasma MAGNESIUM Lab Routine Encounter for therapeutic drug monitoring Expected: 03/13/2025, Expires: 06/12/2025 [facility] Comment on above: Expected: 03/13/2025, Expires: Start: 03-13-2025 End: 06-12-2025 TOXICOLOGY SCREEN, ROUTINE URINE TOXICOLOGY SCREEN, ROUTINE URINE Lab Routine Encounter for therapeutic drug monitoring Expected: 03/13/2025, Expires: 06/12/2025 [facility] Comment on above: Expected: 03/13/2025, Expires: Start: 03-08-2025 Annual PCP Team Chronic Disease Visit Annual PCP Team Chronic Disease Visit [facility] Start: 03-08-2025 BP Controlled (<130/80) BP Controlled (<130/80) [facility] Start: 03-05-2025 Covid-19 Vaccine () Covid-19 Vaccine () [facility] Start: 02-08-2025 End: 02-08-2025 Patient encounter procedure [facility] [place] Comment on above: 2 month follow up Start: 01-12-2025 Annual PCP Team Chronic Disease Visit Annual PCP Team Chronic Disease Visit [facility] Start: 01-12-2025 BP Controlled (<130/80) BP Controlled (<130/80) [facility] Start: 12-09-2024 End: 12-09-2024 Patient encounter procedure 12/09/2024 4:20 PM EST Office Visit [facility] [address] [place] [address] Stevie Dumas MD [address] [place] [address] 2 Month follow up [facility] Comment on above: 2 Month follow up Start: 11-13-2024 BP Controlled (<130/80) BP Controlled (<130/80) [facility] Start: 11-13-2024 DIABETES SCREEN DIABETES SCREEN [facility] Start: 11-07-2024 End: 11-07-2024 Patient encounter procedure 11/07/2024 9:20 AM EST Office Visit Internal Medicine [place] [address] [place], [place] [id number] Stevie Dumas MD [address] [place] [address] 2 month f/u [facility] Comment on above: 2 month f/u Start: 10-13-2024 Annual PCP Team Chronic Disease Visit Annual PCP Team Chronic Disease Visit [facility] Start: 10-12-2024 Advance Directive Discussion Advance Directive Discussion [facility] Start: 09-20-2024 End: 09-20-2024 Patient encounter procedure 09/20/2024 1:00 PM EST Appointment Mammography [address] [place] [address] Abnormal mammogram [R92.8] Mammography Comment on above: Abnormal mammogram [R92.8] Start: 09-07-2024 End: 09-07-2024 Patient encounter procedure Mammography Comment on above: Abnormal mammogram [R92.8] Bilateral CB. Orde r in. [place] Start: 09-05-2024 End: 09-05-2024 Patient encounter procedure 09/05/2024 1:40 PM EST Office Visit [facility] [address] [place], [place] [id number] Stevie Dumas MD [address] [place], [place] [id number] 2 month f/u [facility] Comment on above: 2 month f/u Start: 08-23-2024 End: 08-23-2024 Patient encounter procedure Mammogram Comment on above: MANJEET BREAST DX manjeet breast us Comp- CB MANJEET Start: 07-25-2024 End: 07-25-2024 Patient encounter procedure 07/25/2024 1:45 PM EDT Office Visit Orthopaedics [address] [place] [address] Sesar Wong MD [address] [place] [address] bilateral knee pain Orthopaedics Comment on above: bilateral knee pain Start: 07-13-2024 End: 07-13-2024 Patient encounter procedure 07/13/2024 9:00 AM EDT Office Visit [facility] [place] [address] [facility] [place] [address] Stevie Dumas MD [address] [facility] [place] [address] 2 month follow up [facility] [place] Comment on above: 2 month follow up Start: 07-08-2024 Covid-19 Vaccine () Covid-19 Vaccine () [facility] Start: 06-28-2024 End: 06-28-2024 Patient encounter procedure Mammogram Comment on above: bilateral diag mamm and us cb per ci and pratibha Start: 06-12-2024 Influenza vaccination Influenza Vaccine (#1) [facility] Start: 05-18-2024 Spirometry Spirometry [facility] Comment on above: Postponed from 1970 (Declined at t his time) Start: 05-18-2024 Zoledronic acid therapy Alpha-1 Antitrypsin Deficiency Screening [facility] Comment on above: Postponed from 1982 (Declined at t his time) Start: 05-13-2024 End: 05-13-2024 Patient encounter procedure [facility] [place] Comment on above: 2 month follow up Start: 03-16-2024 ANNUAL PCP TEAM CHRONIC DISEASE VISIT ANNUAL PCP TEAM CHRONIC DISEASE VISIT [facility] Start: 03-16-2024 BP CONTROLLED (<130/80) BP CONTROLLED (<130/80) [facility] Start: 03-08-2024 End: 03-08-2024 Patient encounter procedure 03/08/2024 5:20 PM EDT Office Visit [facility] [place] [address] [facility] [place] [address] Stevie Dumas MD [address] [place] [address] Follow up [facility] [place] Comment on above: Follow up Start: 03-08-2024 End: 06-07-2024 25-hydroxyvitamin D3 [Mass/volume] in Serum or Plasma VITAMIN D 25 HYDROXY Lab Routine Vitamin D deficiency Encounter for long-term current use of medication Expected: 03/08/2024, Expires: 06/07/2024 [facility] Work Phone: Comment on above: Expected: 03/08/2024, Expires: Start: 03-08-2024 End: 06-07-2024 CBC panel - Blood by Automated count COMPLETE BLOOD COUNT Lab Routine Encounter for long-term current use of medication Expected: 03/08/2024, Expires: 06/07/2024 [facility] Comment on above: Expected: 03/08/2024, Expires: Start: 03-08-2024 End: 06-07-2024 Cobalamin (Vitamin B12) [Mass/volume] in Serum or Plasma VITAMIN B12 Lab Routine B12 deficiency Encounter for long-term current use of medication Expected: 03/08/2024, Expires: 06/07/2024 [facility] Comment on above: Expected: 03/08/2024, Expires: Start: 03-08-2024 End: 06-07-2024 Comprehensive metabolic 2000 panel - Serum or Plasma COMPREHENSIVE METABOLIC PANEL Lab Routine Elevated fasting glucose Encounter for long-term current use of medication Expected: 03/08/2024, Expires: 06/07/2024 [facility] Comment on above: Expected: 03/08/2024, Expires: Start: 03-08-2024 End: 06-07-2024 Hemoglobin A1c in Blood HEMOGLOBIN A1C Lab Routine Elevated fasting glucose Encounter for long-term current use of medication Expected: 03/08/2024, Expires: 06/07/2024 [facility] Comment on above: Expected: 03/08/2024, Expires: Start: 03-08-2024 End: 06-07-2024 Lipid 1996 panel - Serum or Plasma LIPID PANEL BASIC Lab Routine Hypercholesterolemia Encounter for long-term current use of medication Expected: 03/08/2024, Expires: 06/07/2024 [facility] Comment on above: Expected: 03/08/2024, Expires: Start: 03-08-2024 End: 06-07-2024 Magnesium [Mass/volume] in Serum or Plasma MAGNESIUM Lab Routine Encounter for long-term current use of medication Hypomagnesemia Expected: 03/08/2024, Expires: 06/07/2024 [facility] Comment on above: Expected: 03/08/2024, Expires: Start: 03-08-2024 End: 06-07-2024 TOXICOLOGY SCREEN, ROUTINE URINE TOXICOLOGY SCREEN, ROUTINE URINE Lab Routine Encounter for long-term current use of medication Expected: 03/08/2024, Expires: 06/07/2024 [facility] Comment on above: Expected: 03/08/2024, Expires: Start: 01-17-2024 ANNUAL PCP TEAM CHRONIC DISEASE VISIT ANNUAL PCP TEAM CHRONIC DISEASE VISIT [facility] Start: 01-17-2024 Hepatitis B surface antibody level LDL CHOLESTEROL [facility] Start: 01-15-2024 Covid-19 Vaccine () Covid-19 Vaccine () [facility] Start: 11-18-2023 ANNUAL PCP TEAM CHRONIC DISEASE VISIT ANNUAL PCP TEAM CHRONIC DISEASE VISIT [facility] Start: 11-18-2023 BP CONTROLLED (<130/80) BP CONTROLLED (<130/80) [facility] Start: 09-15-2023 ANNUAL PCP TEAM CHRONIC DISEASE VISIT ANNUAL PCP TEAM CHRONIC DISEASE VISIT [facility] Start: 09-15-2023 BP CONTROLLED (<130/80) BP CONTROLLED (<130/80) [facility] Start: 06-25-2023 Patient discharge [facility] Start: 06-25-2023 Referral to occupational therapist [facility] Start: 06-25-2023 Referral to service [facility] Start: 06-23-2023 Referral to occupational therapist [facility] Start: 06-23-2023 Referral to service [facility] Start: 06-23-2023 Anaerobic microbial culture Anaerobic Culture [facility] Start: 06-23-2023 Admission procedure [facility] Start: 06-23-2023 Blood chemistry [facility] Start: 06-23-2023 Electrocardiographic procedure [facility] Start: 06-22-2023 Application of intermittent pneumatic compression device [facility] Start: 06-22-2023 Following clinical pathway protocol [facility] Start: 06-22-2023 Assessment of risk of venous thromboembolism [facility] Start: 06-22-2023 Insertion of catheter into peripheral vein [facility] Start: 06-22-2023 Oxygen therapy [facility] Start: 06-22-2023 Providing care according to standard [facility] Start: 06-22-2023 Provision of activity privileges [facility] Start: 06-22-2023 Referral to spanish instructor [facility] Start: 06-22-2023 [facility] Start: 06-22-2023 Verification routine [facility] Start: 06-22-2023 Admission procedure [facility] Start: 06-15-2023 Anaerobic Culture Anaerobic Culture [facility] Start: 06-15-2023 Body Fluid Culture Body Fluid Culture [facility] Start: 06-15-2023 Microscopic observation [Identifier] in Unspecified specimen by Gram stain Gram Stain [facility] Start: 06-12-2023 Influenza vaccination INFLUENZA (#1) [facility] Start: 05-27-2023 [facility] Start: 05-15-2023 BP CONTROLLED (<130/80) BP CONTROLLED (<130/80) [facility] Start: 03-17-2023 ANNUAL PCP TEAM CHRONIC DISEASE VISIT ANNUAL PCP TEAM CHRONIC DISEASE VISIT [facility] Start: 03-17-2023 Hepatitis B surface antibody level LDL CHOLESTEROL [facility] Start: 01-13-2023 ANNUAL PCP TEAM CHRONIC DISEASE VISIT ANNUAL PCP TEAM CHRONIC DISEASE VISIT [facility] Start: 11-18-2022 End: 01-18-2023 Thyrotropin [Units/volume] in Serum or Plasma TSH BLD Lab Routine Hypercholesterolemia Thyroid nodule Expected: 11/18/2022, Expires: 01/18/2023 [facility] Work Phone: Comment on above: Expected: 11/18/2022, Expires: 3 Start: 11-18-2022 End: 01-18-2023 Thyroxine (T4) free [Mass/volume] in Serum or Plasma T4 FREE/FREE THYROX Lab Routine Hypercholesterolemia Thyroid nodule Expected: 11/18/2022, Expires: 01/18/2023 [facility] Work Phone: Comment on above: Expected: 11/18/2022, Expires: 3 Start: 11-18-2022 End: 01-18-2023 Triiodothyronine (T3) Free [Mass/volume] in Serum or Plasma T3 FREE BLD Lab Routine Hypercholesterolemia Thyroid nodule Expected: 11/18/2022, Expires: 01/18/2023 [facility] Work Phone: Comment on above: Expected: 11/18/2022, Expires: Start: 10-12-2022 ADVANCE DIRECTIVE DISCUSSION ADVANCE DIRECTIVE DISCUSSION [facility] Start: 09-13-2022 COLORECTAL CANCER SCREENING COLORECTAL CANCER SCREENING [facility] Comment on above: Postponed from 1997 (Declined at t his time) Start: 09-11-2022 End: 07-10-2023 Cobalamin (Vitamin B12) [Mass/volume] in Serum or Plasma VITAMIN B12 BLOOD Lab Routine Anemia, unspecified type Expected: 09/11/2022 (Approximate), Expires: 07/10/2023 [facility] Work Phone: Comment on above: Expected: 09/11/2022 (Approximate), Expi res: 07/10/2023 Start: 09-11-2022 End: 07-10-2023 Comprehensive metabolic 2000 panel - Serum or Plasma COMP METABOLIC PANEL Lab Routine Tobacco use disorder Hypercholesterolemia Expected: 09/11/2022 (Approximate), Expires: 07/10/2023 [facility] Work Phone: Comment on above: Expected: 09/11/2022 (Approximate), Expi res: 07/10/2023 Start: 09-11-2022 End: 07-10-2023 Folate [Mass/volume] in Serum or Plasma FOLATE SERUM Lab Routine Anemia, unspecified type Expected: 09/11/2022 (Approximate), Expires: 07/10/2023 [facility] Work Phone: Comment on above: Expected: 09/11/2022 (Approximate), Expi res: 07/10/2023 Start: 09-11-2022 End: 07-10-2023 Iron and Iron binding capacity panel - Serum or Plasma IRON + TIBC Lab Routine Anemia, unspecified type Expected: 09/11/2022 (Approximate), Expires: 07/10/2023 [facility] Work Phone: Comment on above: Expected: 09/11/2022 (Approximate), Expi res: 07/10/2023 Start: 09-11-2022 End: 07-10-2023 Lipid 1996 panel - Serum or Plasma LIPID PANEL BASIC Lab Routine Tobacco use disorder Hypercholesterolemia Expected: 09/11/2022 (Approximate), Expires: 07/10/2023 [facility] Work Phone: Comment on above: Expected: 09/11/2022 (Approximate), Expi res: 07/10/2023 Start: 09-11-2022 End: 07-10-2023 PAIN PANEL, UR QUANT PAIN PANEL, UR QUANT Lab Routine Medial epicondylitis of right elbow Medication management Expected: 09/11/2022 (Approximate), Expires: 07/10/2023 [facility] Work Phone: Comment on above: Expected: 09/11/2022 (Approximate), Expi res: 07/10/2023 Start: 09-11-2022 End: 07-10-2023 TOX SCREEN ROUT UR TOX SCREEN ROUT UR Lab Routine Medial epicondylitis of right elbow Medication management Expected: 09/11/2022 (Approximate), Expires: 07/10/2023 [facility] Work Phone: Comment on above: Expected: 09/11/2022 (Approximate), Expi res: 07/10/2023 Start: 07-15-2022 Influenza vaccination LUNG CANCER SCREENING [facility] Comment on above: Postponed from 2007 (Declined at t his time) Postponed from 12/01 (Declined at this time) Start: 06-12-2022 Influenza vaccination INFLUENZA (#1) [facility] Start: 05-02-2022 COVID-19 VACCINE (5 - Booster for Pfizer series) COVID-19 VACCINE (5 - Booster for Pfizer series) [facility] Start: 03-18-2022 BONE DENSITY BONE DENSITY [facility] Comment on above: Postponed from 2017 (Declined at t his time) Start: 01-11-2022 Hepatitis B surface antibody level LDL CHOLESTEROL [facility] Start: 12-07-2021 COVID-19 VACCINE (4 - Booster for Pfizer series) COVID-19 VACCINE (4 - Booster for Pfizer series) [facility] Start: 10-12-2021 ADVANCE DIRECTIVE DISCUSSION ADVANCE DIRECTIVE DISCUSSION [facility] Start: 07-26-2021 Mammography MAMMOGRAM [facility] Start: 07-26-2021 Screening for malignant neoplasm of breast Mammogram Screening [facility] Start: 07-16-2021 BP CONTROLLED (<130/80) BP CONTROLLED (<130/80) [facility] Start: 07-16-2021 Pneumococcal Vaccine: 65+ (2 of 2 - PCV) Pneumococcal Vaccine: 65+ (2 of 2 - PCV) [facility] Start: 07-16-2021 PNEUMOCOCCAL: 65+ (2 - PCV) PNEUMOCOCCAL: 65+ (2 - PCV) [facility] Start: 06-15-2019 COLORECTAL CANCER SCREENING COLORECTAL CANCER SCREENING [facility] Start: 06-15-2019 FECAL OCCULT BLOOD FECAL OCCULT BLOOD [facility] Start: 06-15-2019 Screening for malignant neoplasm of colon [facility] Start: 10-28-2018 Colonoscopy COLONOSCOPY [facility] Start: 10-28-2018 Screening for malignant neoplasm of colon Colonoscopy [facility] Start: 02-09-2018 Medicare Annual Wellness Visit Medicare Annual Wellness Visit [facility] Start: 2017 BONE DENSITY BONE DENSITY [facility] Start: 2017 Screening for osteoporosis Bone Density Screening [facility] Start: 2012 RSV Vaccine (1 - 1-dose 60+ series) RSV Vaccine (1 - 1-dose 60+ series) [facility] Start: 2002 Influenza vaccination LUNG CANCER SCREENING [facility] Start: 1997 COLOGUARD (FIT-DNA) COLOGUARD (FIT-DNA) [facility] Start: [address] COLONOGRAPHY [facility] Start: 1997 Screening for malignant neoplasm of colon [facility] Start: 1997 SIGMOIDOSCOPY SIGMOIDOSCOPY [facility] Start: 1982 Zoledronic acid therapy ALPHA-1 ANTITRYPSIN DEFICIENCY SCREENING [facility] Start: 1970 SPIROMETRY SPIROMETRY [facility] Anion gap measurement [facility] Bacteria identified in Body fluid by Culture [facility] Bacteria identified in Unspecified specimen by Anaerobe culture [facility] BD DXA TRABECULAR SUNNY NE SCORE (TBS) BD DXA TRABECULAR BONE SCORE (TBS) Radiology Routine Asymptomatic postmenopausal status 01/22/2024 10:39 AM EDT [facility] Work Phone: BUN/Creatinine ratio [facility] Calcium [Mass/volume ] in Serum or Plasma [facility] Carbon dioxide, tota l [Moles/volume] in Serum or Plasma [facility] Chloride [Moles/volu me] in Serum or Plasma [facility] COLOGUARD COLOGUARD Lab Ro utine Screening for colon cancer Ordered: 02/08/2025 [facility] Work Phone: Comment on above: Ordered: 02/08/2025 Creatinine [Moles/vo lume] in Serum or Plasma [facility] End: 08-16-2023 Dxa bone density study 1/> sites axial skel DXA-AXIAL SKELETON Radiology Routine Screening for osteoporosis Asymptomatic menopause 1 Occurrences starting 07/17/2022 until 08/16/2023 [facility] Work Phone: Comment on above: 1 Occurrences starting 07/17/2022 until 08/16/2023 DXA Skeletal system. axial Views for bone density DXA-AXIAL SKELETON Radiology Routine Asymptomatic postmenopausal status 01/22/2024 10:39 AM EDT [facility] Work Phone: Glucose [Mass/volume ] in Serum or Plasma [facility] Hematocrit [Volume Fraction] of Blood [facility] Hemoglobin [Mass/vol ume] in Blood [facility] Hemoglobin.gastroint estinal .lower [Presence] in Stool by Immunoassay FECAL OCCULT BLOOD TEST Lab Routine Colon cancer screening Ordered: 11/18/2022 [facility] Work Phone: Comment on above: Ordered: 11/18/2022 Hemoglobin.gastroint estinal .lower [Presence] in Stool by Immunoassay FECAL OCCULT BLOOD TEST Lab Routine Screening for colon cancer Ordered: 01/13/2024 [facility] Work Phone: Comment on above: Ordered: 01/13/2024 Leukocytes [#/volume ] in Blood [facility] Mean corpuscular hem oglobin concentration determination [facility] Mean corpuscular hem oglobin determination [facility] Measurement of renal function [facility] End: 06-25-2025 MG Breast - bilateral Diagnostic LG DIAGNOSTIC BILATERAL Radiology Routine Abnormal mammogram 1 Occurrences starting 05/26/2024 until 06/25/2025 [facility] Work Phone: Comment on above: 1 Occurrences starting 05/26/2024 until 06/25/2025 End: 09-23-2025 MG Breast - bilateral Diagnostic LG DIAGNOSTIC BILATERAL Radiology Routine Abnormal mammogram 1 Occurrences starting 08/24/2024 until 09/23/2025 [facility] Work Phone: Comment on above: 1 Occurrences starting 08/24/2024 until 09/23/2025 MG Breast Screening LG SCREENIN G Radiology Routine Encounter for screening mammogram for breast cancer 05/17/2024 9:10 AM EDT [facility] Work Phone: Neutrophil count [facility] Neutrophil percent differential count [facility] Patient Education ED Cellulitis [facility] Work Phone: Patient referral [facility] Work Phone: PFIZER-BIONTECH COVI D-19 BIVALENT BOOSTER VACCINE, AGE 12+ YR PFIZER-BIONTECH COVID-19 BIVALENT BOOSTER VACCINE, AGE 12+ YR Immunization/Injection Routine Encounter for immunization 1 Occurrences starting 07/17/2022 [facility] Work Phone: Comment on above: 1 Occurrences starting 07/17/2022 Platelets [#/volume] in Blood [facility] Pneumococcal vaccination PNEUMOC OCCAL VACCINE (PREVNAR 20) Immunization/Injection Routine Encounter for immunization 1 Occurrences starting 07/17/2022 [facility] Work Phone: Comment on above: 1 Occurrences starting 07/17/2022 Pneumococcal vaccination PNEUMOC OCCAL VACCINE (PREVNAR 20) Immunization/Injection Routine Need for vaccination Ordered: 11/18/2022 [facility] Work Phone: Comment on above: Ordered: 11/18/2022 Potassium [Moles/vol ume] in Serum or Plasma [facility] Red blood cell count [facility] Red cell distributio n width determination [facility] Sodium [Moles/volume ] in Serum or Plasma [facility] Urea nitrogen [Mass/ volume] in Serum or Plasma [facility] End: 06-25-2025 US Breast - left limited US BREAST LTD LEFT Radiology Routine Abnormal mammogram 1 Occurrences starting 05/26/2024 until 06/25/2025 [facility] Comment on above: 1 Occurrences starting 05/26/2024 until 06/25/2025 End: 09-23-2025 US Breast - left limited US BREAST LTD LEFT Radiology Routine Abnormal mammogram 1 Occurrences starting 08/24/2024 until 09/23/2025 [facility] Comment on above: 1 Occurrences starting 08/24/2024 until 09/23/2025 End: 06-25-2025 US Breast - right limited US BREAST LTD RIGHT Radiology Routine Abnormal mammogram 1 Occurrences starting 05/26/2024 until 06/25/2025 [facility] Comment on above: 1 Occurrences starting 05/26/2024 until 06/25/2025 End: 09-23-2025 US Breast - right limited US BREAST LTD RIGHT Radiology Routine Abnormal mammogram 1 Occurrences starting 08/24/2024 until 09/23/2025 [facility] Comment on above: 1 Occurrences starting 08/24/2024 until 09/23/2025 End: 10-15-2023 Us soft tissue head & neck real time imge docm US THYROID/PARATHYROID Radiology Routine Thyroid nodule 1 Occurrences starting 09/15/2022 until 10/15/2023 [facility] Work Phone: Comment on above: 1 Occurrences starting 09/15/2022 until 10/15/2023 End: 08-19-2025 XR Knee - bilateral 4 Views XR KNEE GENERAL 4V AP BOTH/PA BOTH/LAT/MERC BILATERAL Radiology Routine Pain in both knees, unspecified chronicity 1 Occurrences starting 07/20/2024 until 08/19/2025 [facility] Work Phone: Comment on above: 1 Occurrences starting 07/20/2024 until 08/19/2025 XR Knee - bilateral 4 Views XR K NEE GENERAL 4V AP BOTH/PA BOTH/LAT/MERC BILATERAL Radiology Routine Pain in both knees, unspecified chronicity 07/25/2024 2:14 PM EDT [facility] Work Phone: [facility] Immunizations Immunization Date Immunization Notes Care Provider Elizabeth sewell 04-03-2025 COVID-19 vaccine, ag e 12+ yr (PFIZER-BIONTECH COMIRNATY) Stevie Dumas MD Work Phone: [facility] 09-05-2024 COVID-19 vaccine, ag e 12+ yr (PFIZER-BIONTECH COMIRNATY) Stevie Dumas MD Work Phone: [facility] 07-13-2024 influenza, high dose seasonal, preservative-free Sesar Wong MD Work Phone: [facility] 07-13-2024 influenza virus vaccine, unspecified formulation Stevie Dumas MD Work Phone: [facility] 05-13-2024 COVID-19 vaccine, ag e 12+ yr, season (PFIZER-BIONTECH) Screen tr [facility] 01-13-2024 pneumococcal conjuga te (PCV20) vaccine, 20 valent (PREVNAR 20) Bone [facility] Work Phone: [facility] 01-13-2024 pneumococcal Conjuga te, unspecified formulation Stevie Dumas MD Work Phone: [facility] 01-01-2024 tetanus toxoid, redu grey diphtheria toxoid, and acellular pertussis vaccine, adsorbed Stevie Dumas MD Work Phone: [facility] 11-13-2023 respiratory syncytia l virus (RSV) vaccine, adjuvanted (AREXVY) Stevie Dumas MD Work Phone: [facility] 09-15-2023 COVID-19 vaccine, ag e 12+ yr, season (PFIZER-BIONTECH) Meryl Rios APRN.ANODIZER Work Phone: [facility] 07-29-2023 influenza (HD-IIV4) vaccine, age 65+ yr, high dose, quadrivalent, PF (FLUZONE HIGH-DOSE) Meryl Rios APRN.ANODIZER Work Phone: [facility] 07-29-2023 influenza virus vaccine, unspecified formulation Stevie Dumas MD Work Phone: [facility] 07-17-2022 influenza, high-dose , quadrivalent vaccine (FLUZONE HIGH DOSE QUADRIVALENT) Meryl Rios APRN.ANODIZER Work Phone: [facility] Work Phone: 03-07-2022 Covid (Pfizer) [facility] Work Phone: [facility] 08-06-2021 Covid (Pfizer) Dr. Stevie khalil Work Phone: [facility] 07-15-2021 influenza, high-dose , quadrivalent vaccine (FLUZONE HIGH DOSE QUADRIVALENT) Meryl Rios APRN.ANODIZER Work Phone: [facility] 01-07-2021 COVID-19 vaccine, ag e 12+ yr (PFIZER-BIONTECH - PURPLE TOP) Meryl Rios APRN.ANODIZER Work Phone: [facility] 12-17-2020 COVID-19 vaccine, ag e 12+ yr (PFIZER-BIONTECH - PURPLE TOP) Meryl Rios APRN.ANODIZER Work Phone: [facility] 10-01-2020 zoster vaccine recombinant Meryl Rios APRN.ANODIZER Work Phone: [facility] Work Phone: 07-21-[address] Stevie Dumas Work Phone: [facility] 07-16-2020 pneumococcal polysaccharide vaccine, 23 valent Meryl Rios ELECTRONIC GLUER.ANODIZER Work Phone: [facility] Work Phone: 07-16-2020 zoster vaccine recombinant Meryl Gabriel ELECTRONIC GLUER.ANODIZER Work Phone: [facility] Work Phone: 06-27-2020 Influenza High-Dose Quadrivalent Dr. Stevie Dumas Work Phone: [facility] 06-27-2020 influenza, high dose seasonal, preservative-free Meryl Rios ELECTRONIC GLUER.ANODIZER Work Phone: [facility] 06-21-2020 influenza, high-dose , quadrivalent vaccine (FLUZONE HIGH DOSE QUADRIVALENT) Meryl Gabriel ELECTRONIC GLUER.ANODIZER Work Phone: [facility] Work Phone: 07-24-2019 Influenza, high dose seasonal Dr. Stevie Dumas MD Work Phone: [facility] 07-24-2019 influenza, high dose seasonal, preservative-free Meryl Rios ELECTRONIC GLUER.ANODIZER Work Phone: [facility] Work Phone: 08-29-2018 Influenza, high dose seasonal Dr. Stevie Dumas MD Work Phone: [facility] 08-29-2018 influenza, high dose seasonal, preservative-free Meryl Rios ELECTRONIC GLUER.ANODIZER Work Phone: [facility] Work Phone: 07-20-2017 influenza, injectabl e, quadrivalent, contains preservative Meryl Rios ELECTRONIC GLUER.ANODIZER Work Phone: [facility] 07-20-2017 influenza, injectabl e, quadrivalent, preservative free Dr. Stevie Dumas Work Phone: [facility] 07-18-2016 influenza, injectabl e, quadrivalent, contains preservative Meryl Rios ELECTRONIC GLUER.ANODIZER Work Phone: [facility] 07-18-2016 influenza, injectabl e, quadrivalent, preservative free Dr. Stevie Dumas Work Phone: [facility] 07-16-2015 influenza, injectabl e, quadrivalent, contains preservative Meryl Rios ELECTRONIC GLUER.ANODIZER Work Phone: [facility] Work Phone: 07-16-2015 influenza, injectabl e, quadrivalent, preservative free Dr. Stevie Dumas Work Phone: [facility] 08-15-2014 influenza, injectabl e, quadrivalent, preservative free Dr. Stevie Dumas Work Phone: [facility] 08-15-2014 influenza, seasonal, injectable Meryl Rios ELECTRONIC GLUER.ANODIZER Work Phone: [facility] 08-30-2013 influenza virus vaccine, unspecified formulation Meryl Rios ELECTRONIC GLUER.ANODIZER Work Phone: [facility] 05-27-2013 pneumococcal polysaccharide vaccine, 23 valent Meryl Rios ELECTRONIC GLUER.ANODIZER Work Phone: [facility] 05-27-2013 tetanus toxoid, redu grey diphtheria toxoid, and acellular pertussis vaccine, adsorbed Meryl Rios ELECTRONIC GLUER.ANODIZER Work Phone: [facility] NEGATED: Highlighted row has not occurred!12-19-2022 pneumococcal (PCV20) vaccine, 20 valent (PREVNAR 20) Stevie Dumas MD Work Phone: [facility] NEGATED: Highlighted row has not occurred!12-15-2022 pneumococcal (PCV20) vaccine, 20 valent (PREVNAR 20) Stevie Dumas MD Work Phone: [facility] Payers Date Payer Category Payer Self-pay [id number] 2018 Private Health Insurance [employer] LIF E [id number] 2018 Unknown [employer]PM LIFE GPM LIF E SUPPLEMENT [id number] 2018-Present [phone] [address] [address] Indemnity [id number] 2018 Unknown [id number] 2018 Unknown [id number] 2017 Medicare MEDICARE MEDICAR E A AND B [id number] 2017-Present [phone] [place] [address] Medicare [id number] 2017 Medicare [id number] 2017 Medicare [id number] Unknown [facility] [id number] Unknown [id number] Unknown [id number] Unknown [id number] Unknown [id number] Unknown [id number] Unknown [id number] Unknown [id number] Social History Date Type Detail Facility Start: 10-04-1992 End: 09-05-2024 Tobacco smoking status NHIS Smokes tobacco daily [facility] Work Phone: Start: 10-04-1992 End: 10-04-2022 History of tobacco use Cigarette Smoker [facility] Work Phone: Start: 01-13-2022 End: 04-03-2025 Alcohol intake Current drinker of alcohol (finding) [facility] Start: 1950 Sex Assigned At Not on file [facility] Start: 01-03-2022 End: 09-15-2022 Exposure to SARS-CoV-2 (event) Not sure [facility] Work Phone: Start: 07-17-2022 End: 03-16-2023 Cigarettes smoked current (pack per day) - Reported 1 [facility] Start: 07-17-2022 End: 11-07-2024 Tobacco use and exposure Smokeless tobacco non-user [facility] Work Phone: Start: 08-26-2022 End: 11-03-2023 Tobacco smoking status NHIS Unknown if ever smoked [facility] Start: 11-23-2019 None;Occasional [facility] Start: 11-23-2019 [facility] Start: 11-23-2019 Spouse/ Signif icant Other [facility] Start: 11-23-2019 Cigarettes [facility] Start: 1950 Sex Assigned At Female W [facility] Start: 11-18-2022 End: 11-07-2024 Tobacco smoking status NHIS Ex-smoker [facility] Start: 10-04-1992 End: 10-04-2022 History of tobacco use Current smoker [facility] Start: 03-16-2023 End: 11-13-2023 Tobacco use panel [facility] Start: 09-12-2012 Adult Depression Screening Assessment 0 [facility] Start: 05-18-2023 Tobacco Comment Patient miguel castillo loss of . Will discuss at next appointment [facility] Start: 01-04-2025 Sex Female (finding) [facility] NEGATED: Highlighted row [facility] Goals Date Patient Goal Desired Activity /State Functional Status Date Assessment Result Facility 06-25-2023 Functional status Bedside Commode [facility] Work Phone: 04-28-2015 Are you deaf, or do you have serious difficulty hearing No 04/28/2015 11:39 AM Ann Roman LPN No [facility] 04-28-2015 Are you blind, or do you have serious difficulty seeing, even when wearing glasses No 04/28/2015 11:39 AM Ann Roman LPN No [facility] 04-28-2015 Do you have serious difficulty walking or climbing stairs No 04/28/2015 11:39 AM Ann Roman LPN No [facility] 04-28-2015 Do you have difficul ty dressing or bathing No 04/28/2015 11:39 AM Ann Roman LPN No [facility] 04-28-2015 Because of a physica l, mental, or emotional condition, do you have difficulty doing errands alone such as visiting a physician's office or shopping No 04/28/2015 11:39 AM Ann Roman LPN No [facility] Mental Status Date Assessment Result Facility 06-25-2023 Cognitive function Level Of Cons ciousness Awake;Alert;Appropriate [facility] Work Phone: 06-25-2023 Cognitive function Voice/Name [facility] Work Phone: 04-28-2015 Because of a physica l, mental, or emotional condition, do you have serious difficulty concentrating, remembering, or making decisions No 04/28/2015 11:39 AM EDT Ann Morrison LPN No [facility] Clinical Notes 10-27-2005 to 08-22-2025 Susana Banegas MA - 06/21/2025 4:28 PM Jeannie Mcgee RN - 06/09/2025 4:06 PM Stevie Wright MD - 04/03/2025 10:31 AM Graham Winters APRN.OWNER ORAL SURGEON - 02/08/2025 8:57 AM EDT Note Date & Type Note Facility 08-22-2025 Note HNO ID: [id number] Author: CANDIDA SUERO RN Service: ? Author Type: Registered Nurse Type: Progress Notes Filed: 08/22/2025 13:37 Note Text: Population Management Eligibility and Participation Agreement First Outreach Provider Action / FYI: Value Based Care Management Chart Review Care Management Program Identification Source Patient identified for Care Management from:[facility] Registry Date identified for Care Management: July, Patient Insurance Coverage Coverage: Accountable Care Organization (ACO) Patient Attribution QAE Support Needs AND Eligibility for Care Management Support Level: Care Needs: 3 (High) Program: Chronic Disease Management Patient is eligible for Care Management: Yes Eligibility Criteria: Chronic Condition(s) - Chronic Obstructive Pulmonary Disease (COPD) Polypharmacy - greater than or equal to 7 Medications Value Based Care Management Patient Outreach Informing Patient of Eligibility Date of Contact: 08/22/2025 Weigh Box Tender: Candida Mao RN Contact Type: Weigh Box Tender initiated - First attempt Contact Method: Phone Contact Made: No - No answer and no option to leave a voicemail. Additional contact method: MyChart -- See MyChart Encounter Dated:08/22/2025. Candida Mao RN August 22, 2025 1:32 PM [facility] 08-22-2025 Note Patient Outreach ([facility]) NANCY JIMÉNEZ ([id number]) 1950 F Date Time Provider Department 08/22/25 CANDIDA SUERO During your visit today, we recorded the following information about you: Candida Suero RN 08/22/2025 1:37 PM Signed Population Management Eligibility and Participation Agreement First Outreach Provider Action / FYI: Value Based Care Management Chart Review Care Management Program Identification Source Patient identified for Care Management from:[facility] Date identified for Care Management: July, Patient Insurance Coverage Coverage: Accountable Care Organization (ACO) Patient Attribution QAE Support Needs AND Eligibility for Care Management Support Level: Care Needs: 3 (High) Program: Chronic Disease Management Patient is eligible for Care Management: Yes Eligibility Criteria: Chronic Condition(s) - Chronic Obstructive Pulmonary Disease (COPD) Polypharmacy - greater than or equal to 7 Medications Value Based Care Management Patient Outreach Informing Patient of Eligibility Date of Contact: 08/22/2025 Weigh Box Tender: Candida Mao RN Contact Type: Weigh Box Tender initiated - First attempt Contact Method: Phone Contact Made: No - No answer and no option to leave a voicemail. Additional contact method: MyChart -- See MyChart Encounter Dated:08/22/2025. Candida Mao RN August 22, 2025 1:32 PM Allergies As of Date: 08/22/2025 (No Known Allergies) Date Reviewed: 08/07/2025 Reviewed by: Jen Banks LPN - Fully Assessed Reason for Visit: Care Coordination [3491] Prescriptions as of 08/23/2025 - HYDROcodone-Acetaminophen (NORCO) 10-325 mg per tablet Take 1 tablet by mouth four times a day as needed for up to 30 days. Patient should start on September 05, 2025. - HYDROcodone-Acetaminophen (NORCO) 10-325 mg per tablet Take 1 tablet by mouth four times a day as needed for up to 30 days. Patient should start on October 04, 2025. - omeprazole (PRILOSEC) 20 mg capsule Take 1 capsule by mouth daily before breakfast. - HYDROcodone-Acetaminophen (NORCO) 10-325 mg per tablet Take 1 tablet by mouth four times a day as needed for up to 30 days. Patient should start on August 06, 2025. - triamcinolone acetonide (KENALOG) 0.1 % cream Apply 1 application to affected area two times a day. Apply sparingly to area for rash/itching. Use for up to 2 weeks - nitroglycerin sublingual (NITROQUICK) 0.4 mg SL tablet Dissolve 1 tablet under the tongue every 5 minutes as needed for chest pain. Up to 3 times as needed as directed - apixaban (ELIQUIS) 5 mg tab(s) Take 1 tablet by mouth two times a day. - atorvastatin (LIPITOR) 40 mg tablet Take 1 tablet by mouth once daily. - lisinopril (ZESTRIL) 5 mg tablet Take 1 tablet by mouth once daily. - metoprolol tartrate, short acting, (LOPRESSOR) 100 mg tablet Take 1 tablet by mouth two times a day. - Magnesium 250 mg tab Take 250 mg by mouth every other day. - aspirin, enteric coated (ASPIRIN, ENTERIC COATED) 81 mg EC tablet Take 1 tablet by mouth once daily. - cyanocobalamin (VITAMIN B-12) 1,000 mcg tab Take 1 tablet by mouth once daily. - Cholecalciferol, Vitamin D3, 25 mcg (1,000 unit) cap Take 1,000 Units by mouth once daily. Problem List As Of Date 08/22/2025 Noted Resolved IRRITABLE COLON [K58.9] 09/25/2005 TMJ SOUNDS ON OPEN/ CLOSE JAW [M26.69] 09/25/2005 Anxiety and depression [F41.9, F32.A] 10/27/2005 Anxiety state, unspecified [F41.1] 10/27/2005 05/18/2020 BONE AND CARTILAGE DIS NOS [M89.9, M94.9] 10/27/2005 TOBACCO USE DISORDER [F17.200] 05/19/2006 Medial epicondylitis of right elbow [M77.01] 03/15/2014 Pain in joint, lower leg [M25.569] 03/15/2014 Left arm pain [M79.602] 03/15/2014 CAD (coronary artery disease) [I25.10] 11/20/2014 Hypercholesterolemia [E78.00] 07/16/2015 Presence of drug coated stent in LAD coronary a*07/16/2015 Atrial fibrillation with RVR (HCC) [I48.91] 11/28/2019 Chronic obstructive pulmonary disease, unspecif*04/14/2023 Platelets decreased (HCC) [D69.6] 08/13/2023 Encounter Status:Closed by CANDIDA SUERO on 08/22/25 [facility] 08-09-2025 Note HNO ID: [id number] Author: NEEMA MOSELEY Mammo Tech Service: ? Author Type: Charrer Type: Progress Notes Filed: 08/09/2025 11:22 Note Text: Radiology Service Progress Note PATIENT NAME: Nancy Jiménez DATE OF SERVICE: August 09, 2025 TIME: 11:22 AM PATIENT IDENTITY VERIFICATION COMPLETED USING TWO (2) IDENTIFIERS: Name and Date of confirmed by patient verbally. FALL SCREENING: Has the patient had 2 falls in the last year or 1 fall with injury or currently using an Ambulatory Assistive Device (Walker, Cane, Wheelchair, Crutches, etc.)? No PATIENT GENDER DATA: Assigned female at . status: : No status: NO. PATIENT RELEVANT IMPLANT DATA REVIEWED: Not Applicable PATIENT PRESENTS WITH AN IMPLANTABLE OR ATTACHED ANIMAL KEEPER: No RADIOLOGY DEPARTMENT: Mammography PERIPHERAL IV DATA: Not applicable SIGNED BY: Roberta Bryant August 09, 2025 11:22 AM [facility] 07-24-2025 Note HNO ID: [id number] Author: MERYL RIOS APRN.ANODIZER Service: ? Author Type: Nurse Specialist Type: Progress Notes Filed: 07/24/2025 10:00 Note Text: SUBJECTIVE: Medicare Annual Wellness Visit Never done Colorectal Cancer Screening due on 06/15/2019 Covid-19 Vaccine( season) due on 06/12/2025 Mammogram Screening due on 09/07/2025 HPI Nancy Jiménez is a 74 year old female. PMH significant for ACTIVE PROBLEM LIST Irritable Bowel Syndrome Temporomandibular Joint Sounds On Opening and/Or Closing The Jaw Anxiety and Depression Disorder of Bone and Cartilage, Unspecified Tobacco Use Disorder Medial Epicondylitis of Right Elbow Pain in Joint, Lower Leg Left Arm Pain Cad (Coronary Artery Disease) Hypercholesterolemia Presence of Drug Coated Stent in Lad Coronary Artery Atrial Fibrillation With Rvr (Hcc) Chronic Obstructive Pulmonary Disease, Unspecified Copd Type (Hcc) Platelets Decreased Nancy is a 74-year-old female presenting for follow-up on a thyroid ultrasound and evaluation of neck discomfort. Thyroid Calcification: - Recent thyroid ultrasound revealed a calcification. - No biopsy recommended at this time due to small size. Neck Swelling/ Neck Discomfort: - Persistent neck discomfort greater than 1 week, described as a swollen and uncomfortable feeling. - Sensation localized to the inside of the neck. - Denies dysphagia or choking, dyspnea, recent illness - Sensation of internal swelling and pain in the neck. - No external lumps or bumps noted. - No known trauma or injury. Chronic Cough: - Daily cough. - Denies reflux or heartburn. - Former smoker, quit in October; began smoking at age 20 with multiple cessation attempts. ROS Neck: (+) neck swelling, (+) neck discomfort Respiratory: (+) cough Gastrointestinal: (-) heartburn, (-) dysphagia Objective BP 115/74 Pulse 74 Resp 16 Wt 73.5 kg (162 lb 0.6 oz) SpO2 99% BMI 25.38 kg/m? Physical Exam Vitals and nursing note reviewed. Constitutional: Appearance: Normal appearance. HENT: Head: Normocephalic and atraumatic. Mouth/Throat: Lips: Casey. Mouth: Mucous membranes are moist. Pharynx: Oropharynx is clear. Tonsils: No tonsillar exudate. Eyes: Conjunctiva/sclera: Conjunctivae normal. Neck: Thyroid: No thyroid mass or thyromegaly. Vascular: Normal carotid pulses. No carotid bruit or JVD. Cardiovascular: Rate and Rhythm: Normal rate. Rhythm irregular. Pulmonary: Effort: Pulmonary effort is normal. Breath sounds: Normal breath sounds. Abdominal: General: Bowel sounds are normal. Palpations: Abdomen is soft. Skin: General: Skin is warm and dry. Neurological: Mental Status: She is alert and oriented to person, place, and time. Mental status is at baseline. ALLERGIES No Known Allergies MEDICATIONS omeprazole (PRILOSEC) 20 mg capsule Take 1 capsule by mouth daily before breakfast. HYDROcodone-Acetaminophen (NORCO) 10-325 mg per tablet Take 1 tablet by mouth four times a day as needed for up to 30 days. HYDROcodone-Acetaminophen (NORCO) 10-325 mg per tablet Take 1 tablet by mouth four times a day as needed for up to 30 days. Patient should start on July 07, 2025. [START ON 08/06/2025] HYDROcodone-Acetaminophen (NORCO) 10-325 mg per tablet Take 1 tablet by mouth four times a day as needed for up to 30 days. Patient should start on August 06, 2025. triamcinolone acetonide (KENALOG) 0.1 % cream Apply 1 application to affected area two times a day. Apply sparingly to area for rash/itching. Use for up to 2 weeks nitroglycerin sublingual (NITROQUICK) 0.4 mg SL tablet Dissolve 1 tablet under the tongue every 5 minutes as needed for chest pain. Up to 3 times as needed as directed apixaban (ELIQUIS) 5 mg tab(s) Take 1 tablet by mouth two times a day. atorvastatin (LIPITOR) 40 mg tablet Take 1 tablet by mouth once daily. lisinopril (ZESTRIL) 5 mg tablet Take 1 tablet by mouth once daily. metoprolol tartrate, short acting, (LOPRESSOR) 100 mg tablet Take 1 tablet by mouth two times a day. Magnesium 250 mg tab Take 250 mg by mouth every other day. aspirin, enteric coated (ASPIRIN, ENTERIC COATED) 81 mg EC tablet Take 1 tablet by mouth once daily. cyanocobalamin (VITAMIN B-12) 1,000 mcg tab Take 1 tablet by mouth once daily. Cholecalciferol, Vitamin D3, 25 mcg (1,000 unit) cap Take 1,000 Units by mouth once daily. PAST MEDICAL HISTORY Diagnosis Date ANXIETY STATE NOS 10/27/2005 BONE AND CARTILAGE DIS NOS 10/27/2005 osteopenia CAD (coronary artery disease) 11/17/14 s/p PCI to the proximal LAD with a 3.0/18 mm Resolute Integrity DONALDO DEPRESSIVE DISORDER NEC 10/27/2005 Left arm pain 03/15/2014 Medial epicondylitis of right elbow 03/15/2014 Pain in joint, lower leg 03/15/2014 patellofemoral syndrome; also history of ankle fracture /sp surgical repair Tobacco use disorder 05/19/2006 Social History Tobacco Use Smoking status: For (more content not included)... [facility] 07-18-2025 Note HNO ID: [id number] Author: KENDRA TRENT RDMS Service: ? Author Type: Microfilm Clerk Type: Progress Notes Filed: 07/18/2025 13:51 Note Text: Radiology Service Progress Note PATIENT NAME: Nancy Jiménez DATE OF SERVICE: July 18, 2025 TIME: 1:51 PM PATIENT IDENTITY VERIFICATION COMPLETED USING TWO (2) IDENTIFIERS: Name and Date of confirmed by patient verbally. FALL SCREENING: Has the patient had 2 falls in the last year or 1 fall with injury or currently using an Ambulatory Assistive Device (Walker, Cane, Wheelchair, Crutches, etc.)? No PATIENT GENDER DATA: Assigned female at . status: : No status: NO. PATIENT RELEVANT IMPLANT DATA REVIEWED: Not Applicable PATIENT PRESENTS WITH AN IMPLANTABLE OR ATTACHED ANIMAL KEEPER: No RADIOLOGY DEPARTMENT: Ultrasound PERIPHERAL IV DATA: Not applicable SIGNED BY: Kendra Trent RDMS RVBaylee July 18, 2025 1:51 PM [facility] 07-17-2025 Note HNO ID: [id number] Author: MERYL RIOS APRN.ANODIZER Service: ? Author Type: Nurse Specialist Type: Progress Notes Filed: 07/17/2025 11:19 Note Text: SUBJECTIVE: Medicare Annual Wellness Visit Never done Colorectal Cancer Screening due on 06/15/2019 Influenza Vaccine(1) due on 06/12/2025 Covid-19 Vaccine( season) due on 06/12/2025 Mammogram Screening due on 09/07/2025 HPI Nancy Jiménez is a 74 year old female. PMH significant for ACTIVE PROBLEM LIST Irritable Bowel Syndrome Temporomandibular Joint Sounds On Opening and/Or Closing The Jaw Anxiety and Depression Disorder of Bone and Cartilage, Unspecified Tobacco Use Disorder Medial Epicondylitis of Right Elbow Pain in Joint, Lower Leg Left Arm Pain Cad (Coronary Artery Disease) Hypercholesterolemia Presence of Drug Coated Stent in Lad Coronary Artery Atrial Fibrillation With Rvr (Hcc) Chronic Obstructive Pulmonary Disease, Unspecified Copd Type (Hcc) Platelets Decreased Nancy Jiménez is a 74-year-old female with a known thyroid nodule, presenting for evaluation of perceived internal neck swelling. Neck Swelling: - Sensation of internal swelling in the neck. - No external lumps or bumps noted. - Denies pain, dysphagia, dyspnea, or recent illness. - No known trauma or injury. - No current allergy symptoms. - Similar episode a few years ago; previous neck ultrasound reportedly showed a small thyroid nodule; last discussed during a previous visit with a recommendation for follow-up ultrasound. ROS Constitutional: (-) malaise Neck: (+) neck swelling, (-) neck pain, (-) neck mass Respiratory: (-) dyspnea Gastrointestinal: (-) dysphagia Objective BP 103/69 Pulse 79 Temp 37 ?C (98.6 ?F) Ht 170.2 cm (5' 7) Wt 73.8 kg (162 lb 11.2 oz) BMI 25.48 kg/m? Physical Exam Vitals and nursing note reviewed. Constitutional: Appearance: Normal appearance. HENT: Head: Normocephalic and atraumatic. Eyes: Conjunctiva/sclera: Conjunctivae normal. Neck: Thyroid: No thyroid mass or thyromegaly. Vascular: Normal carotid pulses. No carotid bruit or JVD. Cardiovascular: Rate and Rhythm: Normal rate. Rhythm irregular. Pulmonary: Effort: Pulmonary effort is normal. Breath sounds: Normal breath sounds. Abdominal: General: Bowel sounds are normal. Palpations: Abdomen is soft. Skin: General: Skin is warm and dry. Neurological: Mental Status: She is alert and oriented to person, place, and time. Mental status is at baseline. ALLERGIES No Known Allergies MEDICATIONS HYDROcodone-Acetaminophen (NORCO) 10-325 mg per tablet Take 1 tablet by mouth four times a day as needed for up to 30 days. HYDROcodone-Acetaminophen (NORCO) 10-325 mg per tablet Take 1 tablet by mouth four times a day as needed for up to 30 days. Patient should start on July 07, 2025. [START ON 08/06/2025] HYDROcodone-Acetaminophen (NORCO) 10-325 mg per tablet Take 1 tablet by mouth four times a day as needed for up to 30 days. Patient should start on August 06, 2025. triamcinolone acetonide (KENALOG) 0.1 % cream Apply 1 application to affected area two times a day. Apply sparingly to area for rash/itching. Use for up to 2 weeks nitroglycerin sublingual (NITROQUICK) 0.4 mg SL tablet Dissolve 1 tablet under the tongue every 5 minutes as needed for chest pain. Up to 3 times as needed as directed apixaban (ELIQUIS) 5 mg tab(s) Take 1 tablet by mouth two times a day. atorvastatin (LIPITOR) 40 mg tablet Take 1 tablet by mouth once daily. lisinopril (ZESTRIL) 5 mg tablet Take 1 tablet by mouth once daily. metoprolol tartrate, short acting, (LOPRESSOR) 100 mg tablet Take 1 tablet by mouth two times a day. Magnesium 250 mg tab Take 250 mg by mouth every other day. aspirin, enteric coated (ASPIRIN, ENTERIC COATED) 81 mg EC tablet Take 1 tablet by mouth once daily. cyanocobalamin (VITAMIN B-12) 1,000 mcg tab Take 1 tablet by mouth once daily. Cholecalciferol, Vitamin D3, 25 mcg (1,000 unit) cap Take 1,000 Units by mouth once daily. PAST MEDICAL HISTORY Diagnosis Date ANXIETY STATE NOS 10/27/2005 BONE AND CARTILAGE DIS NOS 10/27/2005 osteopenia CAD (coronary artery disease) 11/17/14 s/p PCI to the proximal LAD with a 3.0/18 mm Resolute Integrity DONALDO DEPRESSIVE DISORDER NEC 10/27/2005 Left arm pain 03/15/2014 Medial epicondylitis of right elbow 03/15/2014 Pain in joint, lower leg 03/15/2014 patellofemoral syndrome; also history of ankle fracture /sp surgical repair Tobacco use disorder 05/19/2006 Social History Tobacco Use Smoking status: Former Average packs/day: 0.5 packs/day for 31.6 years (16.2 ttl pk-yrs) Types: Cigarettes Start date: 10/04/1992 Quit date: 10/04/2022 Years since quittin.7 Smokeless tobacco: Never Tobacco comments: Patient mourning loss of . Will discuss at next appointment Vaping Use Vaping status: Never Used Substance Use Topics Alcohol use: Yes Al (more content not included)... [facility] 06-21-2025 Note HNO ID: [id number] Author: SUSANA BANEGAS MA Service: ? Author Type: Booster Assembler Type: Progress Notes Filed: 06/21/2025 16:33 Note Text: POPULATION HEALTH NAVIGATION OUTREACH Action/FYI no answer Topic Due (Y or N) Comments Medicare Wellness PCP Follow up [facility] Order on Controlling Blood Pressure A1C HCC Flu Vaccine Care Everywhere Reviewed MyChart Activation Updated Appointment Note y Reason for Outreach Care Gap/HCC or Scheduling Wellness Visits Care Gaps due: Colorectal Cancer Screening Patient Contacted: Unable or unnecessary to reach patient: Unable to leave message Updated appointment notes Navigation Signature: Susana Banegas MA June 21, 2025 4:29 PM [facility] 06-21-2025 History of Present illness Narrative POPULATION HEALTH NAVIGATION OUTREACH Action/FYI no answer Topic Due (Y or N) Comments Medicare Wellness PCP Follow up Colorectal Cancer Screening Cologuard 02-08-25 Order on Controlling Blood Pressure A1C HCC Flu Vaccine Care Everywhere Reviewed MyChart Activation Updated Appointment Note y Reason for Outreach Care Gap/HCC or Scheduling Wellness Visits Care Gaps due: Colorectal Cancer Screening Patient Contacted: Unable or unnecessary to reach patient: Unable to leave message Updated appointment notes Navigation Signature: Susana Banegas MA June 21, 2025 4:29 PM documented in this encounter [facility] 06-21-2025 Note Patient Outreach ([facility]) NANCY JIMÉNEZ ([id number]) 1950 F Date Time Provider Department 06/21/25 SUSANA BANEGASV During your visit today, we recorded the following information about you: Susana Banegas MA 06/21/2025 4:33 PM Signed POPULATION HEALTH NAVIGATION OUTREACH Action/FYI no answer Topic Due (Y or N) Comments Medicare Wellness PCP Follow up Colorectal Cancer Screening Cologuard 02-08-25 Order on Controlling Blood Pressure A1C HCC Flu Vaccine Care Everywhere Reviewed MyChart Activation Updated Appointment Note y Reason for Outreach Care Gap/HCC or Scheduling Wellness Visits Care Gaps due: Colorectal Cancer Screening Patient Contacted: Unable or unnecessary to reach patient: Unable to leave message Updated appointment notes Navigation Signature: Susana Banegas MA June 21, 2025 4:29 PM Allergies As of Date: 06/21/2025 (No Known Allergies) Date Reviewed: 06/07/2025 Reviewed by: Princess Zambrano LPN - Fully Assessed Reason for Visit: Population Health Navigation Outreach [3910] Cmt: WOJCIECH CHIN PCSA Prescriptions as of 06/21/2025 - HYDROcodone-Acetaminophen (NORCO) 10-325 mg per tablet Take 1 tablet by mouth four times a day as needed for up to 30 days. - HYDROcodone-Acetaminophen (NORCO) 10-325 mg per tablet Take 1 tablet by mouth four times a day as needed for up to 30 days. Patient should start on July 07, 2025. - HYDROcodone-Acetaminophen (NORCO) 10-325 mg per tablet Take 1 tablet by mouth four times a day as needed for up to 30 days. Patient should start on August 06, 2025. - triamcinolone acetonide (KENALOG) 0.1 % cream Apply 1 application to affected area two times a day. Apply sparingly to area for rash/itching. Use for up to 2 weeks - nitroglycerin sublingual (NITROQUICK) 0.4 mg SL tablet Dissolve 1 tablet under the tongue every 5 minutes as needed for chest pain. Up to 3 times as needed as directed - apixaban (ELIQUIS) 5 mg tab(s) Take 1 tablet by mouth two times a day. - atorvastatin (LIPITOR) 40 mg tablet Take 1 tablet by mouth once daily. - lisinopril (ZESTRIL) 5 mg tablet Take 1 tablet by mouth once daily. - metoprolol tartrate, short acting, (LOPRESSOR) 100 mg tablet Take 1 tablet by mouth two times a day. - Magnesium 250 mg tab Take 250 mg by mouth every other day. - aspirin, enteric coated (ASPIRIN, ENTERIC COATED) 81 mg EC tablet Take 1 tablet by mouth once daily. - cyanocobalamin (VITAMIN B-12) 1,000 mcg tab Take 1 tablet by mouth once daily. - Cholecalciferol, Vitamin D3, 25 mcg (1,000 unit) cap Take 1,000 Units by mouth once daily. Problem List As Of Date 06/21/2025 Noted Resolved IRRITABLE COLON [K58.9] 09/25/2005 TMJ SOUNDS ON OPEN/ CLOSE JAW [M26.69] 09/25/2005 Anxiety and depression [F41.9, F32.A] 10/27/2005 Anxiety state, unspecified [F41.1] 10/27/2005 05/18/2020 BONE AND CARTILAGE DIS NOS [M89.9, M94.9] 10/27/2005 TOBACCO USE DISORDER [F17.200] 05/19/2006 Medial epicondylitis of right elbow [M77.01] 03/15/2014 Pain in joint, lower leg [M25.569] 03/15/2014 Left arm pain [M79.602] 03/15/2014 CAD (coronary artery disease) [I25.10] 11/20/2014 Hypercholesterolemia [E78.00] 07/16/2015 Presence of drug coated stent in LAD coronary a*07/16/2015 Atrial fibrillation with RVR (HCC) [I48.91] 11/28/2019 Chronic obstructive pulmonary disease, unspecif*04/14/2023 Platelets decreased (HCC) [D69.6] 08/13/2023 Encounter Status:Closed by SUSANA BANEGAS on 06/21/25 [facility] 06-11-2025 Note HNO ID: [id number] Author: AYAN AMATO MA Service: ? Author Type: Booster Assembler Type: Progress Notes Filed: 06/11/2025 11:43 Note Text: POPULATION HEALTH NAVIGATION OUTREACH Action/FYI P/C to address open care gaps. Patient stated she has received the Cologuard kit that was ordered 01/2025 and will complete it as soon as she can. Reason for Outreach Value Hub Care Gaps due: Colorectal Cancer Screening Patient Contacted: Spoke to patient/parent/or legal guardian Patient identified by name and : Yes Value Hub actions taken: No action required Navigation Signature: Ayan Amato MA June 11, 2025 11:41 AM [facility] 06-09-2025 Note HNO ID: [id number] Author: JEANNIE HO, JODI Service: ? Author Type: Registered Nurse Type: Progress Notes Filed: 06/09/2025 16:08 Note Text: Value Based Care Coordination Chart Review Provider Action / FYI: Colonoscopy needed Upon review of patient chart, the patient is excluded from Chronic Disease Management Patient is not a candidate for CDM at this time and placed in the following status: Deferred Action taken: Patient routed to Navigation Team Address Care Gaps . Jeannie Ho RN June 09, 2025 4:06 PM [facility] 06-09-2025 History of Present illness Narrative Value Based Care Coordination Chart Review Provider Action / FYI: Colonoscopy needed Upon review of patient chart, the patient is excluded from Chronic Disease Management Patient is not a candidate for CDM at this time and placed in the following status: Deferred Action taken: Patient routed to Navigation Team Address Care Gaps . Jeannie Ho RN June 09, 2025 4:06 PM documented in this encounter [facility] 06-09-2025 Note Patient Outreach ([facility]) NANCY JIMÉNEZ ([id number]) 1950 F Date Time Provider Department 06/09/25 JEANNIE HO During your visit today, we recorded the following information about you: Jeannie Ho RN 06/09/2025 4:08 PM Signed Value Based Care Coordination Chart Review Provider Action / FYI: Colonoscopy needed Upon review of patient chart, the patient is excluded from Chronic Disease Management Patient is not a candidate for CDM at this time and placed in the following status: Deferred Action taken: Patient routed to Navigation Team Address Care Gaps . Jeannie Ho RN June 09, 2025 4:06 PM Ayan Amato MA 06/11/2025 11:43 AM Signed POPULATION HEALTH NAVIGATION OUTREACH Action/FYI P/C to address open care gaps. Patient stated she has received the Cologuard kit that was ordered 01/2025 and will complete it as soon as she can. Reason for Outreach Value Hub Care Gaps due: Colorectal Cancer Screening Patient Contacted: Spoke to patient/parent/or legal guardian Patient identified by name and : Yes Value Hub actions taken: No action required Navigation Signature: Ayan Amato MA June 11, 2025 11:41 AM Allergies As of Date: 06/09/2025 (No Known Allergies) Date Reviewed: 06/07/2025 Reviewed by: Princess Zambrano LPN - Fully Assessed Reason for Visit: Care Coordination [3491] Cmt: Chart review Prescriptions as of 06/11/2025 - HYDROcodone-Acetaminophen (NORCO) 10-325 mg per tablet Take 1 tablet by mouth four times a day as needed for up to 30 days. - HYDROcodone-Acetaminophen (NORCO) 10-325 mg per tablet Take 1 tablet by mouth four times a day as needed for up to 30 days. Patient should start on July 07, 2025. - HYDROcodone-Acetaminophen (NORCO) 10-325 mg per tablet Take 1 tablet by mouth four times a day as needed for up to 30 days. Patient should start on August 06, 2025. - triamcinolone acetonide (KENALOG) 0.1 % cream Apply 1 application to affected area two times a day. Apply sparingly to area for rash/itching. Use for up to 2 weeks - nitroglycerin sublingual (NITROQUICK) 0.4 mg SL tablet Dissolve 1 tablet under the tongue every 5 minutes as needed for chest pain. Up to 3 times as needed as directed - apixaban (ELIQUIS) 5 mg tab(s) Take 1 tablet by mouth two times a day. - atorvastatin (LIPITOR) 40 mg tablet Take 1 tablet by mouth once daily. - lisinopril (ZESTRIL) 5 mg tablet Take 1 tablet by mouth once daily. - metoprolol tartrate, short acting, (LOPRESSOR) 100 mg tablet Take 1 tablet by mouth two times a day. - Magnesium 250 mg tab Take 250 mg by mouth every other day. - aspirin, enteric coated (ASPIRIN, ENTERIC COATED) 81 mg EC tablet Take 1 tablet by mouth once daily. - cyanocobalamin (VITAMIN B-12) 1,000 mcg tab Take 1 tablet by mouth once daily. - Cholecalciferol, Vitamin D3, 25 mcg (1,000 unit) cap Take 1,000 Units by mouth once daily. Problem List As Of Date 06/09/2025 Noted Resolved IRRITABLE COLON [K58.9] 09/25/2005 TMJ SOUNDS ON OPEN/ CLOSE JAW [M26.69] 09/25/2005 Anxiety and depression [F41.9, F32.A] 10/27/2005 Anxiety state, unspecified [F41.1] 10/27/2005 05/18/2020 BONE AND CARTILAGE DIS NOS [M89.9, M94.9] 10/27/2005 TOBACCO USE DISORDER [F17.200] 05/19/2006 Medial epicondylitis of right elbow [M77.01] 03/15/2014 Pain in joint, lower leg [M25.569] 03/15/2014 Left arm pain [M79.602] 03/15/2014 CAD (coronary artery disease) [I25.10] 11/20/2014 Hypercholesterolemia [E78.00] 07/16/2015 Presence of drug coated stent in LAD coronary a*07/16/2015 Atrial fibrillation with RVR (HCC) [I48.91] 11/28/2019 Chronic obstructive pulmonary disease, unspecif*04/14/2023 Platelets decreased (HCC) [D69.6] 08/13/2023 Encounter Status:Closed by JEANNIE HO on 06/09/25 [facility] 06-07-2025 Note HNO ID: [id number] Author: STEVIE DUMAS MD Service: ? Author Type: Physician Type: Progress Notes Filed: 07/13/2025 23:48 Note Text: Subjective Nancy Jiménez is a 74 year old female. HPI SUBJECTIVE: Nancy Jiménez is a 74-year-old female presenting for a 2-month follow-up visit. Nancy reports stability in her condition, with no issues or side effects from her current medications. She mentions a recent prescription for hydrocodone was filled today at [facility], and she confirms that the pharmacy is reliable in providing her medications on time. She also reports a dermatitis issue on her foot, for which she has been using triamcinolone 0.1% cream. She notes that she has about a third of the tube left and requests a refill. The dermatitis started as a small patch and expanded to cover the entire side of her leg. She mentions a previous hematoma on the top of her left foot, which developed into an ulcer requiring surgery by Dr. Spivey [facility]. Nancy recalls the hematoma was initially dismissed by three different doctors before Dr. Spivey decided to perform surgery. She describes the hematoma as a lump that appeared after she hit her foot on the bottom of her car door while wearing sandals. Nancy was hospitalized for three days post-surgery and is currently using Shilpa on the wound, which is almost healed. She denies needing another Band-Aid and plans to apply medicine when she gets home. PAST MEDICAL HISTORY Diagnosis Date ANXIETY STATE NOS 10/27/2005 BONE AND CARTILAGE DIS NOS 10/27/2005 osteopenia CAD (coronary artery disease) 11/17/14 s/p PCI to the proximal LAD with a 3.0/18 mm Resolute Integrity DONALDO DEPRESSIVE DISORDER NEC 10/27/2005 Left arm pain 03/15/2014 Medial epicondylitis of right elbow 03/15/2014 Pain in joint, lower leg 03/15/2014 patellofemoral syndrome; also history of ankle fracture /sp surgical repair Tobacco use disorder 05/19/2006 Current Outpatient Medications Medication Sig nitroglycerin sublingual (NITROQUICK) 0.4 mg SL tablet Dissolve 1 tablet under the tongue every 5 minutes as needed for chest pain. Up to 3 times as needed as directed apixaban (ELIQUIS) 5 mg tab(s) Take 1 tablet by mouth two times a day. atorvastatin (LIPITOR) 40 mg tablet Take 1 tablet by mouth once daily. lisinopril (ZESTRIL) 5 mg tablet Take 1 tablet by mouth once daily. metoprolol tartrate, short acting, (LOPRESSOR) 100 mg tablet Take 1 tablet by mouth two times a day. Magnesium 250 mg tab Take 250 mg by mouth every other day. aspirin, enteric coated (ASPIRIN, ENTERIC COATED) 81 mg EC tablet Take 1 tablet by mouth once daily. cyanocobalamin (VITAMIN B-12) 1,000 mcg tab Take 1 tablet by mouth once daily. Cholecalciferol, Vitamin D3, 25 mcg (1,000 unit) cap Take 1,000 Units by mouth once daily. HYDROcodone-Acetaminophen (NORCO) 10-325 mg per tablet Take 1 tablet by mouth four times a day as needed for up to 30 days. HYDROcodone-Acetaminophen (NORCO) 10-325 mg per tablet Take 1 tablet by mouth four times a day as needed for up to 30 days. Patient should start on July 07, 2025. [START ON 08/06/2025] HYDROcodone-Acetaminophen (NORCO) 10-325 mg per tablet Take 1 tablet by mouth four times a day as needed for up to 30 days. Patient should start on August 06, 2025. triamcinolone acetonide (KENALOG) 0.1 % cream Apply 1 application to affected area two times a day. Apply sparingly to area for rash/itching. Use for up to 2 weeks No current facility-administered medications for this visit. Review of Systems Objective BP 120/77 Pulse 84 Resp 16 Wt 75.1 kg (165 lb 9.1 oz) SpO2 96% BMI 25.93 kg/m? Physical Exam Constitutional: Appearance: Normal appearance. HENT: Head: Normocephalic. Eyes: Conjunctiva/sclera: Conjunctivae normal. Cardiovascular: Rate and Rhythm: Normal rate and regular rhythm. Heart sounds: Normal heart sounds. Pulmonary: Effort: Pulmonary effort is normal. Breath sounds: Normal breath sounds. Feet: Comments: Healing ulcer on the left foot with a small divot and a layer of skin present. Eczema patch on the [place], healing. Skin: General: Skin is warm and dry. Neurological: General: No focal deficit present. Mental Status: She is alert and oriented to person, place, and time. Psychiatric: Mood and Affect: Mood normal. Behavior: Behavior normal. Thought Content: Thought content normal. Judgment: Judgment normal. # Left arm pain (M79.602) # Medial epicondylitis of right elbow (M77.01) Continues present management with refill of hydrocodone prescription given today # Dermatitis of external ear (L30.9) # Hand dermatitis (L30.9) - No current issues or side effects from medications. - Refill triamcinolone 0.1% cream, 30g tube. - Advised that smaller tubes are preferable to maintain potency. # Ulcer of left foot, limited to breakdown of skin ([facility]) (L97.521) - Healin (more content not included)... [facility] 04-03-2025 Note HNO ID: [id number] Author: STEVIE DUMAS MD Service: ? Author Type: Physician Type: Progress Notes Filed: 04/23/2025 22:21 Note Text: This note was created using NoteWriter. Subjective Nancy Jiménez is a 74-year-old female with a history of pre-diabetes, presenting for a 2-month follow-up visit. Nancy is currently taking B12 1,000 mcg and magnesium every other day. She reports potential loose stools with daily magnesium intake. She denies taking folic acid. She is also on Lipitor and hydrocodone, with the last refill on April 08. She reports mild lower extremity edema and neuropathy. She is not currently wearing compression stockings due to the heat, despite her spanish instructor's recommendation. Recent lab results from March show stable WBC and RBC counts, with hemoglobin and hematocrit within normal ranges. Blood glucose was 120 mg/dL, and A1c was 5.2%. Kidney function was normal, with one liver enzyme slightly elevated. Electrolytes were normal, triglycerides improved to 203 mg/dL, HDL increased to 68 mg/dL, and LDL was 83 mg/dL. Vitamin B12 levels were adequate, but magnesium levels decreased to 1.7 mg/dL. PAST MEDICAL HISTORY Diagnosis Date ANXIETY STATE NOS 10/27/2005 BONE AND CARTILAGE DIS NOS 10/27/2005 osteopenia CAD (coronary artery disease) 11/17/14 s/p PCI to the proximal LAD with a 3.0/18 mm Resolute Integrity DONALDO DEPRESSIVE DISORDER NEC 10/27/2005 Left arm pain 03/15/2014 Medial epicondylitis of right elbow 03/15/2014 Pain in joint, lower leg 03/15/2014 patellofemoral syndrome; also history of ankle fracture /sp surgical repair Tobacco use disorder 05/19/2006 Current Outpatient Medications Medication Sig nitroglycerin sublingual (NITROQUICK) 0.4 mg SL tablet Dissolve 1 tablet under the tongue every 5 minutes as needed for chest pain. Up to 3 times as needed as directed apixaban (ELIQUIS) 5 mg tab(s) Take 1 tablet by mouth two times a day. atorvastatin (LIPITOR) 40 mg tablet Take 1 tablet by mouth once daily. lisinopril (ZESTRIL) 5 mg tablet Take 1 tablet by mouth once daily. metoprolol tartrate, short acting, (LOPRESSOR) 100 mg tablet Take 1 tablet by mouth two times a day. triamcinolone acetonide (KENALOG) 0.1 % cream Apply 1 application to affected area two times a day. Apply sparingly to area for rash/itching. Use for up to 2 weeks Magnesium 250 mg tab Take 250 mg by mouth every other day. aspirin, enteric coated (ASPIRIN, ENTERIC COATED) 81 mg EC tablet Take 1 tablet by mouth once daily. cyanocobalamin (VITAMIN B-12) 1,000 mcg tab Take 1 tablet by mouth once daily. Cholecalciferol, Vitamin D3, 25 mcg (1,000 unit) cap Take 1,000 Units by mouth once daily. [START ON 05/08/2025] HYDROcodone-Acetaminophen (NORCO) 10-325 mg per tablet Take 1 tablet by mouth four times a day as needed for up to 30 days. Patient should start on May 08, 2025. [START ON 06/07/2025] HYDROcodone-Acetaminophen (NORCO) 10-325 mg per tablet Take 1 tablet by mouth four times a day as needed for up to 30 days. Patient should start on June 07, 2025. HYDROcodone-Acetaminophen (NORCO) 10-325 mg per tablet Take 1 tablet by mouth four times a day as needed for up to 30 days. Patient should start on April 08, 2025. No current facility-administered medications for this visit. Review of Systems Objective BP 110/70 Pulse 66 Resp 16 Wt 73.9 kg (162 lb 14.7 oz) SpO2 99% BMI 25.52 kg/m? Physical Exam Constitutional: Appearance: Normal appearance. HENT: Head: Normocephalic. Eyes: Conjunctiva/sclera: Conjunctivae normal. Cardiovascular: Rate and Rhythm: Normal rate and regular rhythm. Heart sounds: Normal heart sounds. Pulmonary: Effort: Pulmonary effort is normal. Breath sounds: Normal breath sounds. Musculoskeletal: Right lower le+ Pitting Edema present. Left lower le+ Pitting Edema present. Skin: General: Skin is warm and dry. Neurological: General: No focal deficit present. Mental Status: She is alert and oriented to person, place, and time. Psychiatric: Mood and Affect: Mood normal. Behavior: Behavior normal. Thought Content: Thought content normal. Judgment: Judgment normal. Latest Ref Rng 07/13/2023 05/17/2024 03/24/2025 WBC 3.70 - 11.00 k/uL 5.56 3.65 (L) 3.29 (L) RBC 3.90 - 5.20 m/uL 3.37 (L) 3.66 (L) 3.42 (L) Hemoglobin 11.5 - 15.5 g/dL 12.0 13.0 12.2 Hematocrit 36.0 - 46.0 % 35.6 (L) 38.3 36.4 MCV 80.0 - 100.0 fL 105.6 (H) 104.6 (H) 106.4 (H) MCH 26.0 - 34.0 pg 35.6 (H) 35.5 (H) 35.7 (H) MCHC 30.5 - 36.0 g/dL 33.7 33.9 33.5 RDW-CV 11.5 - 15.0 % 12.4 12.6 12.7 Platelet Count 150 - 400 k/uL 83 (L) 131 (L) 146 (L) MPV 9.0 - 12.7 fL 10.7 9.3 10.5 Neut% % 50.8 Abs Neut (ANC) 1.45 - 7.50 k/uL 1.67 Lymph% % 32.8 Abs Lymph 1.00 - 4.00 k/uL 1.08 [place]% % 12.5 Abs [place] <0.87 k/uL 0.41 Eosin% % 2.4 Abs Eosin <0.46 k/uL 0.08 Baso% % 1.2 Abs Baso <0.11 k/uL 0.04 Immature Gran % % 0.3 IMMATURE GRANS (ABS) <0.10 (more content not included)... [facility] 04-03-2025 History of Present illness Narrative This note was created using NoteWriter. Subjective Nancy Jiménez is a 74-year-old female with a history of pre-diabetes, presenting for a 2-month follow-up visit. Nancy is currently taking B12 1,000 mcg and magnesium every other day. She reports potential loose stools with daily magnesium intake. She denies taking folic acid. She is also on Lipitor and hydrocodone, with the last refill on April 08. She reports mild lower extremity edema and neuropathy. She is not currently wearing compression stockings due to the heat, despite her spanish instructor's recommendation. Recent lab results from March show stable WBC and RBC counts, with hemoglobin and hematocrit within normal ranges. Blood glucose was 120 mg/dL, and A1c was 5.2%. Kidney function was normal, with one liver enzyme slightly elevated. Electrolytes were normal, triglycerides improved to 203 mg/dL, HDL increased to 68 mg/dL, and LDL was 83 mg/dL. Vitamin B12 levels were adequate, but magnesium levels decreased to 1.7 mg/dL. PAST MEDICAL HISTORY Diagnosis Date ANXIETY STATE NOS 10/27/2005 BONE & CARTILAGE DIS NOS 10/27/2005 osteopenia CAD (coronary artery disease) 11/17/14 s/p PCI to the proximal LAD with a 3.0/18 mm Resolute Integrity DONALDO DEPRESSIVE DISORDER NEC 10/27/2005 Left arm pain 03/15/2014 Medial epicondylitis of right elbow 03/15/2014 Pain in joint, lower leg 03/15/2014 patellofemoral syndrome; also history of ankle fracture /sp surgical repair Tobacco use disorder 05/19/2006 Current Outpatient Medications Medication Sig nitroglycerin sublingual (NITROQUICK) 0.4 mg SL tablet Dissolve 1 tablet under the tongue every 5 minutes as needed for chest pain. Up to 3 times as needed as directed apixaban (ELIQUIS) 5 mg tab(s) Take 1 tablet by mouth two times a day. atorvastatin (LIPITOR) 40 mg tablet Take 1 tablet by mouth once daily. lisinopril (ZESTRIL) 5 mg tablet Take 1 tablet by mouth once daily. metoprolol tartrate, short acting, (LOPRESSOR) 100 mg tablet Take 1 tablet by mouth two times a day. triamcinolone acetonide (KENALOG) 0.1 % cream Apply 1 application to affected area two times a day. Apply sparingly to area for rash/itching. Use for up to 2 weeks Magnesium 250 mg tab Take 250 mg by mouth every other day. aspirin, enteric coated (ASPIRIN, ENTERIC COATED) 81 mg EC tablet Take 1 tablet by mouth once daily. cyanocobalamin (VITAMIN B-12) 1,000 mcg tab Take 1 tablet by mouth once daily. Cholecalciferol, Vitamin D3, 25 mcg (1,000 unit) cap Take 1,000 Units by mouth once daily. [START ON 05/08/2025] HYDROcodone-Acetaminophen (NORCO) 10-325 mg per tablet Take 1 tablet by mouth four times a day as needed for up to 30 days. Patient should start on May 08, 2025. [START ON 06/07/2025] HYDROcodone-Acetaminophen (NORCO) 10-325 mg per tablet Take 1 tablet by mouth four times a day as needed for up to 30 days. Patient should start on June 07, 2025. HYDROcodone-Acetaminophen (NORCO) 10-325 mg per tablet Take 1 tablet by mouth four times a day as needed for up to 30 days. Patient should start on April 08, 2025. No current facility-administered medications for this visit. Review of Systems Objective BP 110/70 Pulse 66 Resp 16 Wt 73.9 kg (162 lb 14.7 oz) SpO2 99% BMI 25.52 kg/m Physical Exam Constitutional: Appearance: Normal appearance. HENT: Head: Normocephalic. Eyes: Conjunctiva/sclera: Conjunctivae normal. Cardiovascular: Rate and Rhythm: Normal rate and regular rhythm. Heart sounds: Normal heart sounds. Pulmonary: Effort: Pulmonary effort is normal. Breath sounds: Normal breath sounds. Musculoskeletal: Right lower le+ Pitting Edema present. Left lower le+ Pitting Edema present. Skin: General: Skin is warm and dry. Neurological: General: No focal deficit present. Mental Status: She is alert and oriented to person, place, and time. Psychiatric: Mood and Affect: Mood normal. Behavior: Behavior normal. Thought Content: Thought content normal. Judgment: Judgment normal. Latest Ref Rng 07/13/2023 05/17/2024 03/24/2025 WBC 3.70 - 11.00 k/uL 5.56 3.65 (L) 3.29 (L) RBC 3.90 - 5.20 m/uL 3.37 (L) 3.66 (L) 3.42 (L) Hemoglobin 11.5 - 15.5 g/dL 12.0 13.0 12.2 Hematocrit 36.0 - 46.0 % 35.6 (L) 38.3 36.4 MCV 80.0 - 100.0 fL 105.6 (H) 104.6 (H) 106.4 (H) MCH 26.0 - 34.0 pg 35.6 (H) 35.5 (H) 35.7 (H) MCHC 30.5 - 36.0 g/dL 33.7 33.9 33.5 RDW-CV 11.5 - 15.0 % 12.4 12.6 12.7 Platelet Count 150 - 400 k/uL 83 (L) 131 (L) 146 (L) MPV 9.0 - 12.7 fL 10.7 9.3 10.5 Neut% % 50.8 Abs Neut (ANC) 1.45 - 7.50 k/uL 1.67 Lymph% % 32.8 Abs Lymph 1.00 - 4.00 k/uL 1.08 [place]% % 12.5 Abs [place] <0.87 k/uL 0.41 Eosin% % 2.4 Abs Eosin <0.46 k/uL 0.08 Baso% % 1.2 Abs Baso <0.11 k/uL 0.04 Immature Gran % % 0.3 IMMATURE GRANS (ABS) <0.10 k/uL <0.03 NRBC /100 WBC 0.0 Absolute nRBC <0.01 k/uL <0.01 <0.01 <0.01 DTYPE Auto Protein, Total 6.3 - 8.0 g/dL 7.2 7.0 7.3 Albumin 3.9 - 4.9 g/dL 4.6 4.4 4.4 Calcium 8.5 - 10.2 mg/dL 9.7 9.7 9.6 Bilirubin, Total 0.2 - 1.3 mg/dL 0.3 0.4 0.5 Alkaline Phosphatase 34 - 123 U/L 77 101 93 AST 13 - 35 U/L 28 59 (H) 85 (H) ALT 7 - 38 U/L 18 38 45 (H) Glucose 74 - 99 mg/dL 127 (H) 100 (H) 120 (H) BUN 7 - 21 mg/dL 12 9 14 Creatinine 0.58 - 0.96 mg/dL 0.84 0.71 0.93 Sodium 136 - 144 mmol/L 135 (L) 138 137 Potassium 3.7 - 5.1 mmol/L 4.7 4.5 4.7 Chloride 98 - 107 mmol/L 98 101 99 CO2 22 - 30 mmol/L 26 24 23 Anion Gap 8 - 15 mmol/L 11 13 15 eGFR >=60 mL/min/1.73m 75 91 65 Cholesterol, Total <200 mg/dL 159 185 Triglyceride <150 mg/dL 242 (H) 203 (H) HDL Cholesterol >39 mg/dL 50 68 Non HDL Cholesterol <130 mg/dL 109 117 Fasting Time hrs 14 12 VLDL Cholesterol <30 mg/dL 48 (H) 32 (H) TC:HDL Ratio <5.10 3.18 2.72 LDL Cholesterol, Calculated <100 mg/dL 61 83 LDL:HDL Ratio <2.54 1.22 1.22 Phencyclidine, Urine Negative Negative Benzodiazepines, Urine Negative Negative Cocaine, Urine Negative Negative Amphetamines, Urine Negative Negative Cannabinoids, Urine Negative Negative Opiates, Urine Negative Preliminary positive ! Barbiturates, Urine Negative Negative Ethanol, Urine <11 mg/dL <11 Oxycodone, Urine Negative Negative Hemoglobin A1C 4.3 - 5.6 % 5.6 5.2 5.2 Estimated Average Glucose mg/dL 114 103 103 Vitamin D 25 Hydroxy 31.0 - 80.0 ng/mL 35.9 35.9 33.8 Vitamin B12 232 - 1,245 pg/mL >2,000 (H) >2,000 (H) 1,832 (H) Magnesium 1.7 - 2.3 mg/dL 1.6 (L) 1.7 1.4 (L) Legend: (L) Low (H) High ! Abnormal Assessment and Plan # Left arm pain (M79.602) # Medial epicondylitis of right elbow (M77.01) Chronic pain controlled with hydrocodone without adverse effects. Medication continues to help her remain active. Continue present management. # IFG (impaired fasting glucose) (R73.01) - Fasting blood glucose 120 mg/dL, HbA1c 5.2%. - Continue current management. # Mixed hyperlipidemia (E78.2) - Triglycerides improved to 203 mg/dL from 240s. - HDL increased to 68 mg/dL, LDL at 83 mg/dL. - Continue Lipitor. # Bilateral lower extremity edema (R60.0) - Mild edema noted, no significant swelling. - Discussed benefits of wearing elastic compression stockings to reduce edema and potentially improve neuropathy symptoms. # Vitamin D deficiency (E55.9) Level staying over 31. Continue supplement daily. # Hypomagnesemia (E83.42) - Magnesium level decreased to 1.7 mg/dL. - Advised to increase magnesium supplementation to daily if tolerated; consider switching to magnesium glycinate if loose stools occur. # Need for vaccination (Z23) - Administered COVID-19 vaccine. # Peripheral polyneuropathy (G62.9) - Discussed that reducing edema with compression stockings may improve neuropathy symptoms. # Vitamin B12 deficiency (E53.8) - Current B12 supplementation at 1000 mcg daily. - Ordered methylmalonic acid test to assess B12 utilization. - Discussed potential need for methylcobalamin if conversion issues are identified. Stevie Dumas MD Recording using [employer] software for draft documentation of the visit was discussed with the patient/authorized construction representative; all questions welcomed and answered. Patient/authorized construction representative agreed to proceed documented in this encounter [facility] 03-27-2025 Progress note Formatting of t his note might be different from the original. Plan to go over result at up coming follow up appointment. 04/03 with pcp [facility] 03-27-2025 Miscellaneous Notes Plan to go over result at up coming follow up appointment. 04/03 with pcp documented in this encounter [facility] 02-08-2025 Note HNO ID: [id number] Author: GRAHAM DE LEON APRN.[facility] Service: ? Author Type: Nurse Practitioner Type: Progress Notes Filed: 02/08/2025 09:41 Note Text: SUBJECTIVE Nancy Jiménez is a 74 year old female here today for a check up on her medical problems. Chief Complaint Patient presents with: Recheck HPI Nancy Jiménez is a 74 year old female. She is an established patient of Stevie Dumas MD. Here today for a routine 2 month follow up. She did quit smoking in October. Overall doing okay, no issues with chest pain, chest tightness or shortness of breath. Breathing doing okay. In regards to medications currently taken for pain management, the patient is tolerating these medications well. No reported side effects. She reports that the medications improve her quality of life and ability to function. She denies misuse, abuse or diversion of medications. Overall her pain is unchanged than the last visit. Her medications were reviewed today and her list is now up to date. Medications Current Outpatient Medications Medication Sig [START ON 03/08/2025] HYDROcodone-Acetaminophen (NORCO) 10-325 mg per tablet Take 1 tablet by mouth four times a day as needed for up to 30 days. Patient should start on March 08, 2025. nitroglycerin sublingual (NITROQUICK) 0.4 mg SL tablet Dissolve 1 tablet under the tongue every 5 minutes as needed for chest pain. Up to 3 times as needed as directed apixaban (ELIQUIS) 5 mg tab(s) Take 1 tablet by mouth two times a day. atorvastatin (LIPITOR) 40 mg tablet Take 1 tablet by mouth once daily. lisinopril (ZESTRIL) 5 mg tablet Take 1 tablet by mouth once daily. metoprolol tartrate, short acting, (LOPRESSOR) 100 mg tablet Take 1 tablet by mouth two times a day. triamcinolone acetonide (KENALOG) 0.1 % cream Apply 1 application to affected area two times a day. Apply sparingly to area for rash/itching. Use for up to 2 weeks Magnesium 250 mg tab Take 250 mg by mouth every other day. aspirin, enteric coated (ASPIRIN, ENTERIC COATED) 81 mg EC tablet Take 1 tablet by mouth once daily. cyanocobalamin (VITAMIN B-12) 1,000 mcg tab Take 1 tablet by mouth once daily. Cholecalciferol, Vitamin D3, 25 mcg (1,000 unit) cap Take 1,000 Units by mouth once daily. [START ON 04/08/2025] HYDROcodone-Acetaminophen (NORCO) 10-325 mg per tablet Take 1 tablet by mouth four times a day as needed for up to 30 days. Patient should start on April 08, 2025. [START ON 03/08/2025] HYDROcodone-Acetaminophen (NORCO) 10-325 mg per tablet Take 1 tablet by mouth four times a day as needed for up to 30 days. Patient should start on March 08, 2025. No current facility-administered medications for this visit. 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 Social History Tobacco Use Smoking status: Former Average packs/day: 0.5 packs/day for 31.6 years (16.2 ttl pk-yrs) Types: Cigarettes Start date: 10/04/1992 Quit date: 10/04/2022 Years since quittin.3 Smokeless tobacco: Never Tobacco comments: Patient mourning loss of . Will discuss at next appointment Vaping Use Vaping status: Never Used Substance Use Topics Alcohol use: Yes Alcohol/week: 14.0 standard drinks of alcohol Types: 14 Shots of liquor per week Drug use: No Review of Systems Constitutional: Negative. Respiratory: Negative. Cardiovascular: Negative. OBJECTIVE BP 104/70 Pulse 77 Wt 163 lb 5.8 oz (74.1kg) SpO2 96% Physical Exam Vitals and nursing note reviewed. Constitutional: General: She is awake. She is not in acute distress. Appearance: Normal appearance. She is well-developed and well-groomed. She is not ill-appearing, toxic-appearing or diaphoretic. HENT: Head: Normocephalic. Right Ear: External ear normal. Left Ear: External ear normal. Nose: Nose normal. Eyes: General: Vision grossly intact. Conjunctiva/sclera: Conjunctivae normal. Pupils: Pupils are equal, round, and reactive to light. Neck: Vascular: No JVD. Trachea: Trachea normal. Cardiovascular: Rate and Rhythm: Normal rate and regular rhythm. Pulses: Normal (more content not included)... [facility] 02-08-2025 History of Present illness Narrative SUBJECTIVE Nancy Jiménez is a 74 year old female here today for a check up on her medical problems. Chief Complaint Patient presents with: Recheck HPI Nancy Jiménez is a 74 year old female. She is an established patient of Stevie Dumas MD. Here today for a routine 2 month follow up. She did quit smoking in October. Overall doing okay, no issues with chest pain, chest tightness or shortness of breath. Breathing doing okay. In regards to medications currently taken for pain management, the patient is tolerating these medications well. No reported side effects. She reports that the medications improve her quality of life and ability to function. She denies misuse, abuse or diversion of medications. Overall her pain is unchanged than the last visit. Her medications were reviewed today and her list is now up to date. Medications Current Outpatient Medications Medication Sig [START ON 03/08/2025] HYDROcodone-Acetaminophen (NORCO) 10-325 mg per tablet Take 1 tablet by mouth four times a day as needed for up to 30 days. Patient should start on March 08, 2025. nitroglycerin sublingual (NITROQUICK) 0.4 mg SL tablet Dissolve 1 tablet under the tongue every 5 minutes as needed for chest pain. Up to 3 times as needed as directed apixaban (ELIQUIS) 5 mg tab(s) Take 1 tablet by mouth two times a day. atorvastatin (LIPITOR) 40 mg tablet Take 1 tablet by mouth once daily. lisinopril (ZESTRIL) 5 mg tablet Take 1 tablet by mouth once daily. metoprolol tartrate, short acting, (LOPRESSOR) 100 mg tablet Take 1 tablet by mouth two times a day. triamcinolone acetonide (KENALOG) 0.1 % cream Apply 1 application to affected area two times a day. Apply sparingly to area for rash/itching. Use for up to 2 weeks Magnesium 250 mg tab Take 250 mg by mouth every other day. aspirin, enteric coated (ASPIRIN, ENTERIC COATED) 81 mg EC tablet Take 1 tablet by mouth once daily. cyanocobalamin (VITAMIN B-12) 1,000 mcg tab Take 1 tablet by mouth once daily. Cholecalciferol, Vitamin D3, 25 mcg (1,000 unit) cap Take 1,000 Units by mouth once daily. [START ON 04/08/2025] HYDROcodone-Acetaminophen (NORCO) 10-325 mg per tablet Take 1 tablet by mouth four times a day as needed for up to 30 days. Patient should start on April 08, 2025. [START ON 03/08/2025] HYDROcodone-Acetaminophen (NORCO) 10-325 mg per tablet Take 1 tablet by mouth four times a day as needed for up to 30 days. Patient should start on March 08, 2025. No current facility-administered medications for this visit. 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 Social History Tobacco Use Smoking status: Former Average packs/day: 0.5 packs/day for 31.6 years (16.2 ttl pk-yrs) Types: Cigarettes Start date: 10/04/1992 Quit date: 10/04/2022 Years since quittin.3 Smokeless tobacco: Never Tobacco comments: Patient mourning loss of . Will discuss at next appointment Vaping Use Vaping status: Never Used Substance Use Topics Alcohol use: Yes Alcohol/week: 14.0 standard drinks of alcohol Types: 14 Shots of liquor per week Drug use: No Review of Systems Constitutional: Negative. Respiratory: Negative. Cardiovascular: Negative. OBJECTIVE BP 104/70 Pulse 77 Wt 163 lb 5.8 oz (74.1kg) SpO2 96% Physical Exam Vitals and nursing note reviewed. Constitutional: General: She is awake. She is not in acute distress. Appearance: Normal appearance. She is well-developed and well-groomed. She is not ill-appearing, toxic-appearing or diaphoretic. HENT: Head: Normocephalic. Right Ear: External ear normal. Left Ear: External ear normal. Nose: Nose normal. Eyes: General: Vision grossly intact. Conjunctiva/sclera: Conjunctivae normal. Pupils: Pupils are equal, round, and reactive to light. Neck: Vascular: No JVD. Trachea: Trachea normal. Cardiovascular: Rate and Rhythm: Normal rate and regular rhythm. Pulses: Normal pulses. Heart sounds: Normal heart sounds. No murmur heard. Pulmonary: Effort: Pulmonary effort is normal. No accessory muscle usage, prolonged expiration or respiratory distress. Breath sounds: Normal breath sounds. Musculoskeletal: Cervical back: Neck supple. Skin: General: Skin is warm and dry. Capillary Refill: Capillary refill takes less than 2 seconds. Neurological: General: No focal deficit present. Mental Status: She is alert and oriented to person, place, and time. Mental status is at baseline. Psychiatric: Attention and Perception: Attention and perception normal. Mood and Affect: Mood and affect normal. Speech: Speech normal. Behavior: Behavior normal. Behavior is cooperative. Thought Content: Thought content normal. Cognition and Memory: Cognition and memory normal. Judgment: Judgment normal. ASSESSMENT/PLAN: 1. Left arm pain, chronic - ICD9: 729.5, ICD10: M79.602 (primary diagnosis) Pain is stable. UDS up to date. OARRS reviewed and script is appropriate, non-opioids considered. Patient is aware of risks and benefits of opioid medications and their use, including but not limited to risk for addiction. Advised to take medication as prescribed and adhere to the dosing regimen and to use the least amount necessary for the shortest period of time. Discussed possible side effects including constipation, cognitive impairment, impaired motor skills (such as driving), sedation, respiratory depression, allergic reaction, misuse, tolerance, addiction, overdose and . Advised to use caution when operating heavy machinery and driving and to never share or sell medication. While opiates are not an ideal treatment for chronic pain, Nancy Jiménez has multiple other pain generators. While across the board there is lack of evidence supporting the use of opiates in chronic pain (mostly because the studies have not been done), decisions to prescribe opiates should be individualized and in this case Nancy Jiménez has showed over the years that in her specific case, they have proven effective in improving her quality of life and ability to function. - HYDROCODONE 10 MG-ACETAMINOPHEN 325 MG TABLET - HYDROCODONE 10 MG-ACETAMINOPHEN 325 MG TABLET 2. Medial epicondylitis of right elbow - ICD9: 726.31, ICD10: M77.01 See above. - HYDROCODONE 10 MG-ACETAMINOPHEN 325 MG TABLET - HYDROCODONE 10 MG-ACETAMINOPHEN 325 MG TABLET 3. Chronic obstructive pulmonary disease, unspecified COPD type (HCC) - ICD9: 496, ICD10: J44.9 Stable. 4. Screening for colon cancer - ICD9: V76.51, ICD10: Z12.11 - COLOGUARD 5. Quit smoking within past year - ICD9: V15.82, ICD10: Z87.891 6. Encounter for therapeutic drug monitoring - ICD9: V58.83, ICD10: Z51.81 - COMPLETE BLOOD COUNT AND DIFFERENTIAL - COMPREHENSIVE METABOLIC PANEL - MAGNESIUM - TOXICOLOGY SCREEN, ROUTINE URINE 7. Hypercholesterolemia - ICD9: 272.0, ICD10: E78.00 - LIPID PANEL, FASTING 8. B12 deficiency - ICD9: 266.2, ICD10: E53.8 - VITAMIN B12 9. Vitamin D deficiency - ICD9: 268.9, ICD10: E55.9 - VITAMIN D 25 HYDROXY 10. Elevated fasting glucose - ICD9: 790.21, ICD10: R73.01 - HEMOGLOBIN A1C Portions of this note have been entered by ancillary staff. I have reviewed and when necessary edited, so that they are an adequate record of my encounter with this patient Please note that parts of this document were created using voice recognition software and therefore may contain grammatical errors. Patient verbalizes understanding of instructions from today's visit and in agreement with treatment plan. Questions answered. Agrees to call the office if questions, concerns of issues with acute symptoms not improving or if they worsen. See diagnoses and orders for additional plan(s). Allergies and medications were reviewed, list was updated, and refills given if needed. Past medical, surgical, social, and family history reviewed and updated as appropriate. Encouraged proper diet & exercise as well as compliance with taking medications. Age-appropriate health preventative measures were discussed. Return if symptoms worsen or fail to improve, for Keep next scheduled appointment.. Graham De Leon APRN-MAYO documented in this encounter [facility] 12-09-2024 Note HNO ID: [id number] Author: STEVIE DUMAS MD Service: ? Author Type: Physician Type: Progress Notes Filed: 01/11/2025 08:28 Note Text: This note was created using NoteWriter. Subjective Nancy Jiménez is a 74 year old female. Patient presents with: Recheck: 2 month follow up Nancy Jiménez is a 74-year-old female with a history of HTN, chronic pain, and A-fib, presenting for medication refills. Nancy requests refills for her medications, including [place] and Eliquis. She has been stable on her current medication regimen for an extended period and inquires about the possibility of extending her follow-up appointments from every 2 months to every 3 months. She reports her blood pressure is well-controlled and denies any significant issues. She experiences occasional lower extremity edema, which she manages by wearing compression stockings. She prefers Tubigrip stockings over nylon ones, as the latter tend to slip in her shoes. She denies any significant increase in swelling or discomfort. Nancy is currently participating in a clinical study to evaluate the feasibility of discontinuing Eliquis. She was randomized to continue taking Eliquis and does not need to see her manager radio for another 2 years, with a follow-up appointment with the nurse practitioner scheduled in 9 months. She recently quit smoking on October 13 and reports that she found it relatively easy to quit by simply deciding to do so. PAST MEDICAL HISTORY Diagnosis Date ANXIETY STATE NOS 10/27/2005 BONE AND CARTILAGE DIS NOS 10/27/2005 osteopenia CAD (coronary artery disease) 11/17/14 s/p PCI to the proximal LAD with a 3.0/18 mm Resolute Integrity DONALDO DEPRESSIVE DISORDER NEC 10/27/2005 Left arm pain 03/15/2014 Medial epicondylitis of right elbow 03/15/2014 Pain in joint, lower leg 03/15/2014 patellofemoral syndrome; also history of ankle fracture /sp surgical repair Tobacco use disorder 05/19/2006 Current Outpatient Medications Medication Sig nitroglycerin sublingual (NITROQUICK) 0.4 mg SL tablet Dissolve 1 tablet under the tongue every 5 minutes as needed for chest pain. Up to 3 times as needed as directed apixaban (ELIQUIS) 5 mg tab(s) Take 1 tablet by mouth two times a day. atorvastatin (LIPITOR) 40 mg tablet Take 1 tablet by mouth once daily. lisinopril (ZESTRIL) 5 mg tablet Take 1 tablet by mouth once daily. metoprolol tartrate, short acting, (LOPRESSOR) 100 mg tablet Take 1 tablet by mouth two times a day. triamcinolone acetonide (KENALOG) 0.1 % cream Apply 1 application to affected area two times a day. Apply sparingly to area for rash/itching. Use for up to 2 weeks Magnesium 250 mg tab Take 250 mg by mouth every other day. aspirin, enteric coated (ASPIRIN, ENTERIC COATED) 81 mg EC tablet Take 1 tablet by mouth once daily. cyanocobalamin (VITAMIN B-12) 1,000 mcg tab Take 1 tablet by mouth once daily. Cholecalciferol, Vitamin D3, 25 mcg (1,000 unit) cap Take 1,000 Units by mouth once daily. [START ON 03/08/2025] HYDROcodone-Acetaminophen (NORCO) 10-325 mg per tablet Take 1 tablet by mouth four times a day as needed for up to 30 days. Patient should start on March 08, 2025. [START ON 02/06/2025] HYDROcodone-Acetaminophen (NORCO) 10-325 mg per tablet Take 1 tablet by mouth four times a day as needed for up to 30 days. Patient should start on February 06, 2025. [START ON 01/07/2025] HYDROcodone-Acetaminophen (NORCO) 10-325 mg per tablet Take 1 tablet by mouth four times a day as needed for up to 30 days. Patient should start on January 07, 2025. No current facility-administered medications for this visit. Review of Systems Objective BP 120/80 Pulse 84 Wt 73 kg (160 lb 15 oz) SpO2 95% BMI 25.21 kg/m? Physical Exam Constitutional: Appearance: Normal appearance. HENT: Head: Normocephalic. Eyes: Conjunctiva/sclera: Conjunctivae normal. Cardiovascular: Rate and Rhythm: Normal rate and regular rhythm. Heart sounds: Normal heart sounds. Pulmonary: Effort: Pulmonary effort is normal. Breath sounds: Normal breath sounds. Musculoskeletal: Right lower leg: Edema present. Left lower leg: Edema present. Skin: General: Skin is warm and dry. Neurological: General: No focal deficit present. Mental Status: She is alert and oriented to person, place, and time. Psychiatric: Mood and Affect: Mood normal. Behavior: Behavior normal. Thought Content: Thought content normal. Judgment: Judgment normal. Assessment and Plan # Left arm pain (M79.602) # Medial epicondylitis of right elbow (M77.01) Stable pain control with current medication management # Bilateral lower extremity edema (R60.0) - Mild edema, no significant discomfort reported. - Patient using Tubigrip compression stockings; advised on benefits of continued use. # Nicotine dependence, cigarettes, in remission (F17.211) - Successfully quit smoking on October 13. - Congratulated patient on cessation. # Long (more content not included)... [facility] 12-09-2024 History of Present illness Narrative This note was created using NoteWriter. Subjective Nancy Jiménez is a 74 year old female. Patient presents with: Recheck: 2 month follow up Nancy Jiménez is a 74-year-old female with a history of HTN, chronic pain, and A-fib, presenting for medication refills. Nancy requests refills for her medications, including [place] and Eliquis. She has been stable on her current medication regimen for an extended period and inquires about the possibility of extending her follow-up appointments from every 2 months to every 3 months. She reports her blood pressure is well-controlled and denies any significant issues. She experiences occasional lower extremity edema, which she manages by wearing compression stockings. She prefers Tubigrip stockings over nylon ones, as the latter tend to slip in her shoes. She denies any significant increase in swelling or discomfort. Nancy is currently participating in a clinical study to evaluate the feasibility of discontinuing Eliquis. She was randomized to continue taking Eliquis and does not need to see her manager radio for another 2 years, with a follow-up appointment with the nurse practitioner scheduled in 9 months. She recently quit smoking on October 13 and reports that she found it relatively easy to quit by simply deciding to do so. PAST MEDICAL HISTORY Diagnosis Date ANXIETY STATE NOS 10/27/2005 BONE & CARTILAGE DIS NOS 10/27/2005 osteopenia CAD (coronary artery disease) 11/17/14 s/p PCI to the proximal LAD with a 3.0/18 mm Resolute Integrity DONALDO DEPRESSIVE DISORDER NEC 10/27/2005 Left arm pain 03/15/2014 Medial epicondylitis of right elbow 03/15/2014 Pain in joint, lower leg 03/15/2014 patellofemoral syndrome; also history of ankle fracture /sp surgical repair Tobacco use disorder 05/19/2006 Current Outpatient Medications Medication Sig nitroglycerin sublingual (NITROQUICK) 0.4 mg SL tablet Dissolve 1 tablet under the tongue every 5 minutes as needed for chest pain. Up to 3 times as needed as directed apixaban (ELIQUIS) 5 mg tab(s) Take 1 tablet by mouth two times a day. atorvastatin (LIPITOR) 40 mg tablet Take 1 tablet by mouth once daily. lisinopril (ZESTRIL) 5 mg tablet Take 1 tablet by mouth once daily. metoprolol tartrate, short acting, (LOPRESSOR) 100 mg tablet Take 1 tablet by mouth two times a day. triamcinolone acetonide (KENALOG) 0.1 % cream Apply 1 application to affected area two times a day. Apply sparingly to area for rash/itching. Use for up to 2 weeks Magnesium 250 mg tab Take 250 mg by mouth every other day. aspirin, enteric coated (ASPIRIN, ENTERIC COATED) 81 mg EC tablet Take 1 tablet by mouth once daily. cyanocobalamin (VITAMIN B-12) 1,000 mcg tab Take 1 tablet by mouth once daily. Cholecalciferol, Vitamin D3, 25 mcg (1,000 unit) cap Take 1,000 Units by mouth once daily. [START ON 03/08/2025] HYDROcodone-Acetaminophen (NORCO) 10-325 mg per tablet Take 1 tablet by mouth four times a day as needed for up to 30 days. Patient should start on March 08, 2025. [START ON 02/06/2025] HYDROcodone-Acetaminophen (NORCO) 10-325 mg per tablet Take 1 tablet by mouth four times a day as needed for up to 30 days. Patient should start on February 06, 2025. [START ON 01/07/2025] HYDROcodone-Acetaminophen (NORCO) 10-325 mg per tablet Take 1 tablet by mouth four times a day as needed for up to 30 days. Patient should start on January 07, 2025. No current facility-administered medications for this visit. Review of Systems Objective BP 120/80 Pulse 84 Wt 73 kg (160 lb 15 oz) SpO2 95% BMI 25.21 kg/m Physical Exam Constitutional: Appearance: Normal appearance. HENT: Head: Normocephalic. Eyes: Conjunctiva/sclera: Conjunctivae normal. Cardiovascular: Rate and Rhythm: Normal rate and regular rhythm. Heart sounds: Normal heart sounds. Pulmonary: Effort: Pulmonary effort is normal. Breath sounds: Normal breath sounds. Musculoskeletal: Right lower leg: Edema present. Left lower leg: Edema present. Skin: General: Skin is warm and dry. Neurological: General: No focal deficit present. Mental Status: She is alert and oriented to person, place, and time. Psychiatric: Mood and Affect: Mood normal. Behavior: Behavior normal. Thought Content: Thought content normal. Judgment: Judgment normal. Assessment and Plan # Left arm pain (M79.602) # Medial epicondylitis of right elbow (M77.01) Stable pain control with current medication management # Bilateral lower extremity edema (R60.0) - Mild edema, no significant discomfort reported. - Patient using Tubigrip compression stockings; advised on benefits of continued use. # Nicotine dependence, cigarettes, in remission (F17.211) - Successfully quit smoking on October 13. - Congratulated patient on cessation. # retirement (current) use of anticoagulants (Z79.01) # Atrial fibrillation, unspecified type (HCC) (I48.91) - Patient is part of a study evaluating the use of an Apple Watch for AFib monitoring; currently randomized to continue Eliquis. - Next follow-up with cardiology [employer] in 9 months. Stable with control of chronic pain . No signs of diversion or abuse of medication(s); no adverse effects. At this time benefits outweigh risks. Continue to monitor for adverse effects and indications for decreasing dose or tapering off. Continue present management. The patient consented to the use of [employer] software for draft documentation of the visit consistent with [facility] s Notice of Privacy Practices. Stevie Dumas MD documented in this encounter [facility] 11-08-2024 Evaluation note Diagnosis Onset Date Resolution PAF (paroxysmal atrial fibrillation) acute November 08, 2024 1:19pm Essential hypertension chronic November 08, 2024 1:19pm History of coronary artery stent placement November 17, 2014 chronic November 08, 2024 1:19pm HLD (hyperlipidemia) chronic November 08, 2024 1:19pm Encounter for screening for malignant neoplasm of lung acute November 15, 2024 12:53pm History of tobacco abuse acute November 15, 2024 12:53pm [facility] Work Phone: [phone]) 935-472901-27-2025 Instructions* Patient Instructions* Stevie Dumas MD - 11/07/2024 9:53 AM EST - Continue taking Metoprolol, Lisinopril, Lipitor, and Eliquis as prescribed. - Use Kenalog cream intermittently for itchy rashes as needed. 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 - Hydrocodone prescriptions are updated for December 08 and January 07. - Next appointment on December 09. [facility] History of Present illness Narrative* Stevie Dumas MD - 11/07/2024 9:20 AM EST This note was created using Infogramriter. Subjective Nancy Jiménez is a 73 year old female. Patient presents with: F/U 2 month SUBJECTIVE: Nancy Jiménez is a 73 year old year old lady here today for 6 month follow up appointment for reviewof medical conditions.Nancy Jiménez is a 73-year-old female with a history of HTN, hypercholesterolemia, and chronic pain, presenting for follow-up. Nancy reports stable health status and does not have any new concerns. She is currently taking metoprolol, lisinopril, atorvastatin, and apixaban, which were refilled on the . She also uses Kenalog cream intermittently for pruritic rashes, with the last refill in August. She has a prescriptionfor nitroglycerin, last filled in February of last year, but has not used it for years. She requests a refill to have on hand. Nancy is also taking hydrocodone for chronic pain, which is effective in managing her pain and allowing her to stay active. She denies any issues with constipation related to the medication. She recently quit smoking this month, stating that she simply decided she was done and has not smoked since finishing her last pack. PAST MEDICAL HISTORY Diagnosis Date ANXIETY STATE NOS 10/27/2005 BONE & CARTILAGE DIS NOS 10/27/2005 osteopenia CAD (coronary artery disease) 11/17/14 s/p PCI to the proximal LAD with a 3.0/18 mm Resolute Integrity DONALDO DEPRESSIVE DISORDER NEC 10/27/2005 Left arm pain 03/15/2014 Medial epicondylitis of right elbow 03/15/2014 Pain in joint, lower leg 03/15/2014 patellofemoral syndrome; also history of ankle fracture /sp surgical repair Tobacco use disorder 05/19/2006 Current Outpatient Medications Medication Sig apixaban (ELIQUIS) 5 mg tab(s) Take 1 tablet by mouth two times a day. atorvastatin (LIPITOR) 40 mg tablet Take 1 tablet by mouth once daily. lisinopril (ZESTRIL) 5 mg tablet Take 1 tablet by mouth once daily. metoprolol tartrate, short acting, (LOPRESSOR) 100 mg tablet Take 1 tablet by mouth two times a day. HYDROcodone-Acetaminophen (NORCO) 10-325 mg per tablet Take 1 tablet by mouth four times a day as needed for up to 30 days. triamcinolone acetonide (KENALOG) 0.1 % cream Apply 1 application to affected area two times a day.Apply sparingly to area for rash/itching. Use for up to 2 weeks HYDROcodone-Acetaminophen (NORCO) 10-325 mg per tablet Take 1 tablet by mouth four times a day as needed for up to 30 days. Patient should start on October 09, 2024. [START ON 11/08/2024] HYDROcodone-Acetaminophen (NORCO) 10-325 mg per tablet Take 1 tablet by mouth four times a day as needed for up to 30 days. Patient should start on November 08, 2024. nitroglycerin sublingual (NITROQUICK) 0.4 mg SL tablet Dissolve 1 tablet under the tongue every 5 minutes as needed for chest pain. Up to 3 times as needed as directed Magnesium 250 mg tab Take 250 mg by mouth every other day. aspirin, enteric coated (ASPIRIN, ENTERIC COATED) 81 mg EC tablet Take 1 tablet by mouth once daily. cyanocobalamin (VITAMIN B-12) 1,000 mcg tab Take 1 tablet by mouth once daily. Cholecalciferol, Vitamin D3, 25 mcg (1,000 unit) cap Take 1,000 Units by mouth once daily. No current facility-administered medications for this visit. Review of Systems Objective BP 132/86 Pulse 65 Temp (!) 35.8 C (96.4 F) Resp 16 Wt 72.2 kg (159 lb 2.8 oz) SpO2 97% BMI 24.93 kg/m Last 5 Encounter Wt Readings: Date: Wt: 11/07/2024 72.2 kg (159 lb 2.8 oz) 09/05/2024 72.8 kg (160 lb 7.9 oz) 07/13/2024 70.7 kg (155 lb 13.8 oz) 05/13/2024 72.2 kg (159 lb 2.8 oz) 03/08/2024 73 kg (161 lb) No waist measurement recorded Estimated body mass index is 24.93 kg/m as calculated from the following: Height as of 05/13/24: 170.2 cm (5' 7). Weight as of this encounter: 72.2 kg (159 lb 2.8 oz). Last 5 Encounter BP Readings: Date: BP: 11/07/2024 132/86 09/05/2024 126/74 07/13/2024 122/76 05/13/2024 110/62 03/08/2024 128/78 Physical Exam Constitutional: Appearance: Normal appearance. HENT: Head: Normocephalic. Eyes: Conjunctiva/sclera: Conjunctivae normal. Cardiovascular: Rate and Rhythm: Normal rate and regular rhythm. Heart sounds: Normal heart sounds. Pulmonary: Effort: Pulmonary effort is normal. Breath sounds: Normal breath sounds. Musculoskeletal: Right lower leg: No edema. Left lower leg: No edema. Skin: General: Skin is warm and dry. Neurological: General: No focal deficit present. Mental Status: She is alert and oriented to person, place, and time. Psychiatric: Mood and Affect: Mood normal. Behavior: Behavior normal. Thought Content: Thought content normal. Judgment: Judgment normal. Assessment and Plan # Medial epicondylitis of right elbow (M77.01) - Condition is stable. # Left arm pain (M79.602) - Condition is stable. # Coronary artery disease involving shinnecock coronary artery 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 (I25.10) - Condition is stable. - Refilled nitroglycerin prescription to ensure availability. [facility] NoteHNO ID: [id number] Author: STEVIE DUMAS MD Service: ? Author Type: Physician Type: Progress Notes Filed: 11/07/2024 09:53 Note Text: This note was created using NoteWriter. Subjective Nancy Jiménez is a 73 year old female. Patient presents with: F/U 2 month SUBJECTIVE: Nancy Jiménez is a 73 year old year old lady here today for 6 month follow up appointment for review of medical conditions.Nancy Jiménez is a 73-year-old female with a history of HTN, hypercholesterolemia, and chronic pain, presenting for follow-up. Nancy reports stable health status and does not have any new concerns. She is currently taking metoprolol, lisinopril, atorvastatin, and apixaban, which were refilled on the . She also uses Kenalog cream intermittently for pruritic rashes, with the last refill in August. She has a prescription for nitroglycerin, last filled in February of last year, but has not used it for years. She requests a refill to have on hand. Nancy is also taking hydrocodone for chronic pain, which is effective in managing her pain and allowing her to stay active. She denies any issues with constipation related to the medication. She recently quit smoking this month, stating that she simply decided she was done and has not smoked since finishing her last pack. PAST MEDICAL HISTORY Diagnosis Date ANXIETY STATE NOS 10/27/2005 BONE AND CARTILAGE DIS NOS 10/27/2005 osteopenia CAD (coronary artery disease) 11/17/14 s/p PCI to the proximal LAD with a 3.0/18 mm Resolute Integrity DONALDO DEPRESSIVE DISORDER NEC 10/27/2005 Left arm pain 03/15/2014 Medial epicondylitis of right elbow 03/15/2014 Pain in joint, lower leg 03/15/2014 patellofemoral syndrome; also history of ankle fracture /sp surgical repair Tobacco use disorder 05/19/2006 Current Outpatient Medications Medication Sig apixaban (ELIQUIS) 5 mg tab(s) Take 1 tablet by mouth two times a day. atorvastatin (LIPITOR) 40 mg tablet Take 1 tablet by mouth once daily. lisinopril (ZESTRIL) 5 mg tablet Take 1 tablet by mouth once daily. metoprolol tartrate, short acting, (LOPRESSOR) 100 mg tablet Take 1 tablet by mouth two times a day. HYDROcodone-Acetaminophen (NORCO) 10-325 mg per tablet Take 1 tablet by mouth four times a day as needed for up to 30 days. triamcinolone acetonide (KENALOG) 0.1 % cream Apply 1 application to affected area two times a day. Apply sparingly to area for rash/itching. Use for up to 2 weeks HYDROcodone-Acetaminophen (NORCO) 10-325 mg per tablet Take 1 tablet by mouth four times a day as needed for up to 30 days. Patient should start on October 09, 2024. [START ON 11/08/2024] HYDROcodone-Acetaminophen (NORCO) 10-325 mg per tablet Take 1 tablet by mouth four times a day as needed for up to 30 days. Patient should start on November 08, 2024. nitroglycerin sublingual (NITROQUICK) 0.4 mg SL tablet Dissolve 1 tablet under the tongue every 5 minutes as needed for chest pain. Up to 3 times as needed as directed Magnesium 250 mg tab Take 250 mg by mouth every other day. aspirin, enteric coated (ASPIRIN, ENTERIC COATED) 81 mg EC tablet Take 1 tablet by mouth once daily. cyanocobalamin (VITAMIN B-12) 1,000 mcg tab Take 1 tablet by mouth once daily. Cholecalciferol, Vitamin D3, 25 mcg (1,000 unit) cap Take 1,000 Units by mouth once daily. No current facility-administered medications for this visit. Review of Systems Objective BP 132/86 Pulse 65 Temp (!) 35.8 ?C (96.4 ?F) Resp 16 Wt 72.2 kg (159 lb 2.8 oz) SpO2 97% BMI 24.93 kg/m? Last 5 Encounter Wt Readings: Date: Wt: 11/07/2024 72.2 kg (159 lb 2.8 oz) 09/05/2024 72.8 kg (160 lb 7.9 oz) 07/13/2024 70.7 kg (155 lb 13.8 oz) 05/13/2024 72.2 kg (159 lb 2.8 oz) 03/08/2024 73 kg (161 lb) No waist measurement recorded Estimated body mass index is 24.93 kg/m? as calculated from the following: Height as of 05/13/24: 170.2 cm (5' 7). Weight as of this encounter: 72.2 kg (159 lb 2.8 oz). Last 5 Encounter BP Readings: Date: BP: 11/07/2024 132/86 09/05/2024 126/74 07/13/2024 122/76 05/13/2024 110/62 03/08/2024 128/78 Physical Exam Constitutional: Appearance: Normal appearance. HENT: Head: Normocephalic. Eyes: Conjunctiva/sclera: Conjunctivae normal. Cardiovascular: Rate and Rhythm: Normal rate and regular rhythm. Heart sounds: Normal heart sounds. Pulmonary: Effort: Pulmonary effort is normal. Breath sounds: Normal breath sounds. Musculoskeletal: Right lower leg: No edema. Left lower leg: No edema. Skin: General: Skin is warm and dry. Neurological: General: No focal deficit present. Mental Status: She is alert and oriented to person, place, and time. Psychiatric: Mood and Affect: Mood normal. Behavior: Behavior normal. Thought Content: Thought content normal. Judgment: Judgment normal. Assessment and Plan # Medial epicondylitis of right elbow (M77.01) - Condition is stable. # Left arm pain (M79.602) (more content not included)...[facility]01-08-2025 Telephone encounter Note* Telephone Encounter - Stevie Dumas MD - 10/19/2024 5:57 PM EST The following approved medication requests have been transmitted electronically. Requested Prescriptions Pending Prescriptions Disp Refills apixaban (ELIQUIS) 5 mg tab(s) 180 tablet 3 Sig: Take 1 tablet by mouth two times a day. atorvastatin (LIPITOR) 40 mg tablet 90 tablet 3 Sig: Take 1 tablet by mouth once daily. lisinopril (ZESTRIL) 5 mg tablet 90 tablet 3 Sig: Take 1 tablet by mouth once daily. metoprolol tartrate, short acting, (LOPRESSOR) 100 mg tablet 180 tablet 3 Sig: Take 1 tablet by mouth two times a day. Stevie Dumas MD [facility]01-08-2025 Miscellaneous Notes* Telephone Encounter - Stevie Dumas MD - 10/19/2024 5:57 PM EST The following approved medication requests have been transmitted electronically. Requested Prescriptions Pending Prescriptions Disp Refills apixaban (ELIQUIS) 5 mg tab(s) 180 tablet 3 Sig: Take 1 tablet by mouth two times a day. atorvastatin (LIPITOR) 40 mg tablet 90 tablet 3 Sig: Take 1 tablet by mouth once daily. lisinopril (ZESTRIL) 5 mg tablet 90 tablet 3 Sig: Take 1 tablet by mouth once daily. metoprolol tartrate, short acting, (LOPRESSOR) 100 mg tablet 180 tablet 3 Sig: Take 1 tablet by mouth two times a day. Stevie Dumas MD * Telephone Encounter - Kami Freeman LPN - 10/19/2024 5:20 PM EST Printed encounter for Provider to address. Kami Freeman LPN * Telephone Encounter - Chelsea Lockwood RN - 10/19/2024 9:10 AM EST Patient calls and states that she switched insurance and now medications need to be sent to [facility]. Please send prescription there. The patient has been identified by name and date of : Yes Caregiver verified no other encounters exist for this prescription request: Yes Caregiver confirmed with patient/requestor that no other refills are due, in the near future, with this provider at this time: Yes The last office visit in the department: 09/05/2024 Does the patient have a future office visit with this provider/department: Yes 11/07/2024 Requested Prescriptions Pending Prescriptions Disp Refills apixaban (ELIQUIS) 5 mg tab(s) 180 tablet 3 Sig: Take 1 tablet by mouth two times a day. atorvastatin (LIPITOR) 40 mg tablet 90 tablet 3 Sig: Take 1 tablet by mouth once daily. lisinopril (ZESTRIL) 5 mg tablet 90 tablet 3 Sig: Take 1 tablet by mouth once daily. metoprolol tartrate, short acting, (LOPRESSOR) 100 mg tablet 180 tablet 3 Sig: Take 1 tablet by mouth two times a day. Chelsea Lockwood RN October 19, 2024 9:14 AM documented in [facility] Telephone encounter Note * Telephone Encounter - Kami Freeman LPN - 10/19/2024 5:20 PM EST Printed encounter for Provider to address. Kami Freeman LPN [facility]01-08-2025 Telephone encounter Note* Telephone Encounter - Chelsea Lockwood RN - 10/19/2024 9:10 AM EST Patient calls and states that she switched insurance and now medications need to be sent to [facility]. Please send prescription there. The patient has been identified by name and date of : Yes Caregiver verified no other encounters exist for this prescription request: Yes Caregiver confirmed with patient/requestor that no other refills are due, in the near future, with this provider at this time: Yes The last office visit in the department: 09/05/2024 Does the patient have a future office visit with this provider/department: Yes 11/07/2024 Requested Prescriptions Pending Prescriptions Disp Refills apixaban (ELIQUIS) 5 mg tab(s) 180 tablet 3 Sig: Take 1 tablet by mouth two times a day. atorvastatin (LIPITOR) 40 mg tablet 90 tablet 3 Sig: Take 1 tablet by mouth once daily. lisinopril (ZESTRIL) 5 mg tablet 90 tablet 3 Sig: Take 1 tablet by mouth once daily. metoprolol tartrate, short acting, (LOPRESSOR) 100 mg tablet 180 tablet 3 Sig: Take 1 tablet by mouth two times a day. Chelsea Lockwood RN October 19, 2024 9:14 AM [facility]11-29-[facility] Telephone encounter Note* Telephone Encounter - Stevie Dumas MD - 09/09/2024 9:59 AM EST RX for 09/09 on her medlist. Sent again The following approved medication requests have been transmitted electronically. Requested Prescriptions Signed Prescriptions Disp Refills HYDROcodone-Acetaminophen (NORCO) 10-325 mg per tablet 120 tablet 0 Sig: Take 1 tablet by mouth four times a day as needed for up to 30 days. Authorizing Provider: STEVIE DUMAS MD [facility]11-29-2024 Miscellaneous Notes* Telephone Encounter - Stevie Dumas MD - 09/09/2024 9:59 AM EST RX for 09/09 on her medlist. Sent again The following approved medication requests have been transmitted electronically. Requested Prescriptions Signed Prescriptions Disp Refills HYDROcodone-Acetaminophen (NORCO) 10-325 mg per tablet 120 tablet 0 Sig: Take 1 tablet by mouth four times a day as needed for up to 30 days. Authorizing Provider: STEVIE DUMAS MD * Telephone Encounter - Laurel Leach RN - 09/09/2024 9:33 AM EST Patient calling and states 3 prescriptions (Aug, Sep, Oct) were to be sent to [facility] for her [place]. [facility] did not receive her August script, but did receive Sep and Oct. This nurse confirmed this with [facility] pharmacist. Patient asking if Dr. Dumas would resend her August [place] script so she can pick it up today. No call back needed to patient if PCP able to complete this request. Thank you. documented in [facility] encounter[facility]11-29-2024 Telephone encounter Note * Telephone Encounter - Laurel Leach RN - 09/09/2024 9:33 AM EST Patient calling and states 3 prescriptions (Aug, Sep, Oct) were to be sent to [facility] for her [place]. [facility] did not receive her August script, but did receive Sep and Oct. This nurse confirmed this with [facility] pharmacist. Patient asking if Dr. Dumas would resend her August [place] script so she can pick it up today. No call back needed to patient if PCP able to complete this request. Thank you. [facility]11-27-[facility]24 History of Present illness Narrative* Astrid Dao RT(R) - 09/07/2024 2:00 PM EST Radiology Service Progress Note PATIENT NAME: Nancy Jiménez DATE OF SERVICE: September 07, 2024 TIME: 1:38 PM PATIENT IDENTITY VERIFICATION COMPLETED USING TWO (2) IDENTIFIERS: Name and Date of confirmedby patient verbally. FALL SCREENING: Has the patient had 2 falls in the last year or 1 fall with injury or currently using an Ambulatory Assistive Device (Walker, Cane, Wheelchair, Crutches, etc.)? No PATIENT GENDER DATA: Female. status: : No status: NO. PATIENT RELEVANT IMPLANT DATA REVIEWED: Yes PATIENT PRESENTS WITH AN IMPLANTABLE OR ATTACHED ANIMAL KEEPER: No RADIOLOGY DEPARTMENT: Mammography PERIPHERAL IV DATA: Not applicable SIGNED BY: RT Rick(R) September 07, 2024 1:38 PM documented in this encounterMem[facility]11-27-2024 NoteHNO ID: [id number] Author: ASTRID DOA RT(R) Service: Radiology Author Type: Charrer Type: Progress Notes Filed: 09/07/2024 13:38 Note Text: Radiology Service Progress Note PATIENT NAME: Nancy Jiménez DATE OF SERVICE: September 07, 2024 TIME: 1:38 PM PATIENT IDENTITY VERIFICATION COMPLETED USING TWO (2) IDENTIFIERS: Name and Date of confirmed by patient verbally. FALL SCREENING: Has the patient had 2 falls in the last year or 1 fall with injury or currently using an Ambulatory Assistive Device (Walker, Cane, Wheelchair, Crutches, etc.)? No PATIENT GENDER DATA: Female. status: : No status: NO. PATIENT RELEVANT IMPLANT DATA REVIEWED: Yes PATIENT PRESENTS WITH AN IMPLANTABLE OR ATTACHED ANIMAL KEEPER: No RADIOLOGY DEPARTMENT: Mammography PERIPHERAL IV DATA: Not applicable SIGNED BY: RT Rick(R) September 07, 2024 1:38 [facility]11-25-2024 History of Present illness Narrative* Stevie Dumas MD - 09/05/2024 1:40 PM EST This note was created using Infogramriter. Subjective Nancy Jiménez is a 73 year old female. No chief complaint on file. SUBJECTIVE: Nancy Jiménez is a 73 year old year old lady here today for 2 month follow up appointment for reviewof medical conditions. Nancy Jiménez is a 73-year-old female with a history of HTN, HLD, and atrial fibrillation, presenting for a 2-month follow-up and evaluation of a rash on her hands and ankles. Nancy reports a 1-2 week history of a non-pruritic, erythematous rash on both hands, worse on the right, and on her ankles. The rash is not painful but is associated with dryness. She has been using various lotions, including Aquaphor, Aveeno, and an old cocoa butter lotion, to manage the dryness. She denies any new soaps or lotions that could have triggered the rash. She occasionally washes dishes with Ed[place]ige dish soap. She also reports swelling in her ankles, making it difficult to bend her toes. She has been advisedto wear compression socks by her spanish instructor, who also recommended using Prism felt to fill in a small hole on her left ankle. She was previously using hydrocortisone for 2 weeks but has since switched to Aquaphor as per her spanish instructor's advice. She admits to picking at the skin on her left ankle, which she knows she should avoid. Additionally, she has a history of an irritated ear for which she was prescribed triamcinolone. Shenotes that the ear irritation has improved a touch but is not completely resolved. She has a follow-up mammogram scheduled at [facility] on Thursday due to an abnormal finding in herAugust mammogram. She has experienced multiple cancellations and rescheduling of her mammogram appointments due to various issues, including computer problems. She is also switching insurance companies in October, which will require her to use a mail-order pharmacy for her medications, including metoprolol, lisinopril, Eliquis, and Lipitor. She is currentlypaying $131 a month for Eliquis and expects to pay $86 a month for the new prescription plan, with a 3-month supply of Eliquis costing $126. She anticipates that her hydrocodone will be more expensive under the new plan. PAST MEDICAL HISTORY Diagnosis Date ANXIETY STATE NOS 10/27/2005 BONE & CARTILAGE DIS NOS 10/27/2005 osteopenia CAD (coronary artery disease) 11/17/14 s/p PCI to the proximal LAD with a 3.0/18 mm Resolute Integrity DONALDO DEPRESSIVE DISORDER NEC 10/27/2005 Left arm pain 03/15/2014 Medial epicondylitis of right elbow 03/15/2014 Pain in joint, lower leg 03/15/2014 patellofemoral syndrome; also history of ankle fracture /sp surgical repair Tobacco use disorder 05/19/2006 Current Outpatient Medications Medication Sig atorvastatin (LIPITOR) 40 mg tablet Take 1 tablet by mouth once daily. lisinopril (ZESTRIL) 5 mg tablet Take 1 tablet by mouth once daily. metoprolol tartrate, short acting, (LOPRESSOR) 100 mg tablet Take 1 tablet by mouth two times a day. [START ON 09/09/2024] HYDROcodone-Acetaminophen (NORCO) 10-325 mg per tablet Take 1 tablet by mouthfour times a day as needed for up to 30 days. Patient should start on September 09, 2024. triamcinolone acetonide (KENALOG) 0.1 % cream Apply 1 application to affected area two times a day.Apply sparingly to area for rash/itching. Use for up to 2 weeks apixaban (ELIQUIS) 5 mg tab(s) Take 1 tablet by mouth two times a day. HYDROcodone-Acetaminophen (NORCO) 10-325 mg per tablet Take 1 tablet by mouth four times a day as needed for up to 30 days. Patient should start on August 10, 2024. HYDROcodone-Acetaminophen (NORCO) 10-325 mg per tablet Take 1 tablet by mouth four times a day as needed for up to 30 days. Patient should start on July 11, 2024. nitroglycerin sublingual (NITROQUICK) 0.4 mg SL tablet Dissolve 1 tablet under the tongue every 5 minutes as needed for chest pain. Up to 3 times as needed as directed Magnesium 250 mg tab Take 250 mg by mouth every other day. aspirin, enteric coated (ASPIRIN, ENTERIC COATED) 81 mg EC tablet Take 1 tablet by mouth once daily. cyanocobalamin (VITAMIN B-12) 1,000 mcg tab Take 1 tablet by mouth once daily. Cholecalciferol, Vitamin D3, 25 mcg (1,000 unit) cap Take 1,000 Units by mouth once daily. No current facility-administered medications for this visit. Review of Systems Objective BP 126/74 Pulse 67 Resp 16 Wt 72.8 kg (160 lb 7.9 oz) SpO2 98% BMI 25.14 kg/m Physical Exam Constitutional: Appearance: Normal appearance. HENT: Head: Normocephalic. Eyes: Conjunctiva/sclera: Conjunctivae normal. Cardiovascular: Rate and Rhythm: Normal rate and regular rhythm. Heart sounds: Normal heart sounds. Pulmonary: Effort: Pulmonary effort is normal. Breath sounds: Normal breath sounds. Musculoskeletal: Left lower leg: Edema present. Skin: General: Skin is warm and dry. Findings: Rash (Red papular rash on both hands, more on right. --looks like smal red dots. Also irritated area on lateral ankles under bandaid covering ulcer type wound) present. Neurological: General: No focal deficit present. Mental Status: She is alert and oriented to person, place, and time. Psychiatric: Mood and Affect: Mood normal. Behavior: Behavior normal. Thought Content: Thought content normal. Judgment: Judgment normal. Assessment and Plan # Hand dermatitis (L30.9) # Dry skin (L85.3) - Erythematous, patchy dermatitis on bilateral hands, worse on the right; associated with xerosis. - Initiated triamcinolone cream, medium potency, applied topically to affected areas BID. - Discontinue use of old lotions; recommended Aveeno followed by a thin layer of Aquaphor to lock in moisture. - Advised to avoid direct contact with dish soap; use gloves or environmental protection inspector. - Increase oral hydration and dietary intake of healthy fats and oils to improve skin health. # Left arm pain (M79.602) # Medial epicondylitis of right elbow (M77.01) Continue on meds for chronic pain.--hydrocodone. Effective without adverse effects. # Dermatitis of external ear (L30.9) - Persistent thickening and nodular formation observed on the right external ear. - Continue application of triamcinolone cream to the affected area. - Referral to dermatology for further evaluation if no improvement. # Need for vaccination (Z23) - COVID-19 vaccine administered. Stevie Dumas MD documented in this encounterMem[facility]11-25-[facility]24 NoteHNO ID: [id number] Author: STEVIE DUMAS MD Service: ? Author Type: Physician Type: Progress Notes Filed: 09/05/2024 15:30 Note Text: This note was created using TweetUpter. Subjective Nancy Jiménez is a 73 year old female. No chief complaint on file. SUBJECTIVE: Nancy Jiménez is a 73 year old year old lady here today for 2 month follow up appointment for review of medical conditions. Nancy Jiménez is a 73-year-old female with a history of HTN, HLD, and atrial fibrillation, presenting for a 2-month follow-up and evaluation of a rash on her hands and ankles. Nancy reports a 1-2 week history of a non-pruritic, erythematous rash on both hands, worse on the right, and on her ankles. The rash is not painful but is associated with dryness. She has been using various lotions, including Aquaphor, Aveeno, and an old cocoa butter lotion, to manage the dryness. She denies any new soaps or lotions that could have triggered the rash. She occasionally washes dishes with Edwige dish soap. She also reports swelling in her ankles, making it difficult to bend her toes. She has been advised to wear compression socks by her spanish instructor, who also recommended using Prism felt to fill in a small hole on her left ankle. She was previously using hydrocortisone for 2 weeks but has since switched to Aquaphor as per her spanish instructor's advice. She admits to picking at the skin on her left ankle, which she knows she should avoid. Additionally, she has a history of an irritated ear for which she was prescribed triamcinolone. She notes that the ear irritation has improved a touch but is not completely resolved. She has a follow-up mammogram scheduled at [place] on Thursday due to an abnormal finding in her May mammogram. She has experienced multiple cancellations and rescheduling of her mammogram appointments due to various issues, including computer problems. She is also switching insurance companies in October, which will require her to use a mail-order pharmacy for her medications, including metoprolol, lisinopril, Eliquis, and Lipitor. She is currently paying $131 a month for Eliquis and expects to pay $86 a month for the new prescription plan, with a 3-month supply of Eliquis costing $126. She anticipates that her hydrocodone will be more expensive under the new plan. PAST MEDICAL HISTORY Diagnosis Date ANXIETY STATE NOS 10/27/2005 BONE AND CARTILAGE DIS NOS 10/27/2005 osteopenia CAD (coronary artery disease) 11/17/14 s/p PCI to the proximal LAD with a 3.0/18 mm Resolute Integrity DONALDO DEPRESSIVE DISORDER NEC 10/27/2005 Left arm pain 03/15/2014 Medial epicondylitis of right elbow 03/15/2014 Pain in joint, lower leg 03/15/2014 patellofemoral syndrome; also history of ankle fracture /sp surgical repair Tobacco use disorder 05/19/2006 Current Outpatient Medications Medication Sig atorvastatin (LIPITOR) 40 mg tablet Take 1 tablet by mouth once daily. lisinopril (ZESTRIL) 5 mg tablet Take 1 tablet by mouth once daily. metoprolol tartrate, short acting, (LOPRESSOR) 100 mg tablet Take 1 tablet by mouth two times a day. [START ON 09/09/2024] HYDROcodone-Acetaminophen (NORCO) 10-325 mg per tablet Take 1 tablet by mouth four times a day as needed for up to 30 days. Patient should start on September 09, 2024. triamcinolone acetonide (KENALOG) 0.1 % cream Apply 1 application to affected area two times a day. Apply sparingly to area for rash/itching. Use for up to 2 weeks apixaban (ELIQUIS) 5 mg tab(s) Take 1 tablet by mouth two times a day. HYDROcodone-Acetaminophen (NORCO) 10-325 mg per tablet Take 1 tablet by mouth four times a day as needed for up to 30 days. Patient should start on August 10, 2024. HYDROcodone-Acetaminophen (NORCO) 10-325 mg per tablet Take 1 tablet by mouth four times a day as needed for up to 30 days. Patient should start on July 11, 2024. nitroglycerin sublingual (NITROQUICK) 0.4 mg SL tablet Dissolve 1 tablet under the tongue every 5 minutes as needed for chest pain. Up to 3 times as needed as directed Magnesium 250 mg tab Take 250 mg by mouth every other day. aspirin, enteric coated (ASPIRIN, ENTERIC COATED) 81 mg EC tablet Take 1 tablet by mouth once daily. cyanocobalamin (VITAMIN B-12) 1,000 mcg tab Take 1 tablet by mouth once daily. Cholecalciferol, Vitamin D3, 25 mcg (1,000 unit) cap Take 1,000 Units by mouth once daily. No current facility-administered medications for this visit. Review of Systems Objective BP 126/74 Pulse 67 Resp 16 Wt 72.8 kg (160 lb 7.9 oz) SpO2 98% BMI 25.14 kg/m? Physical Exam Constitutional: Appearance: Normal appearance. HENT: Head: Normocephalic. Eyes: Conjunctiva/sclera: Conjunctivae normal. Cardiovascular: Rate and Rhythm: Normal rate and regular rhythm. Heart sounds: Normal heart sounds. Pulmonary: Effort: Pulmonary effort is normal. Breath sounds: Normal breath sounds. Musculoskeletal: (more content not included)...[facility] 08-24-2024 Telephone encounter Note* Telephone Encounter - Graham De Leon APRN.CNP - 08/24/2024 1:39 PM EST Ordered. [facility]11-13-2024 Miscellaneous Notes* Telephone Encounter - Graham De Leon APRN.CNP - 08/24/2024 1:39 PM EST Ordered. * Telephone Encounter - Neema Moseley Mammo Tech - 08/24/2024 9:24 AM EST Please file order for bilateral diagnostic mammogram and breast ultrasound both breasts. Patient iscall back from screening. Patient has an appointment in [place]. Was rescheduled from [place] due to network issue at [facility]. Thank you. documented in this encounterMem[facility] Telephone encounter Note * Telephone Encounter - Neema Moseley Mammo Tech - 08/24/2024 9:24 AM EST Please file order for bilateral diagnostic mammogram and breast ultrasound both breasts. Patient iscall back from screening. Patient has an appointment in [place]. Was rescheduled from [place] due to network issue at [facility]. Thank you. [facility]10-14-2024 History of Present illness Narrative* Monse Sultana MA - 07/25/2024 3:06 PM EDT Durolane injection into bilateral knees. LOT # [id number] EXP 12/09/2026 Monse Sultana MA * Sesar Wong MD - 07/25/2024 2:35 PM EDTAssociated Order(s): Large Joint Arthro/Inj: bilateral knee joints Post-Procedure Diagnose(s): Chronic pain of both knees; Primary osteoarthritis of both knees Sesar Wong MD Department of Orthopaedics Orthopaedics [address] [facility] [address] Dept: [phone] Dept July 25, 2024 CHIEF COMPLAINT: New and Pain of the Left Knee and New and Pain of the Right Knee HPI Bilateral knee pain for a few years. Right is worse. She occasionally uses a cane for ambulation. New x-ray today. ASSESSMENT: M25.561, M25.562, G89.29 Chronic pain of both knees (primary encounter diagnosis) M17.0 Primary osteoarthritis of both knees PLAN: Patient has bilateral moderate to severe osteoarthritis with chondrocalcinosis. We discussed nonoperative treatment for her knees. She would like to try viscosupplementation today. We may consider cortisone again at some point. FOLLOW UP INSTRUCTIONS: As needed Ms. Nancy Jiménez was advised as to contrast therapies and/or to take analgesics/anti-inflammatoriesas needed and all contraindications were reviewed. OBJECTIVE: Ms. Nancy Jiménez is a pleasant 73 year old in no apparent distress. Gen:There were no vitals taken for this visit. nl development, non obese, no deformities ENT: Normocephalic, normal hearing, moist mucosa CV: Pulses:DP/PT= 2+ and symmetric, capillary refill < 2 secs, no peripheral edema/varicosities Skin: no rash, bruising or lesions. Good turgor. Psych: cooperative and appropriate, alert and oriented x 3, good mood and affect. Musculoskeletal: Patient walks without antalgia, slightly unsteady gait, cane for ambulation. Hip motion without pain. Both knees with mild effusion. Patella tracks normally. There is no patellar crepitance. No pain along the medial or lateral facets. Range of motion 5-120 degrees bilaterally. Mild medial and lateral joint line pain on palpation. Ligamentous exam stable on varus and valgus stress testing at 0 and30 degrees. Extremity is warm and well perfused. Sensation is grossly intact to light touch, subjectively. In addition to the comprehensive evaluation, assessment and plan outlined above, and as a distinct and separate element to the visit today, separate from imaging tests for additional assessment, we have made the determination to proceed with an injection to aid in the management of the patient's condition. We discussed the risks, benefits, alternatives and expected outcomes of this injection in de tail, and the patient agreed to proceed. The procedure was performed as detailed below. Large Joint Arthro/Inj: bilateral knee joints Informed Consent Consent Obtained: Verbal [place] Protocol A moment to CARE was completed. SIGN IN Personnel directly involved with the procedure wore the appropriate PPE. Special Equipment: N/A Patient/Surrogate Stated/Verified: Patient name, Date of , Relevant allergies and Intended procedure TIME OUT Intended patient and procedure match the source document(s). Consent documented and matches the intended procedure. Relevant labs, photos, and/or imaging studies have been reviewed. Correct side/site marked and visible. Medications required for procedure verified. No fire risk assessment and interventions applicable. No implant(s) inserted. 07/25/2024 3:16 PM The procedure site was prepped in the usual sterile fashion. Site: bilateral knee joints Medications (Right): 3 mL hyaluronate sodium, stabilized 60 mg/3 mL Medications (Left): 3 mL hyaluronate sodium, stabilized 60 mg/3 mL Outcome: Tolerated well, no immediate complications Post-injection instructions were reviewed with the patient and the patient voiced understanding of these instructions. SIGN OUT No specimen collected. No instruments, equipment or retained foreign bodies applicable. Post-procedure follow-up management communicated and Plan of Care Visit completed when applicable IMAGING: Impression IMPRESSION: Mild bilateral knee osteoarthritis. [place]ite Worker: DENISE Transcribe Date/Time: Aug 03 2024 4:42A Dictated by : NATHAN BUENROSTRO MD This examination was interpreted and the report reviewed and electronically signed by: NATHAN BUENROSTRO MD on Aug 03 2024 4:43AM EST Results-Findings * * *Final Report* * * DATE OF EXAM: Jul 25 2024 2:14PM [id number] [id number] - XR KNEE 4V AP/PA/LAT/MERCH MANJEET / PROCEDURE REASON: multiple diagnoses * * * * Physician Interpretation * * * * EXAMINATION / TECHNIQUE: XR KNEE 4V AP/PA/LAT/MERCH MANJEET HISTORY: PT STATES BILAT KNEE PAIN REQUESTING INJECTIONS Pain in both knees, unspecified chronicity Pain in both knees, unspecified chronicity COMPARISON: 07/25/2008. RESULT: No acute fracture or malalignment in either knee. Mild bilateral knee osteoarthritis with chondrocalcinosis. No large joint effusion in either knee. Supporting Subjective Information Below: Past Medical History: PAST MEDICAL HISTORY Diagnosis Date ANXIETY STATE NOS 10/27/2005 BONE & CARTILAGE DIS NOS 10/27/2005 osteopenia CAD (coronary artery disease) 11/17/14 s/p PCI to the proximal LAD with a 3.0/18 mm Resolute Integrity DONALDO DEPRESSIVE DISORDER NEC 10/27/2005 Left arm pain 03/15/2014 Medial epicondylitis of right elbow 03/15/2014 Pain in joint, lower leg 03/15/2014 patellofemoral syndrome; also history of ankle fracture /sp surgical repair Tobacco use disorder 05/19/2006 Past Surgical History: PAST SURGICAL HISTORY Procedure Laterality Date HEART CATHETERIZATION 11/17/14 s/p (through right arm) PCI to the proximal LAD with a 3.0/18 mm Resolute Integrity DONALDO LAPS ABD PRTM&OMENTUM DX W/WO SPEC BR/WA SPX Laparoscopy- LIG/TRNSXJ FLP TUBE ABDL/VAG APPR UNI/BI Tubal ligation PAST SURGICAL HISTORY OF 1992 shattered left elbow PAST SURGICAL HISTORY OF 04/2000 left fractured ankle repair PAST SURGICAL HISTORY OF age 20 pylonidal cyst Family History: FAMILY HISTORY Problem Relation Age of Onset Arthritis Mother Diabetes Maternal Aunt Social History: Social History Tobacco Use Smoking status: Every Day Current packs/day: 0.00 Average packs/day: 0.5 packs/day for 30.0 years (15.0 ttl pk-yrs) Types: Cigarettes Start date: 10/04/1992 Last attempt to quit: 10/04/2022 Years since quittin.8 Smokeless tobacco: Never Tobacco comments: Patient mourning loss of . Will discuss at next appointment Vaping Use Vaping status: Never Used Substance Use Topics Alcohol use: Yes Alcohol/week: 14.0 standard drinks of alcohol Types: 14 Shots of liquor per week Drug use: No Medications: Current Outpatient Medications Medication Sig atorvastatin (LIPITOR) 40 mg tablet Take 1 tablet by mouth once daily. lisinopril (ZESTRIL) 5 mg tablet Take 1 tablet by mouth once daily. metoprolol tartrate, short acting, (LOPRESSOR) 100 mg tablet Take 1 tablet by mouth two times a day. triamcinolone acetonide (KENALOG) 0.1 % cream Apply 1 application to affected area two times a day.Apply sparingly to area for rash/itching. Use for up to 2 weeks apixaban (ELIQUIS) 5 mg tab(s) Take 1 tablet by mouth two times a day. HYDROcodone-Acetaminophen (NORCO) 10-325 mg per tablet Take 1 tablet by mouth four times a day as needed for up to 30 days. Patient should start on July 11, 2024. Magnesium 250 mg tab Take 250 mg by mouth every other day. aspirin, enteric coated (ASPIRIN, ENTERIC COATED) 81 mg EC tablet Take 1 tablet by mouth once daily. cyanocobalamin (VITAMIN B-12) 1,000 mcg tab Take 1 tablet by mouth once daily. Cholecalciferol, Vitamin D3, 25 mcg (1,000 unit) cap Take 1,000 Units by mouth once daily. [START ON 09/09/2024] HYDROcodone-Acetaminophen (NORCO) 10-325 mg per tablet Take 1 tablet by mouthfour times a day as needed for up to 30 days. Patient should start on September 09, 2024. [START ON 08/10/2024] HYDROcodone-Acetaminophen (NORCO) 10-325 mg per tablet Take 1 tablet by mouthfour times a day as needed for up to 30 days. Patient should start on August 10, 2024. nitroglycerin sublingual (NITROQUICK) 0.4 mg SL tablet Dissolve 1 tablet under the tongue every 5 minutes as needed for chest pain. Up to 3 times as needed as directed No current facility-administered medications for this visit. Allergies: Patient has no known allergies. ROS: General (negative for fatigue, malaise, weight loss/gain) HEENT (negative for headache, earache, recent vision changes, sinus pain, sore throat) Respiratory (no recent shortness of breath, hemoptysis) CV (negative for chest tightness, palpitations) Musculoskeletal (see HPI) Psych (no depression, anxiety) REFERRING PHYSICIAN: Consultation requested by Dr. Dumas for an opinion regarding bilateral knee pain. My final recommendations will be communicated back to the requesting physician by way of shared Medical record or letter to requesting physician via US mail. Stevie Dumas MD [address] [facility] [id number] Sesar Wong MD documented in this encounterMem[facility]10-[facility] History of Present illness Narrative* Grecia Maldonado, RT(R) - 07/25/2024 1:20 PM EDT Radiology Service Progress Note PATIENT NAME: Nancy Jiménez DATE OF SERVICE: July 25, 2024 TIME: 3:20 PM PATIENT IDENTITY VERIFICATION COMPLETED USING TWO (2) IDENTIFIERS: Name and Date of confirmedby patient verbally. FALL SCREENING: Has the patient had 2 falls in the last year or 1 fall with injury or currently using an Ambulatory Assistive Device (Walker, Cane, Wheelchair, Crutches, etc.)? Yes, Patient High Riskfor Falls What interventions were put in place to prevent falls during this visit? Increased Observations by Caregivers PATIENT GENDER DATA: Female. status: : No status: NO. PATIENT RELEVANT IMPLANT DATA REVIEWED: Not Applicable PATIENT PRESENTS WITH AN IMPLANTABLE OR ATTACHED ANIMAL KEEPER: No RADIOLOGY DEPARTMENT: General X-ray: Exam(s) Completed: Lower Extremity X- Ray(s): Knee, AP / Lat / Tunne / Merchant Bilateral and Wt. Bearing PERIPHERAL IV DATA: Not applicable SIGNED BY: RT Shelly(R) July 25, 2024 3:20 PM documented in this encounterMemorial [facility]10-[facility] Instructions* Patient Instructions* Stevie Dumas MD - 07/13/2024 10:01 AM EDT -Triamcinolone 0.1% cream prescribed for ear dermatitis: apply twice daily, and up to three times aday if it becomes itchy. Do not use for more than 2 weeks. - Refills for Lipitor, Lisinopril, and Metoprolol have been sent to your pharmacy. - Flu shot administered today. - Avoid picking at the ear scab to allow it to heal. - If the ear irritation does not improve with the topical steroid treatment, we may consider a referral to dermatology. - Your next appointment is scheduled for November 09. documented in this encounterMem[facility] History of Present illness Narrative* Stevie Dumas MD - 07/13/2024 9:36 AM EDT This note was created using Infogram[employer]. Subjective Nancy Jiménez is a 73 year old female. Patient presents with: 2 month follow up SUBJECTIVE: Nancy Jiménez is a 73 year old year old lady here today for 2 month follow up appointment for reviewof medical conditions. The patient is a 73-year-old female with a history of hypercholesterolemia, HTN, and macrocytosis, presenting for a routine 2-month follow-up visit. The patient reports no new concerns or issues since her last visit. She requests a flu vaccination today. She also reports a scab in her ear that has been present for 1-2 months, which she has been digging at. She denies pruritus or bleeding, but notes that it bugs her. She has not applied any treatments to the area. She recently returned from a trip to [place], where she visited the [place] for 5 days and [facility] for 3 days. She describes the trip as beautiful and relaxing, noting that it only rained at night. She is currently taking vitamin D, magnesium, and B12 supplements, as well as Lipitor, Lisinopril, Metoprolol, Eliquis, and hydrocodone. She reports no issues with medication adherence or obtaining her medications from [employer]. She denies any new symptoms or concerns related to her current medication regimen. PAST MEDICAL HISTORY Diagnosis Date ANXIETY STATE NOS 10/27/2005 BONE & CARTILAGE DIS NOS 10/27/2005 osteopenia CAD (coronary artery disease) 11/17/14 s/p PCI to the proximal LAD with a 3.0/18 mm Resolute Integrity DONALDO DEPRESSIVE DISORDER NEC 10/27/2005 Left arm pain 03/15/2014 Medial epicondylitis of right elbow 03/15/2014 Pain in joint, lower leg 03/15/2014 patellofemoral syndrome; also history of ankle fracture /sp surgical repair Tobacco use disorder 05/19/2006 Current Outpatient Medications Medication Sig apixaban (ELIQUIS) 5 mg tab(s) Take 1 tablet by mouth two times a day. [START ON 08/10/2024] HYDROcodone-Acetaminophen (NORCO) 10-325 mg per tablet Take 1 tablet by mouthfour times a day as needed for up to 30 days. Patient should start on August 10, 2024. HYDROcodone-Acetaminophen (NORCO) 10-325 mg per tablet Take 1 tablet by mouth four times a day as needed for up to 30 days. Patient should start on July 11, 2024. HYDROcodone-Acetaminophen (NORCO) 10-325 mg per tablet Take 1 tablet by mouth four times a day as needed for up to 30 days. Patient should start on June 11, 2024. nitroglycerin sublingual (NITROQUICK) 0.4 mg SL tablet Dissolve 1 tablet under the tongue every 5 minutes as needed for chest pain. Up to 3 times as needed as directed Magnesium 250 mg tab Take 250 mg by mouth every other day. metoprolol tartrate, short acting, (LOPRESSOR) 100 mg tablet Take 1 tablet by mouth two times a day. lisinopril (ZESTRIL) 5 mg tablet Take 1 tablet by mouth once daily. atorvastatin (LIPITOR) 40 mg tablet Take 1 tablet by mouth once daily. aspirin, enteric coated (ASPIRIN, ENTERIC COATED) 81 mg EC tablet Take 1 tablet by mouth once daily. cyanocobalamin (VITAMIN B-12) 1,000 mcg tab Take 1 tablet by mouth once daily. Cholecalciferol, Vitamin D3, 25 mcg (1,000 unit) cap Take 1,000 Units by mouth once daily. No current facility-administered medications for this visit. Review of Systems Objective BP 122/76 Pulse 71 Temp 36.2 C (97.2 F) Resp 16 Wt 70.7 kg (155 lb 13.8 oz) SpO2 95% BMI 24.41 kg/m Physical Exam Constitutional: Appearance: Normal appearance. HENT: Head: Normocephalic. Eyes: Conjunctiva/sclera: Conjunctivae normal. Cardiovascular: Rate and Rhythm: Normal rate and regular rhythm. Heart sounds: Normal heart sounds. Pulmonary: Effort: Pulmonary effort is normal. Breath sounds: Normal breath sounds. Musculoskeletal: Left lower leg: Edema present. Skin: General: Skin is warm and dry. Comments: See Images for ear lesion in lili bowl Neurological: General: No focal deficit present. Mental Status: She is alert and oriented to person, place, and time. Psychiatric: Mood and Affect: Mood normal. Behavior: Behavior normal. Thought Content: Thought content normal. Judgment: Judgment normal. Latest Ref Rng 07/13/2023 05/17/2024 Protein, Total 6.3 - 8.0 g/dL 7.2 7.0 Albumin 3.9 - 4.9 g/dL 4.6 4.4 Calcium 8.5 - 10.2 mg/dL 9.7 9.7 Bilirubin, Total 0.2 - 1.3 mg/dL 0.3 0.4 Alkaline Phosphatase 34 - 123 U/L 77 101 AST 13 - 35 U/L 28 59 (H) ALT 7 - 38 U/L 18 38 Glucose 74 - 99 mg/dL 127 (H) 100 (H) BUN 7 - 21 mg/dL 12 9 Creatinine 0.58 - 0.96 mg/dL 0.84 0.71 Sodium 136 - 144 mmol/L 135 (L) 138 Potassium 3.7 - 5.1 mmol/L 4.7 4.5 Chloride 98 - 107 mmol/L 98 101 CO2 22 - 30 mmol/L 26 24 Anion Gap 8 - 15 mmol/L 11 13 eGFR >=60 mL/min/1.73m 75 91 WBC 3.70 - 11.00 k/uL 5.56 3.65 (L) RBC 3.90 - 5.20 m/uL 3.37 (L) 3.66 (L) Hemoglobin 11.5 - 15.5 g/dL 12.0 13.0 Hematocrit 36.0 - 46.0 % 35.6 (L) 38.3 MCV 80.0 - 100.0 fL 105.6 (H) 104.6 (H) MCH 26.0 - 34.0 pg 35.6 (H) 35.5 (H) MCHC 30.5 - 36.0 g/dL 33.7 33.9 RDW-CV 11.5 - 15.0 % 12.4 12.6 Platelet Count 150 - 400 k/uL 83 (L) 131 (L) MPV 9.0 - 12.7 fL 10.7 9.3 Absolute nRBC <0.01 k/uL <0.01 <0.01 Cholesterol, Total <200 mg/dL 159 Triglyceride <150 mg/dL 242 (H) HDL Cholesterol >39 mg/dL 50 Non HDL Cholesterol <130 mg/dL 109 Fasting Time hrs 14 VLDL Cholesterol <30 mg/dL 48 (H) TC:HDL Ratio <5.10 3.18 LDL Cholesterol <100 mg/dL 61 LDL:HDL Ratio <2.54 1.22 Phencyclidine Negative Negative Benzodiazepines Urine Negative Negative Cocaine Urine Negative Negative Amphetamines Negative Negative Cannabinoids, Urine Negative Negative Opiates Negative Preliminary positive ! Barbiturates Negative Negative Ethanol, Urine <11 mg/dL <11 Oxycodone, Urine Negative Negative Hemoglobin A1C 4.3 - 5.6 % 5.6 5.2 Estimated Average Glucose mg/dL 114 103 Vitamin D 25 Hydroxy 31.0 - 80.0 ng/mL 35.9 35.9 Vitamin B12 232 - 1,245 pg/mL >2,000 (H) >2,000 (H) Magnesium 1.7 - 2.3 mg/dL 1.6 (L) 1.7 Legend: (H) High (L) Low ! Abnormal Assessment and Plan # Primary hypertension (I10) # Hypertension, unspecified type (I10) - Blood pressure well-controlled on current regimen. - Refilled Lisinopril and Metoprolol. # B12 deficiency (E53.8) - Hemoglobin improved to 13 g/dL; MCV decreasing, indicating improvement in macrocytosis. - Continue current B12 supplementation. # Hypomagnesemia (E83.42) - Magnesium levels normalized. - Continue dbbb-udw-nogiswx magnesium supplementation. # Vitamin D deficiency (E55.9) - Vitamin D level at 35.9 ng/mL. - Continue uacl-gee-kejsuob Vitamin D supplementation. # Hypercholesterolemia (E78.00) - Triglycerides elevated at 240 mg/dL; HDL in the 50s, LDL at 61 mg/dL. - Advised dietary modifications to reduce carbohydrate intake. - Refilled Lipitor. # Elevated fasting glucose (R73.01) - Fasting glucose improved to 100 mg/dL; A1c at 5.2%. - Continue current management. # Coronary artery disease involving shinnecock coronary artery 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 (I25.10) - Clinically stable. - Refilled Eliquis. # Left arm pain (M79.602) # Medial epicondylitis of right elbow (M77.01) # Dermatitis of external ear (L30.9) - Persistent scaly lesion in the lili bowl of the right ear. - Prescribed triamcinolone 0.1% cream, apply BID for up to 2 weeks. - Advised against using Neosporin to avoid potential contact dermatitis. - If no improvement, consider dermatology referral. # Macrocytosis (D75.89) - MCV decreasing, indicating improvement. - Continue monitoring with routine labs. Encounter Diagnosis ICD-10-CM 1. Primary hypertension I10 2. B12 deficiency E53.8 3. Hypomagnesemia E83.42 4. Vitamin D deficiency E55.9 5. Hypercholesterolemia E78.00 atorvastatin (LIPITOR) 40 mg tablet 6. Elevated fasting glucose R73.01 7. Coronary artery disease involving shinnecock coronary artery 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 otxanaxtN56.10 atorvastatin (LIPITOR) 40 mg tablet lisinopril (ZESTRIL) 5 mg tablet metoprolol tartrate, short acting, (LOPRESSOR) 100 mg tablet 8. Hypertension, unspecified type I10 lisinopril (ZESTRIL) 5 mg tablet 9. Left arm pain, chronic M79.602 HYDROcodone-Acetaminophen (NORCO) 10-325 mg per tablet Chronic pain controlled well with current management with hydrocodone.No adverse effects. No changes 10. Medial epicondylitis of right elbow M77.01 HYDROcodone-Acetaminophen (NORCO) 10-325 mg per tablet Chronic pain controlled well with current management with hydrocodone.No adverse effects. No changes 11. Dermatitis of external ear L30.9 triamcinolone acetonide (KENALOG) 0.1 % cream Lili bowl 12. Macrocytosis D75.89 Stevie Dumas MD documented in this encounterMem[facility]24 Telephone encounter Note * Telephone Encounter - Minda Ling RN - 05/27/2024 8:36 AM EDT Pt called and is notified of providers message. Pt voices understanding and put through to [phone] to schedule. Minda Ling RN [facility]08-16-2024 Miscellaneous Notes* Telephone Encounter - Minda Ling RN - 05/27/2024 8:36 AM EDT Pt called and is notified of providers message. Pt voices understanding and put through to [phone] to schedule. Minda Ling RN * Telephone Encounter - Meryl Rios APRN.CNS - 05/26/2024 8:49 AM EDT Ok, please schedule * Telephone Encounter - Julianne Serra LPN - 05/26/2024 8:43 AM EDT Pt called and received a letter regarding her mammogram and was told she needed further studies done. Please review and advise pt. Pt reports she will need orders put in. Please advise pt. Julianne Serra LPN documented in this encounterMemorial [facility]08-[facility]24 Telephone encounter Note * Telephone Encounter - Meryl Rios APRN.CNS - 05/26/2024 8:49 AM EDT Ok, please schedule [facility]08-15-2024 Telephone encounter Note* Telephone Encounter - Julianne Serra LPN - 05/26/2024 8:43 AM EDT Pt called and received a letter regarding her mammogram and was told she needed further studies done. Please review and advise pt. Pt reports she will need orders put in. Please advise pt. Julianne Serra LPN [facility]08-07-2024 Note* Letter - Coordinator, Mammography - 05/18/2024 2:57 PM EDT May 18, 2024 PID: [id number] Nancy Jiménez [address] [place] [address] Dear Ms. Jiménez, Your recent breast imaging exam on 05/17/2024 showed a possible finding that requires additional imaging studies for a complete evaluation. Most such findings are probably benign (not cancer). Breast tissue can be either dense or not dense. Dense tissue makes it harder to find breast cancer on a mammogram and also raises the risk of developing breast cancer. Your breast tissue is dense. Insome people with dense tissue, other imaging tests in addition to a mammogram may help find cancers. Talk to your healthcare provider about breast density, risks for breast cancer, and your individual situation. If you have a healthcare provider who ordered/prescribed your screening mammogram: Please call [phone] or [phone]: [phone] to schedule an appointment for your additional imaging (if youhave not already done so). If you DO NOT have a healthcare provider (ie you did not have an order/prescription for your screening mammogram): Please call to schedule an appointment for your additional imaging (if you have not already done so). You must have an order/prescription from your physician when calling to schedule your appointment. If your order/prescription is not electronic, you must bring the hard copy with you on the day of your exam to avoid delays. Your imaging studies and reports are kept on file at [facility] as part of your permanent medical record, and are available for your continuing care. Thank you for allowing us to help in meeting your health care needs. Sincerely, Dr. Gonzáles Interpreting Radiologist [facility] (Additional imaging) [facility]08-07-2024 Miscellaneous Notes* Letter - Coordinator, Mammography - 05/18/2024 2:57 PM EDT May 18, 2024 PID: [id number] Nancy Jiménez [address] [place] [address] Dear Ms. Jiménez, Your recent breast imaging exam on 05/17/2024 showed a possible finding that requires additional imaging studies for a complete evaluation. Most such findings are probably benign (not cancer). Breast tissue can be either dense or not dense. Dense tissue makes it harder to find breast cancer on a mammogram and also raises the risk of developing breast cancer. Your breast tissue is dense. Insome people with dense tissue, other imaging tests in addition to a mammogram may help find cancers. Talk to your healthcare provider about breast density, risks for breast cancer, and your individual situation. If you have a healthcare provider who ordered/prescribed your screening mammogram: Please call [phone] or EXT: [phone] to schedule an appointment for your additional imaging (if youhave not already done so). If you DO NOT have a healthcare provider (ie you did not have an order/prescription for your screening mammogram): Please call to schedule an appointment for your additional imaging (if you have not already done so). You must have an order/prescription from your physician when calling to schedule your appointment. If your order/prescription is not electronic, you must bring the hard copy with you on the day of your exam to avoid delays. Your imaging studies and reports are kept on file at [facility] as part of your permanent medical record, and are available for your continuing care. Thank you for allowing us to help in meeting your health care needs. Sincerely, Dr. Gonzáles Interpreting Radiologist [facility] (Additional imaging) documented in this encounterMem[facility]08-[facility] History of Present illness Narrative* Latrell Weinberg Mammo Tech - 05/17/2024 8:50 AM EDT Radiology Service Progress Note PATIENT NAME: Nancy Jiménez DATE OF SERVICE: May 17, 2024 TIME: 9:11 AM PATIENT IDENTITY VERIFICATION COMPLETED USING TWO (2) IDENTIFIERS: Name and Date of confirmedby patient verbally. FALL SCREENING: Has the patient had 2 falls in the last year or 1 fall with injury or currently using an Ambulatory Assistive Device (Walker, Cane, Wheelchair, Crutches, etc.)? No PATIENT GENDER DATA: Female. status: : No status: NO. PATIENT RELEVANT IMPLANT DATA REVIEWED: Not Applicable PATIENT PRESENTS WITH AN IMPLANTABLE OR ATTACHED ANIMAL KEEPER: No RADIOLOGY DEPARTMENT: Mammography PERIPHERAL IV DATA: Not applicable SIGNED BY: Roberta Reed May 17, 2024 9:11 AM documented in this encounterMemorial [facility]05-[facility] History of Present illness Narrative* Stevie Dumas MD - 03/08/2024 6:31 PM EDT This note was created using Infogramriter. Subjective Nancy Jiménez is a 73 year old female. Patient presents with: Established Patient: Follow up left ankle, left arm and right elbow SUBJECTIVE: Nancy Jiménez is a 73 year old year old lady here today for follow up appointment for review of medical conditions. Joined [facility] Doing well with exercise. Working on stamina and strength. Dumbells. Treadmill Bicycle with arms. Going to [place] in June. Stable pain control with hydrocodone. Able to stay active. See assessment and plan for other issues addressed. PAST MEDICAL HISTORY Diagnosis Date ANXIETY STATE NOS 10/27/2005 BONE & CARTILAGE DIS NOS 10/27/2005 osteopenia CAD (coronary artery disease) 11/17/14 s/p PCI to the proximal LAD with a 3.0/18 mm Resolute Integrity DONALDO DEPRESSIVE DISORDER NEC 10/27/2005 Left arm pain 03/15/2014 Medial epicondylitis of right elbow 03/15/2014 Pain in joint, lower leg 03/15/2014 patellofemoral syndrome; also history of ankle fracture /sp surgical repair Tobacco use disorder 05/19/2006 Current Outpatient Medications Medication Sig HYDROcodone-Acetaminophen (NORCO) 10-325 mg per tablet Take 1 tablet by mouth four times a day as needed for up to 30 days. Do not start before February 12, 2024. [START ON 03/13/2024] HYDROcodone-Acetaminophen (NORCO) 10-325 mg per tablet Take 1 tablet by mouth four times a day as needed for up to 30 days. Do not start before March 13, 2024. nitroglycerin sublingual (NITROQUICK) 0.4 mg SL tablet Dissolve 1 tablet under the tongue every 5 minutes as needed for chest pain. Up to 3 times as needed as directed Patient should start on December 13, 2023. Magnesium 250 mg tab Take 250 mg by mouth every other day. metoprolol tartrate, short acting, (LOPRESSOR) 100 mg tablet Take 1 tablet by mouth two times a day. lisinopril (ZESTRIL) 5 mg tablet Take 1 tablet by mouth once daily. apixaban (ELIQUIS) 5 mg tab(s) Take 1 tablet by mouth two times a day. atorvastatin (LIPITOR) 40 mg tablet Take 1 tablet by mouth once daily. aspirin, enteric coated (ASPIRIN, ENTERIC COATED) 81 mg EC tablet Take 1 tablet by mouth once daily. cyanocobalamin (VITAMIN B-12) 1,000 mcg tab Take 1 tablet by mouth once daily. Cholecalciferol, Vitamin D3, 25 mcg (1,000 unit) cap Take 1,000 Units by mouth once daily. HYDROcodone-Acetaminophen (NORCO) 10-325 mg per tablet Take 1 tablet by mouth four times a day as needed for up to 30 days. Do not start before January 12, 2024. No current facility-administered medications for this visit. Review of Systems Objective BP 128/78 Pulse 76 Temp 36.3 C (97.4 F) Resp 18 Wt 73 kg (161 lb) SpO2 97% BMI 25.22 kg/m Last 5 Encounter Wt Readings: Date: Wt: 03/08/2024 73 kg (161 lb) 11/13/2023 72.6 kg (160 lb) 10/13/2023 71.7 kg (158 lb) 10/13/2023 72.4 kg (159 lb 9.6 oz) 10/10/2023 72.8 kg (160 lb 6.4 oz) No waist measurement recorded Estimated body mass index is 25.22 kg/m as calculated from the following: Height as of 04/07/17: 170.2 cm (5' 7). Weight as of this encounter: 73 kg (161 lb). Last 5 Encounter BP Readings: Date: BP: 03/08/2024 128/78 11/13/2023 106/68 10/13/2023 112/68 10/13/2023 138/84 10/10/2023 152/80 Physical Exam Constitutional: Appearance: Normal appearance. HENT: Head: Normocephalic. Eyes: Conjunctiva/sclera: Conjunctivae normal. Cardiovascular: Rate and Rhythm: Normal rate and regular rhythm. Heart sounds: Normal heart sounds. Pulmonary: Effort: Pulmonary effort is normal. Breath sounds: Normal breath sounds. Musculoskeletal: Right lower leg: Edema (Mild swelling) present. Left lower leg: Edema (Mild swelling) present. Skin: General: Skin is warm and dry. Neurological: General: No focal deficit present. Mental Status: She is alert and oriented to person, place, and time. Psychiatric: Mood and Affect: Mood normal. Behavior: Behavior normal. Thought Content: Thought content normal. Judgment: Judgment normal. Assessment and Plan Encounter Diagnosis ICD-10-CM 1. Left arm pain, chronic M79.602 HYDROcodone-Acetaminophen (NORCO) 10-325 mg per tablet HYDROcodone-Acetaminophen (NORCO) 10-325 mg per tablet Chronic pain controlled well with current management with hydrocodone.No adverse effects. No changes 2. B12 deficiency E53.8 VITAMIN B12 Adjust supplement as indicated on labs 3. Vitamin D deficiency E55.9 VITAMIN D 25 HYDROXY Adjust supplement dose as indicated on labs 4. Medial epicondylitis of right elbow M77.01 HYDROcodone-Acetaminophen (NORCO) 10-325 mg per tablet HYDROcodone-Acetaminophen (NORCO) 10-325 mg per tablet Chronic pain controlled well with current management with hydrocodone.No adverse effects. No changes 5. Elevated fasting glucose R73.01 COMPREHENSIVE METABOLIC PANEL HEMOGLOBIN A1C Follow up labs. Doing better with regular exercises, healthy diet 6. Hypomagnesemia E83.42 MAGNESIUM Adjust supplement dose as indicated on labs 7. Hypercholesterolemia E78.00 LIPID PANEL BASIC Adjust Lipitor dose as indicated on labs 8. Coronary artery disease involving shinnecock coronary artery 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 fcomajanQ52.10 nitroglycerin sublingual (NITROQUICK) 0.4 mg SL tablet No angina 9. Encounter for long-term current use of medication Z79.899 VITAMIN D 25 HYDROXY MAGNESIUM COMPREHENSIVE METABOLIC PANEL COMPLETE BLOOD COUNT LIPID PANEL BASIC HEMOGLOBIN A1C VITAMIN B12 TOXICOLOGY SCREEN, ROUTINE URINE Above issues addressed with patient. Patient involved in shared decision making for management of medical issues. History and medications reviewed. Epic updated as needed Refills and/or prescriptions taken care of and meds adjusted as indicated after reviewed history, exam and labs. Health Maintenance reviewed. Updated record and/or ordered tests as recorded. Encouraged on efforts at healthy diet and regular exercise and adequate sleep. Stevie Dumas MD documented in this encounterMemorial [facility]04-12-[facility]24 History of Present illness Narrative* DajuanMoisés dover RT(R) - 01/22/2024 10:05 AM EDT Radiology Service Progress Note PATIENT NAME: Nancy Jiménez DATE OF SERVICE: January 22, 2024 TIME: 10:08 AM PATIENT IDENTITY VERIFICATION COMPLETED USING TWO (2) IDENTIFIERS: Name and Date of confirmedby patient verbally. FALL SCREENING: Has the patient had 2 falls in the last year or 1 fall with injury or currently using an Ambulatory Assistive Device (Walker, Cane, Wheelchair, Crutches, etc.)? No PATIENT GENDER DATA: Female. status: : No status: NO. PATIENT RELEVANT IMPLANT DATA REVIEWED: Not Applicable PATIENT PRESENTS WITH AN IMPLANTABLE OR ATTACHED ANIMAL KEEPER: No RADIOLOGY DEPARTMENT: Bone Density PERIPHERAL IV DATA: Not applicable SIGNED BY: RT Herman(R) January 22, 2024 10:08 AM documented in this encounterMemorial Health [facility]04-03-2024 Instructions* Patient Instructions* Stevie Dumas MD - 01/13/2024 9:51 AM EDT BONE MINERAL DENSITY PATIENT INSTRUCTIONS Bone mineral density testing measures the amount of calcium in certain parts of your bones. This information determines how strong your bones are. The test is used to detect osteoporosis, a disease in which the bone's mineral content and density are low, increasing a person's risk of fractures. Thelumbar spine (lower back) and the hip are the skeletal sites usually examined. For the test, remember that: 1. You cannot take this test if you are . 2. Eat a normal diet on the day of the test. 3. Take your medications as you normally would. 4. DO NOT take calcium supplements (such as Tums) for 24 hours before the test. 5. On the day of the test, leave valuables (jewelry or credit cards) at home. 6. The test should be performed prior to oral, rectal or IV contrast studies, or at least 7 days after any of these studies. For the test, you may be asked to wear a hospital gown. You will lie on your back, on a padded table, in a comfortable position. Generally, you can resume your usual activities immediately. documented in this encounterMemorial Health [facility]04-03-[facility]24 History of Present illness Narrative* Stevie Dumas MD - 01/13/2024 9:35 AM EDT This note was created using Infogramriter. Subjective Nancy Jiménez is a 73 year old female. Patient presents with: Follow Up: 2 month follow up SUBJECTIVE: Nancy Jiménez is a 73 year old year old lady here today for 2 month follow up appointment for reviewof medical conditions. Going to [place] and [facility] in June. With sister+family and friend. [place] still effective and no OIC. Foot finally healed--saw spanish instructor yesterday. Ingrown toenails. Plans for removing toenails. Will see vascular first to make sure will be okay. Dr. Spivey at [facility]. Plans to join [employer]. PAST MEDICAL HISTORY Diagnosis Date ANXIETY STATE NOS 10/27/2005 BONE & CARTILAGE DIS NOS 10/27/2005 osteopenia CAD (coronary artery disease) 11/17/14 s/p PCI to the proximal LAD with a 3.0/18 mm Resolute Integrity DONALDO DEPRESSIVE DISORDER NEC 10/27/2005 Left arm pain 03/15/2014 Medial epicondylitis of right elbow 03/15/2014 Pain in joint, lower leg 03/15/2014 patellofemoral syndrome; also history of ankle fracture /sp surgical repair Tobacco use disorder 05/19/2006 Current Outpatient Medications Medication Sig HYDROcodone-acetaminophen (NORCO) 5-325 mg per tablet Take 2 tablets by mouth four times daily as needed. HYDROcodone-Acetaminophen (NORCO) 10-325 mg per tablet Take 1 tablet by mouth four times a day as needed for up to 30 days. Do not start before December 13, 2023. nitroglycerin sublingual (NITROQUICK) 0.4 mg SL tablet Dissolve 1 tablet under the tongue every 5 minutes as needed for chest pain. Up to 3 times as needed as directed Patient should start on December 13, 2023. HYDROcodone-Acetaminophen (NORCO) 10-325 mg per tablet Take 1 tablet by mouth four times a day as needed for up to 30 days. Do not start before January 12, 2024. Magnesium 250 mg tab Take 250 mg by mouth every other day. HYDROcodone-Acetaminophen (NORCO) 10-325 mg per tablet Take 1 tablet by mouth four times a day as needed for up to 30 days. Do not start before November 13, 2023. metoprolol tartrate, short acting, (LOPRESSOR) 100 mg tablet Take 1 tablet by mouth two times a day. lisinopril (ZESTRIL) 5 mg tablet Take 1 tablet by mouth once daily. apixaban (ELIQUIS) 5 mg tab(s) Take 1 tablet by mouth two times a day. atorvastatin (LIPITOR) 40 mg tablet Take 1 tablet by mouth once daily. aspirin, enteric coated (ASPIRIN, ENTERIC COATED) 81 mg EC tablet Take 1 tablet by mouth once daily. cyanocobalamin (VITAMIN B-12) 1,000 mcg tab Take 1 tablet by mouth once daily. Cholecalciferol, Vitamin D3, 25 mcg (1,000 unit) cap Take 1,000 Units by mouth once daily. No current facility-administered medications for this visit. Review of Systems Objective BP (P) 116/72 (BP Site: Left Arm, BP Position: Sitting, BP Cuff Size: Regular Adult) Pulse (P) 72 Wt (P) 73 kg (161 lb) BMI (P) 25.22 kg/m Last 5 Encounter Wt Readings: Date: Wt: 11/13/2023 72.6 kg (160 lb) 10/13/2023 71.7 kg (158 lb) 10/13/2023 72.4 kg (159 lb 9.6 oz) 10/10/2023 72.8 kg (160 lb 6.4 oz) 09/15/2023 71.2 kg (157 lb) No waist measurement recorded Estimated body mass index is 25.22 kg/m (pended) as calculated from the following: Height as of 04/07/17: 170.2 cm (5' 7). Weight as of this encounter: (P) 73 kg (161 lb). Last 5 Encounter BP Readings: Date: BP: 11/13/2023 106/68 10/13/2023 112/68 10/13/2023 138/84 10/10/2023 152/80 09/15/2023 136/82 Physical Exam Constitutional: Appearance: Normal appearance. HENT: Head: Normocephalic. Eyes: Conjunctiva/sclera: Conjunctivae normal. Cardiovascular: Rate and Rhythm: Normal rate and regular rhythm. Heart sounds: Normal heart sounds. Pulmonary: Effort: Pulmonary effort is normal. Breath sounds: Normal breath sounds. Musculoskeletal: Right lower leg: Edema (1+) present. Left lower leg: Edema (1+) present. Skin: General: Skin is warm and dry. Neurological: General: No focal deficit present. Mental Status: She is alert and oriented to person, place, and time. Psychiatric: Mood and Affect: Mood normal. Behavior: Behavior normal. Thought Content: Thought content normal. Judgment: Judgment normal. Assessment and Plan Encounter Diagnosis ICD-10-CM 1. Left arm pain, chronic M79.602 HYDROcodone-Acetaminophen (NORCO) 10-325 mg per tablet HYDROcodone-Acetaminophen (NORCO) 10-325 mg per tablet 2. Medial epicondylitis of right elbow M77.01 HYDROcodone-Acetaminophen (NORCO) 10-325 mg per tablet HYDROcodone-Acetaminophen (NORCO) 10-325 mg per tablet 3. Asymptomatic postmenopausal status Z78.0 DXA-AXIAL SKELETON BD DXA TRABECULAR BONE SCORE (TBS) 4. Screening for colon cancer Z12.11 FECAL OCCULT BLOOD TEST 5. Encounter for immunization Z23 PNEUMOCOCCAL VACCINE, 20 VALENT (PREVNAR 20) Above issues addressed with patient. Patient involved in shared decision making for management of medical issues. History and medications reviewed. Epic updated as needed Refills and/or prescriptions taken care of and meds adjusted as indicated after reviewed history, exam and labs. Health Maintenance reviewed. Updated record and/or ordered tests as recorded. Encouraged on efforts at healthy diet and regular exercise and adequate sleep. Stable with control of chronic pain. At this time benefits outweigh risks. Continue to monitor for adverse effects and indications for decreasing dose or tapering off. No signs of diversion or abuse of medication(s); no adverse effects. Continue present management. Stevie Dumas MD documented in this encounterMemorial [facility]02-07-2024 Miscellaneous Notes* Telephone Encounter - Princess Zambrano LPN - 11/18/2023 12:10 PM EST Rec'd fax from [email or web address]. Pt does not meet the criteria for pt assistance for eliquis. Fax to [employer] then to medical records for scanning. documented in this encounterMemorial Health [facility]02-02-2024 History of Present illness Narrative* Meryl Rios APRN.ANODIZER - 11/13/2023 12:40 PM EST SUBJECTIVE: RSV Vaccine(1 - 1-dose 60+ series) Never done Bone Density Screening Never done Colorectal Cancer Screening due on 06/15/2019 Pneumococcal Vaccine: 65+(2 of 2 - PCV) due on 07/16/2021 Mammogram Screening due on 07/26/2021 DTaP,Tdap,Td Vaccine(2 - Td or Tdap) due on 05/27/2023 Advance Directive Discussion due on 10/12/2023 HPI Nancy Jiménez is a 72 year old female. 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 No recent chest pain. No need for nitroglycerin. Presents for routine follow up chronic pain of left arm and right elbow. She reports current pain medication use unchanged, She reports some days not taking medication at all and other days using more medication.She notes chronic elbow pain unchanged from previous. Notes function and ROM stable, not worse. Notes curent medication is effectvie, notes mild OIC, not needing to take medication for this. No report of sedation or other AE. Review of Systems Constitutional: Negative. Respiratory: Negative. Cardiovascular: Negative. Musculoskeletal: Positive for arthralgias. Objective There were no vitals taken for this visit. Physical Exam Vitals and nursing note reviewed. Constitutional: Appearance: Normal appearance. HENT: Head: Normocephalic and atraumatic. Eyes: Conjunctiva/sclera: Conjunctivae normal. Cardiovascular: Rate and Rhythm: Normal rate. Rhythm irregular. Pulmonary: Effort: Pulmonary effort is normal. Breath sounds: Normal breath sounds. Abdominal: General: Bowel sounds are normal. Palpations: Abdomen is soft. Musculoskeletal: Comments: Left elbow with stable deformity /swelling, decreased ROM. 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 Preserved ROM left ankle, not TTP Skin: General: Skin is warm and dry. Neurological: Mental Status: She is alert and oriented to person, place, and time. Mental status is at baseline. ALLERGIES No Known Allergies MEDICATIONS Magnesium 250 mg tab Take 250 mg by mouth every other day. tiZANidine (ZANAFLEX) 4 mg tablet Take 1 tablet by mouth every 8 hours as needed (muscle spasms). HYDROcodone-Acetaminophen (NORCO) 10-325 mg per tablet Take 1 tablet by mouth four times a day as needed for up to 30 days. Do not start before October 14, 2023. HYDROcodone-Acetaminophen (NORCO) 10-325 mg per tablet Take 1 tablet by mouth four times a day as needed for up to 30 days. Do not start before November 13, 2023. metoprolol tartrate, short acting, (LOPRESSOR) 100 mg tablet Take 1 tablet by mouth two times a day. lisinopril (ZESTRIL) 5 mg tablet Take 1 tablet by mouth once daily. apixaban (ELIQUIS) 5 mg tab(s) Take 1 tablet by mouth two times a day. atorvastatin (LIPITOR) 40 mg tablet Take 1 tablet by mouth once daily. aspirin, enteric coated (ASPIRIN, ENTERIC COATED) 81 mg EC tablet Take 1 tablet by mouth once daily. cyanocobalamin (VITAMIN B-12) 1,000 mcg tab Take 1 tablet by mouth once daily. nitroglycerin sublingual (NITROQUICK) 0.4 mg SL tablet Dissolve 1 tablet under the tongue every 5 minutes as needed for chest pain. Up to 3 times as needed as directed Cholecalciferol, Vitamin D3, 25 mcg (1,000 unit) cap Take 1,000 Units by mouth once daily. PAST MEDICAL HISTORY Diagnosis Date ANXIETY STATE NOS 10/27/2005 BONE & CARTILAGE DIS NOS 10/27/2005 osteopenia CAD (coronary artery disease) 11/17/14 s/p PCI to the proximal LAD with a 3.0/18 mm Resolute Integrity DONALDO DEPRESSIVE DISORDER NEC 10/27/2005 Left arm pain 03/15/2014 Medial epicondylitis of right elbow 03/15/2014 Pain in joint, lower leg 03/15/2014 patellofemoral syndrome; also history of ankle fracture /sp surgical repair Tobacco use disorder 05/19/2006 Social History Tobacco Use Smoking status: Every Day Packs/day: 0.50 Years: 30.00 Additional pack years: 0.00 Total pack years: 15.00 Types: Cigarettes Last attempt to quit: 10/04/2022 Years since quittin.1 Smokeless tobacco: Never Tobacco comments: Patient mourning loss of . Will discuss at next appointment Substance Use Topics Alcohol use: Yes Alcohol/week: 14.0 standard drinks of alcohol Types: 14 Shots of liquor per week Drug use: No Component Latest Ref Rng & Units 11/13/2021 WBC 3.70 - 11.00 k/uL 4.69 RBC 3.90 - 5.20 m/uL 3.38 (L) Hemoglobin 11.5 - 15.5 g/dL 11.9 Hematocrit 36.0 - 46.0 % 36.1 MCV 80.0 - 100.0 fL 106.8 (H) MCH 26.0 - 34.0 pG 35.2 (H) MCHC 30.5 - 36.0 g/dL 33.0 RDW-CV 11.5 - 15.0 % 12.8 Platelet Count 150 - 400 k/uL 197 MPV 9.0 - 12.7 fL 10.5 Absolute nRBC <0.01 k/uL <0.01 Glucose 74 - 99 mg/dL 91 BUN 7 - 21 mg/dL 14 Creatinine 0.58 - 0.96 mg/dL 0.74 Sodium 136 - 144 mmol/L 141 Potassium 3.7 - 5.1 mmol/L 4.5 Chloride 97 - 105 mmol/L 102 CO2 22 - 30 mmol/L 26 Anion Gap 9 - 18 mmol/L 13 Calcium 8.5 - 10.2 mg/dL 9.2 eGFR- >60 eGFR-All Other Races . >60 Vitamin D 25 Hydroxy 31.0 - 80.0 ng/mL 36.9 Vitamin B12 232 - 1,245 pg/mL 1,718 (H) ASSESSMENT/PLAN: 1. Left arm pain, chronic - ICD9: 729.5, ICD10: M79.602 (primary diagnosis) 2. Medial epicondylitis of right elbow - ICD9: 726.31, ICD10: M77.01 - HYDROCODONE 5 MG-ACETAMINOPHEN 325 MG TABLET Previous testing showed no medication present. Previously reported she does medication not take every day, then some days takes more. She defers any changes today. Repeat testing per protocol. Followguidelines, adjust accordingly. ASSESSMENT/PLAN: 1. Encounter for immunization - ICD9: V03.89, ICD10: Z23 - RSV PRINTED PHARMACY INSTRUCTIONS - TDAP PRINTED PHARMACY INSTRUCTIONS 2. Left arm pain, chronic - ICD9: 729.5, ICD10: M79.602(primary diagnosis) - HYDROCODONE 10 MG-ACETAMINOPHEN 325 MG TABLET - HYDROCODONE 10 MG-ACETAMINOPHEN 325 MG TABLET 5. Medial epicondylitis of right elbow - ICD9: 726.31, ICD10: M77.01 - HYDROCODONE 10 MG-ACETAMINOPHEN 325 MG TABLET - HYDROCODONE 10 MG-ACETAMINOPHEN 325 MG TABLET 6. Coronary artery disease involving shinnecock coronary artery 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- ICD9: 414.01, ICD10: I25.10 [facility] follows - NITROGLYCERIN 0.4 MG SUBLINGUAL TABLET Keep scheduled follow up appts Meryl Rios APRN.CNS Medical Decision Making: Problems: Moderate: 2+ stable chronic illnesses Risk: Moderate: Drug management Medical Decision Making Level: 4 - Moderate documented in this encounterMemorial Health [facility]09-14-2023 Discharge summary Author Haider Amezcua [facility] June 25, 2023 2:24pm Note Date/Time June 25, 2023 2:19pm [facility] Medical Records Department [address] [place] [address] Discharge Summary 06/25/23 1417 MR#: [id number] Acct: [id number] Name: NANCY JIMÉNEZ Rep #:[id number] : 1950 72 From: Haider Ameczua DO PCP: Dr. Stevie Dumas MD Status:AD M IN Location: [facility] [id number] Providers Date of Admission: 06/23/23 Primary Care Physician: Dr. Stevie Dumas MD Consultations 06/22/23 20:26 Consult: Podiatry Routine Consulting Provider: Nathan Spivey Reason for Consult: Right foot infected hematoma; cellulitis EMERGENT Consult: No MD Notified: Yes Date Notified: 06/22/23 Time Notified: 19:49 Method of Notification: ED Physician Initiated Reason For Visit: INFECTION OF RIGHT FOOT HEMATOMA AND CELLULITIS Diagnosis Discharge Diagnosis (1) Cellulitis of left foot: Status: Acute Code(s): L03.116 - Cellulitis of left lower limb Plan: Seen by podiatry taken to OR for I+D, and then potentially for delayed primary closure today.. On surgery, patient was noted to have hematoma without any evidence of an abscess. Cultures were sent. On IV doxycycline, will change to linezolid. Check MRSA, if positive, then would dc doxycycline and start vancomycin Culture showing staph epidermidis sensitive to cefoxitin, linezolid and vancomycin Podiatry recommending partial weight bearing LLE. Follow up with podiatry in 1 week. Plan Chronic conditions: * proximal A-fib: Stable. Hold apixaban for OR. Metoprolol continued. * hypertension: Blood pressure is stable with metoprolol and lisinopril. * HLD: continue statin VTE prophylaxis: SCDs Medications at Discharge Home Medications aspirin 81 mg tablet,delayed release 81 mg PO DAILY heart health 07/01/15 atorvastatin 40 mg tablet 40 mg PO QHS cholesterol 07/01/15 nitroglycerin 0.4 mg sublingual tablet 0.4 mg sublingual Q5M PRN Chest Pain 07/01/15 apixaban 5 mg tablet 5 mg PO BID #60 tabs 12/16/19 metoprolol tartrate 100 mg tablet 100 mg PO BID #60 tabs 12/16/19 lisinopril 5 mg tablet 5 mg PO DAILY #30 tabs 06/06/20 hydrocodone-acetaminophen 5-325mg 5mg-325mg 1 - 2 tab PO .qid PRN Pain 09/24/21 cholecalciferol (vitamin D3) 25 mcg (1,000 unit) capsule 25 mcg PO DAILY 07/01/22 cyanocobalamin (vitamin B-12) 1,000 mcg capsule 1,000 mcg PO DAILY 07/01/22 linezolid 600 mg tablet 600 mg PO BID #14 tabs 06/25/23 Hospital Course Operations - (I+D left foot with delayed closure. ) Summary of Care Provided Minutes Spent on Discharge: 32 Weight / BMI Weight Weight: 70.3 kg Body Mass Index (BMI) 24.3 ABG / Lab / Microbiology Data 06/25/23 05:50 06/25/23 05:50 Laboratory: Laboratory Results - last 24 hr 06/25/23 05:50: WBC 4.4, RBC 3.23 L, Hgb 11.4 L, Hct 34.8 L, MCV 107.7 H, MCH 35.3 H, MCHC 32.8, RDW Std Deviation 53.7 H, RDW Coeff of Jose L 13.3, Plt Count 143 L, MPV 9.6, Immature Gran % (Auto) 0.500, Neut % (Auto) 55.2, Lymph % (Auto)26.9, [place] % (Auto) 14.2 H, Eos % (Auto) 2.5, Baso % (Auto) 0.7, Absolute Neuts (auto) 2.5, Absolute Lymphs (auto) 1.19, Nucleated RBC % 0, Sodium 140, Potassium 3.7, Chloride 109 H, Carbon Dioxide 25.0, Anion Gap 6, BUN 22 H, Creatinine 0.64, Estim Creat Clear Calc 50.91, Est GFR (MDRD) Af Amer 117, Est GFR (MDRD) Non-Af 97, BUN/Creatinine Ratio 34.2 H, Glucose 107 H, Calcium 9.1 Microbiology: Microbiology 06/23/23 13:11 Tissue - Left Foot Gram Stain - Final 06/23/23 13:11 Tissue - Left Foot Wound Culture - Final Staphylococcus epidermidis 06/23/23 13:11 Tissue - Left Foot Anaerobic Culture - Preliminary 06/23/23 13:11 Tissue - Left Foot Gram Stain - Final 06/23/23 13:11 Tissue - Left Foot Wound Culture - Preliminary Coag Negative Staph 06/23/23 13:11 Tissue - Left Foot Anaerobic Culture - Preliminary D/C Instructions Discharge Diet: No restrictions Weight Bearing Status: Partial weight bearing (left foot. ) Call your doctor if your incision/area has: Continuous Slow Oozing, Sudden Increased Bleeding, Increased Pain/ Swelling, Increased Redness, Foul Smelling Discharge and Swelling at the incision site Meaningful Use Info Meaningful Use Diagnoses (Choose all that apply): None applicable Discharge Plan Admission Admit Date/Time: 06/23/23 12:35 Primary Reason for Your Visit: left foot infected hematoma. Attending Provider: Haider Amezcua Primary Care Provider: Stevie Dumas Consulting Providers: Kit Oro; Nathan Spivey Discharge Orders/Prescriptions Prescriptions: New linezolid 600 mg Tablet 600 mg PO BID Qty: 14 0RF Continued lisinopril 5 mg tablet 5 mg PO DAILY Qty: 30 11RF cyanocobalamin (vitamin B-12) 1,000 mcg capsule 1,000 mcg PO DAILY cholecalciferol (vitamin D3) 25 mcg (1,000 unit) capsule 25 mcg PO DAILY aspirin 81 MG tablet 81 mg PO DAILY Patient Comments: blood thinner/heart health atorvastatin 40 MG tablet 40 mg PO QHS Patient Comments: Cholesterol nitroglycerin 0.4 MG tablet 0.4 mg sublingual Q5M PRN (Reason: Chest Pain) Patient Comments: Chest pain hydrocodone-acetaminophen 5-325 mg tablet 1 - 2 tab PO .qid PRN (Reason: Pain) Patient Comments: Pain apixaban 5 mg tablet 5 mg PO BID Qty: 60 11RF metoprolol tartrate 100 mg tablet 100 mg PO BID Qty: 60 11RF Discontinued doxycycline monohydrate 100 mg capsule 100 mg PO BID Qty: 14 0RF Referrals / Follow Up: Nathan Spivey DPM [Med Staff - Active Staff] - Within 1 Week Stevie Dumas MD [Primary Care Provider] - Within 2 Weeks Disposition Disposition (needs filled in before D/C Order can be placed): Home, Self Care Charges/Coding Visit Charges Inpatient E&M: 72275 Disch Hosp >30min 06/25/23 1424 <Electronically signed by Haider Amezcua DO> Cosigner Signature (if applicable): CC: Dr. Haider Amezcua DO; Dr. Stevie Dumas MD~ Signed [facility] Work Phone: 1(158) 913-229509-14-2023 Progress note Author Haider Amezcua [facility] June 25, 2023 2:16pm Note Date/Time June 25, 2023 7:42am [facility] Medical Records Department [address] [place] [address] Progress Note - Hospitalist 06/25/23 0741 MR#: [id number] Acct: [id number] Name: NANCY JIMÉNEZ Rep #:[id number] : 1950 72 From: Haider Amezcua DO PCP: Dr. Stevie Dumas MD Status:AD M IN Location: [facility] [id number] Reason for Visit Reason for Visit: Diagnoses Cutaneous abscess of left foot (06/23/23) Cellulitis of left lower limb (06/23/23) Local infection of the skin and subcutaneous tissue, unspecified (06/23/23) Pain in left foot (06/23/23) Contusion of left foot, initial encounter (06/23/23) Other injury of unspecified body region, initial encounter (06/23/23) Subjective Subjective Some pain in left foot. Objective Data Objective Data Vital Signs: Vital Signs Temp Pulse Resp BP Pulse Ox O2 Del Method 36.4 C L 69 17 119/74 94 Room Air 06/25/23 03:00 06/25/23 03:00 06/25/23 03:00 06/25/23 03:00 06/25/23 03:00 06/25/23 06:00 Oxygen Delivery Method Room Air Weight: 70.3 kg Body Mass Index (BMI) 24.3 Intake & Output: Intake and Output for Last 24 Hours 06/23/23 06/24/23 06/25/23 23:59 23:59 23:59 Intake Total 2250.00 / 2250.00 3253.75 / 3553.75 780 / 780 Output Total 900 / 1600 950 / 950 Balance 2250.00 / 1750.00 2353.75 / 1953.75 -170 / -170 Lab / Micro Data 06/25/23 05:50 06/25/23 05:50 Labs: Laboratory Results - last 24 hr 06/25/23 05:50: WBC 4.4, RBC 3.23 L, Hgb 11.4 L, Hct 34.8 L, MCV 107.7 H, MCH 35.3 H, MCHC 32.8, RDW Std Deviation 53.7 H, RDW Coeff of Jose L 13.3, Plt Count 143 L, MPV 9.6, Immature Gran % (Auto) 0.500, Neut % (Auto) 55.2, Lymph % (Auto)26.9, [place] % (Auto) 14.2 H, Eos % (Auto) 2.5, Baso % (Auto) 0.7, Absolute Neuts (auto) 2.5, Absolute Lymphs (auto) 1.19, Nucleated RBC % 0, Sodium 140, Potassium 3.7, Chloride 109 H, Carbon Dioxide 25.0, Anion Gap 6, BUN 22 H, Creatinine 0.64, Estim Creat Clear Calc 50.91, Est GFR (MDRD) Af Amer 117, Est GFR (MDRD) Non-Af 97, BUN/Creatinine Ratio 34.2 H, Glucose 107 H, Calcium 9.1 Micro: Microbiology 06/23/23 13:11 Tissue - Left Foot Gram Stain - Final 06/23/23 13:11 Tissue - Left Foot Wound Culture - Preliminary Staphylococcus species 06/23/23 13:11 Tissue - Left Foot Gram Stain - Final Physical Exam Const alert and no apparent distress HEENT head/scalp atraumatic Extremity Extremity Narrative: left foot wrapped. ecchymosis noted on toes. Neuro oriented x3 Assessment & Plan Assessment/Plan (1) Cellulitis of left foot: PLAN: Seen by podiatry taken to OR for I+D, and then potentially for delayed primary closure today.. On surgery, patient was noted to have hematoma without any evidence of an abscess. Cultures were sent. On IV doxycycline, will change to linezolid. Check MRSA, if positive, then would dc doxycycline and start vancomycin Culture showing staph epidermidis sensitive to cefoxitin, linezolid and vancomycin Podiatry recommending partial weight bearing LLE. Follow up with podiatry in 1 week. PLAN: Plan Chronic conditions: * proximal A-fib: Stable. Hold apixaban for OR. Metoprolol continued. * hypertension: Blood pressure is stable with metoprolol and lisinopril. * HLD: continue statin VTE prophylaxis: SCDs 06/25/23 8114 <Electronically signed by Haider Jopperi DO> Cosigner Signature (if applicable): CC: ~ Signed [facility] Work Phone: 1([phone]) 798-257809-14-[address] [facility] 06-24-2023 Progress note Author aNthan Spivey [facility] June 24, 2023 1:17pm Note Date/Time June 24, 2023 11:53am [facility] Medical Records Department [address] [place] [address] Progress Note - Surgery 06/24/23 1149 MR#: [id number] Acct: [id number] Name: NANCY JIMÉNEZ Rep #:[id number] : 1950 72 From: Nathan Richard PM PCP: Dr. Stevie Dumas MD Status:AD M IN Location: [facility] [id number] Subjective Subjective Mrs. Jiménez is a 72-year-old female seen at bedside today for dressing change of left lower extremity. Patient is status post incision and drainage with evacuation of hematoma to the left foot. Patient is met to some pain but is controlled with pain medication. There is plan to take the patient to the back to the operating room either or Thursday for delayed primary closure. After the procedure patient can discharge. Objective Data Objective Data Vital Signs: Vital Signs Temp Pulse Resp BP Pulse Ox O2 Del Method 98.6 F 74 16 109/69 94 Room Air 06/24/23 09:52 06/24/23 09:52 06/24/23 09:52 06/24/23 09:52 06/24/23 09:52 06/24/23 09:54 Oxygen Delivery Method Room Air Weight: 70.3 kg Body Mass Index (BMI) 24.3 Intake & Output: Intake and Output for Last 24 Hours 06/22/23 06/23/23 06/24/23 23:59 23:59 23:59 Intake Total 260 / 260 2250.00 / 2250.00 893.75 / 893.75 Output Total 900 / 900 Balance 260 / 260 2250.00 / 1750.00 -6.25 / -6.25 Lab / Micro Data Attestation: I reviewed the patient's lab results. 06/23/23 06:35 06/23/23 06:35 Micro: Microbiology 06/23/23 13:11 Tissue - Left Foot Gram Stain - Final 06/23/23 13:11 Tissue - Left Foot Gram Stain - Final Physical Exam Narrative Vascular: DP and PT pulses are palpable 2 out of 4 to the left lower extremity. CFT is brisk. Evidence of nonpitting edema appreciated to the left foot. Neurological: Light touch and epicritic station is intact. Patient response to painful stimuli. Dermatological: Full-thickness incision to the dorsal aspect of the left foot. Wound base is fibrogranular in nature. No sign of infection malodor or probe tobone. No evidence of remaining hematoma is appreciated. Muscle skeletal: Muscle strength deferred secondary to postop recovery. Moderate palpatory tenderness appreciated to the incision on the dorsal aspect of the left foot. No pain with calf pression. Const oriented x3 and no apparent distress Assessment & Plan Assessment/Plan (1) Hematoma of left foot: PLAN: Patient was examined evaluated. All findings were discussed with the patient. All questions were answered to the patient satisfaction. Left lower extremity dressing was changed today at bedside. Packing pulled and application of Steri-Strips to reeducate the skin lines were applied today. Theleft lower extremity was dressed with Betadine paint dry sterile dressing and 4 inch Juan wrap for compression. We will plan for delayed primary closure tomorrow, 06/25/23 at 12 PM. Patient to be n.p.o. at midnight tonight for scheduled case tomorrow. I will continue to follow while patient is in house. Please reach out to Dr. Nathan Spivey, D.P.M. with any questions or concerns. Thank you for letting me be part of this patient's care. (2) Cellulitis of left foot: (3) Pain in left foot: 06/24/23 1317 <Electronically signed by Nathan Spivey DPM> Cosigner Signature (if applicable): CC: ~ Signed [facility] Work Phone: 1(720) 603-501609-13-2023 Progress note Author Haider Amezcua [facility] June 24, 2023 1:00pm Note Date/Time June 24, 2023 8:00am [facility] Medical Records Department [address] [place], [place] [address] [address] Progress Note - Hospitalist 06/24/23 0759 MR#: [id number] Acct: [id number] Name: NANCY JIMÉNEZ Rep #:[id number] : 1950 72 From: Haider Amezcua DO PCP: Dr. Stevie Dumas MD Status:AD M IN Location: [place] [address] Reason for Visit Reason for Visit: Diagnoses Cutaneous abscess of left foot (06/23/23) Cellulitis of left lower limb (06/23/23) Local infection of the skin and subcutaneous tissue, unspecified (06/23/23) Contusion of left foot, initial encounter (06/23/23) Other injury of unspecified body region, initial encounter (06/23/23) Subjective Subjective No new complaints. Objective Data Objective Data Vital Signs: Vital Signs Temp Pulse Resp BP Pulse Ox O2 Del Method 36.8 C 71 16 106/64 92 Room Air 06/24/23 05:39 06/24/23 05:39 06/24/23 05:39 06/24/23 05:39 06/24/23 05:39 06/24/23 05:39 Oxygen Delivery Method Room Air Weight: 70.3 kg Body Mass Index (BMI) 24.3 Intake & Output: Intake and Output for Last 24 Hours 06/22/23 06/23/23 06/24/23 23:59 23:59 23:59 Intake Total 260 / 260 2250.00 / 2250.00 633.75 / 633.75 Output Total 900 / 900 Balance 260 / 260 2250.00 / 1750.00 -266.25 / -266.25 Lab / Micro Data 06/23/23 06:35 06/23/23 06:35 Labs: Laboratory Results - last 24 hr 06/23/23 06:35: ESR 14, Hemoglobin A1c 5.0, C-React Prot Ext Range 2.98 Physical Exam Const alert and no apparent distress HEENT head/scalp atraumatic Resp normal respiratory effort, no retractions, no use of accessory muscles and clearto auscultation bilaterally Cardio regular rate, regular rhythm, S1 normal heart sound and S2 normal heart sound GI normal to inspection, nondistended, normoactive bowel sounds, soft to palpation,non-tender and non-distended Extremity normal to inspection Assessment & Plan Assessment/Plan (1) Cellulitis of left foot: PLAN: Seen by podiatry taken to OR for I+D, then potentially for delayed primaryclosure later in the week. On surgery, patient was noted to have hematoma without any evidence of an abscess. Cultures were sent. On IV doxycycline Check MRSA, if positive, then would dc doxycycline and start vancomycin Culture showing staph species. PLAN: Plan Chronic conditions: * proximal A-fib: Stable. Hold apixaban for OR. Metoprolol continued. * hypertension: Blood pressure is stable with metoprolol and lisinopril. * HLD: continue statin VTE prophylaxis: SCDs Charges/Coding Visit Charges Inpatient E&M: 03826 Subs Hosp L2 06/24/23 1300 <Electronically signed by Haider Amezcua DO> Cosigner Signature (if applicable): CC: ~ Signed [facility] Work Phone: 1(173) 993-878609-12-2023 Progress note Author Haider Amezcua [facility] June 23, 2023 3:34pm Note Date/Time June 23, 2023 7:47am [facility] Medical Records Department [address] [place] [address] Progress Note - Hospitalist 06/23/23 0739 MR#: [id number] Acct: [id number] Name: NANCY JIMÉNEZ Rep #:[id number] : 1950 72 From: Haider Amezcua DO PCP: Dr. Stevie Dumas MD Status:AD M IN Location: [place] [address]-1 Reason for Visit Reason for Visit: Diagnoses Cutaneous abscess of left foot (06/22/23) Cellulitis of left lower limb (06/22/23) Local infection of the skin and subcutaneous tissue, unspecified (06/22/23) Contusion of left foot, initial encounter (06/22/23) Other injury of unspecified body region, initial encounter (06/22/23) Subjective Subjective Feels well. Seen post-op. Objective Data Objective Data Vital Signs: Vital Signs Temp Pulse Resp BP Pulse Ox O2 Del Method 36.6 C 90 16 115/77 98 Room Air 06/22/23 21:30 06/22/23 22:27 06/22/23 21:30 06/22/23 21:30 06/22/23 21:30 06/22/23 21:30 Oxygen Delivery Method Room Air Weight: 70.3 kg Body Mass Index (BMI) 24.3 Intake & Output: Intake and Output for Last 24 Hours 06/21/23 06/22/23 06/23/23 23:59 23:59 23:59 Intake Total 260 / 260 Balance 260 / 260 Lab / Micro Data 06/23/23 06:35 06/23/23 06:35 Labs: Laboratory Results - last 24 hr 06/22/23 18:30: WBC 7.3, RBC 3.88 L, Hgb 13.7, Hct 41.5, MCV 107.0 H, MCH 35.3 H, MCHC 33.0, RDW Std Deviation 53.5 H, RDW Coeff of Jose L 13.5, Plt Count 191, MPV9.6, Immature Gran % (Auto) 0.600, Neut % (Auto) 61.0, Lymph % (Auto) 25.7, [place]% (Auto) 10.6 H, Eos % (Auto) 1.4, Baso % (Auto) 0.7, Absolute Neuts (auto) 4.4,Absolute Lymphs (auto) 1.86, Nucleated RBC % 0, PT 14.1, INR 1.1, APTT 31.9, Sodium 135 L, Potassium 4.3, Chloride 102, Carbon Dioxide 24.0, Anion Gap 9, BUN24 H, Creatinine 1.02, Estim Creat Clear Calc 49.91, Est GFR (MDRD) Af Amer 69, Est GFR (MDRD) Non-Af 57 L, BUN/Creatinine Ratio 23.5 H, Glucose 105, Calcium 10.7 H 06/23/23 06:35: WBC 4.4, RBC 3.21 L, Hgb 11.4 L, Hct 34.5 L, MCV 107.5 H, MCH 35.5 H, MCHC 33.0, RDW Std Deviation 53.5 H, RDW Coeff of Jose L 13.4, Plt Count 141 L, MPV 9.2, Immature Gran % (Auto) 0.200, Neut % (Auto) 58.5, Lymph % (Auto)24.8, [place] % (Auto) 13.3 H, Eos % (Auto) 2.3, Baso % (Auto) 0.9, Absolute Neuts (auto) 2.6, Absolute Lymphs (auto) 1.10, Nucleated RBC % 0, Sodium 138, Potassium 3.9, Chloride 107, Carbon Dioxide 25.0, Anion Gap 6, BUN 18, Creatinine 0.74, Estim Creat Clear Calc 49.00, Est GFR (MDRD) Af Amer 100, Est GFR (MDRD) Non-Af 82, BUN/Creatinine Ratio 24.3 H, Glucose 115 H, Calcium 9.0 Radiography Diagnostic Testing: Radiology Impression Foot X-Ray 06/22/23 18:40 IMPRESSION: Mild degenerative changes of the first metatarsophalangeal joint. There are no acute osseous abnormalities. Electronically Signed: Earnest Mckinnon MD at 19:04 EDT , Physical Exam Const alert and no apparent distress HEENT head/scalp atraumatic and moist oral mucous membranes Resp normal respiratory effort, no retractions, no use of accessory muscles and clearto auscultation bilaterally Cardio regular rate, regular rhythm, S1 normal heart sound and S2 normal heart sound GI normal to inspection, nondistended, normoactive bowel sounds, soft to palpation,non-tender and non-distended Extremity normal to inspection Assessment & Plan Assessment/Plan (1) Cellulitis of left foot: PLAN: Seen by podiatry taken to OR for I+D, then potentially for delayed primaryclosure later in the week. On surgery, patient was noted to have hematoma without any evidence of an abscess. Cultures were sent. On IV doxycycline Check MRSA, if positive, then would dc doxycycline and start vancomycin Follow-up cultures PLAN: Plan Chronic conditions: * proximal A-fib: Stable. Hold apixaban for OR. Metoprolol continued. * hypertension: Blood pressure is stable with metoprolol and lisinopril. * HLD: continue statin VTE prophylaxis: SCDs Charges/Coding Visit Charges Inpatient E&M: 36809 Subs Hosp L2 06/23/23 0586 <Electronically signed by Haider Amezcua DO> Cosigner Signature (if applicable): CC: ~ Signed [facility] Work Phone: 1(693) 208-883309-12-[address] [facility] 06-23-2023 Consult note Author Nathan Spivey [facility] June 23, 2023 7:29am Note Date/Time June 23, 2023 7:03am [facility] Medical Records Department [address] [place] [address] Consultation 06/23/23 0702 MR#: [id number] Acct: [id number] Name: NANCY JIMÉNEZ Rep #:[id number] : 1950 72 From: Nathan Richard PM PCP: Dr. Stevie Dumas MD Status:[facility] Location: [facility] [id number] Assessment & Plan Assessment/Plan (1) Abscess of left foot: PLAN: Patient was examined evaluated. All findings were discussed with the patient. All questions were answered to the patient satisfaction. Initial consult today by Dr. Spivey. Plan to take the patient to the operating room for complex incision and drainage of the left foot. The wound will be leftopen and packed after surgery. Patient will be need taken back after surgery today for delayed primary closure either on or Thursday. Patient has beenn.p.o. since midnight this morning 06/23/2023. We are still waiting on time fromthe operating room for when we can take the patient down for her case. All riskand benefits were discussed with the patient in great detail. Patient is understanding of why she will need surgery at this time and then also an additional surgery to close the wound. Patient stopped Eliquis last night. That would be fine for surgery today as thewound/incision will be left open and packed. Left foot radiographs: Show no evidence of soft tissue emphysema or soft tissue air. WBC: 7.3 -> 4.4 HbA1c: Pending Please reach out to Dr. Nathan Spivey for any questions or concerns. Thank you for the consult! (2) Cellulitis of left foot: HPI Consult Data Date of Consult: 06/23/23 HPI Narrative Reason for Consultation: Cellulitis and abscess left foot HPI Narrative: NANCY JIMÉNEZ, is a 72 F who presented [place] emergency department for admission secondary to worsening infection to left foot. Patient was seen in our office at the [facility] where she showed evidence of progressing cellulitis at the left foot. Patient states that on June 15 she was seen atthe emergency department at [place] with stable labs and vital signs stable was discharged on oral doxycycline. Patient's reason for coming to the emergency room on center was walking in flip-flops and grass where she believes she was either bitten by an insect or scraped her foot, she is unsure, and then the redness began at that time. Patient denies any constitutional symptoms. She is unsure of any trauma. No other pedal complaints. [facility] Medical History Anxiety and depression Atherosclerosis of coronary artery 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 Atrial fibrillation with rapid ventricular response (11/22/19) COPD (chronic obstructive pulmonary disease) Dysphagia Encounter for screening for malignant neoplasm of lung Essential hypertension HLD (hyperlipidemia) Hyperglycemia IBS (irritable bowel syndrome) PAF (paroxysmal atrial fibrillation) Tobacco abuse Home Medications aspirin 81 mg tablet,delayed release 81 mg PO DAILY heart health 07/01/15 [History Last Taken 06/22/23 07:30 81 mg] atorvastatin 40 mg tablet 40 mg PO QHS cholesterol 07/01/15 [History Last Taken 06/21/23 19:30 40 mg] nitroglycerin 0.4 mg sublingual tablet 0.4 mg sublingual Q5M PRN Chest Pain 07/01/15 [History Last Taken Unknown] apixaban 5 mg tablet 5 mg PO BID #60 tabs 12/16/19 [Rx Last Taken 06/22/23 07:30 5 mg] metoprolol tartrate 100 mg tablet 100 mg PO BID #60 tabs 12/16/19 [Rx Last Taken 06/22/23 07:30 100 mg] lisinopril 5 mg tablet 5 mg PO DAILY #30 tabs 06/06/20 [Rx Last Taken 06/22/23 07:30] hydrocodone-acetaminophen 5-325mg 5mg-325mg 1 - 2 tab PO .qid PRN Pain 09/24/21 [History Last Taken 06/22/23 16:30 1 TAB] cholecalciferol (vitamin D3) 25 mcg (1,000 unit) capsule 25 mcg PO DAILY 07/01/22 [History Last Taken 06/21/23 19:30 25 mcg] cyanocobalamin (vitamin B-12) 1,000 mcg capsule 1,000 mcg PO DAILY 07/01/22 [History Last Taken 06/21/23 19:30 1,000 mcg] doxycycline monohydrate 100 mg capsule 100 mg PO BID #14 CAPSULES 06/15/23 [Rx Last Taken 06/22/23 07:30 100 mg] Allergy/AdvReac Type Severity Reaction Status Date / Time No Known Allergies Allergy Verified 06/22/23 16:23 Family History Mother CVA (cerebral vascular accident) Surgical History H/O elbow surgery History of ankle surgery History of coronary artery stent placement (11/17/14) History of left heart catheterization (07/02/15) History of open reduction and internal fixation (ORIF) procedure History of surgical removal of pilonidal cyst Social History Smoking Status: Current every day smoker tobacco type: cigarettes alcohol intake: current alcohol intake frequency: 0-2 drinks per day substance use type: does not use caffeine: Yes Type: coffee Number of servings: 2 Physical Exam Narrative Vascular: DP and PT pulses are palpable in the left lower extremity. CFT is brisk. Skin temperature gradient is warm to warm from proximal ankle to distal digit. Focal decrease noted to the dorsal aspect of the left foot. Nonpitting edema is appreciated. Neurological: Light touch and epicritic station is intact. Patient is not responding to painful stimuli. Dermatological: Multiple sanguinous crusts for attempts at I&D's in the past with evidence of blanchable bogginess and flocculence appreciated to the dorsum of the left foot. Nonblanchable erythema with proximal streaking to the left foot. No active drainage. Evidence of ecchymosis appreciated to the hallux, second and third digit left foot. Musculoskeletal: Muscle strength intact. Active and passive range of motion thedigits is pain-free. No pain to palpation to the flocculent/bogginess area to the left foot. No pain throughout the left foot with palpation. No pain with calf pressure. Const alert, oriented x3 and no apparent distress Lab / Micro Data 06/23/23 06:35 06/22/23 18:30 Labs: Laboratory Results - last 24 hr 06/22/23 18:30: WBC 7.3, RBC 3.88 L, Hgb 13.7, Hct 41.5, MCV 107.0 H, MCH 35.3 H, MCHC 33.0, RDW Std Deviation 53.5 H, RDW Coeff of Jose L 13.5, Plt Count 191, MPV9.6, Immature Gran % (Auto) 0.600, Neut % (Auto) 61.0, Lymph % (Auto) 25.7, [place]% (Auto) 10.6 H, Eos % (Auto) 1.4, Baso % (Auto) 0.7, Absolute Neuts (auto) 4.4,Absolute Lymphs (auto) 1.86, Nucleated RBC % 0, PT 14.1, INR 1.1, APTT 31.9, Sodium 135 L, Potassium 4.3, Chloride 102, Carbon Dioxide 24.0, Anion Gap 9, BUN24 H, Creatinine 1.02, Estim Creat Clear Calc 49.91, Est GFR (MDRD) Af Amer 69, Est GFR (MDRD) Non-Af 57 L, BUN/Creatinine Ratio 23.5 H, Glucose 105, Calcium 10.7 H 06/23/23 06:35: WBC 4.4, RBC 3.21 L, Hgb 11.4 L, Hct 34.5 L, MCV 107.5 H, MCH 35.5 H, MCHC 33.0, RDW Std Deviation 53.5 H, RDW Coeff of Jose L 13.4, Plt Count 141 L, MPV 9.2, Immature Gran % (Auto) 0.200, Neut % (Auto) 58.5, Lymph % (Auto)24.8, [place] % (Auto) 13.3 H, Eos % (Auto) 2.3, Baso % (Auto) 0.9, Absolute Neuts (auto) 2.6, Absolute Lymphs (auto) 1.10, Nucleated RBC % 0 Radiology Impression Foot X-Ray 06/22/23 18:40 IMPRESSION: Mild degenerative changes of the first metatarsophalangeal joint. There are no acute osseous abnormalities. Electronically Signed: Earnest Mckinnon MD at 19:04 EDT , 06/23/23 0729 <Electronically signed by Nathan Spivey DPM> Cosigner Signature (if applicable): CC: IMELDA Spivey; Dr. Kit Oro MD; Dr. Stevie Dumas MD~ Signed [facility] Work Phone: [phone]) 370-499809-12-2023 History and physical note Author Kit Oro [facility] June 23, 2023 6:09am Note Date/Time June 22, 2023 7:50pm [facility] Medical Records Department [address] [place] [address] H&P Exam - Hospitalist 06/22/231949 MR#: [id number] Acct: [id number] Name: NANCY JIMÉNEZ Rep #:[id number] : 1950 72 From: Kit Oro MD PCP: Dr. Stevie Dumas MD Status:AD Sander KAUSHIK Location: [facility] [id number] HPI - General General Date of Admission: 06/22/23 Date of Service: 06/22/23 Chief Complaint: Right foot swelling HPI Narrative NANCY JIMÉNEZ, is a 72 F with a significant history of A-fib on Eliquis; and diabetes mellitus who presents to the emergency department with 18-day history of left foot swelling. Patient's symptom has been going on for 18-days. She went to her granddaughter's volleyball game. She entered the gymnasium for the game after walking a little bit. Upon the gymnasium she noticed pain and later what appeared to be swelling of the vein or nerve in her left foot. She reports that at baseline she had some neuropathic pain from her left foot but her current pain was and is above her baseline. Her symptoms progressed with erythema. Patient went to see orthopedic doctor. She was put on conservative therapy of ice and elevation as well as wrapping of her left foot. X-ray was unremarkable. On 2022 patient came to the emergency department. She was started onantibiotics. Orthopedic surgeon later referred patient to [facility] ankle and foot doctor. The ankle and foot doctor, Dr. Spivey referred patient to emergency department forpossible admission and draining of her left foot. Patient denies chills or fever [facility] Medical History Anxiety and depression Atherosclerosis of coronary artery 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 Atrial fibrillation with rapid ventricular response (11/22/19) COPD (chronic obstructive pulmonary disease) Dysphagia Encounter for screening for malignant neoplasm of lung Essential hypertension HLD (hyperlipidemia) Hyperglycemia IBS (irritable bowel syndrome) PAF (paroxysmal atrial fibrillation) Tobacco abuse Home Medications aspirin 81 mg tablet,delayed release 81 mg PO DAILY heart health 07/01/15 [History Last Taken 06/22/23 07:30 81 mg] atorvastatin 40 mg tablet 40 mg PO QHS cholesterol 07/01/15 [History Last Taken 06/21/23 19:30 40 mg] nitroglycerin 0.4 mg sublingual tablet 0.4 mg sublingual Q5M PRN Chest Pain 07/01/15 [History Last Taken Unknown] apixaban 5 mg tablet 5 mg PO BID #60 tabs 12/16/19 [Rx Last Taken 06/22/23 07:30 5 mg] metoprolol tartrate 100 mg tablet 100 mg PO BID #60 tabs 12/16/19 [Rx Last Taken 06/22/23 07:30 100 mg] lisinopril 5 mg tablet 5 mg PO DAILY #30 tabs 06/06/20 [Rx Last Taken 06/22/23 07:30] hydrocodone-acetaminophen 5-325mg 5mg-325mg 1 - 2 tab PO .qid PRN Pain 09/24/21 [History Last Taken 06/22/23 16:30 1 TAB] cholecalciferol (vitamin D3) 25 mcg (1,000 unit) capsule 25 mcg PO DAILY 07/01/22 [History Last Taken 06/21/23 19:30 25 mcg] cyanocobalamin (vitamin B-12) 1,000 mcg capsule 1,000 mcg PO DAILY 07/01/22 [History Last Taken 06/21/23 19:30 1,000 mcg] doxycycline monohydrate 100 mg capsule 100 mg PO BID #14 CAPSULES 06/15/23 [Rx Last Taken 06/22/23 07:30 100 mg] Allergy/AdvReac Type Severity Reaction Status Date / Time No Known Allergies Allergy Verified 06/22/23 16:23 Family History Mother CVA (cerebral vascular accident) Surgical History H/O elbow surgery History of ankle surgery History of coronary artery stent placement (11/17/14) History of left heart catheterization (07/02/15) History of open reduction and internal fixation (ORIF) procedure History of surgical removal of pilonidal cyst Social History Smoking Status: Current every day smoker tobacco type: cigarettes alcohol intake: current alcohol intake frequency: 0-2 drinks per day substance use type: does not use caffeine: Yes Type: coffee Number of servings: 2 ROS ROS Narrative Pertinent positives and pertinent negatives as noted in HPI. All other systems were reviewed and are negative Vital Signs Vital Signs Vital Signs: 06/22/23 16:21 06/22/23 19:44 Temperature 97.2 F L 97.4 F L Temperature Source Temporal Temporal Pulse Rate 105 H 98 Respiratory Rate 15 18 Blood Pressure 122/86 H 119/73 Blood Pressure Mean 98 88 Pulse Ox 96 99 Oxygen Delivery Method Room Air Weight Weight: 71 kg Body Mass Index (BMI) 24.5 Physical Exam Narrative Physical exam: General: Well-nourished, well-developed. Head: Normocephalic, atraumatic, no tenderness Eyes: Vision is grossly intact. EOMI ENT, no trauma, moist mucous membranes, no rhinorrhea Neck: Nontender, No thyromegaly. CVS: Regular rate and rhythm. S1-S2 present. No murmur, gallop or rub. Respiratory : clear to auscultation bilaterally, chest wall nontender Abdomen: Soft, nontender, nondistended, normal bowel sounds, no masses : Deferred Back: Nontender, no CVA tenderness. Extremities: Dorsum of left foot with erythema. Swelling of left foot. Tenderness of left foot. Right foot with no swelling, no erythema. Skin: Normal color, no trauma, abrasions Neuro: Alert, oriented, cranial nerves II through XII grossly intact. Psychiatry: Normal mood. Normal affect. Not depressed. Not anxious. Results Lab / Micro Data 06/22/23 18:30 06/22/23 18:30 Labs: Laboratory Results - last 24 hr 06/22/23 18:30: WBC 7.3, RBC 3.88 L, Hgb 13.7, Hct 41.5, MCV 107.0 H, MCH 35.3 H, MCHC 33.0, RDW Std Deviation 53.5 H, RDW Coeff of Jose L 13.5, Plt Count 191, MPV9.6, Immature Gran % (Auto) 0.600, Neut % (Auto) 61.0, Lymph % (Auto) 25.7, [place]% (Auto) 10.6 H, Eos % (Auto) 1.4, Baso % (Auto) 0.7, Absolute Neuts (auto) 4.4,Absolute Lymphs (auto) 1.86, Nucleated RBC % 0, PT 14.1, INR 1.1, APTT 31.9, Sodium 135 L, Potassium 4.3, Chloride 102, Carbon Dioxide 24.0, Anion Gap 9, BUN24 H, Creatinine 1.02, Estim Creat Clear Calc 49.91, Est GFR (MDRD) Af Amer 69, Est GFR (MDRD) Non-Af 57 L, BUN/Creatinine Ratio 23.5 H, Glucose 105, Calcium 10.7 H Radiology Impression Foot X-Ray 06/22/23 18:40 IMPRESSION: Mild degenerative changes of the first metatarsophalangeal joint. There are no acute osseous abnormalities. Electronically Signed: Earnest Mckinnon MD at 19:04 EDT , Assessment & Plan Assessment/Plan (1) Cellulitis of left foot: (2) Hematoma of left foot: (3) Infected hematoma: PLAN: Plan Infected hematoma of left foot/cellulitis of left foot CBC reviewed showed normal white counts. Trend. Impression of foot x-ray by radiology: Mild degenerative changes of the first metatarsophalangeal joint. There are no acute osseous abnormalities. Foot x-ray was independently interpreted and I agree with radiology interpretation. Per podiatry recommendation will continue on Doxycycline which patient was taking p.o. and received IV at the ED. Right second IV ordered. White counts is unremarkable. Trend CBC. We will keep n.p.o. for midnight. Hold home Eliquis and aspirin. History of proximal A-fib Stable Hold Eliquis. Metoprolol continued. History of hypertension Blood pressure is stable with metoprolol and lisinopril. Trend. Metoprolol lisinopril continued Time spent in the patient's overall evaluation,decision-making process, review of diagnostic data, adjustment of management, discussion with other providers, nursing nursing and ancillary staff involved in patient's care documentation, 65minutes. Charges/Coding Visit Charges Inpatient E&M: 09859 Init Hosp L3 06/23/23 0609 <Electronically signed by Kit Oro MD> Cosigner Signature (if applicable): CC: Dr. Kit Oro MD; Dr. Stevie Dumas MD~ Signed [facility] Work Phone: 1(438) 429-967509-12-2023 Discharge summary Author Marisa Draper [facility] June 22, 2023 11:30pm Note Date/Time June 22, 2023 6:45pm [facility] Medical Records Department [address] [place] [address] Emergency Department Summary 06/22/23 MR#: [id number] Acct: [id number] Name: NANCY JIMÉNEZ Rep #:[id number] : 1950 72 From: Marisa Draper MD PCP: Dr. Stevie Dumas MD Status:AD M KAUSHIK Location: [place] [address] HPI History of Present Illness Chief Complaint: Lower Extremity Injury Informant: patient Onset/Context/Timing Onset: Weeks Narrative Narrative: Patient presents secondary to left foot cellulitis. She was seen here in the emergency room on June 15. She states she remembers walking across the grass to one of her grandchildren sporting events. About 15 minutes later she noted a raised white area on her foot in the area has been red since that time. She was seen by podiatry, Dr. Anna today. He would like to take her for an I&D,but given her comorbidities and the fact that she is on a blood thinner did not want to do it in the office. He has the patient have blood work obtained and given IV doxycycline. He will plan to take her to the operating room tomorrow. He asked that medicine admit the patient. [facility] Medical History Anxiety and depression Atherosclerosis of coronary artery 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 Atrial fibrillation with rapid ventricular response (11/22/19) COPD (chronic obstructive pulmonary disease) Dysphagia Encounter for screening for malignant neoplasm of lung Essential hypertension HLD (hyperlipidemia) Hyperglycemia IBS (irritable bowel syndrome) PAF (paroxysmal atrial fibrillation) Tobacco abuse Home Medications aspirin 81 mg tablet,delayed release 81 mg PO DAILY heart health 07/01/15 [History Last Taken Unknown] atorvastatin 40 mg tablet 40 mg PO QHS cholesterol 07/01/15 [History Last Taken Unknown] nitroglycerin 0.4 mg sublingual tablet 0.4 mg sublingual Q5M PRN Chest Pain 07/01/15 [History Last Taken Unknown] apixaban 5 mg tablet 5 mg PO BID #60 tabs 12/16/19 [Rx Last Taken Unknown] metoprolol tartrate 100 mg tablet 100 mg PO BID #60 tabs 12/16/19 [Rx Last Taken Unknown] lisinopril 5 mg tablet 5 mg PO DAILY #30 tabs 06/06/20 [Rx Last Taken Unknown] hydrocodone-acetaminophen 5-325mg 5mg-325mg 1 - 2 tab PO .qid PRN Pain 09/24/21 [History Last Taken Unknown] cholecalciferol (vitamin D3) 25 mcg (1,000 unit) capsule 25 mcg PO DAILY 07/01/22 [History Last Taken Unknown] cyanocobalamin (vitamin B-12) 1,000 mcg capsule 1,000 mcg PO DAILY 07/01/22 [History Last Taken Unknown] doxycycline monohydrate 100 mg capsule 100 mg PO BID #14 CAPSULES 06/15/23 [Rx Last Taken Unknown] Allergy/AdvReac Type Severity Reaction Status Date / Time No Known Allergies Allergy Verified 06/22/23 16:23 Family History Mother CVA (cerebral vascular accident) Surgical History H/O elbow surgery History of ankle surgery History of coronary artery stent placement (11/17/14) History of left heart catheterization (07/02/15) History of open reduction and internal fixation (ORIF) procedure History of surgical removal of pilonidal cyst Social History Smoking Status: Current every day smoker tobacco type: cigarettes alcohol intake: current alcohol intake frequency: 0-2 drinks per day substance use type: does not use caffeine: Yes Type: coffee Number of servings: 2 ROS ROS ED Constitutional Constitutional ED: Denies chills or fever(s) Eyes Eyes: Denies change in vision or discharge from eye(s) ENT ENT ED: Denies discharge from eye(s), rhinorrhea or sore throat Cardiovascular Cardiovascular: Denies chest pain or palpitations Respiratory/Chest Respiratory/Chest: Denies cough or dyspnea Gastrointestinal Gastrointestinal: Denies abdominal pain, nausea or vomiting Genitourinary Genitourinary ED: Denies dysuria Musculoskeletal Musculoskeletal: Reports extremity pain; Denies back pain Integumentary Reports rash; Denies Abrasions Neurologic Neurologic: Denies headache(s) or weakness Allergic/Immunologic Allergic/Immunologic ED: Denies lip swelling or urticaria EXAM Physical Exam Const Vital Signs: 06/22/23 16:21 Temperature 97.2 F L Temperature Source Temporal Pulse Rate 105 H Respiratory Rate 15 Blood Pressure 122/86 H Blood Pressure Mean 98 Pulse Ox 96 Oxygen Delivery Method Room Air Positive well nourished and well developed General Appearance ED: well developed HEENT Reports moist mucous membranes Eyes EOMs intact bilaterally Chest Wall inspection of chest normal and palpation of chest normal Resp normal respiratory effort and clear to auscultation bilaterally Cardio regular rate and regular rhythm GI normal to inspection, nondistended, normoactive bowel sounds Extremity Extremity Narrative: Mild edema to the left foot. Erythema over the third, fourth, and fifth metatarsals. 4 scabbed lesions noted in this area. She also has significant ecchymosis on the medial side of her foot. No crepitus. Strong distal pulses. Neuro oriented x3 Psych mental status grossly normal MDM MDM MDM Narrative Medical decision making narrative: IV line established. Labwork obtained to evaluate for leukocytosis, anemia, andelectrolyte derangement. X-ray of the left foot obtained to evaluate for any subcutaneous air. IV doxycycline ordered. History & Record Review Discussion w/independent historian: Patient and Other Additional record(s) reviewed:: Prior outpatient record and Prior ED visit Lab Data Attestation: I reviewed the patient's lab results. Labs: Laboratory Results - last 24 hr 06/22/23 18:30 WBC 7.3 RBC 3.88 L Hgb 13.7 Hct 41.5 MCV 107.0 H MCH 35.3 H MCHC 33.0 RDW Std Deviation 53.5 H RDW Coeff of Jose L 13.5 Plt Count 191 MPV 9.6 Immature Gran % (Auto) 0.600 Neut % (Auto) 61.0 Lymph % (Auto) 25.7 [place] % (Auto) 10.6 H Eos % (Auto) 1.4 Baso % (Auto) 0.7 Absolute Neuts (auto) 4.4 Absolute Lymphs (auto) 1.86 Nucleated RBC % 0 PT 14.1 INR 1.1 APTT 31.9 Sodium 135 L Potassium 4.3 Chloride 102 Carbon Dioxide 24.0 Anion Gap 9 BUN 24 H Creatinine 1.02 Estim Creat Clear Calc 49.91 Est GFR (MDRD) Af Amer 69 Est GFR (MDRD) Non-Af 57 L BUN/Creatinine Ratio 23.5 H Glucose 105 Calcium 10.7 H Radiography Diagnostic Testing: Clinical Impression(s) from Imaging Studies Foot X-Ray 06/22/23 18:40 IMPRESSION: Mild degenerative changes of the first metatarsophalangeal joint. There are no acute osseous abnormalities. Electronically Signed: Earnest Mckinnon MD at 19:04 EDT , Treatment and Re-Evaluation :: CBC was normal white count at 7.3 with normal differential. Hemoglobin is 13.7. Coags unremarkable. Chemistry studies reveal a sodium of 135. Glucose is 105. Left foot x-rays per my interpretation reveal no acute findings and no evidenceof subcutaneous air. Radiology interpretation is reviewed. Patient has been given a dose of IV doxycycline per discussion with Dr. Spivey. I will speak with hospitalist regarding admission. Patient will be n.p.o. aftermidnight for anticipated surgery tomorrow. Discharge Plan Triage Chief Complaint: Lower Extremity Injury ED Provider: Marisa Draper Dx/Rx/DC Orders Clinical Impression: Hematoma of left foot, Cellulitis of left foot Prescriptions: No Action lisinopril 5 mg tablet 5 mg PO DAILY Qty: 30 11RF cyanocobalamin (vitamin B-12) 1,000 mcg capsule 1,000 mcg PO DAILY cholecalciferol (vitamin D3) 25 mcg (1,000 unit) capsule 25 mcg PO DAILY aspirin 81 MG tablet 81 mg PO DAILY Patient Comments: blood thinner/heart health atorvastatin 40 MG tablet 40 mg PO QHS Patient Comments: Cholesterol nitroglycerin 0.4 MG tablet 0.4 mg sublingual Q5M PRN (Reason: Chest Pain) Patient Comments: Chest pain hydrocodone-acetaminophen 5-325 mg tablet 1 - 2 tab PO .qid PRN (Reason: Pain) Patient Comments: Pain doxycycline monohydrate 100 mg capsule 100 mg PO BID Qty: 14 0RF apixaban 5 mg tablet 5 mg PO BID Qty: 60 11RF metoprolol tartrate 100 mg tablet 100 mg PO BID Qty: 60 11RF Primary Care Provider: Stevie Dumas Referrals: Stevie Dumas MD [Primary Care Provider] - Disposition Disposition: Acute Care Hospital [facility] What to do if you have Problems For any increased pain, shortness of breath, bleeding, nausea or vomiting, chestpain, or any unexpected problems, contact your Primary Care Provider. Call [facility] ([phone]) or report to the closest Emergency Room. Call 911 if necessary. 06/22/23 2330 <Electronically signed by Marisa Draper MD> Cosigner Signature (if applicable): CC: Dr. Stevie Dumas MD ~ Signed [facility] Work Phone: 1([phone]) 908-591709-04-2023 Hospital Discharge instructions Additional Instructions 1. Discontinue taking prednisone 2. Do not take your next 6 doses of Apixaban 3. Take antibiotics until gone 4. If you have a temperature greater than 100, red streak that is going up your leg return to the emergency department. Otherwise, follow-up with Dr. Dumas in 3 to 5 days if not better.[facility] Work Phone: 1(131) 632-326206-05-2023 Instructions* Patient Instructions* Stevie Dumas MD - 03/16/2023 10:26 AM EDT Alpha Lipoic Acid 300 to 600 mg per day might help with neuropathy. B6 (up to 200 mg daily for a couple months then either stop or lower dose) might also help. [facility] History of Present illness Narrative* Stevie Dumas MD - 03/16/2023 10:17 AM EDT This note was created using [employer]. Subjective Nancy Jiménez is a 72 year old female. Patient presents with: Established Patient: Labs prior to follow up SUBJECTIVE: Nancy Jiménez is a 72 year old year old lady here today for follow up appointment for review of medical conditions. Noted legs with some redness; did not notice swelling. Toes going numb off and on. Started a few months ago. Gets numbness every day. Pain control adequate with current meds. Stable on other meds. See Assessment and plan. Quit smoking for 5 months. PAST MEDICAL HISTORY Diagnosis Date ANXIETY STATE NOS 10/27/2005 BONE & CARTILAGE DIS NOS 10/27/2005 osteopenia CAD (coronary artery disease) 11/17/14 s/p PCI to the proximal LAD with a 3.0/18 mm Resolute Integrity DONALDO DEPRESSIVE DISORDER NEC 10/27/2005 Left arm pain 03/15/2014 Medial epicondylitis of right elbow 03/15/2014 Pain in joint, lower leg 03/15/2014 patellofemoral syndrome; also history of ankle fracture /sp surgical repair Tobacco use disorder 05/19/2006 Current Outpatient Medications Medication Sig [START ON 03/18/2023] HYDROcodone-Acetaminophen (NORCO) 10-325 mg per tablet Take 1 tablet by mouth four times daily as needed for up to 30 days. Do not start before March 18, 2023. aspirin, enteric coated (ASPIRIN, ENTERIC COATED) 81 mg EC tablet Take 1 tablet by mouth once daily. cyanocobalamin (VITAMIN B-12) 1,000 mcg tab Take 1 tablet by mouth once daily. nitroglycerin sublingual (NITROQUICK) 0.4 mg SL tablet Dissolve 1 tablet under the tongue every 5 minutes as needed for chest pain. Up to 3 times as needed as directed metoprolol tartrate, short acting, (LOPRESSOR) 100 mg tablet Take 1 tablet by mouth twice daily. atorvastatin (LIPITOR) 40 mg tablet Take 1 tablet by mouth once daily. lisinopril (ZESTRIL, PRINIVIL) 5 mg tablet Take 1 tablet by mouth once daily. apixaban (ELIQUIS) 5 mg tab(s) Take 1 tablet by mouth twice daily. Cholecalciferol, Vitamin D3, 25 mcg (1,000 unit) cap Take 1,000 Units by mouth once daily. HYDROcodone-Acetaminophen (NORCO) 10-325 mg per tablet Take 1 tablet by mouth four times daily as needed for up to 30 days. Do not start before February 16, 2023. (Patient not taking: Reported on 03/16/2023) HYDROcodone-Acetaminophen (NORCO) 10-325 mg per tablet Take 1 tablet by mouth four times daily as needed for up to 30 days. Do not start before December 18, 2022. (Patient not taking: Reported on 01/16/2023) HYDROcodone-Acetaminophen (NORCO) 10-325 mg per tablet Take 1 tablet by mouth four times daily as needed for up to 30 days. Do not start before January 17, 2023. No current facility-administered medications for this visit. Review of Systems Objective BP 110/72 Pulse 63 Temp 36.5 C (97.7 F) Resp 18 Wt 72.6 kg (160 lb) SpO2 98% BMI 25.06 kg/m Physical Exam Constitutional: Appearance: Normal appearance. HENT: Head: Normocephalic. Eyes: Conjunctiva/sclera: Conjunctivae normal. Cardiovascular: Rate and Rhythm: Normal rate and regular rhythm. Heart sounds: Normal heart sounds. Comments: Some redness of skin lower legs consistent with venous stasis changes Pulmonary: Effort: Pulmonary effort is normal. Breath sounds: Normal breath sounds. Musculoskeletal: Right lower le+ Pitting Edema present. Left lower le+ Pitting Edema present. Skin: General: Skin is warm and dry. Neurological: General: No focal deficit present. Mental Status: She is alert and oriented to person, place, and time. Psychiatric: Mood and Affect: Mood normal. Behavior: Behavior normal. Thought Content: Thought content normal. Judgment: Judgment normal. Assessment and Plan Encounter Diagnosis ICD-10-CM 1. Left arm pain, chronic M79.602 HYDROcodone-Acetaminophen (NORCO) 10-325 mg per tablet HYDROcodone-Acetaminophen (NORCO) 10-325 mg per tablet 2. Bilateral leg edema R60.0 3. Numbness of toes R20.0 intermittent 4. Medial epicondylitis of right elbow M77.01 HYDROcodone-Acetaminophen (NORCO) 10-325 mg per tablet HYDROcodone-Acetaminophen (NORCO) 10-325 mg per tablet 5. Atrial fibrillation, transient (HCC) I48.91 No recurrences on current medications. Continues on Eliquis Above issues addressed with patient. Patient involved in shared decision making for management of medical issues. History and medications reviewed. Epic updated as needed Refills and/or prescriptions taken care of and meds adjusted as indicated after reviewed history, exam and labs. Health Maintenance reviewed. Updated record and/or ordered tests as recorded. Encouraged on efforts at healthy diet and regular exercise and adequate sleep. Has done well with smoking cessation. Stable with control of chronic pain with med as above. At this time benefits outweigh risks. Continue to monitor for adverse effects and indications for decreasing dose or tapering off. Staying active as able. No signs of diversion or abuse of medication(s); no adverse effects. Continue present management. Stevie Dumas MD documented [facility] History of Present illness Narrative* Stevie Dumas MD - 01/16/2023 10:09 AM EDT This note was created using Infogramriter. Subjective Nancy Jiménez is a 72 year old female. Patient presents with: F/U 2 month SUBJECTIVE: Nancy Jiménez is a 72 year old year old lady here today for 2 month follow up appointment for reviewof medical conditions. Stable on meds. No side effectsi. Pain meds still effective. Labs on way out today Needed to moved to [facility] for her meds. PAST MEDICAL HISTORY Diagnosis Date ANXIETY STATE NOS 10/27/2005 BONE & CARTILAGE DIS NOS 10/27/2005 osteopenia CAD (coronary artery disease) 11/17/14 s/p PCI to the proximal LAD with a 3.0/18 mm Resolute Integrity DONALDO DEPRESSIVE DISORDER NEC 10/27/2005 Left arm pain 03/15/2014 Medial epicondylitis of right elbow 03/15/2014 Pain in joint, lower leg 03/15/2014 patellofemoral syndrome; also history of ankle fracture /sp surgical repair Tobacco use disorder 05/19/2006 Current Outpatient Medications Medication Sig aspirin, enteric coated (ASPIRIN, ENTERIC COATED) 81 mg EC tablet Take 1 tablet by mouth once daily. cyanocobalamin (VITAMIN B-12) 1,000 mcg tab Take 1 tablet by mouth once daily. nitroglycerin sublingual (NITROQUICK) 0.4 mg SL tablet Dissolve 1 tablet under the tongue every 5 minutes as needed for chest pain. Up to 3 times as needed as directed [START ON 01/17/2023] HYDROcodone-Acetaminophen (NORCO) 10-325 mg per tablet Take 1 tablet by mouth four times daily as needed for up to 30 days. Do not start before January 17, 2023. metoprolol tartrate, short acting, (LOPRESSOR) 100 mg tablet Take 1 tablet by mouth twice daily. atorvastatin (LIPITOR) 40 mg tablet Take 1 tablet by mouth once daily. lisinopril (ZESTRIL, PRINIVIL) 5 mg tablet Take 1 tablet by mouth once daily. apixaban (ELIQUIS) 5 mg tab(s) Take 1 tablet by mouth twice daily. Cholecalciferol, Vitamin D3, 25 mcg (1,000 unit) cap Take 1,000 Units by mouth once daily. HYDROcodone-Acetaminophen (NORCO) 10-325 mg per tablet Take 1 tablet by mouth four times daily as needed for up to 30 days. Do not start before December 18, 2022. (Patient not taking: Reported on 01/16/2023) HYDROcodone-Acetaminophen (NORCO) 10-325 mg per tablet Take 1 tablet by mouth four times daily as needed for up to 30 days. Do not start before November 16, 2022. No current facility-administered medications for this visit. Review of Systems Objective BP 120/82 Pulse 69 Temp 36.3 C (97.4 F) Resp 18 Wt 72.6 kg (160 lb) SpO2 96% BMI 25.06 kg/m Physical Exam Constitutional: Appearance: Normal appearance. HENT: Head: Normocephalic. Eyes: Conjunctiva/sclera: Conjunctivae normal. Cardiovascular: Rate and Rhythm: Normal rate and regular rhythm. Heart sounds: Normal heart sounds. Pulmonary: Effort: Pulmonary effort is normal. Breath sounds: Normal breath sounds. Musculoskeletal: Right lower leg: Edema (Trace pretibial) present. Left lower leg: Edema (Trace pretibial) present. Skin: General: Skin is warm and dry. Neurological: General: No focal deficit present. Mental Status: She is alert and oriented to person, place, and time. Psychiatric: Mood and Affect: Mood normal. Behavior: Behavior normal. Thought Content: Thought content normal. Judgment: Judgment normal. Assessment and Plan Encounter Diagnosis ICD-10-CM 1. Left arm pain, chronic M79.602 HYDROcodone-Acetaminophen (NORCO) 10-325 mg per tablet HYDROcodone-Acetaminophen (NORCO) 10-325 mg per tablet 2. Medial epicondylitis of right elbow M77.01 HYDROcodone-Acetaminophen (NORCO) 10-325 mg per tablet HYDROcodone-Acetaminophen (NORCO) 10-325 mg per tablet Above issues addressed with patient. Stable with control of chronic pain as noted above. At this time benefits outweigh risks. Continue to monitor for adverse effects and indications for decreasing dose or tapering off. No signs of diversion or abuse of medication(s); no adverse effects. Continue present management. Patient involved in shared decision making for management of medical issues. History and medications reviewed. Epic updated as needed Refills and/or prescriptions taken care of and meds adjusted as indicated after reviewed history, exam and labs. Health Maintenance reviewed. Updated record and/or ordered tests as recorded. Encouraged on efforts at healthy diet and regular exercise and adequate sleep. Stevie Dumas MD documented in this encounterMem[facility]02-[facility] History of Present illness Narrative* Stevie Dumas MD - 11/18/2022 10:23 AM EST This note was created using Infogramriter. Subjective Nancy Jiménez is a 71 year old female. Patient presents with: 2 month follow up: Address SUBJECTIVE: Nancy Jiménez is a 71 year old year old lady here today for 2 month follow up appointment for reviewof medical conditions. Stable on current meds. First day of not smoking was [facility]. Just stopped buying them. Got patches for free by calling [phone]--did not need. Noted with metastatic cancer to brand. Does not have HCDPOA or LW but in her will, designated daughter to be the decision maker for LW type decisions as well as be her surrogate decision maker. Will give info about advanced directives PAST MEDICAL HISTORY Diagnosis Date ANXIETY STATE NOS 10/27/2005 BONE & CARTILAGE DIS NOS 10/27/2005 osteopenia CAD (coronary artery disease) 11/17/14 s/p PCI to the proximal LAD with a 3.0/18 mm Resolute Integrity DONALDO DEPRESSIVE DISORDER NEC 10/27/2005 Left arm pain 03/15/2014 Medial epicondylitis of right elbow 03/15/2014 Pain in joint, lower leg 03/15/2014 patellofemoral syndrome; also history of ankle fracture /sp surgical repair Tobacco use disorder 05/19/2006 Current Outpatient Medications Medication Sig metoprolol tartrate, short acting, (LOPRESSOR) 100 mg tablet Take 1 tablet by mouth twice daily. atorvastatin (LIPITOR) 40 mg tablet Take 1 tablet by mouth once daily. HYDROcodone-Acetaminophen (NORCO) 10-325 mg per tablet Take 1 tablet by mouth four times daily as needed for up to 30 days. Do not start before November 16, 2022. lisinopril (ZESTRIL, PRINIVIL) 5 mg tablet Take 1 tablet by mouth once daily. apixaban (ELIQUIS) 5 mg tab(s) Take 1 tablet by mouth twice daily. Cholecalciferol, Vitamin D3, 25 mcg (1,000 unit) cap Take 1,000 Units by mouth once daily. cyanocobalamin (VITAMIN B-12) 1,000 mcg tab Take 1 tablet by mouth once daily. nitroglycerin sublingual (NITROQUICK) 0.4 mg SL tablet Dissolve 1 tablet under the tongue every 5 minutes as needed for Chest Pain. Up to 3 times as needed as directed aspirin, enteric coated (ASPIRIN, ENTERIC COATED) 81 mg EC tablet Take 1 tablet by mouth once daily. HYDROcodone-Acetaminophen (NORCO) 10-325 mg per tablet Take 1 tablet by mouth four times daily as needed for up to 30 days. Do not start before October 17, 2022. HYDROcodone-Acetaminophen (NORCO) 10-325 mg per tablet Take 1 tablet by mouth four times daily as needed for up to 30 days. Do not start before September 17, 2022. No current facility-administered medications for this visit. Review of Systems Objective BP 118/68 Pulse 72 Temp 36 C (96.8 F) Resp 18 Wt 67.9 kg (149 lb 9.6 oz) SpO2 96% BMI 23.43 kg/m Last 5 Encounter Wt Readings: Date: Wt: 11/18/2022 67.9 kg (149 lb 9.6 oz) 09/15/2022 66.2 kg (146 lb) 07/17/2022 69.4 kg (153 lb) 05/15/2022 68.5 kg (151 lb) 03/17/2022 69.9 kg (154 lb) No waist measurement recorded Estimated body mass index is 23.43 kg/m as calculated from the following: Height as of 04/07/17: 170.2 cm (5' 7). Weight as of this encounter: 67.9 kg (149 lb 9.6 oz). Last 5 Encounter BP Readings: Date: BP: 11/18/2022 118/68 09/15/2022 116/72 07/17/2022 138/78 05/15/2022 116/78 03/17/2022 130/82 Physical Exam Constitutional: Appearance: Normal appearance. HENT: Head: Normocephalic. Eyes: Conjunctiva/sclera: Conjunctivae normal. Cardiovascular: Rate and Rhythm: Normal rate and regular rhythm. Heart sounds: Normal heart sounds. Pulmonary: Effort: Pulmonary effort is normal. Breath sounds: Normal breath sounds. Skin: General: Skin is warm and dry. Neurological: General: No focal deficit present. Mental Status: She is alert and oriented to person, place, and time. Psychiatric: Mood and Affect: Mood normal. Behavior: Behavior normal. Thought Content: Thought content normal. Judgment: Judgment normal. Assessment and Plan Encounter Diagnosis ICD-10-CM 1. Left arm pain, chronic M79.602 HYDROcodone-Acetaminophen (NORCO) 10-325 mg per tablet HYDROcodone-Acetaminophen (NORCO) 10-325 mg per tablet 2. Hypercholesterolemia E78.00 TSH BLD T4 FREE/FREE THYROX T3 FREE BLD 3. B12 deficiency E53.8 cyanocobalamin (VITAMIN B-12) 1,000 mcg tab 4. Coronary artery disease involving shinnecock coronary artery 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 [id number] nitroglycerin sublingual (NITROQUICK) 0.4 mg SL tablet No angina 5. Thyroid nodule E04.1 TSH BLD T4 FREE/FREE THYROX T3 FREE BLD postponing US 6. Medial epicondylitis of right elbow M77.01 HYDROcodone-Acetaminophen (NORCO) 10-325 mg per tablet HYDROcodone-Acetaminophen (NORCO) 10-325 mg per tablet 7. Colon cancer screening Z12.11 FECAL OCCULT BLOOD TEST 8. Need for vaccination Z23 PNEUMOCOCCAL VACCINE (PREVNAR 20) Above issues addressed with patient. Patient involved in shared decision making for management of medical issues. Stable with control of chronic pain. Able to do ADLs. At this time benefits outweigh risks. Continue to monitor for adverse effects and indications for decreasing dose or tapering off. No signs of diversion or abuse of medication(s); no adverse effects. Continue present management. History and medications reviewed. Epic updated as needed Refills and/or prescriptions taken care of and meds adjusted as indicated after reviewed history, exam and labs. Health Maintenance reviewed. Updated record and/or ordered tests as recorded. Stable with control of chronic pain. No signs of diversion or abuse of medication(s); no adverse effects. Continue present management. Encouraged on efforts at healthy diet and regular exercise and adequate sleep. Needed to return for labs secondary to power going out. Did get vaccine. Stevie Dumas MD documented in this encounterMem[facility]12-16-[facility]22 Miscellaneous Notes* Telephone Encounter - Graham De Leon APRN.CNP - 09/26/2022 2:16 PM EST Scripts sent. * Telephone Encounter - Laurel Leach RN - 09/26/2022 10:36 AM EST Patient requesting metoprolol and atorvastatin prescriptions be cancelled at [facility] and sent to [facility] please. Thank you. documented in this encounterMemorial [facility]12-06-2022 Miscellaneous Notes* Telephone Encounter - Anne Marie Helms Ma - 09/16/2022 3:16 PM EST Order faxed , patient notified * Telephone Encounter - Stevie Dumas MD - 09/16/2022 2:42 PM EST Order was printed but not given to patient yesterday--if find that, can fax it. * Telephone Encounter - Julianne Serra LPN - 09/16/2022 9:59 AM EST Pt called and states she was not given a cock-up wrist splint. Pt was seen in the office yesterday 09-15-22. Pt asking to have the prescription sent to [facility]. Pt asking to be called once thishas been sent. Julianne Serra LPN documented in this encounterMemorial [facility]12-05-2022 History of Present illness Narrative* Stevie Dumas MD - 09/15/2022 4:39 PM EST This note was created using NoteWriter. Subjective Nancy Jiménez is a 71 year old female. Patient presents with: Follow Up SUBJECTIVE: Nancy Jiménez is a 71 year old year old LADY here today for 2 month follow up appointment for reviewof medical conditions. Stable on current meds. No adverse effects. Noted changing insurance beginning of the year. Occasional trouble with swallowing. Nothing gets stuck. No pain with swallowing. Wants to screen for throat issues. Wondered about imaging, Reviewed due for thyroid nodule follow up. ?CTS in hands hands hurt. Sometimes fingers get numb. While playing on phone or computer. PAST MEDICAL HISTORY Diagnosis Date ANXIETY STATE NOS 10/27/2005 BONE & CARTILAGE DIS NOS 10/27/2005 osteopenia CAD (coronary artery disease) 11/17/14 s/p PCI to the proximal LAD with a 3.0/18 mm Resolute Integrity DONALDO DEPRESSIVE DISORDER NEC 10/27/2005 Left arm pain 03/15/2014 Medial epicondylitis of right elbow 03/15/2014 Pain in joint, lower leg 03/15/2014 patellofemoral syndrome; also history of ankle fracture /sp surgical repair Tobacco use disorder 05/19/2006 Current Outpatient Medications Medication Sig [START ON 09/17/2022] HYDROcodone-Acetaminophen (NORCO) 10-325 mg per tablet Take 1 tablet by mouth four times daily as needed for up to 30 days. Do not start before September 17, 2022. apixaban (ELIQUIS) 5 mg tab(s) Take 1 tablet by mouth twice daily. metoprolol tartrate, short acting, (LOPRESSOR) 100 mg tablet Take 1 tablet by mouth twice daily. atorvastatin (LIPITOR) 40 mg tablet Take 1 tablet by mouth once daily. Cholecalciferol, Vitamin D3, 25 mcg (1,000 unit) cap Take 1,000 Units by mouth once daily. lisinopril (ZESTRIL, PRINIVIL) 5 mg tablet Take 1 tablet by mouth once daily. cyanocobalamin (VITAMIN B-12) 1,000 mcg tab Take 1 tablet by mouth once daily. nitroglycerin sublingual (NITROQUICK) 0.4 mg SL tablet Dissolve 1 tablet under the tongue every 5 minutes as needed for Chest Pain. Up to 3 times as needed as directed aspirin, enteric coated (ASPIRIN, ENTERIC COATED) 81 mg EC tablet Take 1 tablet by mouth once daily. HYDROcodone-Acetaminophen (NORCO) 10-325 mg per tablet Take 1 tablet by mouth four times daily as needed for up to 30 days. Do not start before July 19, 2022. No current facility-administered medications for this visit. Review of Systems Objective BP 116/72 Pulse 67 Wt 66.2 kg (146 lb) SpO2 98% BMI 22.87 kg/m Last 5 Encounter Wt Readings: Date: Wt: 09/15/2022 66.2 kg (146 lb) 07/17/2022 69.4 kg (153 lb) 05/15/2022 68.5 kg (151 lb) 03/17/2022 69.9 kg (154 lb) 01/13/2022 68 kg (150 lb) No waist measurement recorded Estimated body mass index is 22.87 kg/m as calculated from the following: Height as of 04/07/17: 170.2 cm (5' 7). Weight as of this encounter: 66.2 kg (146 lb). Last 5 Encounter BP Readings: Date: BP: 09/15/2022 116/72 07/17/2022 138/78 05/15/2022 116/78 03/17/2022 130/82 01/13/2022 126/80 Physical Exam Constitutional: Appearance: Normal appearance. HENT: Head: Normocephalic. Eyes: Conjunctiva/sclera: Conjunctivae normal. Cardiovascular: Rate and Rhythm: Normal rate and regular rhythm. Heart sounds: Normal heart sounds. Pulmonary: Effort: Pulmonary effort is normal. Breath sounds: Normal breath sounds. Musculoskeletal: Right lower leg: Edema present. Left lower leg: Edema present. Skin: General: Skin is warm and dry. Neurological: General: No focal deficit present. Mental Status: She is alert and oriented to person, place, and time. Psychiatric: Mood and Affect: Mood normal. Behavior: Behavior normal. Thought Content: Thought content normal. Judgment: Judgment normal. Neg Tinel's , neg Phalen's. Discussed had lung cancer screening: Low Dose CT Lung Screening [facility] [address] [place] [id number] Lung Screening MR#: [id number] Acct: [id number] Name: NANCY JIMÉNEZ Rep #: [id number] : 1950 F 71 From: Main robert MD PCP: Dr. Stevie Dumas MD Status: REG CLI Study: Low Dose CT Lung Screening Date of Exam: 08/26 Exam# [id number] Ordering Dr: Minnie Banegas NP ETHNOGRAPHIC MATERIALS CONSERVATOR -C STUDY: LOW DOSE CT LUNG CANCER SCREENING REASON FOR EXAM: Female, 71 years old. Lung cancer screening -- and gt; 20 pk yr hx; current smoker; asymptomatic RADIATION DOSAGE (If Supplied By Facility): CTDIvol = ( 2.01 ) mGy, DLP = ( 76.00 ) mGycm TECHNIQUE: No contrast was administered. Low dose technique was utilized (average mAS-38 and kVp 120). 1.25 mm axial source images with a slice interval of 1.25-mm were reconstructed in lung windows. 2.5 mm axial source images with a slice interval of 2.5-mm were reconstructed in lung windows. 5.0 mm axial source images with a slice interval of 5.0-mm were reconstructed in soft tissue windows. COMPARISON: Comparison is made with prior CT scan of the chest dated 07/01/2015. NODULES: No suspicious nodules are seen. Emphysema: Emphysematous changes slightly more prominent at the lung apices. Mild scarring along the posterior medial segment of the right lower lobe. Endobronchial lesion: None Aorta: Atherosclerotic plaque formation of the ascending and thoracic aorta. CORONARY ARTERIES: Coronary artery calcification Heart: Unremarkable Pulmonary artery: Unremarkable Mediastinal nodes: Small benign-appearing mediastinal lymph nodes. Other chest and abdominal findings: Degenerative changes of the dorsal spine. CT/Low Dose CT Lung Screening IMPRESSION: Lung-RADS category 2 - Continue annual screening with LDCT in 12 months. IMPORTANT NOTES FOR USE: ACR Lung-RADS Version 1.1 Assessment Categories Release Date: 2018 Category: Coded 0-4 bases on nodule(s) with highest degree of suspicion. Negative screen is defined as categories 1 and 2; a positive screen is defined as categories 3 and 4. Category 3 and 4A nodules that are unchanged on interval CT should be coded as category 2, and individuals returned to screening in 12 months. Category 4X: Category 3 or 4 nodules with additional imaging findings that increase the suspicion of lung cancer, such as spiculation, GGN that doubles in size in 1 year, enlarged lymph notes, etc. Category Modifiers: S (significant finding unrelated to lung cancer) Electronically Signed: Main López MD at 13:44 EST , Assessment and Plan Encounter Diagnosis ICD-10-CM 1. Left arm pain, chronic M79.602 HYDROcodone-Acetaminophen (NORCO) 10-325 mg per tablet HYDROcodone-Acetaminophen (NORCO) 10-325 mg per tablet 2. Medial epicondylitis of right elbow M77.01 HYDROcodone-Acetaminophen (NORCO) 10-325 mg per tablet HYDROcodone-Acetaminophen (NORCO) 10-325 mg per tablet 3. Bilateral carpal tunnel syndrome G56.03 COCK-UP WRIST SPLINT 4. Hypertension, unspecified type I10 lisinopril (ZESTRIL, PRINIVIL) 5 mg tablet 5. Coronary artery disease involving shinnecock coronary artery 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 [id number] lisinopril (ZESTRIL, PRINIVIL) 5 mg tablet 6. Thyroid nodule E04.1 US THYROID/PARATHYROID 7. Atrial fibrillation, transient (HCC) I48.91 apixaban (ELIQUIS) 5 mg tab(s) Had episode. Rehabilitation Attendant evaluated.Controlled with current meds. On Eliquis Above issues addressed with patient. Patient involved in shared decision making for management of medical issues. History and medications reviewed. Epic updated as needed Refills and/or prescriptions taken care of and meds adjusted as indicated after reviewed history, exam and labs. Health Maintenance reviewed. Updated record and/or ordered tests as recorded. Encouraged on efforts at healthy diet and regular exercise and adequate sleep. Continue present management.Further evaluation and treatment as indicated. Stable with control of chronic pain. Discussed with patient that benefits outweigh risks at this time. Patient prefers to stay on current medication. No signs of diversion or abuse of medication(s); no adverse effects. Continue present management. Stevie Dumas MD documented in this encounterMemorial [facility]11-18-2022 Miscellaneous Notes* Telephone Encounter - Minda Ling RN - 08/29/2022 9:53 AM EST Pt called in and reports [facility] had been out, but they got it back in and she was able to get it there. Discontinued the Rx for [facility]. * Telephone Encounter - Brandy Dupree LPN - 08/29/2022 9:14 AM EST LEFT MESSAGE FOR PATIENT TO CALL OFFICE. * Telephone Encounter - Stevie Dumas MD - 08/28/2022 4:11 PM EST Just found this request from 08/20. PDMP shows filled 08/18, but patient called 08/20 with request as below. Medication dispense history shows no record of med being dispensed in August. Sent so patient may get as requested at [facility] but if this is in error and already got med, will cancel this RX and document where and when was filled. The following approved medication requests have been transmitted electronically. Requested Prescriptions Signed Prescriptions Disp Refills HYDROcodone-Acetaminophen (NORCO) 10-325 mg per tablet 120 tablet 0 Sig: Take 1 tablet by mouth four times daily as needed for up to 30 days. Authorizing Provider: STEVIE DUMAS MD * Telephone Encounter - Consuelo Evangelista RN - 08/20/2022 1:33 PM EST Patient calling to request script for Hydrocodone be sent to [facility] and cancelled at [facility]. Patient states [facility] told her they are out of stock and medication is on backorder. Consuelo Evangelista RN documented in this encounterMemorial [facility]10-10-2022 Miscellaneous Notes* Telephone Encounter - Jen Zamora LPN - 07/21/2022 1:57 PM EDT Number that patient provided [facility] Anesthesiology Fellow does state they do screening but was unaware if it is free as patient indicated. Order and demographic was faxed as requested with a note stating patient was under the impression this procedure was free and to call her to schedule. * Telephone Encounter - Meyrl Rios APRN.CNS - 07/18/2022 3:26 PM EDT Can send order to [facility] * Telephone Encounter - Sander Mujica RN - 07/18/2022 2:04 PM EDT Patient reports Nina Wang, recommended she have a lung CA screening since she is a long time smoker. Reports Office Support Assistant gave her a number for [facility]. Reports [facility] does lung CA screenings every for Free. . Asking Office Support Assistant to send referral to them along with her demographics. documented in this encounterMemorial Health [facility]10-06-2022 History of Present illness Narrative* Meryl Rios APRN.ANODIZER - 07/17/2022 11:20 AM EDT SUBJECTIVE: LUNG CANCER SCREENING Never done BONE DENSITY Never done PNEUMOCOCCAL: 65+(2 - PCV) due on 07/16/2021 MAMMOGRAM due on 07/26/2021 ADVANCE DIRECTIVE DISCUSSION Never done COVID-19 VACCINE(5 - Booster for Pfizer series) due on 05/02/2022 HPI Nancy Jiménez is a 71 year old female. PMH significant for ACTIVE PROBLEM LIST Irritable Bowel Syndrome Temporomandibular Joint Sounds On Opening and/Or Closing The Jaw Anxiety and Depression Disorder of Bone and Cartilage, Unspecified Tobacco Use Disorder Medial Epicondylitis of Right Elbow Pain in Joint, Lower Leg Left Arm Pain Cad (Coronary Artery Disease) Hypercholesterolemia Presence of Drug Coated Stent in Lad Coronary Artery Atrial Fibrillation With Rvr (Hcc) Since last here she was seen at [facility], no changes. Notes her has been ill with brain tumors and has undergone gamma knife treatments. Presents for routine follow up chronic pain of left arm and right elbow. She reports current pain medication use unchanged, She reports some days not taking medication at all and other days using more medication.She notes chronic elbow pain unchanged from previous. Notes function and ROM stable, not worse. Notes curent medication is effectvie, notes mild OIC, not needing to take medication for this. No report of sedation or other AE. Following with [facility], no recent difficulties with atrial fibrillation/rapid ventricular response PDMP website checked and validated. All prescriptions have been APPROPRIATELY filled. No suspiciousactivity was identified. July 17, 2022 Meryl Rios APRN.ANODIZER Review of Systems Constitutional: Negative. Respiratory: Negative. Cardiovascular: Negative. Musculoskeletal: Positive for arthralgias. Objective BP 138/78 Pulse 66 Resp 20 Wt 69.4 kg (153 lb) SpO2 98% BMI 23.96 kg/m Physical Exam Vitals and nursing note reviewed. Constitutional: Appearance: Normal appearance. HENT: Head: Normocephalic and atraumatic. Eyes: Conjunctiva/sclera: Conjunctivae normal. Cardiovascular: Rate and Rhythm: Normal rate. Rhythm irregular. Pulmonary: Effort: Pulmonary effort is normal. Breath sounds: Normal breath sounds. Abdominal: General: Bowel sounds are normal. Palpations: Abdomen is soft. Musculoskeletal: Comments: Left elbow with stable deformity /swelling, decreased ROM. 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 Preserved ROM left ankle, not TTP Skin: General: Skin is warm and dry. Neurological: Mental Status: She is alert and oriented to person, place, and time. Mental status is at baseline. ALLERGIES No Known Allergies MEDICATIONS HYDROcodone-Acetaminophen (NORCO) 10-325 mg per tablet Take 1 tablet by mouth four times daily as needed for up to 30 days. Do not start before June 19, 2022. apixaban (ELIQUIS) 5 mg tab(s) Take 1 tablet by mouth twice daily. metoprolol tartrate, short acting, (LOPRESSOR) 100 mg tablet Take 1 tablet by mouth twice daily. atorvastatin (LIPITOR) 40 mg tablet Take 1 tablet by mouth once daily. Cholecalciferol, Vitamin D3, 25 mcg (1,000 unit) cap Take 1,000 Units by mouth once daily. lisinopril (ZESTRIL, PRINIVIL) 5 mg tablet Take 1 tablet by mouth once daily. cyanocobalamin (VITAMIN B-12) 1,000 mcg tab Take 1 tablet by mouth once daily. nitroglycerin sublingual (NITROQUICK) 0.4 mg SL tablet Dissolve 1 tablet under the tongue every 5 minutes as needed for Chest Pain. Up to 3 times as needed as directed aspirin, enteric coated (ASPIRIN, ENTERIC COATED) 81 mg EC tablet Take 1 tablet by mouth once daily. HYDROcodone-Acetaminophen (NORCO) 10-325 mg per tablet Take 1 tablet by mouth four times daily as needed for up to 30 days. Do not start before May 20, 2022. [START ON 07/19/2022] HYDROcodone-Acetaminophen (NORCO) 10-325 mg per tablet Take 1 tablet by mouth four times daily as needed for up to 30 days. Do not start before July 19, 2022. PAST MEDICAL HISTORY Diagnosis Date ANXIETY STATE NOS 10/27/2005 BONE & CARTILAGE DIS NOS 10/27/2005 osteopenia CAD (coronary artery disease) 11/17/14 s/p PCI to the proximal LAD with a 3.0/18 mm Resolute Integrity DONALDO DEPRESSIVE DISORDER NEC 10/27/2005 Left arm pain 03/15/2014 Medial epicondylitis of right elbow 03/15/2014 Pain in joint, lower leg 03/15/2014 patellofemoral syndrome; also history of ankle fracture /sp surgical repair Tobacco use disorder 05/19/2006 Social History Tobacco Use Smoking status: Every Day Packs/day: 1.00 Years: 30.00 Pack years: 30.00 Types: Cigarettes Smokeless tobacco: Never Substance Use Topics Alcohol use: Yes Comment: Occasionally Drug use: No Component Latest Ref Rng & Units 11/13/2021 WBC 3.70 - 11.00 k/uL 4.69 RBC 3.90 - 5.20 m/uL 3.38 (L) Hemoglobin 11.5 - 15.5 g/dL 11.9 Hematocrit 36.0 - 46.0 % 36.1 MCV 80.0 - 100.0 fL 106.8 (H) MCH 26.0 - 34.0 pG 35.2 (H) MCHC 30.5 - 36.0 g/dL 33.0 RDW-CV 11.5 - 15.0 % 12.8 Platelet Count 150 - 400 k/uL 197 MPV 9.0 - 12.7 fL 10.5 Absolute nRBC <0.01 k/uL <0.01 Glucose 74 - 99 mg/dL 91 BUN 7 - 21 mg/dL 14 Creatinine 0.58 - 0.96 mg/dL 0.74 Sodium 136 - 144 mmol/L 141 Potassium 3.7 - 5.1 mmol/L 4.5 Chloride 97 - 105 mmol/L 102 CO2 22 - 30 mmol/L 26 Anion Gap 9 - 18 mmol/L 13 Calcium 8.5 - 10.2 mg/dL 9.2 eGFR- >60 eGFR-All Other Races . >60 Vitamin D 25 Hydroxy 31.0 - 80.0 ng/mL 36.9 Vitamin B12 232 - 1,245 pg/mL 1,718 (H) ASSESSMENT/PLAN: 1. Left arm pain, chronic - ICD9: 729.5, ICD10: M79.602 (primary diagnosis) 2. Medial epicondylitis of right elbow - ICD9: 726.31, ICD10: M77.01 - HYDROCODONE 5 MG-ACETAMINOPHEN 325 MG TABLET Previous testing showed no medication present. Previously reported she does medication not take every day, then some days takes more. She defers any changes today. Repeat testing per protocol. Followguidelines, adjust accordingly. ASSESSMENT/PLAN: 1. Need for influenza vaccination - ICD9: V04.81, ICD10: Z23 - INFLUENZA SEASONAL QUADRIVALENT HIGH DOSE AGE 65+ 2. Encounter for screening for lung cancer - ICD9: V76.0, ICD10: Z12.2 - CONSULT LUNG CANCER SCREENING CLINIC 3. Screening for osteoporosis - ICD9: V82.81, ICD10: Z13.820 4. Asymptomatic menopause - ICD9: V49.81, ICD10: Z78.0 - DXA-AXIAL SKELETON 5. Encounter for immunization - ICD9: V03.89, ICD10: Z23 - PNEUMOCOCCAL VACCINE (PREVNAR 20) - [employer] COVID-19 BIVALENT BOOSTER VACCINE, AGE 12+ YR 6. Left arm pain, chronic - ICD9: 729.5, ICD10: M79.602 7. Medial epicondylitis of right elbow - ICD9: 726.31, ICD10: M77.01(primary diagnosis) Continue current treatment unchanged, stable. - HYDROCODONE 10 MG-ACETAMINOPHEN 325 MG TABLET - HYDROCODONE 10 MG-ACETAMINOPHEN 325 MG TABLET - TOX SCREEN ROUT UR - PAIN PANEL, UR QUANT 8. Tobacco use disorder - ICD9: 305.1, ICD10: F17.200 Cessation endorsed. - LIPID PANEL BASIC - COMP METABOLIC PANEL 9. Hypercholesterolemia - ICD9: 272.0, ICD10: E78.00 - LIPID PANEL BASIC - COMP METABOLIC PANEL 10. Anemia, unspecified type - ICD9: 285.9, ICD10: D64.9 - VITAMIN B12 BLOOD - FOLATE SERUM - IRON + TIBC 11. Medication management - ICD9: V58.69, ICD10: Z79.899 - TOX SCREEN ROUT UR - PAIN PANEL, UR QUANT Keep scheduled follow up appts Meryl Rios APRN.CNS Medical Decision Making: Medical Decision Making Level: 1 - N/A documented [facility] encounter[facility] History of Present illness Narrative* Meryl Rios APRN.ANODIZER - 05/15/2022 10:04 AM EDT SUBJECTIVE: BONE DENSITY Never done BP CONTROLLED (<130/80) due on 07/16/2021 PNEUMOCOCCAL: 65+(2 - PCV) due on 07/16/2021 MAMMOGRAM due on 07/26/2021 ADVANCE DIRECTIVE DISCUSSION Never done HPI Nancy Jiménez is a 71 year old female. Presents for routine follow up chronic pain of left arm and right elbow. She reports current pain medication use unchanged, She reports some days not taking medication at all and other days using more medication.She notes chronic elbow pain unchanged from previous. Notes function and ROM stable, not worse. Notes curent medication is effectvie, notes mild OIC, not needing to take medication for this. No report of sedation or other AE. Following with [facility], no recent difficulties with atrial fibrillation/rapid ventricular response PDMP website checked and validated. All prescriptions have been APPROPRIATELY filled. No suspiciousactivity was identified. May 15, 2022 Meryl Rios APRN.CNS Review of Systems Constitutional: Negative. Respiratory: Negative. Cardiovascular: Negative. Musculoskeletal: Positive for arthralgias. Objective BP 116/78 Pulse 65 Resp 16 Wt 68.5 kg (151 lb) SpO2 96% BMI 23.65 kg/m Physical Exam Vitals and nursing note reviewed. Constitutional: Appearance: Normal appearance. HENT: Head: Normocephalic and atraumatic. Eyes: Conjunctiva/sclera: Conjunctivae normal. Cardiovascular: Rate and Rhythm: Normal rate. Rhythm irregular. Pulmonary: Effort: Pulmonary effort is normal. Breath sounds: Normal breath sounds. Abdominal: General: Bowel sounds are normal. Palpations: Abdomen is soft. Musculoskeletal: Comments: Left elbow with stable deformity /swelling, decreased ROM. 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 Preserved ROM left ankle, not TTP Skin: General: Skin is warm and dry. Neurological: Mental Status: She is alert and oriented to person, place, and time. Mental status is at baseline. ALLERGIES No Known Allergies MEDICATIONS apixaban (ELIQUIS) 5 mg tab(s) Take 1 tablet by mouth twice daily. metoprolol tartrate, short acting, (LOPRESSOR) 100 mg tablet Take 1 tablet by mouth twice daily. atorvastatin (LIPITOR) 40 mg tablet Take 1 tablet by mouth once daily. HYDROcodone-Acetaminophen (NORCO) 10-325 mg per tablet Take 1 tablet by mouth four times daily as needed for up to 30 days. Do not start before April 20, 2022. Cholecalciferol, Vitamin D3, (VITAMIN D) 25 mcg (1,000 unit) cap Take 1,000 Units by mouth once daily. lisinopril (ZESTRIL, PRINIVIL) 5 mg tablet Take 1 tablet by mouth once daily. cyanocobalamin (VITAMIN B-12) 1,000 mcg tab Take 1 tablet by mouth once daily. nitroglycerin sublingual (NITROQUICK) 0.4 mg SL tablet Dissolve 1 tablet under the tongue every 5 minutes as needed for Chest Pain. Up to 3 times as needed as directed aspirin, enteric coated (ASPIRIN, ENTERIC COATED) 81 mg EC tablet Take 1 tablet by mouth once daily. HYDROcodone-Acetaminophen (NORCO) 10-325 mg per tablet Take 1 tablet by mouth four times daily as needed for up to 30 days. Do not start before March 21, 2022. PAST MEDICAL HISTORY Diagnosis Date ANXIETY STATE NOS 10/27/2005 BONE & CARTILAGE DIS NOS 10/27/2005 osteopenia CAD (coronary artery disease) 11/17/14 s/p PCI to the proximal LAD with a 3.0/18 mm Resolute Integrity DONALDO DEPRESSIVE DISORDER NEC 10/27/2005 Left arm pain 03/15/2014 Medial epicondylitis of right elbow 03/15/2014 Pain in joint, lower leg 03/15/2014 patellofemoral syndrome; also history of ankle fracture /sp surgical repair Tobacco use disorder 05/19/2006 Social History Tobacco Use Smoking status: Current Every Day Smoker Packs/day: 1.00 Years: 30.00 Pack years: 30.00 Types: Cigarettes Smokeless tobacco: Never Used Substance Use Topics Alcohol use: Yes Comment: Occasionally Drug use: No Component Latest Ref Rng & Units 11/13/2021 WBC 3.70 - 11.00 k/uL 4.69 RBC 3.90 - 5.20 m/uL 3.38 (L) Hemoglobin 11.5 - 15.5 g/dL 11.9 Hematocrit 36.0 - 46.0 % 36.1 MCV 80.0 - 100.0 fL 106.8 (H) MCH 26.0 - 34.0 pG 35.2 (H) MCHC 30.5 - 36.0 g/dL 33.0 RDW-CV 11.5 - 15.0 % 12.8 Platelet Count 150 - 400 k/uL 197 MPV 9.0 - 12.7 fL 10.5 Absolute nRBC <0.01 k/uL <0.01 Glucose 74 - 99 mg/dL 91 BUN 7 - 21 mg/dL 14 Creatinine 0.58 - 0.96 mg/dL 0.74 Sodium 136 - 144 mmol/L 141 Potassium 3.7 - 5.1 mmol/L 4.5 Chloride 97 - 105 mmol/L 102 CO2 22 - 30 mmol/L 26 Anion Gap 9 - 18 mmol/L 13 Calcium 8.5 - 10.2 mg/dL 9.2 eGFR- >60 eGFR-All Other Races . >60 Vitamin D 25 Hydroxy 31.0 - 80.0 ng/mL 36.9 Vitamin B12 232 - 1,245 pg/mL 1,718 (H) ASSESSMENT/PLAN: 1. Left arm pain, chronic - ICD9: 729.5, ICD10: M79.602 (primary diagnosis) 2. Medial epicondylitis of right elbow - ICD9: 726.31, ICD10: M77.01 - HYDROCODONE 5 MG-ACETAMINOPHEN 325 MG TABLET Previous testing showed no medication present. Previously reported she does medication not take every day, then some days takes more. She defers any changes today. Repeat testing per protocol. Followguidelines, adjust accordingly. Keep scheduled follow up appts Meryl Rios APRN.CNS Medical Decision Making: Problems: Moderate: 2+ stable chronic illnesses Risk: Moderate: Drug management Medical Decision Making Level: 4 - Moderate documented in this encounter[facility] Miscellaneous Notes* Telephone Encounter - Sander Mujica RN - 04/21/2022 9:26 AM EDT Patient has been identified by name and date of : Yes Patient phones for refill(s): Pending Prescriptions Disp Refills APIXABAN 5 MG TABLET 60 tablet 5 Sig: Take 1 tablet by mouth twice daily. CHANDU: No Date of last office visit with pcp: 03-17-22. Next appt: 05-15-22 Last 2 Encounter Wt Readings: Date: Wt: 03/17/2022 69.9 kg (154 lb) 01/13/2022 68 kg (150 lb) Previous labs/tests for medication: Blood Pressure: BUN (mg/dL) Date Value 03/17/2022 15 11/13/2021 14 Sodium (mmol/L) Date Value 03/17/2022 138 11/13/2021 141 Last 1 Encounter BP Readings: Date: BP: 03/17/2022 130/82 Liver Function: ALT (U/L) Date Value 03/17/2022 19 01/11/2021 12 AST (U/L) Date Value 03/17/2022 27 01/11/2021 25 Please advise. Thank you. Sander Mujica RN documented in this encounterMem[facility] Miscellaneous Notes* Telephone Encounter - Princess Zambrano LPN - 03/17/2022 4:29 PM EDT rec'd via fax a from from [employer] assistance [employer]. This notes they regret to inform you that your pt is not eligible to receive eliquis for the reason: documentation of 3% out of pocket prescription expenses,based on household adjusted gross income,not met. A letter will be mailed to the pt. documented in this encounterMem[facility] History of Present illness Narrative* Stevie Dumas MD - 03/17/2022 10:27 AM EDT This note was created using Infogram[employer]. Subjective Nancy Jiménez is a 71 year old female. 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 Form for Eliquis completed. Spent over $1100 om Eliquis last year. Over 1600 all needs. Pain med still effective. No OIC. Blood pressure controlled without adverse effects from medications. PAST MEDICAL HISTORY Diagnosis Date ANXIETY STATE NOS 10/27/2005 BONE & CARTILAGE DIS NOS 10/27/2005 osteopenia CAD (coronary artery disease) 11/17/14 s/p PCI to the proximal LAD with a 3.0/18 mm Resolute Integrity DONALDO DEPRESSIVE DISORDER NEC 10/27/2005 Left arm pain 03/15/2014 Medial epicondylitis of right elbow 03/15/2014 Pain in joint, lower leg 03/15/2014 patellofemoral syndrome; also history of ankle fracture /sp surgical repair Tobacco use disorder 05/19/2006 Current Outpatient Medications Medication Sig HYDROcodone-Acetaminophen (NORCO) 10-325 mg per tablet Take 1 tablet by mouth four times daily as needed for up to 30 days. Do not start before February 18, 2022. apixaban (ELIQUIS) 5 mg tab(s) Take 1 tablet by mouth twice daily. Cholecalciferol, Vitamin D3, (VITAMIN D) 25 mcg (1,000 unit) cap Take 1,000 Units by mouth once daily. lisinopril (ZESTRIL, PRINIVIL) 5 mg tablet Take 1 tablet by mouth once daily. atorvastatin (LIPITOR) 40 mg tablet Take 1 tablet by mouth once daily. cyanocobalamin (VITAMIN B-12) 1,000 mcg tab Take 1 tablet by mouth once daily. metoprolol tartrate, short acting, (LOPRESSOR) 100 mg tablet Take 1 tablet by mouth twice daily. nitroglycerin sublingual (NITROQUICK) 0.4 mg SL tablet Dissolve 1 tablet under the tongue every 5 minutes as needed for Chest Pain. Up to 3 times as needed as directed aspirin, enteric coated (ASPIRIN, ENTERIC COATED) 81 mg EC tablet Take 1 tablet by mouth once daily. HYDROcodone-Acetaminophen (NORCO) 10-325 mg per tablet Take 1 tablet by mouth four times daily as needed for up to 30 days. Do not start before January 19, 2022. HYDROcodone-Acetaminophen (NORCO) 10-325 mg per tablet Take 1 tablet by mouth four times daily as needed for up to 30 days. Do not start before December 20, 2021. No current facility-administered medications for this visit. Review of Systems Objective BP 130/82 Pulse 69 Wt 69.9 kg (154 lb) SpO2 94% BMI 24.12 kg/m Last 5 Encounter Wt Readings: Date: Wt: 03/17/2022 69.9 kg (154 lb) 01/13/2022 68 kg (150 lb) 09/13/2021 72.1 kg (159 lb) 07/15/2021 71.9 kg (158 lb 9.6 oz) 05/17/2021 72.1 kg (159 lb) No waist measurement recorded Estimated body mass index is 24.12 kg/m as calculated from the following: Height as of 04/07/17: 170.2 cm (5' 7). Weight as of this encounter: 69.9 kg (154 lb). Last 5 Encounter BP Readings: Date: BP: 03/17/2022 130/82 01/13/2022 126/80 09/13/2021 128/72 07/15/2021 122/78 05/17/2021 120/78 Physical Exam Constitutional: Appearance: Normal appearance. HENT: Head: Normocephalic. Eyes: Conjunctiva/sclera: Conjunctivae normal. Cardiovascular: Rate and Rhythm: Normal rate and regular rhythm. Heart sounds: Normal heart sounds. Pulmonary: Effort: Pulmonary effort is normal. Breath sounds: Normal breath sounds. Skin: General: Skin is warm and dry. Neurological: General: No focal deficit present. Mental Status: She is alert and oriented to person, place, and time. Psychiatric: Attention and Perception: Attention and perception normal. Mood and Affect: Mood normal. Speech: Speech normal. Behavior: Behavior normal. Thought Content: Thought content normal. Cognition and Memory: Cognition normal. Judgment: Judgment normal. Assessment and Plan ASSESSMENT/PLAN: 1. Left arm pain, chronic - ICD9: 729.5, ICD10: M79.602 (primary diagnosis) Stable with control of chronic pain. Able to remain active. At this time benefits outweigh risks. Continue to monitor for adverse effects and indications for decreasing dose or tapering off. No signsof diversion or abuse of medication(s); no adverse effects. Continue present management. - HYDROCODONE 10 MG-ACETAMINOPHEN 325 MG TABLET - HYDROCODONE 10 MG-ACETAMINOPHEN 325 MG TABLET 2. Hypercholesterolemia - ICD9: 272.0, ICD10: E78.00 LDL improved to 91. Continue present management. - ATORVASTATIN 40 MG TABLET - LIPID PANEL BASIC 3. Coronary artery disease involving [place] coronary artery 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- ICD9: 414.01, ICD10: I25.10 Stable. Continue present management. - METOPROLOL TARTRATE 100 MG TABLET - ATORVASTATIN 40 MG TABLET 4. Medial epicondylitis of right elbow - ICD9: 726.31, ICD10: M77.01 As noted above with regards to chronic pain management - HYDROCODONE 10 MG-ACETAMINOPHEN 325 MG TABLET - HYDROCODONE 10 MG-ACETAMINOPHEN 325 MG TABLET 5. B12 deficiency - ICD9: 266.2, ICD10: E53.8 Further evaluation and treatment as indicated. - CBC - VITAMIN B12 BLOOD - FOLATE SERUM 6. Vitamin D deficiency - ICD9: 268.9, ICD10: E55.9 Further evaluation and treatment as indicated.- VITAMIN D 25 HYDROXY 7. Anemia, unspecified type - ICD9: 285.9, ICD10: D64.9 Further evaluation and treatment as indicated. - CBC - VITAMIN B12 BLOOD - IRON + TIBC - FOLATE SERUM 8. Encounter for long-term current use of medication - ICD9: V58.69, ICD10: Z79.899 - CBC - VITAMIN B12 BLOOD - IRON + TIBC - FOLATE SERUM - LIPID PANEL BASIC - COMP METABOLIC PANEL Stevie Dumas MD documented in this encounterMem[facility]04[facility] History of Present illness Narrative* Meryl Rios APRN.ANODIZER - 01/13/2022 9:40 AM EDT SUBJECTIVE: MAMMOGRAM due on 07/26/2021 ADVANCE DIRECTIVE DISCUSSION Never done LDL CHOLESTEROL due on 01/11/2022 HPI aNncy Jiménez is a 71 year old female. Presents for routine follow up chronic pain of left arm and right elbow. She reports current pain medication use unchanged, She reports some days not taking medication at all and other days using more medication.She notes chronic elbow pain unchanged from previous. Notes function and ROM stable, not worse. Notes curent medication is effectvie, notes mild OIC, not needing to take medication for this. No report of sedation or other AE. Notes chronic right knee pain.Seen by [facility]. Doing well s/p knee injectionfor knee pain recently, notes last shot lasted about 8 months. Notes recently had cataract surgery, right eye. Dr Smart, to have left eye cataract removed tomorrow. Following with [facility], no recent difficulties with atrial fibrillation/rapid ventricular response PDMP website checked and validated. All prescriptions have been APPROPRIATELY filled. No suspiciousactivity was identified. January 13, 2022 Meryl Rios, NEDA.ANODIZER She continues with vitamin D supplements. Defers BMD today. Notes cutting back on smoking, trying to quit. Review of Systems Constitutional: Negative. Respiratory: Negative. Cardiovascular: Negative. Musculoskeletal: Positive for arthralgias. Objective BP 126/80 Pulse 76 Resp 16 Wt 68 kg (150 lb) BMI 23.49 kg/m Physical Exam Vitals and nursing note reviewed. Constitutional: Appearance: Normal appearance. HENT: Head: Normocephalic and atraumatic. Eyes: Conjunctiva/sclera: Conjunctivae normal. Cardiovascular: Rate and Rhythm: Normal rate. Rhythm irregular. Pulmonary: Effort: Pulmonary effort is normal. Breath sounds: Normal breath sounds. Abdominal: General: Bowel sounds are normal. Palpations: Abdomen is soft. Musculoskeletal: Comments: Left elbow with stable deformity /swelling, decreased ROM. 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 Preserved ROM left ankle, not TTP Skin: General: Skin is warm and dry. Neurological: Mental Status: She is alert and oriented to person, place, and time. Mental status is at baseline. ALLERGIES No Known Allergies MEDICATIONS apixaban (ELIQUIS) 5 mg tab(s) Take 1 tablet by mouth twice daily. HYDROcodone-Acetaminophen (NORCO) 10-325 mg per tablet Take 1 tablet by mouth four times daily as needed for up to 30 days. Do not start before December 20, 2021. Cholecalciferol, Vitamin D3, (VITAMIN D) 25 mcg (1,000 unit) cap Take 1,000 Units by mouth once daily. lisinopril (ZESTRIL, PRINIVIL) 5 mg tablet Take 1 tablet by mouth once daily. atorvastatin (LIPITOR) 40 mg tablet Take 1 tablet by mouth once daily. cyanocobalamin (VITAMIN B-12) 1,000 mcg tab Take 1 tablet by mouth once daily. metoprolol tartrate, short acting, (LOPRESSOR) 100 mg tablet Take 1 tablet by mouth twice daily. nitroglycerin sublingual (NITROQUICK) 0.4 mg SL tablet Dissolve 1 tablet under the tongue every 5 minutes as needed for Chest Pain. Up to 3 times as needed as directed aspirin, enteric coated (ASPIRIN, ENTERIC COATED) 81 mg EC tablet Take 1 tablet by mouth once daily. [START ON 02/18/2022] HYDROcodone-Acetaminophen (NORCO) 10-325 mg per tablet Take 1 tablet by mouth four times daily as needed for up to 30 days. Do not start before February 18, 2022. [START ON 01/19/2022] HYDROcodone-Acetaminophen (NORCO) 10-325 mg per tablet Take 1 tablet by mouth four times daily as needed for up to 30 days. Do not start before January 19, 2022. PAST MEDICAL HISTORY Diagnosis Date ANXIETY STATE NOS 10/27/2005 BONE & CARTILAGE DIS NOS 10/27/2005 osteopenia CAD (coronary artery disease) 11/17/14 s/p PCI to the proximal LAD with a 3.0/18 mm Resolute Integrity DONALDO DEPRESSIVE DISORDER NEC 10/27/2005 Left arm pain 03/15/2014 Medial epicondylitis of right elbow 03/15/2014 Pain in joint, lower leg 03/15/2014 patellofemoral syndrome; also history of ankle fracture /sp surgical repair Tobacco use disorder 05/19/2006 Social History Tobacco Use Smoking status: Current Every Day Smoker Packs/day: 1.00 Years: 30.00 Pack years: 30.00 Types: Cigarettes Smokeless tobacco: Never Used Substance Use Topics Alcohol use: Yes Comment: Occasionally Drug use: No Component Latest Ref Rng & Units 11/13/2021 WBC 3.70 - 11.00 k/uL 4.69 RBC 3.90 - 5.20 m/uL 3.38 (L) Hemoglobin 11.5 - 15.5 g/dL 11.9 Hematocrit 36.0 - 46.0 % 36.1 MCV 80.0 - 100.0 fL 106.8 (H) MCH 26.0 - 34.0 pG 35.2 (H) MCHC 30.5 - 36.0 g/dL 33.0 RDW-CV 11.5 - 15.0 % 12.8 Platelet Count 150 - 400 k/uL 197 MPV 9.0 - 12.7 fL 10.5 Absolute nRBC <0.01 k/uL <0.01 Glucose 74 - 99 mg/dL 91 BUN 7 - 21 mg/dL 14 Creatinine 0.58 - 0.96 mg/dL 0.74 Sodium 136 - 144 mmol/L 141 Potassium 3.7 - 5.1 mmol/L 4.5 Chloride 97 - 105 mmol/L 102 CO2 22 - 30 mmol/L 26 Anion Gap 9 - 18 mmol/L 13 Calcium 8.5 - 10.2 mg/dL 9.2 eGFR- >60 eGFR-All Other Races . >60 Vitamin D 25 Hydroxy 31.0 - 80.0 ng/mL 36.9 Vitamin B12 232 - 1,245 pg/mL 1,718 (H) ASSESSMENT/PLAN: 1. Left arm pain, chronic - ICD9: 729.5, ICD10: M79.602 (primary diagnosis) 2. Medial epicondylitis of right elbow - ICD9: 726.31, ICD10: M77.01 - HYDROCODONE 5 MG-ACETAMINOPHEN 325 MG TABLET Recent testing showed no medication present. Today reports she does medication not take every day, then some days takes more. She defers any changes today. Repeat testing per protocol. Follow guidelines, adjust accordingly. 3. Atrial fibrillation with RVR (HCC) - ICD9: 427.31, ICD10: I48.91 (primary diagnosis) Following at [facility], rate controlled Notes she does not have advanced directives, forms provided. May - Jun follow up chronic pain. Schedule mammogram Meryl Rios APRN.CNS Medical Decision Making: Problems: Moderate: 2+ stable chronic illnesses Data: Unique test(s) ordered: 3+ Risk: Moderate: Drug management Medical Decision Making Level: 4 - Moderate documented in this encounterMem[facility] Evaluation note* Diagnosis Onset Date Resolution Status PAF (paroxysmal atrial fibrillation) acute Essential hypertension chron ic History of coronary artery stent placement November chronic HLD (hyperlipidemia) chronic Dysphagia acute Encounter for screening for malignant neoplasm of lung acute Tobacco abuse [facility] Work Phone: [phone] Evaluation note* Diagnosis Onset Date Resolution Status PAF (paroxysmal atrial fibrillation) acute Essential hypertension chron ic History of coronary artery stent placement November chronic HLD (hyperlipidemia) [facility] Work Phone: [phone]) 244-142602-06-2015 Evaluation note* Diagnosis Onset Date Resolution Status PAF (paroxysmal atrial fibrillation) acute Essential hypertension chron ic History of coronary artery stent placement November chronic HLD (hyperlipidemia) chronic Cellulitis of left foot acut e Hematoma of left foot acute Infected hematoma acute [facility] Work Phone: [phone]) [phone] Evaluation note* Diagnosis Onset Date Resolution Status PAF (paroxysmal atrial fibrillation) acute Essential hypertension chron ic History of coronary artery stent placement November chronic HLD (hyperlipidemia) chronic Abscess of left foot acute Cellulitis of left foot acut e Hematoma of left foot acute Pain in left foot acute [facility] Work Phone: 1([phone]) 589-340301-16-2006 History of Past illness Narrative* Problem Noted Date Resolved Date Anxiety state, unspecified 10/27/200505/18 documented as of this encounter (statuses as of 01/13/2022) [facility]01-16[facility]2006 History of Past illness Narrative* Problem Noted Date Resolved Date Anxiety state, unspecified 10/27/200505/18 documented as of this encounter (statuses as of 03/18/2022) [facility]16[facility]2006 History of Past illness Narrative* Problem Noted Date Resolved Date Anxiety state, unspecified 10/27/200505/18 documented as of this encounter (statuses as of 04/21/2022) [facility]16[facility]2006 History of Past illness Narrative* Problem Noted Date Resolved Date Anxiety state, unspecified 10/27/200505/18 documented as of this encounter (statuses as of 05/11/2022) [address]16-2006 History of Past illness Narrative* Problem Noted Date Resolved Date Anxiety state, unspecified 10/27/200505/18 documented as of this encounter (statuses as of 05/15/2022) [address]16-2006 History of Past illness Narrative* Problem Noted Date Resolved Date Anxiety state, unspecified 10/27/200505/18 documented as of this encounter (statuses as of 07/17/2022) [address] History of Past illness Narrative* Problem Noted Date Resolved Date Anxiety state, unspecified 10/27/200505/18 documented as of this encounter (statuses as of 07/21/2022) [address]16-2006 History of Past illness Narrative* Problem Noted Date Resolved Date Anxiety state, unspecified 10/27/200505/18 documented as of this encounter (statuses as of 09/01/2022) [address]16-2006 History of Past illness Narrative* Problem Noted Date Resolved Date Anxiety state, unspecified 10/27/200505/18 documented as of this encounter (statuses as of 09/16/2022) [address]16-2006 History of Past illness Narrative* Problem Noted Date Resolved Date Anxiety state, unspecified 10/27/200505/18 documented as of this encounter (statuses as of 09/26/2022) [address]16-2006 History of Past illness Narrative* Problem Noted Date Resolved Date Anxiety state, unspecified 10/27/200505/18 documented as of this encounter (statuses as of 10/21/2022) [address]16-2006 History of Past illness Narrative* Problem Noted Date Resolved Date Anxiety state, unspecified 10/27/200505/18 documented as of this encounter (statuses as of 12/16/2022) [address]16-2006 History of Past illness Narrative* Problem Noted Date Resolved Date Anxiety state, unspecified 10/27/200505/18 documented as of this encounter (statuses as of 02/16/2023) [address]16-2006 History of Past illness Narrative* Problem Noted Date Resolved Date Anxiety state, unspecified 10/27/200505/18 documented as of this encounter (statuses as of 04/15/2023) [facility]01[facility]16[facility]2006 History of Past illness Narrative* Problem Noted Date Diagnosed Date Resolved Date Anxiety state, unspecified 10/27/2005 0 05/18/2020 documented as of this encounter (statuses as of 11/13/2023) [facility]01-16-2006 History of Past illness Narrative* Problem Noted Date Diagnosed Date Resolved Date Anxiety state, unspecified 10/27/2005 0 05/18/2020 documented as of this encounter (statuses as of 11/19/2023) [facility]01[facility]16-2006 History of Past illness Narrative* Problem Noted Date Diagnosed Date Resolved Date Anxiety state, unspecified 10/27/2005 0 05/18/2020 documented as of this encounter (statuses as of 01/23/2024) [facility] Author Guillaume Alcantara [facility] June 15, 2023 9:57am Note Date/Time June 15, 2023 8:21am [facility] Medical Records Department [address] [place] [address] Emergency Department Summary 06/15/23 MR#: [id number] Acct: [id number] Name: NANCY JIMÉNEZ Rep #:[id number] : 1950 72 From: Guillaume Alcantara MD PCP: Dr. Stevie Dumas MD Status:RE G ER Location: ED HPI History of Present Illness Chief Complaint: Lower Extremity Injury Detail of Chief Complaint: Redness, swelling pain left foot Informant: patient Occured/Mechanism Mechanism/Context: Yes blunt trauma Comment: Patient believes she had blunt trauma. She is on anticoagulant, Eliquis, for atrial fibrillation Onset/Context/Timing Onset: Days (7 to 10 days ago) Context: Sudden Onset Timing: Continuous Quality of Pain: Dull Location: Left foot Current Severity: Mild Maximum Severity: Moderate Worsened by: Attempting to wear shoe and weightbearing Relieved by: None thing Associated Symptoms Associated Symptoms: Negative for Parasthesia, Weakness or Loss of Funtion Narrative Narrative: Patient was seen by midlevel at [facility]. X-rays were obtained. Patient was informed x-rays were negative. Patient was placed on prednisone because of swelling. Patient showed picture of what her foot look like. It waspredominantly ecchymotic with greenish discoloration and blackish purple discoloration. She denies fever, chills night sweats. She does not have history of diabetes. She is on no immunosuppressive meds. Prior similar symptoms: Yes Recent Illness/[facility]ospital[facility]: [facility] Medical History Anxiety and depression Atherosclerosis of coronary artery 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 Atrial fibrillation with rapid ventricular response (11/22/19) COPD (chronic obstructive pulmonary disease) Dysphagia Encounter for screening for malignant neoplasm of lung Essential hypertension HLD (hyperlipidemia) Hyperglycemia IBS (irritable bowel syndrome) PAF (paroxysmal atrial fibrillation) Tobacco abuse Home Medications aspirin 81 mg tablet,delayed release 81 mg DAILY heart health 07/01/15 [History Last Taken Unknown] atorvastatin 40 mg tablet 40 mg PO QHS cholesterol 07/01/15 [History Last Taken Unknown] nitroglycerin 0.4 mg sublingual tablet 0.4 mg sublingual Q5M PRN Chest Pain 07/01/15 [History Last Taken Unknown] apixaban 5 mg tablet 5 mg PO BID #60 tabs 12/16/19 [Rx Last Taken Unknown] metoprolol tartrate 100 mg tablet 100 mg PO BID #60 tabs 12/16/19 [Rx Last Taken Unknown] lisinopril 5 mg tablet 5 mg PO DAILY #30 tabs 06/06/20 [Rx Last Taken Unknown] hydrocodone-acetaminophen 5-325mg 5mg-325mg 1 - 2 tab PO .qid PRN Pain 09/24/21 [History Last Taken Unknown] cholecalciferol (vitamin D3) 25 mcg (1,000 unit) capsule 25 mcg PO DAILY 07/01/22 [History Last Taken Unknown] cyanocobalamin (vitamin B-12) 1,000 mcg capsule 1,000 mcg PO DAILY 07/01/22 [History Last Taken Unknown] doxycycline monohydrate 100 mg capsule 100 mg PO BID #14 CAPSULES 06/15/23 [Rx Last Taken Unknown] Allergy/AdvReac Type Severity Reaction Status Date / Time No Known Allergies Allergy Verified 06/15/23 07:52 Family History Mother CVA (cerebral vascular accident) Surgical History H/O elbow surgery History of ankle surgery History of coronary artery stent placement (11/17/14) History of left heart catheterization (07/02/15) History of open reduction and internal fixation (ORIF) procedure History of surgical removal of pilonidal cyst Social History Smoking Status: Current every day smoker tobacco type: cigarettes alcohol intake: current alcohol intake frequency: 0-2 drinks per day substance use type: does not use caffeine: Yes Type: coffee Number of servings: 2 ROS ROS ED Constitutional Constitutional ED: Denies chills, fever(s), subjective or sweats Musculoskeletal Musculoskeletal: Reports other Details: Left foot pain due to presumed blunt trauma ; Denies arthralgias or myalgias Integumentary Reports other Details: See HPI narrative ; Denies abscess, Abrasions or rash Neurologic Neurologic: Denies paresthesias or weakness Hematologic/Lymphatic Hematologic/Lymphatic: Reports easy bleeding and easy bruising EXAM Physical Exam Const Vital Signs: 06/15/23 07:50 Temperature 97.1 F L Temperature Source Temporal Pulse Rate 90 Respiratory Rate 14 Blood Pressure 159/105 H Blood Pressure Mean 123 Pulse Ox 99 Oxygen Delivery Method Room Air Positive well nourished and well developed General Appearance ED: well developed and NAD HEENT Reports moist mucous membranes normocephalic and atraumatic Eyes PERRL Eyes Narrative: Extract muscles intact. Sclera is anicteric. Neck full ROM Resp normal respiratory effort Cardio regular rate and regular rhythm Extremity Negative for normal to inspection Extremity Narrative: PT pulses palpable. DP pulses not due to swelling. The left foot is erythematous, warm and indurated on the dorsal surface. There is fluctuance there is discoloration of multiple toes. There is no lymphangitis. There is nopopliteal lymphadenopathy. Neuro oriented x3, CN's II-XII intact bilaterally, moves all extremities and no sensory deficits noted Sensorium / Orientation: alert Motor Exam: strength 5/5 throughout Psych mental status grossly normal Skin Skin Narrative: Redness and warmth to dorsum left foot with fluctuance. There is also bruising as previously described MDM MDM MDM Narrative Medical decision making narrative: Presumed patient has a hematoma that is infected since she has evidence of cellulitis. Needle aspirate was undertaken. Minimal fluid was obtained. Fluidis dark brown-red in color. Fluid was sent for Gram stain culture. There was insufficient amount of fluid for cell count. Because patient is on prednisone which suppresses her immune system blood work was obtained and specifically CBC and BMP. If there is bacteria noted in the fluid will perform formal incision and drainage otherwise we will treat with antibiotics and have patient hold Eliquis for 48 to 72 hours. We will also have patient discontinue the prednisone. Lab Data Attestation: I reviewed the patient's lab results. Lab results narrative: CBC reveals elevated MCV otherwise unremarkable. Basic metabolic panel reveals slight elevation of glucose and normal CO2 anion gap. Since patient's white count is normal we will treat with doxycycline. Culture is pending. Labs: Laboratory Results - last 24 hr 06/15/23 08:29 WBC 7.0 RBC 3.72 L Hgb 13.5 Hct 39.5 MCV 106.2 H MCH 36.3 H MCHC 34.2 RDW Std Deviation 55.2 H RDW Coeff of Jose L 14.1 Plt Count 163 MPV 9.0 Immature Gran % (Auto) 0.400 Neut % (Auto) 61.1 Lymph % (Auto) 27.5 [place] % (Auto) 10.0 Eos % (Auto) 0.9 Baso % (Auto) 0.1 Absolute Neuts (auto) 4.3 Absolute Lymphs (auto) 1.92 Nucleated RBC % 0 Sodium 137 Potassium 4.0 Chloride 102 Carbon Dioxide 29.0 Anion Gap 6 BUN 16 Creatinine 0.83 Estim Creat Clear Calc 61.33 Est GFR (MDRD) Af Amer 88 Est GFR (MDRD) Non-Af 72 BUN/Creatinine Ratio 19.3 Glucose 109 H Calcium 9.3 Procedures Other Procedures Procedure(s): Needle aspirate. Fluid was sent for Gram stain and culture. Discharge Plan Triage Chief Complaint: Lower Extremity Injury ED Provider: Guillaume Alcantara Dx/Rx/DC Orders Clinical Impression: Cellulitis of foot, left, History of coronary artery stent placement, Essentialhypertension, PAF (paroxysmal atrial fibrillation), Hematoma of left foot, Anticoagulant long-term use Instructions: ED Cellulitis Prescriptions: New doxycycline monohydrate 100 mg capsule 100 mg PO BID Qty: 14 0RF No Action lisinopril 5 mg tablet 5 mg PO DAILY Qty: 30 11RF cyanocobalamin (vitamin B-12) 1,000 mcg capsule 1,000 mcg PO DAILY cholecalciferol (vitamin D3) 25 mcg (1,000 unit) capsule 25 mcg PO DAILY aspirin 81 MG tablet 81 mg DAILY Patient Comments: blood thinner/heart health atorvastatin 40 MG tablet 40 mg PO QHS Patient Comments: Cholesterol nitroglycerin 0.4 MG tablet 0.4 mg sublingual Q5M PRN (Reason: Chest Pain) Patient Comments: Chest pain hydrocodone-acetaminophen 5-325 mg tablet 1 - 2 tab PO .qid PRN (Reason: Pain) Patient Comments: Pain apixaban 5 mg tablet 5 mg PO BID Qty: 60 11RF metoprolol tartrate 100 mg tablet 100 mg PO BID Qty: 60 11RF Primary Care Provider: Stevie Dumas Referrals: Stevie Dumas MD [Primary Care Provider] - Activity Restrictions/Additional Instructions: 1. Discontinue taking prednisone 2. Do not take your next 6 doses of Apixaban 3. Take antibiotics until gone 4. If you have a temperature greater than 100, red streak that is going up yourleg return to the emergency department. Otherwise, follow-up with Dr. Dumas in 3 to 5 days if not better. Disposition Disposition: Home, Self Care What to do if you have Problems For any increased pain, shortness of breath, bleeding, nausea or vomiting, chestpain, or any unexpected problems, contact your Primary Care Provider. Call [facility] ([phone]) or report to the closest Emergency Room. Call 911 if necessary. 06/15/23 0957 <Electronically signed by Guillaume Alcantara MD> Cosigner Signature (if applicable): CC: Dr. Stevie Dumas MD ~ Signed [facility] Work Phone: Evaluation note* Diagnosis Atrial fibrillation with RVR (HCC)- Primary Atrial fibrillation Left arm pain, chronic Pain in limb Medial epicondylitis of right elbow Medial epicondylitis of elbow [facility] Diagnosis Atrial fibrillation, transient (HCC) [facility] this encounter [facility]* Diagnosis Left arm pain, chronic- Primary Pain in limb Hypercholesterolemia Pure hypercholesterolemia Coronary artery disease involving [place] coronary artery 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 Medial epicondylitis of right elbow Medial epicondylitis of elbow B12 deficiency Other B-complex deficiencies Vitamin D deficiency Unspecified vitamin D deficiency Anemia, unspecified type Encounter for long-term current use of medication [facility] Diagnosis Left arm pain, chronic Pain in limb Medial epicondylitis of right elbow Medial epicondylitis of elbow [facility] this [facility]* Diagnosis Left arm pain, chronic- Primary Pain in limb Need for influenza vaccination Need for prophylactic vaccination and inoculation against influenza Encounter for screening for lung cancer Screening for osteoporosis Special screening for osteoporosis Asymptomatic menopause Encounter for immunization Need for other specified prophylactic vaccination against single bacterial disease Medial epicondylitis of right elbow Medial epicondylitis of elbow Tobacco use disorder Hypercholesterolemia Pure hypercholesterolemia Anemia, unspecified type Medication management Encounter for long-term (current) use of other medications documented [facility] this encounter [facility]* Diagnosis Left arm pain, chronic Pain in limb Medial epicondylitis of right elbow Medial epicondylitis of elbow [facility] this encounter [facility]* Diagnosis Coronary artery disease involving [place] coronary artery 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 Hypercholesterolemia Pure hypercholesterolemia documented in this encounter [facility]* Diagnosis Left arm pain, chronic- Primary Pain in limb Medial epicondylitis of right elbow Medial epicondylitis of elbow Bilateral carpal tunnel syndrome Carpal tunnel syndrome Hypertension, unspecified type Coronary artery disease involving [place] coronary artery 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 Thyroid nodule Nontoxic uninodular goiter Atrial fibrillation, transient (HCC) documented [facility] this encounter [facility]* Diagnosis Left arm pain, chronic- Primary Pain in limb Hypercholesterolemia Pure hypercholesterolemia B12 deficiency Other B-complex deficiencies Coronary artery disease involving [place] coronary artery 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 Thyroid nodule Nontoxic uninodular goiter Medial epicondylitis of right elbow Medial epicondylitis of elbow Colon cancer screening Special screening for malignant neoplasms, colon Need for vaccination Need for prophylactic vaccination and inoculation against unspecified single disease [facility] this encounter [facility]* Diagnosis Left arm pain, chronic Pain in limb Medial epicondylitis of right elbow Medial epicondylitis of elbow [facility] this [facility]* Diagnosis Left arm pain, chronic- Primary Pain in limb Bilateral leg edema Edema Numbness of toes Disturbance of skin sensation Medial epicondylitis of right elbow Medial epicondylitis of elbow Atrial fibrillation, transient (HCC) [facility] Onset Date Resolution Status Encounter for screening for malignant neoplasm of lung acute Tobacco abuse [facility] Work Phone: Evaluation note* Diagnosis Left arm pain, chronic- Primary Pain in limb Encounter for immunization Need for other specified prophylactic vaccination against single bacterial disease Medial epicondylitis of right elbow Medial epicondylitis of elbow Coronary artery disease involving [place] coronary artery 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 documented in this encounter [facility]* Diagnosis Asymptomatic postmenopausal status [facility] Diagnosis Left arm pain, chronic- Primary Pain in limb Medial epicondylitis of right elbow Medial epicondylitis of elbow Asymptomatic postmenopausal status Screening for colon cancer Special screening for malignant neoplasms, colon Encounter for immunization Need for other specified prophylactic vaccination against single bacterial disease Asymptomatic postmenopausal status [facility] Diagnosis Left arm pain, chronic- Primary Pain in limb B12 deficiency Other B-complex deficiencies Vitamin D deficiency Unspecified vitamin D deficiency Medial epicondylitis of right elbow Medial epicondylitis of elbow Elevated fasting glucose Impaired fasting glucose Hypomagnesemia Disorders of magnesium metabolism Hypercholesterolemia Pure hypercholesterolemia Coronary artery disease involving [place] coronary artery 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 Encounter for long-term current use of medication [facility] Encounter for screening mammogram for breast cancer [facility] Diagnosis Abnormal mammogram- Primary Abnormal mammogram, unspecified [facility] Diagnosis Pain in both knees, unspecified chronicity- Primary [facility] Diagnosis Pain in both knees, unspecified chronicity [facility] Diagnosis Chronic pain of both knees- Primary Primary osteoarthritis of both knees Primary localized osteoarthrosis, lower leg [facility] Diagnosis Primary hypertension- Primary Unspecified essential hypertension B12 deficiency Other B-complex deficiencies Hypomagnesemia Disorders of magnesium metabolism Vitamin D deficiency Unspecified vitamin D deficiency Hypercholesterolemia Pure hypercholesterolemia Elevated fasting glucose Impaired fasting glucose Coronary artery disease involving [place] coronary artery 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 Hypertension, unspecified type Left arm pain, chronic Pain in limb Medial epicondylitis of right elbow Medial epicondylitis of elbow Dermatitis of external ear Contact dermatitis and other eczema, due to unspecified cause Macrocytosis Other specified diseases of blood and blood-forming organs [facility] encounter [facility] Diagnosis Abnormal mammogram Abnormal mammogram, unspecified [facility] Diagnosis Abnormal mammogram- Primary Abnormal mammogram, unspecified [facility] Diagnosis Hand dermatitis- Primary Contact dermatitis and other eczema, due to unspecified cause Left arm pain, chronic Pain in limb Dry skin Other specified disease of sebaceous glands Medial epicondylitis of right elbow Medial epicondylitis of elbow Dermatitis of external ear Contact dermatitis and other eczema, due to unspecified cause Need for vaccination Need for prophylactic vaccination and inoculation against unspecified single disease [facility] Diagnosis Abnormal mammogram Abnormal mammogram, unspecified [facility] Diagnosis Left arm pain, chronic Pain in limb Medial epicondylitis of right elbow Medial epicondylitis of elbow [facility]* Diagnosis Atrial fibrillation, transient (HCC) Hypercholesterolemia Pure hypercholesterolemia Coronary artery disease involving [place] coronary artery 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 Hypertension, unspecified type [facility] Diagnosis Medial epicondylitis of right elbow Medial epicondylitis of elbow Left arm pain, chronic Pain in limb Coronary artery disease involving [place] coronary artery 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 [facility] Diagnosis Bilateral lower extremity edema- Primary Edema Left arm pain, chronic Pain in limb Medial epicondylitis of right elbow Medial epicondylitis of elbow Nicotine dependence, cigarettes, in remission rn long term care (current) use of anticoagulants Long-term (current) use of anticoagulants Atrial fibrillation, unspecified type (HCC) documented [facility] Diagnosis Left arm pain, chronic- Primary Pain in limb Medial epicondylitis of right elbow Medial epicondylitis of elbow Chronic obstructive pulmonary disease, unspecified COPD type (HCC) Screening for colon cancer Special screening for malignant neoplasms, colon Quit smoking within past year Encounter for therapeutic drug monitoring Hypercholesterolemia Pure hypercholesterolemia B12 deficiency Other B-complex deficiencies Vitamin D deficiency Unspecified vitamin D deficiency Elevated fasting glucose Impaired fasting glucose documented in this encounter [facility] HospitalEvalusaint [facility]* Diagnosis Left arm pain, chronic- Primary Pain in limb Medial epicondylitis of right elbow Medial epicondylitis of elbow IFG (impaired fasting glucose) Impaired fasting glucose Mixed hyperlipidemia Bilateral lower extremity edema Edema Vitamin D deficiency Unspecified vitamin D deficiency Hypomagnesemia Disorders of magnesium metabolism Need for vaccination Need for prophylactic vaccination and inoculation against unspecified single disease Peripheral polyneuropathy Unspecified hereditary and idiopathic peripheral neuropathy Vitamin B12 deficiency Other B-complex deficiencies documented in this encounter [facility] for referral (narrative)* Diagnostic Procedure Only (Routine) - Pending Review Specialty Diagnoses / Procedures Referred By Contac t Referred To Contact US IMAGING Diagnoses Thyroid nodule Procedures US THYROID/PARATHYROID US SOFT TISSUE HEAD & NECK REAL TIME IMGE DOCStevie Escobar MD [address] [place] [address] Us Imaging Referral ID Status Reason Start Date Expiration Date Visits Requested Visits Authorized [id number] Pending Review Auto-Generat ed Referral 09/15/2022 10/15/2023 1 1 [facility] for referral (narrative)* Diagnostic Procedure Only (Routine) - Closed Specialty Diagnoses / Procedures Referred By Jose t Referred To Contact XR IMAGING Diagnoses Asymptomatic postmenopausal status Procedures DXA-AXIAL SKELETON Stevie Dumas MD [address] [place] [address] [place] [address] Referral ID Status Reason Start Date Expiration Date V isits Requested Visits Authorized [id number] Closed Auto-Generate d Referral 01/13/2024 02/11/2025 1 1 [facility] for referral (narrative)* Diagnostic Procedure Only (Routine) - Authorized Specialty Diagnoses / Procedures [facility] To Contact BR IMAGING Diagnoses Abnormal mammogram Procedures US BREAST LTD LEFT US BREAST UNI REAL TIME WITH IMAGE LIMITED Meryl Rios APRN.ANODIZER [address] [place] [address] Br Imaging [address] [place] [address] Referral ID Status Reason Start Date Expiration Date Visits Requested Visits Authorized [id number] Authorized Auto-Generat ed Referral 05/26/2024 06/25/2025 1 1 * Diagnostic Procedure Only (Routine) - Authorized Specialty Diagnoses / Procedures Referred By Contac t Referred To Contact BR IMAGING Diagnoses Abnormal mammogram Procedures US BREAST LTD RIGHT US BREAST UNI REAL TIME WITH IMAGE LIMITED Meryl Rios APRN.ANODIZER [address] [place] [address] [facility] Imaging [address] [place] [address] Referral ID Status Reason Start Date Expiration Date Visits Requested Visits Authorized [id number] Authorized Auto-Generat ed Referral 05/26/2024 06/25/2025 1 1 * Diagnostic Procedure Only (Routine) - Authorized Specialty Diagnoses / Procedures Referred By Jose t Referred To Contact BR IMAGING Diagnoses Abnormal mammogram Procedures LG DIAGNOSTIC BILATERAL DIAGNOSTIC MAMMOGRAPHY COMPUTER-AIDED DETCJ BI Meryl Rios APRN.ANODIZER [address] [place] [address] [facility] Imaging [address] [place] [address] Referral ID Status Reason Start Date Expiration Date Visits Requested Visits Authorized [id number] Authorized Auto-Generat ed Referral 05/26/2024 06/25/2025 1 1 [facility] for referral (narrative)* Diagnostic Procedure Only (Routine) - New Request Specialty Diagnoses / Procedures Referred By Contac t Referred To Contact XR IMAGING Diagnoses Pain in both knees, unspecified chronicity Procedures XR KNEE GENERAL 4V AP BOTH/PA BOTH/LAT/MERC BILATERAL RADIOLOGIC EXAM KNEE COMPLETE 4/MORE VIEWS Sesar Wong MD [address] [place] [address] [place] [address] Referral ID Status Reason Start Date Expiration Date Visits Requested Visits Authorized [id number] New Request Auto-Generat ed Referral 07/20/2024 08/19/2025 1 1 [facility] for referral (narrative)* Diagnostic Procedure Only (Routine) - New Request Specialty Diagnoses / Procedures Referred By Jose t Referred To Contact BR IMAGING Diagnoses Abnormal mammogram Procedures US BREAST LTD RIGHT US BREAST UNI REAL TIME WITH IMAGE LIMITED Graham De Leon APRN.OWNER ORAL SURGEON [address] [place], [place] [id number] [facility] [address] [place] [address] Referral ID Status Reason Start Date Expiration Date Visits Requested Visits Authorized [id number] New Request Auto-Generat ed Referral 4 09/23/2025 1 1 * Diagnostic Procedure Only (Routine) - New Request Specialty Diagnoses / Procedures Referred By Jose t Referred To Contact BR IMAGING Diagnoses Abnormal mammogram Procedures US BREAST LTD LEFT US BREAST UNI REAL TIME WITH IMAGE LIMITED Graham De Leon APRN.OWNER ORAL SURGEON [address] [place] [address] [facility] [address] [place] [address] Referral ID Status Reason Start Date Expiration Date Visits Requested Visits Authorized [id number] New Request Auto-Generat ed Referral 4 09/23/2025 1 1 * Diagnostic Procedure Only (Routine) - New Request Specialty Diagnoses / Procedures Referred By Jose t Referred To Contact BR IMAGING Diagnoses Abnormal mammogram Procedures LG DIAGNOSTIC BILATERAL DIAGNOSTIC MAMMOGRAPHY COMPUTER-AIDED DETCJ BI Graham De Leon APRN.CNP [address] [place] [address] [facility] [address] [place] [address] Referral ID Status Reason Start Date Expiration Date Visits Requested Visits Authorized [id number] New Request Auto-Generat ed Referral 4 09/23/2025 1 1 [facility] for referral (narrative)No reason for referral information availableWMercy Health St[facility] Work Phone: Reason for visit Narrative* Diagnostic Procedure Only (Routine) - Closed Specialty Diagnoses / Procedures Referred By Contac t Referred To Contact XR IMAGING Diagnoses Asymptomatic postmenopausal status Procedures DXA-AXIAL SKELETON Stevie Dumas MD [address] [place] [address] [place] [address] Referral ID Status Reason Start Date Expiration Date V isits Requested Visits Authorized [id number] Closed Auto-Generate d Referral 01/13/2024 02/11/2025 1 1 [facility] for visit Narrative* Diagnostic Procedure Only (Routine) - Closed Specialty Diagnoses / Procedures Referred By Contac t Referred To Contact BR IMAGING Diagnoses Encounter for screening mammogram for breast cancer Procedures LG SCREENING SCREENING MAMMOGRAPHY BI 2-VIEW BREAST INC CAD Stevie Dumas MD [address] [place] [address] [facility] Imaging [address] [place] [address] Referral ID Status Reason Start Date Expiration Date V isits Requested Visits Authorized [id number] Closed Auto-Generate d Referral 07/29/2023 08/27/2024 1 1 [facility] for visit Narrative* Diagnostic Procedure Only (Routine) - Closed Specialty Diagnoses / Procedures Referred By Contac t Referred To Contact XR IMAGING Diagnoses Pain in both knees, unspecified chronicity Procedures XR KNEE GENERAL 4V AP BOTH/PA BOTH/LAT/MERC BILATERAL RADIOLOGIC EXAM KNEE COMPLETE 4/MORE VIEWS Sesar Wong MD [address] [place] [address] [place] [address] Referral ID Status Reason Start Date Expiration Date V isits Requested Visits Authorized [id number] Closed Auto-Generate d Referral 07/20/2024 08/19/2025 1 1 [facility] Chief Complaint and Reason for Visit Chief Complaint 9 M FU (NN PT) Lung cancer screening SMOKER Reason for Visit PAF (paroxysmal atri al fibrillation) Essential hypertension History of coronary artery stent placement HLD (hyperlipidemia) Dysphagia Encounter for screening for malignant neoplasm of lung Tobacco abuse Chief Complaint 9 M FU left foot Reason for Visit PAF (paroxysmal atri al fibrillation) Essential hypertension History of coronary artery stent placement HLD (hyperlipidemia) Chief Complaint 9 M FU left foot INFECTION OF RIGHT FOOT HEMATOMA AND CELLULITIS Reason for Visit PAF (paroxysmal atri al fibrillation) Essential hypertension History of coronary artery stent placement HLD (hyperlipidemia) Cellulitis of left foot Hematoma of left foot Infected hematoma Chief Complaint 9 M FU left foot INFECTION OF RIGHT FOOT HEMATOMA AND CELLULITIS INFECTION OF RIGHT FOOT HEMATOMA AND CELLULITIS INFECTION OF RIGHT FOOT HEMATOMA AND CELLULITIS INFECTION OF RIGHT FOOT HEMATOMA AND CELLULITIS INFECTION OF RIGHT FOOT HEMATOMA AND CELLULITIS Reason for Visit PAF (paroxysmal atri al fibrillation) Essential hypertension History of coronary artery stent placement HLD (hyperlipidemia) Abscess of left foot Cellulitis of left foot Hematoma of left foot Pain in left foot Chief Complaint Lung Cancer screenin g TOBACCO USE Reason for Visit Encounter for screen ing for malignant neoplasm of lung Tobacco abuse Chief Complaint Lung Cancer screenin g TOBACCO USE Other specified peripheral vascular diseases Reason for Visit Encounter for screen ing for malignant neoplasm of lung Tobacco abuse Chief Complaint Admit Date L ANKLE WOUND September 19, 2024 5 :28pm 6 M FU November 08, 2024 1 :19pm Lung Cancer Screening November 15, 2024 12:53pm SCREENING November 15, 2024 1 :34pm PVD/PAIN R&L LEG December 28, 2024 12: 42pm Reason for Visit Admit Date PAF (paroxysmal atrial fibrillation) Surinder edmonds 2024 1:19pm Essential hypertension November 08 1:19pm History of coronary artery stent placeme nt November 08, 2024 1:19pm HLD (hyperlipidemia) November 08, 2024 1:19pm Encounter for screening for malignant ne oplasm of lung November 15, 2024 12:53pm History of tobacco abuse November 15, 025 12:53pm Advance Directives No Advanced Directives Records Found Advance Directive Response Recorded Date/ Time Advance Directives No June 1:32pm Living Will No November 23 020 12:17am Power of Plant Attendant Or Assistant Operator No November 23, 2019 12:17am Advance Directive Response Recorded Date/ Time Advance Directives No June 2:32pm Living Will No June 15 023 8:04am Power of Plant Attendant Or Assistant Operator No June 15, 2023 8:04am Advance Directive Response Recorded Date/ Time Name of Medical Power of Plant Attendant Or Assistant Operator Eli Newton June 22, 2023 6:25pm Advance Directives No June 2:32pm Living Will Yes June 22, 2023 6:25pm Power of Plant Attendant Or Assistant Operator Yes June 6:25pm Advance Directive Response Recorded Date/ Time Name of Medical Power of Plant Attendant Or Assistant Operator Yocasta Rowan June 22, 2023 9:34pm Advance Directives No June 2:32pm Living Will Yes June 22, 2023 9:34pm Power of Plant Attendant Or Assistant Operator Yes June 9:34pm Advance Directive Response Recorded Date/ Time Advance Directives No June 1:32pm Living Will Yes June 22, 2023 8:34pm Power of Plant Attendant Or Assistant Operator Yes June 8:34pm Advance Directive Response Recorded Date/ Time Advance Directives No June 2:32pm Living Will Yes June 22, 2023 9:34pm Power of Plant Attendant Or Assistant Operator Yes June 9:34pm Advance Directive Response Recorded Date/ Time Living Will Yes June 22, 2023 9:34pm Do you have a Healthcare Power of Plant Attendant Or Assistant Operator? Yes June 22, 2023 9:34pm Advance Directives No June 2:32pm Summary Purpose Family History No Family History Records Found Additional Source Comments Source Comments (unrecognize d section and content) In the event this informatio n is protected by the Federal Confidentiality of Alcohol and Drug Abuse Patient Records regulations: The Federal rules restrict any use of the information to criminally investigate or prosecute any alcohol or drug abuse patient.[facility] Hospital[facility] the event this information is protected by the Federal Confidentiality of Alcohol and Drug Abuse Patient Records regulations: The Federal rules restrict any use of the information to criminally investigate or prosecute any alcohol or drug abuse patient.[facility] HospitalIn the event this information is protected by the Federal Confidentiality of Alcohol and Drug Abuse Patient Records regulations: The Federal rules restrict any use of the information to criminally investigate or prosecute any alcohol or drug abuse patient.[facility] HospitalIn the event this information is protected by the Federal Confidentiality of Alcohol and Drug Abuse Patient Records regulations: The Federal rules restrict any use of the information to criminally investigate or prosecute any alcohol or drug abuse patient.[facility] HospitalIn the event this information is protected by the Federal Confidentiality of Alcohol and Drug Abuse Patient Records regulations: The Federal rules restrict any use of the information to criminally investigate or prosecute any alcohol or drug abuse patient.[facility] HospitalIn the event this information is protected by the Federal Confidentiality of Alcohol and Drug Abuse Patient Records regulations: The Federal rules restrict any use of the information to criminally investigate or prosecute any alcohol or drug abuse patient.[facility] HospitalIn the event this information is protected by the Federal Confidentiality of Alcohol and Drug Abuse Patient Records regulations: The Federal rules restrict any use of the information to criminally investigate or prosecute any alcohol or drug abuse patient.[facility] HospitalIn the event this information is protected by the Federal Confidentiality of Alcohol and Drug Abuse Patient Records regulations: The Federal rules restrict any use of the information to criminally investigate or prosecute any alcohol or drug abuse patient.[facility] HospitalIn the event this information is protected by the Federal Confidentiality of Alcohol and Drug Abuse Patient Records regulations: The Federal rules restrict any use of the information to criminally investigate or prosecute any alcohol or drug abuse patient.[facility] HospitalIn the event this information is protected by the Federal Confidentiality of Alcohol and Drug Abuse Patient Records regulations: The Federal rules restrict any use of the information to criminally investigate or prosecute any alcohol or drug abuse patient.[facility] HospitalIn the event this information is protected by the Federal Confidentiality of Alcohol and Drug Abuse Patient Records regulations: The Federal rules restrict any use of the information to criminally investigate or prosecute any alcohol or drug abuse patient.[facility] HospitalIn the event this information is protected by the Federal Confidentiality of Alcohol and Drug Abuse Patient Records regulations: The Federal rules restrict any use of the information to criminally investigate or prosecute any alcohol or drug abuse patient.[facility] HospitalIn the event this information is protected by the Federal Confidentiality of Alcohol and Drug Abuse Patient Records regulations: The Federal rules restrict any use of the information to criminally investigate or prosecute any alcohol or drug abuse patient.[facility] HospitalIn the event this information is protected by the Federal Confidentiality of Alcohol and Drug Abuse Patient Records regulations: The Federal rules restrict any use of the information to criminally investigate or prosecute any alcohol or drug abuse patient.[facility] HospitalIn the event this information is protected by the Federal Confidentiality of Alcohol and Drug Abuse Patient Records regulations: The Federal rules restrict any use of the information to criminally investigate or prosecute any alcohol or drug abuse patient.[facility] HospitalIn the event this information is protected by the Federal Confidentiality of Alcohol and Drug Abuse Patient Records regulations: The Federal rules restrict any use of the information to criminally investigate or prosecute any alcohol or drug abuse patient.[facility] HospitalIn the event this information is protected by the Federal Confidentiality of Alcohol and Drug Abuse Patient Records regulations: The Federal rules restrict any use of the information to criminally investigate or prosecute any alcohol or drug abuse patient.[facility] HospitalIn the event this information is protected by the Federal Confidentiality of Alcohol and Drug Abuse Patient Records regulations: The Federal rules restrict any use of the information to criminally investigate or prosecute any alcohol or drug abuse patient.[facility] HospitalIn the event this information is protected by the Federal Confidentiality of Alcohol and Drug Abuse Patient Records regulations: The Federal rules restrict any use of the information to criminally investigate or prosecute any alcohol or drug abuse patient.[facility] HospitalIn the event this information is protected by the Federal Confidentiality of Alcohol and Drug Abuse Patient Records regulations: The Federal rules restrict any use of the information to criminally investigate or prosecute any alcohol or drug abuse patient.[facility] HospitalIn the event this information is protected by the Federal Confidentiality of Alcohol and Drug Abuse Patient Records regulations: The Federal rules restrict any use of the information to criminally investigate or prosecute any alcohol or drug abuse patient.[facility] HospitalIn the event this information is protected by the Federal Confidentiality of Alcohol and Drug Abuse Patient Records regulations: The Federal rules restrict any use of the information to criminally investigate or prosecute any alcohol or drug abuse patient.[facility] HospitalIn the event this information is protected by the Federal Confidentiality of Alcohol and Drug Abuse Patient Records regulations: The Federal rules restrict any use of the information to criminally investigate or prosecute any alcohol or drug abuse patient.[facility] HospitalIn the event this information is protected by the Federal Confidentiality of Alcohol and Drug Abuse Patient Records regulations: The Federal rules restrict any use of the information to criminally investigate or prosecute any alcohol or drug abuse patient.[facility] HospitalIn the event this information is protected by the Federal Confidentiality of Alcohol and Drug Abuse Patient Records regulations: The Federal rules restrict any use of the information to criminally investigate or prosecute any alcohol or drug abuse patient.[facility] HospitalIn the event this information is protected by the Federal Confidentiality of Alcohol and Drug Abuse Patient Records regulations: The Federal rules restrict any use of the information to criminally investigate or prosecute any alcohol or drug abuse patient.[facility] HospitalIn the event this information is protected by the Federal Confidentiality of Alcohol and Drug Abuse Patient Records regulations: The Federal rules restrict any use of the information to criminally investigate or prosecute any alcohol or drug abuse patient.[facility] HospitalIn the event this information is protected by the Federal Confidentiality of Alcohol and Drug Abuse Patient Records regulations: The Federal rules restrict any use of the information to criminally investigate or prosecute any alcohol or drug abuse patient.[facility] HospitalIn the event this information is protected by the Federal Confidentiality of Alcohol and Drug Abuse Patient Records regulations: The Federal rules restrict any use of the information to criminally investigate or prosecute any alcohol or drug abuse patient.[facility] HospitalIn the event this information is protected by the Federal Confidentiality of Alcohol and Drug Abuse Patient Records regulations: The Federal rules restrict any use of the information to criminally investigate or prosecute any alcohol or drug abuse patient.[facility] HospitalIn the event this information is protected by the Federal Confidentiality of Alcohol and Drug Abuse Patient Records regulations: The Federal rules restrict any use of the information to criminally investigate or prosecute any alcohol or drug abuse patient.[facility] HospitalIn the event this information is protected by the Federal Confidentiality of Alcohol and Drug Abuse Patient Records regulations: The Federal rules restrict any use of the information to criminally investigate or prosecute any alcohol or drug abuse patient.[facility] HospitalIn the event this information is protected by the Federal Confidentiality of Alcohol and Drug Abuse Patient Records regulations: The Federal rules restrict any use of the information to criminally investigate or prosecute any alcohol or drug abuse patient.[facility] HospitalIn the event this information is protected by the Federal Confidentiality of Alcohol and Drug Abuse Patient Records regulations: The Federal rules restrict any use of the information to criminally investigate or prosecute any alcohol or drug abuse patient.[facility] HospitalIn the event this information is protected by the Federal Confidentiality of Alcohol and Drug Abuse Patient Records regulations: The Federal rules restrict any use of the information to criminally investigate or prosecute any alcohol or drug abuse patient.[facility] HospitalIn the event this information is protected by the Federal Confidentiality of Alcohol and Drug Abuse Patient Records regulations: The Federal rules restrict any use of the information to criminally investigate or prosecute any alcohol or drug abuse patient.[facility] HospitalIn the event this information is protected by the Federal Confidentiality of Alcohol and Drug Abuse Patient Records regulations: The Federal rules restrict any use of the information to criminally investigate or prosecute any alcohol or drug abuse patient.[facility] HospitalIn the event this information is protected by the Federal Confidentiality of Alcohol and Drug Abuse Patient Records regulations: The Federal rules restrict any use of the information to criminally investigate or prosecute any alcohol or drug abuse patient.[facility] HospitalIn the event this information is protected by the Federal Confidentiality of Alcohol and Drug Abuse Patient Records regulations: The Federal rules restrict any use of the information to criminally investigate or prosecute any alcohol or drug abuse patient.[facility] HospitalIn the event this information is protected by the Federal Confidentiality of Alcohol and Drug Abuse Patient Records regulations: The Federal rules restrict any use of the information to criminally investigate or prosecute any alcohol or drug abuse patient.[facility] HospitalIn the event this information is protected by the Federal Confidentiality of Alcohol and Drug Abuse Patient Records regulations: The Federal rules restrict any use of the information to criminally investigate or prosecute any alcohol or drug abuse patient.[facility] Reason for Visit (unrecogniz ed section and content) Reason Comments 2 month f/u Reason Comments Forms Reason Onset Date Comments Refill Request 04/21/2022 Reason Comments Follow Up Reason Onset Date Comments Recheck 2 month Immunizations 07/17/2022 Flu vaccination Reason Comments Lung CA Screen Reason Comments Medication Problem Reason Comments wrist splint Reason Comments Prescription Transfer Request Reason Comments Follow Up Reason Comments 2 month follow up Address HM Reason Comments F/U 2 month Reason Comments Established Patient Labs prior to follow up Reason Comments bristol jose daniel squibb pt assistance respon se Reason Comments Follow Up 2 month follow up Reason Comments Established Patient Follow up left ankle , left arm and right elbow Reason Comments Mammogram Result Call Back bilateral andrea g mamm and us cb per ci and pratibha Reason Comments results/further testing mammogram Reason Comments New Pain Reason Comments 2 month follow up Reason Comments Orders Reason Comments Radiology Mammogram Specialty Diagnoses / Procedures Referred By Jose vaughn Referred To Contact [facility] Diagnoses Abnormal mammogram Procedures LG DIAGNOSTIC BILATERAL DIAGNOSTIC MAMMOGRAPHY COMPUTER-AIDED DETCJ Graham Joseph APRN.OWNER ORAL SURGEON [address] [place] [address] [facility] [address] [place] [id number] Referral ID Status Reason Start Date Expiration Date V isits Requested Visits Authorized [id number] Closed Auto-Generate d Referral 08/24/2024 09/23/2025 1 1 Reason Comments Medication Request Reason Onset Date Comments Refill Request 10/19/2024 Reason Comments Recheck 2 month follow up Reason Comments Recheck Reason Comments Follow Up 2 months Reason Onset Date Comments Care Coordination 06/09/2025 Chart review Reason Onset Date Comments Population Health Navigation Outreach 06/21/2025 [facility] Care Teams (unrecognized sec tion and content) Ticket Manager Relationship Specialty Start Date End Date Stevie Dumas MD [address] [facility] [place] [address] PCP - General 08/18/03 Ticket Manager Relationship Specialty [place] [address] [place] [address], [place] [address] PCP - General 08/18/03 Ticket Manager Relationship Specialty Start Date End Date Stevie Dumas MD [address] [place] [address], [place] [address] PCP - General 08/18/03 Ticket Manager Relationship Specialty Start Date End Date Stevie Dumas MD [address] [place] [address], [place] [address] PCP - General 08/18/03 Ticket Manager Relationship Specialty Start Date End Date Stevie Dumas MD [address] [facility] [place] [address] PCP - General 08/18/03 Ticket Manager Relationship Specialty Start Date End Date Stevie Dumas MD [address] [facility] [place] [address] PCP - General 08/18/03 Ticket Manager Relationship Specialty Start Date End Date Stevie Dumas MD [address] [place] [address], [place] [address] PCP - General 08/18/03 Ticket Manager Relationship Specialty Start Date End Date Stevie Dumas MD [address] [place] [address], [place] [address] PCP - General 08/18/03 Ticket Manager Relationship Specialty Start Date End Date Stevie Dumas MD [address] [place] [address] PCP - General 08/18/03 Ticket Manager Relationship Specialty Start Date End Date Stevie Dumas MD [address] [place], [place] [address] PCP - General 08/18/03 Ticket Manager Relationship Specialty Start Date End Date Stevie Dumas MD [address] [place], [place] [address] PCP - General 08/18/03 Team Status: Active Member Role Status Dates Dr. Stevie Dumas MD Family Provider Active Dr. Stevie Dumas MD Primary Care Provider Active Team Status: Inactive Member Role Status Dates Dr. Stevie Dumas MD Primary Care Provider, Referr ing Provider Active Lilian Wolff ETHNOGRAPHIC MATERIALS CONSERVATOR, ETHNOGRAPHIC MATERIALS CONSERVATOR-C Attending Provider Active Team Status: Inactive Member Role Status Dates Dr. Stevie Dumas MD Primary Care Provider Active Dr. Guillaume Alcantara MD Emergency Provider Active Team Status: Inactive Member Role Status Dates Dr. Stevie Dumas MD Primary Care Provider Active Dr. Guillaume Alcantara MD Attending Provider, Emergency Provi alexander Active Team Status: Active Member Role Status Dates Dr. Stevie Dumas MD Primary Care Provider Active Dr. Marisa Draper MD Emergency Provider Active Dr. Kit Oro MD Admit Provider, Attending Pro vider Active Dr. Nathan Spivey DPM Other Provider Active Team Status: Active Member Role Status Dates Dr. Stevie Dumas MD Primary Care Provider Active Dr. Marisa Draper MD Emergency Provider Active Dr. Kit Oro MD Admit Provider, Attending Provider, Other Provider Active Dr. Nathan Spivey DPM Other Provider Active Team Status: Active Member Role Status Dates Dr. Stevie Dumas MD Primary Care Provider Active Dr. Marisa Draper MD Emergency Provider Active Dr. Kit Oro MD Admit Provider, Other Provide r Active Dr. Haider Amezcua DO Attending Provider, Other Provid er Active Dr. Nathan Sipvey DPM Other Provider Active Team Status: Inactive Member Role Status Dates Dr. Stevie Dumas MD Primary Care Provider Active Dr. Marisa Draper MD Emergency Provider Active Dr. Kit Oro MD Admit Provider, Other Provide r Active Dr. Haider Amezcua DO Attending Provider Active Dr. Nathan Spivey DPM Other Provider Active Team Status: Inactive Member Role Status Dates Dr. Stevie Dumas MD Primary Care Provider, Referr ing Provider Active Minnie Banegas ETHNOGRAPHIC MATERIALS CONSERVATOR, ETHNOGRAPHIC MATERIALS CONSERVATOR-C Attending Provider Active Team Status: Inactive Member Role Status Dates Dr. Stevie Dumas MD Primary Care Provider Active Minnie Banegas ETHNOGRAPHIC MATERIALS CONSERVATOR, ETHNOGRAPHIC MATERIALS CONSERVATOR-C Attending Provider, Referring Provider Active Ticket Manager Relationship Specialty Start Date End Date Stevie Dumas MD [address] [place] [address] PCP - General 08/18/03 Ticket Manager Relationship Specialty Start Date End Date Stevie Dumas MD [address] [place], [place] [address] PCP - General 08/18/03 Ticket Manager Relationship Specialty Start Date End Date Stevie Dumas MD [address] [place] [address] PCP - General 08/18/03 Team Status: Active Member Role Status Dates Dr. Stevie Dumas MD Primary Care Provider Active Dr. Haider Kimble MD Attending Provider Active Team Status: Inactive Member Role Status Dates Dr. Stevie Dumas MD Primary Care Provider Active Dr. Nathan Spivey DPM Attending Provider, Referring Provider Active Ticket Manager Relationship Specialty Start Date End Date Stevie Dumas MD [address] [place], [place] [address] PCP - General 08/18/03 Ticket Manager Relationship Specialty Start Date End Date Stevie Dumas MD [address] [place] [address] PCP - General 08/18/03 Ticket Manager Relationship Specialty Start Date End Date Stevie Dumas MD [address] [place] [address] PCP - General 08/18/03 Ticket Manager Relationship Specialty Start Date End Date Stevie Dumas MD [address] [place] [address] PCP - General 08/18/03 Ticket Manager Relationship Specialty Start Date End Date Stevie Dumas MD [address] [place] [address] PCP - General 08/18/03 Ticket Manager Relationship Specialty Start Date End Date Stevie Dumas MD [address] [place] [address] PCP - General 08/18/03 Ticket Manager Relationship Specialty Start Date End Date Stevie Dumas MD [address] [place] [address] PCP - General 08/18/03 Ticket Manager Relationship Specialty Start Date End Date Stevie Dumas MD [address] [place] [address] PCP - General 08/18/03 Ticket Manager Relationship Specialty Start Date End Date Stevie Dumas MD [address] [place] [address] PCP - General 08/18/03 Ticket Manager Relationship Specialty Start Date End Date Stevie Dumas MD [address] [place] [address] PCP - General 08/18/03 Ticket Manager Relationship Specialty Start Date End Date Stevie Dumas MD [address] [place] [address] PCP - General 08/18/03 Ticket Manager Relationship Specialty Start Date End Date Stevie Dumas MD [address] [place] [address] PCP - General 08/18/03 Ticket Manager Relationship Specialty Start Date End Date Stevie Dumas MD [address] [place] [address] PCP - General 08/18/03 Ticket Manager Relationship Specialty Start Date End Date Stevie Dumas MD [address] [place] [address] PCP - General 08/18/03 Ticket Manager Relationship Specialty Start Date End Date Stevie Dumas MD [address] [place] [address] PCP - General 08/18/03 Ticket Manager Relationship Specialty Start Date End Date Stevie Dumas MD [address] [place] [address] PCP - General 08/18/03 Meryl Rios, ELECTRONIC GLUER.ANODIZER [address] [place] [address] [facility] Internal Medicine 09/19/24 Graham De Leon ELECTRONIC GLUER.OWNER ORAL SURGEON [address] [place], [place] [address] [facility] Internal Medicine 09/19/24 Ticket Manager Relationship Specialty Start Date End Date Stevie Dumas MD [address] [place] [address] PCP - General 08/18/03 Meryl Rios APRN.ANODIZER [address] [place], [place] [address] [facility] Internal Medicine 09/19/24 Graham De Leon, ELECTRONIC GLUER.OWNER ORAL SURGEON [address] [place] [id number] [facility] Internal Medicine 09/19/24 Team Status: Active Member Role Status Dates Dr. Stevie Dumas MD Primary Care Provider Active Team Status: Inactive Member Role Status Dates Dr. Stevie Dumas MD Primary Care Provider Active Start: September 19, 2024 End: September 19, 2024 Dr. Nathan Spivey DPM Attending Provider Active Start: September 19, 2024 End: September 19, 2024 Dr. Nathan Spivey DPM Referring Provider Active Start: September 19, 2024 End: September 19, 2024 Team Status: Inactive Member Role Status Dates Dr. Stevie Dumas MD Primary Care Provider Active Start: November 08, 2024 End: November 08, 2024 Dr. Stevie Dumas MD Referring Provider Active Start: November 08, 2024 End: November 08, 2024 Mayra Doe PA, PA Attending Provider Active Start: November 08, 2024 End: November 08, 2024 Team Status: Inactive Member Role Status Dates Dr. Stevie Dumas MD Primary Care Provider Active Start: November 15, 2024 End: November 15, 2024 Minnie Banegas NP, ETHNOGRAPHIC MATERIALS CONSERVATOR-C Attending Provider Active Start: November 15, 2024 End: November 15, 2024 Minnie Banegas NP, ETHNOGRAPHIC MATERIALS CONSERVATOR-C Referring Provider Active Start: November 15, 2024 End: November 15, 2024 Team Status: Inactive Member Role Status Dates Dr. Stevie Dumas MD Primary Care Provider Active Start: December 28, 2024 End: December 28, 2024 Dr. Nathan Spivey DPM Attending Provider Active Start: December 28, 2024 End: December 28, 2024 Dr. Nathan Spivey DPM Referring Provider Active Start: December 28, 2024 End: December 28, 2024 Ticket Manager Relationship Specialty Start Date End Date Stevie Dumas MD [address] [place] [address] PCP - General 08/18/03 Meryl Rios, ELECTRONIC GLUER.ANODIZER [address] [place] [address] Project Architect Internal Medicine 09/19/24 Graham De Leon ELECTRONIC GLUER.OWNER ORAL SURGEON [address] [place] [address] Project Architect Internal Medicine 09/19/24 12/30/24 Ticket Manager Relationship Specialty Start Date End Date Stevie Dumas MD [address] [place] [address] PCP - General 08/18/03 Meryl Rios, ELECTRONIC GLUER.ANODIZER [address] [place] [address] Project Architect Internal Medicine 09/19/24 Graham De Leon ELECTRONIC GLUER.OWNER ORAL SURGEON [address] [place] [address] Project Architect Internal Medicine 01/03/25 Ticket Manager Relationship Specialty Start Date End Date Stevie Dumas MD [address] [place] [address] PCP - General 08/18/03 Garham De Leon, ELECTRONIC GLUER.OWNER ORAL SURGEON [address] [place] [address] Project Architect Internal Medicine 01/03/25 Meryl Rios, ELECTRONIC GLUER.ANODIZER [address] [place] [address] [facility] Internal Medicine 03/01/25 Ticket Manager Relationship Specialty Start Date End Date Stevie Dumas MD [address] [place] [address] PCP - General 08/18/03 Graham De Leon ELECTRONIC GLUER.OWNER ORAL SURGEON [address] [place] [address] Project Architect Internal Medicine 01/03/25 Meryl Rios, ELECTRONIC GLUER.ANODIZER [address] [place] [address] [facility] Internal Medicine 03/01/25 Ticket Manager Relationship Specialty Start Date End Date Stevie Dumas MD [address] [place] [address] PCP - General 08/18/03 Graham De Leon ELECTRONIC GLUER.OWNER ORAL SURGEON [address] [facility] [place] [address] Project Architect Internal Medicine 01/03/25 Meryl Rios, ELECTRONIC GLUER.ANODIZER [address] [facility] [place] [address] Project Architect Internal Medicine 03/01/25 Goals (unrecognized section and content) Goals may be documented in a n alternate sectionGoals may be documented in an alternate sectionGoals may be documented in an alternate sectionGoals may be documented in an alternate sectionGoals may be documented in an alternate sectionGoals may be documented in an alternate section INFORMATION SOURCE (unrecogn ized section and content) DATE CREATED AUTHOR 08/17/2025 [facility] DATE CREATED AUTHOR AUTHOR'S MARIJA ATPAUL 08/24/2025 [facility] FOR RECORDS PERTAINING TO PATIENTS WHO ARE OR HAVE BEEN ENROLLED IN A CHEMICAL DEPENDENCY/SUBSTANCEABUSE PROGRAM, SOME INFORMATION MAY BE OMITTED. This clinical summary was aggregated from multiple sources. Caution should be exercised in using it in the provision of clinical care. This summary normalizes information from multiple sources, and as a consequence, information in this document may materially change the coding, format and clinical context of patient data. In addition, data may be omitted in some cases. CLINICAL DECISIONS SHOULD BE BASED ON THE PRIMARY CLINICAL RECORDS. [employer] provides no warranty or guarantee of the accuracy or completeness of information in this document.
--- NOTE | 2025-08-30 17:24 | STRESSREP_ITS ---
Stress Test Report Exercise myocardial perfusion stress test. 74-year-old lady with a history of chest pain. Stress protocol: Resting EKG demonstrates normal sinus rhythm with a rate of 62 bpm resting blood pressure is 136/80 mmHg. The patient exercised according to the regular Jose protocol for a total duration of 3-1/2 minutes attaining a maximum heart rate of 129 bpm which was 87% of maximum predicted heart rate; the maximum workload was 4.6 metabolic equivalents. At rest there were no ST or T wave changes noted to suggest ischemia and at peak exercise upsloping ST changes only were noted which did not meet the criteria for ischemia. No clinical angina was noted the test was terminated due to the target heart rate being achieved/fatigue. The peak blood pressure was 160/70 mmHg. Rate-pressure product was 18,400. Myocardial perfusion protocol. 11.9 mCi of technetium 99m sestamibi was injected at rest. The patient exercised according to regular Jose protocol for total duration of 3-1/2 minutes and at peak exercise 34.1 mCi of technetium 99m sestamibi was injected stress images were obtained stress and rest images were reconstructed in comparing the short axis vertical long and horizontal long axis. Gated images were also obtained. Perfusion SPECT analysis: Review of the stress images demonstrate normal uptake of tracer noted in all a reas of the myocardium. The resting images similarly demonstrate normal uptake of tracer noted in all areas of the myocardium. No areas of reversibility are noted to suggest ischemia no previous infarct was noted. Gated SPECT analysis: The gated ejection fraction is 83%. Conclusion: Normal exercise myocardial perfusion stress test at a low workload.
== END | disposition home or self-care (01) ==
LOC: CVS 06:55
PROVIDERS: PCP Internal Medicine; Referring Provider Physician Assistant Medical; Visit Provider Physician Assistant Medical
DX: R07.9 Chest pain, unspecified (principal); Z95.5 Presence of coronary angioplasty implant and graft
CPT/HCPCS: 78452; 93017; A9500; A4216